=== PATIENT | female | born 1970 | race Caucasian/White ===

== ENCOUNTER 2016-11-17 18:50 | Emergency (ER) | payer OTHER ==
[~2016-11-17] VITALS: Ht 158.8 cm; Wt 54.4 kg
[~2016-11-17 18:50] MED LIST: ACHD5005 PO; ACID1TAB5 PO; AMIT50TA3 PO; AMOX500C2 PO; B12 SHOT; BIRTH CONTROL PILL; BIRTH CONTROL PO; BRINTELLIX; BSP10T PO; CALC-172 PO; CITA10TA70 PO; CITA40TA19 PO; CLON0.123; CLON0.5T3 PO; CLON0.5T60 PO; CLON1TAB2 PO; CRS350T PO; CYCL10TA9 PO; Calcium PO; DIPH25CA79 PO; DULO30CA3 PO; DULO60CA6 PO; DVL500TSR PO; FAMO-119 PO; FAMO20TA5 PO; FLC1T PO; FLUV100T3 PO; FOLI0.4T2 PO; FOLIC; Folic Acid; Folic Acid PO; GABA800T PO; GBPN100C PO; HCT25T PO; HYDR-2890 PO; HYDR-690 PO; HYDR1TAB PO; HYDR1TAB8 OP; HYOS0.1217 PO; IBP600T1 PO; IBP800T PO; LEVO500T69 PO; LISI10TA PO; LISINOPRIL; LORA-794 PO; LORA1TAB PO; METO-333 PO; METO25TA2 PO; MULT1CAP27 PO; NAPR-243 PO; NAPR250T PO; NAPR500T PO; NAPR550T PO; NF-ESOM40C PO; NITR-65 PO; NORG1TAB6 PO; OMEP20CA6 PO; OMEP40CA36 PO; ONDAN4ODT PO; PANT20TA2 PO; PNT40TEC; PNT40TEC PO; POTA99TA7; POTA99TA7 PO; PREN1TAB39 PO; PRM25T PO; Potassium; QTP25T PO; QUET50TA43 PO; RISP4TAB PO; RNT150T PO; RSP2T PO; SERT20OR PO; SERT50TA PO; SUCR1TAB36 PO; TRAM50TA2 PO; TRAZ150T42 PO; VIT B1; VIT B12; VITA150T PO; VITA1TAB16 PO; VITA1TAB74 PO; [UNRECOGNIZED DRUG - OTHER]; [UNRECOGNIZED DRUG - REMARK]; depakote
[2016-11-17 20:24] LABS: BILIRUBIN,URINE NEGATIVE (NEGATIVE); KETONES,URINE 1+ (NEGATIVE); LEUKOCYTE ESTERASE ,URINE NEGATIVE (NEGATIVE); NITRITE,URINE NEGATIVE (NEGATIVE); PH,URINE 5 (5-9); PROTEIN,URINE 2+ (NEGATIVE); UROBILINOGEN,URINE 1 MG/DL (NORMAL)
[2016-11-17] MEDS: NS IV 1000 ML 1,000 ML IV ONE (20:30)
[2016-11-17] MEDS ORDERED: DIAZEPAM INJ 10 MG/2 ML (VALIUM) SYR IV ONE (20:30)
[2016-11-17 20:31] LABS: BASOPHILS % (AUTO) 1 % (0-10); EOSINOPHILS % (AUTO) 0 % (0-10); LYMPHOCYTES # (AUTO) 1.1 X 10^3 (1.0-4.0); LYMPHOCYTES % (AUTO) 18 % (12-44); MEAN CORPUSCULAR HEMOGLOBIN 34 PG (25-34); MEAN CORPUSCULAR HGB CONC 36 G/DL (32-36); MEAN CORPUSCULAR VOLUME 97 FL (80-99); MEAN PLATELET VOLUME 10.1 FL (7.4-10.4); MONOCYTES # (AUTO) 0.6 X 10^3 (0.0-1.0); MONOCYTES % (AUTO) 9 % (0-12); NEUTROPHILS # (AUTO) 4.4 X 10^3 (1.8-7.8); NEUTROPHILS % (AUTO) 72 % (42-75); PLATELET COUNT 195 10^3/uL (130-400); RED BLOOD COUNT 4.23 10^6/uL (4.35-5.85); RED CELL DISTRIBUTION WIDTH 13.5 % (10.0-14.5)
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
[2016-11-17 20:53] LABS: ALANINE AMINOTRANSFERASE 18 U/L (0-55); ALBUMIN 4.1 G/DL (3.2-4.5); ANION GAP 20 MMOL/L (5-14); ASPARTATE AMINO TRANSFERASE 41 U/L (5-34); BILIRUBIN,TOTAL 0.6 MG/DL (0.1-1.0); BLOOD UREA NITROGEN 10 MG/DL (7-18); BUN/CREATININE RATIO 14; CALCIUM 8.9 MG/DL (8.5-10.1); CARBON DIOXIDE 15 MMOL/L (21-32); CHLORIDE 105 MMOL/L (98-107); CREATININE SERUM 0.71 MG/DL (0.60-1.30); GFR ESTIMATED > 60; GLUCOSE 91 MG/DL (70-105); POTASSIUM 3.9 MMOL/L (3.6-5.0); SODIUM 140 MMOL/L (135-145)
[2016-11-17] MEDS ORDERED: NS IV 1000 ML 1,000 ML IV ONE (21:34)
[2016-11-17] MEDS ORDERED: LORA-407 PO (21:59)
[2016-11-17] MEDS ORDERED: LORazepam INJ 2 MG/ML (ATIVAN) VIAL IVP ONE (22:00)
[2016-11-17 22:45] VITALS: BP 160/98
== END 2016-11-17 22:45 | disposition home or self-care (01) ==
LOC: EDUNIT# 18:50 → ER 18:52
DX: F10.239 Alcohol dependence with withdrawal, unspecified (principal); F12.90 Cannabis use, unspecified, uncomplicated; F41.9 Anxiety disorder, unspecified
CPT/HCPCS: 36415; 80053; 80306; 80320; 81000; 85025; 93005; 96361; 96374; 96375

== ENCOUNTER → 2017-01-20 | Outpatient (CLI) | payer OTHER ==
[~2017-01-20] MED LIST changes: +LORA-407 PO
--- NOTE | 2017-01-21 20:02 | Diagnostic Imaging Report ---
Digital mammogram bilateral screening. This is the patient's baseline study. At this time, there are no current complaints. The current study was also evaluated with a Computer Aided Detection (CAD) system. FINDINGS: The fibroglandular tissue in both breasts is dense. This does limit the sensitivity of this exam. There is no primary or secondary sign of malignancy noted. IMPRESSION: 1. There is no evidence for malignancy. 2. The patient should have her annual bilateral screening mammogram on schedule in January of 2018. ACR BI-RADS Category 1: Negative. Result letter will be mailed to the patient. Note: At least 10% of breast cancer is not imaged by mammography. Dictated by: Dictated on workstation # [id number]
== END ==
LOC: RAD 09:59
PROVIDERS: ATTEND Nurse Practitioner Adult Health
DX: Z12.31 Encounter for screening mammogram for malignant neoplasm of breast (principal)
CPT/HCPCS: 77067

== ENCOUNTER 2017-04-23 23:25 | Inpatient (IN) | payer OTHER ==
[~2017-04-23] VITALS: Ht 157.5 cm; Wt 72.6 kg
[2017-04-23] MEDS ORDERED: NS IV 1000 ML 1,000 ML IV ONE (23:44)
[2017-04-24 00:16] LABS: BASOPHILS % (AUTO) 0 % (0-10); EOSINOPHILS # (AUTO) 1.1 10^3/uL (0.0-0.3); EOSINOPHILS % (AUTO) 9 % (0-10); LYMPHOCYTES # (AUTO) 1.8 X 10^3 (1.0-4.0); LYMPHOCYTES % (AUTO) 15 % (12-44); MEAN CORPUSCULAR HEMOGLOBIN 34 PG (25-34); MEAN CORPUSCULAR HGB CONC 34 G/DL (32-36); MEAN CORPUSCULAR VOLUME 102 FL (80-99); MEAN PLATELET VOLUME 10.2 FL (7.4-10.4); MONOCYTES # (AUTO) 0.9 X 10^3 (0.0-1.0); MONOCYTES % (AUTO) 7 % (0-12); NEUTROPHILS # (AUTO) 8.2 X 10^3 (1.8-7.8); NEUTROPHILS % (AUTO) 68 % (42-75); PLATELET COUNT 362 10^3/uL (130-400); RED BLOOD COUNT 4.01 10^6/uL (4.35-5.85); RED CELL DISTRIBUTION WIDTH 12.3 % (10.0-14.5)
[2017-04-24 00:20] LABS: KETONES,URINE 1+ (NEGATIVE); LEUKOCYTE ESTERASE ,URINE 1+ (NEGATIVE); NITRITE,URINE NEGATIVE (NEGATIVE); PH,URINE 5 (5-9); PROTEIN,URINE 1+ (NEGATIVE); UROBILINOGEN,URINE 1 MG/DL (NORMAL)
[2017-04-24 00:31] LABS: ALANINE AMINOTRANSFERASE 8 U/L (0-55); ALBUMIN 3.9 G/DL (3.2-4.5); AMYLASE 136 U/L (25-125); ANION GAP 14 MMOL/L (5-14); ASPARTATE AMINO TRANSFERASE 14 U/L (5-34); BILIRUBIN,TOTAL 0.7 MG/DL (0.1-1.0); BLOOD UREA NITROGEN 8 MG/DL (7-18); BUN/CREATININE RATIO 11; CALCIUM 10.1 MG/DL (8.5-10.1); CARBON DIOXIDE 21 MMOL/L (21-32); CHLORIDE 104 MMOL/L (98-107); CREATININE SERUM 0.74 MG/DL (0.60-1.30); GFR ESTIMATED > 60; GLUCOSE 118 MG/DL (70-105); LIPASE 112 U/L (8-78); POTASSIUM 3.6 MMOL/L (3.6-5.0); SODIUM 139 MMOL/L (135-145); TOTAL PROTEIN 7.5 G/DL (6.4-8.2)
[2017-04-24 00:32] LABS: BILIRUBIN,URINE NEGATIVE (NEGATIVE); SQUAMOUS EPITHELIAL CELL,UR 25-50 /HPF; WBC,URINE 0-2 /HPF
[2017-04-24 00:33] LABS: ALCOHOL < 10 MG/DL (<10)
[2017-04-24] MEDS ORDERED: fentaNYL INJECTION 100 MCG/2 ML AMP IVP STA ×2 (00:51→02:36)
[2017-04-24] MEDS ORDERED: KETOROLAC 30 MG/ML VIAL IVP STA (00:51)
--- NOTE | 2017-04-24 00:53 | ED Abdominal Pain ---
General Stated Complaint: PANCREATIC PAIN Source of Information: Patient Exam Limitations: No Limitations History of Present Illness Time Seen By Provider: 00:30 Initial Comments Here with report of epigastric pain that has worsened over the last 2 days. Admits to drinking 8 beers on Friday (3 days ago). Has history of pancreatitis. States that every time she eats or drinks she gets nauseated and/ or severe pain. This is occurring even with water. Denies diarrhea. Denies fever or chills. Timing/Duration: 2-3 Days Severity/Quality: Moderate, Aching Location: Epigastric Radiation: RUQ, LUQ Activities at Onset: None Modifying Factors: Worsens With Eating, Improves With Resting Associated Symptoms: No Back Pain, No Chest Pain, No Fever/Chills, Nausea/ Vomiting, No Shortness of Air, No Swelling/Mass in Abdomen, No Weakness Allergies and Home Medications Allergies Coded Allergies: No Known Drug Allergies (Verified , 02/14/09) Home Medications Lorazepam 2 Mg Tablet, 2 MG PO Q6H, #12 Ref 0 Prescribed by: BRIANNA BERMEO on 11/17/16 2159 Review of Systems Constitutional: see HPI, No chills, No fever EENTM: No Symptoms Reported Respiratory: No Symptoms Reported Cardiovascular: No Symptoms Reported Gastrointestinal: See HPI, Abdominal Pain, Denies Diarrhea, Nausea, Denies Vomiting Genitourinary: No Symptoms Reported Musculoskeletal: no symptoms reported Skin: no symptoms reported All Other Systems Reviewed Negative Unless Noted: Yes Past Uenaywf-Uabbzr-Hppzom Hx Patient Social History Alcohol Use: Occasionally Uses Recreational Drug Use: Yes Drug of Choice: marjuana Smoking Status: Current Everyday Smoker Type Used: Cigarettes Recent Foreign Travel: No Contact w/Someone Who Travel: No Recent Hopitalizations: No Immunizations Up To Date Tetanus Booster (TDap): Unknown PED Vaccines UTD: No Date of Pneumonia Vaccine: Aug 17, 2011 Date of Influenza Vaccine: Aug 15, 2016 Seasonal Allergies Seasonal Allergies: No Surgeries HX Surgeries: Yes ( X 1) Surgeries: Section Respiratory Hx Respiratory Disorders: No Cardiovascular Hx Cardiac Disorders: Yes ("USED TO HAVE HTN") Neurological Hx Neurological Disorders: Yes (WITHDRAWAL SEIZURES IN PAST) Reproductive System Hx Reproductive Disorders: No Female Reproductive Disorders: Denies Genitourinary Hx Genitourinary Disorders: No Gastrointestinal Hx Gastrointestinal Disorders: Yes Gastrointestinal Disorders: Gastroesophageal Reflux, Pancreatitis Musculoskeletal Hx Musculoskeletal Disorders: No Endocrine Hx Endocrine Disorders: No HEENT HX ENT Disorders: No Cancer Hx Cancer: No Psychosocial Hx Psychiatric Problems: Yes (EXTENSIVE, MULTIPLE PSYCH ADMITS. ) Behavioral Health Disorders: Anxiety, Suicide Attempts, Bipolar, Depression Integumentary HX Skin/Integumentary Disorder: No Blood Transfusions Hx Blood Disorders: No Reviewed Nursing Assessment Reviewed/Agree w Nursing PMH: Yes Family Medical History Significant Family History: No Pertinent Family Hx Family Medial History: Patient reports no known family medical history. Physical Exam Vital Signs VS - Last 72 Hours, by Label 04/23/17 04/24/17 04/24/17 23:43 01:18 01:18 Temp 98.6 98.6 98.6 Pulse 91 Resp 20 B/P (MAP) 173/101 Pulse Ox 98 O2 Delivery Room Air Capillary Refill : General Appearance: WD/WN, mild distress HEENT: PERRL/EOMI, pharynx normal Neck: full range of motion, supple Respiratory: lungs clear, normal breath sounds Cardiovascular: regular rate, rhythm, no murmur Gastrointestinal: non tender, soft Extremities: non-tender, normal inspection Back: normal inspection, no CVA tenderness, no vertebral tenderness Neurologic/Psychiatric: alert, oriented x 3 Skin: normal color, warm/dry Progress/Results/Core Measures Results/Orders Lab Results Laboratory Tests Test 04/23/17 00:11 04/24/17 00:00 Range/Units Urine Color ERLINDA H Urine Clarity CLEAR Urine pH 5 5-9 Urine Specific Cornish 1.025 H 1.016-1.022 Urine Protein 1+ H NEGATIVE Urine Glucose (UA) NEGATIVE NEGATIVE Urine Ketones 1+ H NEGATIVE Urine Nitrite NEGATIVE NEGATIVE Urine Bilirubin NEGATIVE NEGATIVE Urine Urobilinogen 1 NORMAL MG/DL Urine Leukocyte Esterase 1+ H NEGATIVE Urine RBC (Auto) 2+ H NEGATIVE Urine RBC 2-5 H /HPF Urine WBC 0-2 /HPF Urine Squamous Epithelial Cells 25-50 H /HPF Urine Crystals NONE /LPF Urine Bacteria FEW H /HPF Urine Casts NONE /LPF Urine Mucus MODERATE H /LPF Urine Culture Indicated NO Urine Opiates Screen NEGATIVE NEGATIVE Urine Oxycodone Screen NEGATIVE NEGATIVE Urine Methadone Screen NEGATIVE NEGATIVE Urine Propoxyphene Screen NEGATIVE NEGATIVE Urine Barbiturates Screen NEGATIVE NEGATIVE Ur Tricyclic Antidepressants Screen NEGATIVE NEGATIVE Urine Phencyclidine Screen NEGATIVE NEGATIVE Urine Amphetamines Screen NEGATIVE NEGATIVE Urine Methamphetamines Screen NEGATIVE NEGATIVE Urine Benzodiazepines Screen NEGATIVE NEGATIVE Urine Cocaine Screen NEGATIVE NEGATIVE Urine Cannabinoids Screen POSITIVE H NEGATIVE White Blood Count 12.0 H 4.3-11.0 10^3/uL Red Blood Count 4.01 L 4.35-5.85 10^6/uL Hemoglobin 13.8 11.5-16.0 G/DL Hematocrit 41 35-52 % Mean Corpuscular Volume 102 H 80-99 FL Mean Corpuscular Hemoglobin 34 25-34 PG Mean Corpuscular Hemoglobin Concent 34 32-36 G/DL Red Cell Distribution Width 12.3 10.0-14.5 % Platelet Count 362 130-400 10^3/uL Mean Platelet Volume 10.2 7.4-10.4 FL Neutrophils (%) (Auto) 68 42-75 % Lymphocytes (%) (Auto) 15 12-44 % Monocytes (%) (Auto) 7 0-12 % Eosinophils (%) (Auto) 9 0-10 % Basophils (%) (Auto) 0 0-10 % Neutrophils # (Auto) 8.2 H 1.8-7.8 X 10^3 Lymphocytes # (Auto) 1.8 1.0-4.0 X 10^3 Monocytes # (Auto) 0.9 0.0-1.0 X 10^3 Eosinophils # (Auto) 1.1 H 0.0-0.3 10^3/uL Basophils # (Auto) 0.0 0.0-0.1 10^3/uL Sodium Level 139 135-145 MMOL/L Potassium Level 3.6 3.6-5.0 MMOL/L Chloride Level 104 98-107 MMOL/L Carbon Dioxide Level 21 21-32 MMOL/L Anion Gap 14 5-14 MMOL/L Blood Urea Nitrogen 8 7-18 MG/DL Creatinine 0.74 0.60-1.30 MG/DL Estimat Glomerular Filtration Rate > 60 BUN/Creatinine Ratio 11 Glucose Level 118 H 70-105 MG/DL Calcium Level 10.1 8.5-10.1 MG/DL Total Bilirubin 0.7 0.1-1.0 MG/DL Aspartate Amino Transf (AST/SGOT) 14 5-34 U/L Alanine Aminotransferase (ALT/SGPT) 8 0-55 U/L Alkaline Phosphatase 60 40-136 U/L Total Protein 7.5 6.4-8.2 G/DL Albumin 3.9 3.2-4.5 G/DL Amylase Level 136 H 25-125 U/L Lipase 112 H 8-78 U/L Serum Alcohol < 10 <10 MG/DL My Orders Orders - MARICHUY BRYANT MD Alcohol (04/23/17 23:44) Amylase (04/23/17 23:44) Cbc With Automated Diff (04/23/17 23:44) Comprehensive Metabolic Panel (04/23/17 23:44) Drug Screen Stat (Urine) (04/23/17 23:44) Lipase (04/23/17 23:44) Ua Culture If Indicated (04/23/17 23:44) Saline Lock/Iv-Start (04/23/17 23:44) Ns Iv 1000 Ml (Sodium Chloride 0.9%) (04/23/17 23:44) Ondansetron Injection (Zofran Injectio (04/24/17 01:00) Fentanyl Injection (Sublimaze Injection (04/24/17 00:51) Ketorolac Injection (Toradol Injection) (04/24/17 00:51) Ct Abdomen/Pelvis W (04/24/17 00:53) Iohexol Injection (Omnipaque 350 Mg/Ml 1 (04/24/17 01:45) Ns (Ivpb) (Sodium Chloride 0.9% Ivpb Bag (04/24/17 01:45) Medications Given in ED Current Medications Medications Dose Ordered Sig/Imelda Route Start Time Stop Time Status Last Admin Dose Admin Iohexol 100 ml ONCE ONCE IV 04/24/17 01:45 04/24/17 01:53 DC 04/24/17 01:46 100 ML Ondansetron HCl 4 mg ONCE ONCE IVP 04/24/17 01:00 04/24/17 01:01 DC 04/24/17 01:18 4 MG Sodium Chloride 80 ml ONCE ONCE IV 04/24/17 01:45 04/24/17 01:53 DC 04/24/17 01:46 80 ML Sodium Chloride 1,000 ml @ 0 mls/hr Q0M ONCE IV 04/23/17 23:44 04/23/17 23:46 DC 04/24/17 00:08 999 MLS/HR Vital Signs/I&O Vital Sign - Last 12Hours 04/23/17 04/24/17 04/24/17 23:43 01:18 01:18 Temp 98.6 98.6 98.6 Pulse 91 Resp 20 B/P (MAP) 173/101 Pulse Ox 98 O2 Delivery Room Air Progress Note : Progress Note Seen and evaluated. IV, labs, UA, normal saline 1 L bolus. Monitor patient. Fentanyl 50 g IV, Zofran 4 mg IV and Toradol 30 mg IV given for pain. CT abdomen and pelvis ordered. Monitor patient. 0220: I discussed the case with Dr. Chapin. Patient has fairly significant pancreatitis noted on CT scan. Admit , inpatient status. Patient has return of pain currently. Fentanyl 75 g IV ordered. Patient agrees to admission. Diagnostic Imaging Diagonstic Imaging: CT Plain Films/CT/US/NM/MRI: abdomen, pelvis Comments Findings consistent with acute pancreatitis centered within the head and uncinate process where there is around 11-12 mm low density focus that may be a small pseudocyst. There is diffuse. Pain creatinine stranding, edema and small amounts of fluid including within the lesser sac where there is some localized mass effect upon the distal stomach and duodenal C-loop. There may be also slight narrowing of the SMV just below the portal splenic confluence without evidence of occlusion. Small volume of free fluid dependently in the pelvis. Incidental findings of small amount of fluid seen along with fat in the midline ventral wall hernia midway between the xiphoid and umbilicus. 2.4 cm lesion in the posterior segment right hepatic lobe most likely a hemangioma. No evidence of intestinal obstruction, appendicitis or free air. Per statrad read. Reviewed: Reviewed [place] Hawk Study, Reviewed by Me Departure Communication Time/Spoke to Admitting Phy: 02:18 Impression Impression: Primary Impression: Pancreatitis Qualified Codes: K85.20 - Alcohol induced acute pancreatitis without necrosis or infection Disposition: ADMITTED INPATIENT Condition: Stable Decision to Admit Reason: Admit from ER (General) Decision to Admit/Date: Apr 24, 2017 Time/Decision to Admit Time: 02:18 Departure-Patient Inst. Referrals: BAROTLO ZIMMERMAN MD (PCP) Primary Care Physician [facility] (Family) Primary Care Physician MARICHUY BRYANT MD Apr 24, 2017 00:53
[2017-04-24] MEDS ORDERED: ONDANSETRON 4 MG/2 ML (SDV) Z0FRAN IVP ONE (01:00)
[2017-04-24] MEDS ORDERED: NS 100 ML (IVPB) BAG IV ONE (01:45)
[2017-04-24] MEDS ORDERED: IOHEXOL 350 MG/ML 100 ML (OMNIPAQUE 350) VIAL IV ONE (01:45)
[2017-04-24 03:27] VITALS: BP 143/82
[2017-04-24] MEDS ORDERED: ONDANSETRON 4 MG/2 ML (SDV) Z0FRAN IVP PRN (04:30)
[2017-04-24] MEDS: fentaNYL INJECTION 100 MCG/2 ML AMP IVP PRN ×6 (04:34→21:43)
--- NOTE | 2017-04-24 07:35 | Diagnostic Imaging Report ---
PROCEDURE: CT abdomen and pelvis with contrast. TECHNIQUE: Multiple contiguous axial images were obtained through the abdomen and pelvis after administration of intravenous contrast. INDICATION: Upper abdominal pain. FINDINGS: Lung bases are clear. Liver appears normal. Gallbladder is present. Spleen is not enlarged. There is food residue in stomach. Kidneys and adrenals appear normal. The pancreas is edematous with surrounding induration consistent acute pancreatitis. There is a small supraumbilical ventral hernia. There is a small amount of fluid in the cul-de-sac. Uterus is present. Urinary bladder is unremarkable. IMPRESSION: Acute pancreatitis. Small amount of ascites. Agree with preliminary interpretation. Dictated by: Dictated on workstation # [id number]
[2017-04-24] MEDS ORDERED: CATHETER FLUSH 10 ML SYR IV PRN (07:45)
[2017-04-24 08:19] VITALS: BP 144/91
[2017-04-24] MEDS ORDERED: NORG1TAB6 PO (09:09)
[2017-04-24] MEDS ORDERED: MIRT30TA6 PO (09:09)
[2017-04-24] MEDS ORDERED: OMEP40CA36 PO (09:09)
[2017-04-24] MEDS ORDERED: MULT-35 PO (09:11)
[2017-04-24] MEDS ORDERED: CALC-654 PO (09:11)
[2017-04-24] MEDS ORDERED: CYAN10006 PO (09:11)
[2017-04-24] MEDS ORDERED: MAGN400C PO (09:11)
[2017-04-24] MEDS ORDERED: ASPI-992 PO (09:11)
[2017-04-24] MEDS: NS IV 1000 ML 1,000 ML IV SCH ×3 (09:26→18:45)
--- NOTE | 2017-04-24 11:43 | History & Physicial (CHS) ---
HPI History of Present Illness: 46 yo F with h/o acute pancreatitis multiple times that presents with pain and symptoms consistent with pancreatitis overnight. States that she has been a heavy drinker in the past with vodka and has had multiple hospitalizations for pancreatitis. She has not been hospitalized since 2011. She started having abdominal pain after drinking 12 beers on Friday. States that she was having a lot of nausea. Unable to tolerate PO. Denies any diarrhea or blood in stool Source: patient, RN/MD Exam Limitations: no limitations Date seen by provider: Apr 24, 2017 Time Seen by Provider: 10:00 Attending Physician Joan Chapin MD PCP Renzo Zimmerman MD Consult Date of Admission Apr 24, 2017 at 02:25 Home Medications Home Medications Reviewed patient Home Medication Reconciliation Form Allergies Coded Allergies: No Known Drug Allergies (Verified , 02/14/09) IEJ-[id number]-Adihvd Hx Patient Social History Alcohol Use: Occasionally Uses Recreational Drug Use: Yes Drug of Choice: marjuana Smoking Status: Current Everyday Smoker Type Used: Cigarettes 2nd Hand Smoke Exposure: Yes Recent Foreign Travel: No Contact w/other who traveled: No Recent Hopitalizations: No Recent Infectious Disease Expo: No Physical Abuse Screen: No Sexual Abuse: No Immunizations Up To Date Tetanus Booster (TDap): Unknown Date of Pneumonia Vaccine: Aug 17, 2011 Date of Influenza Vaccine: Aug 15, 2016 Past Medical History PMHx: Alcoholism h/o Pancreatitis that required Hospitalization Family Medical History Significant Family History: No Pertinent Family Hx Family History: Patient reports no known family medical history. Review of Systems ([facility]C) Date Seen by Provider: Apr 24, 2017 Time Seen by Provider: 10:00 Constitutional: No fever, malaise, weakness EENTM: no symptoms reported Respiratory: no symptoms reported, No cough, No dyspnea on exertion, No short of breath Cardiovascular: no symptoms reported, No chest pain, No edema, No palpitations Gastrointestinal: abdominal pain (epigastric), No constipation, No diarrhea, heartburn, loss of appetite, nausea Genitourinary: no symptoms reported, No dysuria, No frequency, No hematuria : No Musculoskeletal: no symptoms reported Skin: no symptoms reported Psychiatric/Neurological: Anxiety Reviewed Test Results Reviewed Test Results Lab Laboratory Tests Test 04/24/17 00:00 Range/Units White Blood Count 12.0 H 4.3-11.0 10^3/uL Red Blood Count 4.01 L 4.35-5.85 10^6/uL Hemoglobin 13.8 11.5-16.0 G/DL Hematocrit 41 35-52 % Mean Corpuscular Volume 102 H 80-99 FL Mean Corpuscular Hemoglobin 34 25-34 PG Mean Corpuscular Hemoglobin Concent 34 32-36 G/DL Red Cell Distribution Width 12.3 10.0-14.5 % Platelet Count 362 130-400 10^3/uL Mean Platelet Volume 10.2 7.4-10.4 FL Neutrophils (%) (Auto) 68 42-75 % Lymphocytes (%) (Auto) 15 12-44 % Monocytes (%) (Auto) 7 0-12 % Eosinophils (%) (Auto) 9 0-10 % Basophils (%) (Auto) 0 0-10 % Neutrophils # (Auto) 8.2 H 1.8-7.8 X 10^3 Lymphocytes # (Auto) 1.8 1.0-4.0 X 10^3 Monocytes # (Auto) 0.9 0.0-1.0 X 10^3 Eosinophils # (Auto) 1.1 H 0.0-0.3 10^3/uL Basophils # (Auto) 0.0 0.0-0.1 10^3/uL Sodium Level 139 135-145 MMOL/L Potassium Level 3.6 3.6-5.0 MMOL/L Chloride Level 104 98-107 MMOL/L Carbon Dioxide Level 21 21-32 MMOL/L Anion Gap 14 5-14 MMOL/L Blood Urea Nitrogen 8 7-18 MG/DL Creatinine 0.74 0.60-1.30 MG/DL Estimat Glomerular Filtration Rate > 60 BUN/Creatinine Ratio 11 Glucose Level 118 H 70-105 MG/DL Calcium Level 10.1 8.5-10.1 MG/DL Total Bilirubin 0.7 0.1-1.0 MG/DL Aspartate Amino Transf (AST/SGOT) 14 5-34 U/L Alanine Aminotransferase (ALT/SGPT) 8 0-55 U/L Alkaline Phosphatase 60 40-136 U/L Total Protein 7.5 6.4-8.2 G/DL Albumin 3.9 3.2-4.5 G/DL Amylase Level 136 H 25-125 U/L Lipase 112 H 8-78 U/L Serum Alcohol < 10 <10 MG/DL Radiology of Exam: 06/08/17 CT ABDOMEN/PELVIS W PROCEDURE: CT abdomen and pelvis with contrast. TECHNIQUE: Multiple contiguous axial images were obtained through the abdomen and pelvis after administration of intravenous contrast. INDICATION: Upper abdominal pain. FINDINGS: Lung bases are clear. Liver appears normal. Gallbladder is present. Spleen is not enlarged. There is food residue in stomach. Kidneys and adrenals appear normal. The pancreas is edematous with surrounding induration consistent acute pancreatitis. There is a small supraumbilical ventral hernia. There is a small amount of fluid in the cul-de-sac. Uterus is present. Urinary bladder is unremarkable. IMPRESSION: Acute pancreatitis. Small amount of ascites. Agree with preliminary interpretation. Physical Exam-([facility]C) Physical Exam Vital Signs VS - Last 72 Hours, by Label 04/23/17 04/24/17 04/24/17 04/24/17 23:43 01:18 01:18 02:42 Temp 98.6 98.6 98.6 98.6 Pulse 91 Resp 20 B/P (MAP) 173/101 Pulse Ox 98 O2 Delivery Room Air 04/24/17 04/24/17 04/24/17 04/24/17 03:00 03:27 08:19 12:27 Temp 98.6 97.8 98.0 98.4 Pulse 87 82 76 70 Resp 20 18 16 14 B/P (MAP) 143/82 144/91 170/93 Pulse Ox 98 98 96 98 Capillary Refill : Less Than 3 Seconds General Appearance: WD/WN, no apparent distress HEENT: PERRL/EOMI Neck: non-tender, full range of motion, supple, normal inspection Respiratory: chest non-tender, lungs clear, normal breath sounds, no respiratory distress, no accessory muscle use Cardiovascular: normal peripheral pulses, regular rate, rhythm, no edema, no gallop, no JVD, no murmur Gastrointestinal: normal bowel sounds, soft, distended (mild), tenderness ( epigastric), No hepatomegaly, No spleenomegaly Back: normal inspection, no CVA tenderness Extremities: normal range of motion, non-tender, no pedal edema, no calf tenderness, normal capillary refill Neurologic/Psychiatric: taxicab dispatcher II-XII nml as tested, no motor/sensory deficits, alert, normal mood/affect, oriented x 3 Skin: normal color, warm/dry Lymphatic: no adenopathy Assessment/Plan Assessment/Plan Plan 46 yo F admitted for acute pancreatitis Plan Acute Pancreatitis due to alcohol use - CLD, aggressive fluid hydration - Start PO pain medication for better pain control - Discussed importance of alcohol cessation HTN - Likely 2/2 to coming off alcohol, will continue to monitor - If remains elevated tomorrow will start treatment Alcohol Abuse - Discussed need for cessation - Offered outpatient treatment at [facility] DVT PPX: Lovenox FEN: CLD Dispo: Continue admit as patient is not tolerating PO diet and is still having pain, Will likely d/c home tomorrow if improving Diagnosis/Problems: Clinical Quality Measures DVT/VTE Risk/Contraindication: Risk Factor Score Per Nursin RFS Level Per Nursing on Admit: 2=Moderate Copy Copies To 1: RENZO ZIMMERMAN MD, HOLLY R MD Apr 24, 2017 11:43
[2017-04-24] MEDS: HYDROcodone/APAP 5 MG/325 MG (LORTAB) TAB PO PRN ×2 (11:49→16:18)
[2017-04-24 12:27] VITALS: BP 170/93
[2017-04-24] MEDS ORDERED: ENOXAPARIN 40 MG/0.4 ML (LOVENOX) SYR SC SCH (15:15)
[2017-04-24 16:00] VITALS: BP 138/85
[2017-04-24 19:35] VITALS: BP 141/80
[2017-04-24] MEDS ORDERED: MIRTAZAPINE 15 MG (REMERON) TAB PO PRN (21:00)
[2017-04-25] VITALS: BP 137/70
[2017-04-25] MEDS: fentaNYL INJECTION 100 MCG/2 ML AMP IVP PRN ×4 (00:05→07:50)
[2017-04-25 05:00] VITALS: BP 142/91
[2017-04-25 05:09] LABS: BASOPHILS % (AUTO) 0 % (0-10); EOSINOPHILS # (AUTO) 0.7 10^3/uL (0.0-0.3); EOSINOPHILS % (AUTO) 8 % (0-10); LYMPHOCYTES # (AUTO) 1.5 X 10^3 (1.0-4.0); LYMPHOCYTES % (AUTO) 17 % (12-44); MEAN CORPUSCULAR HEMOGLOBIN 35 PG (25-34); MEAN CORPUSCULAR HGB CONC 33 G/DL (32-36); MEAN CORPUSCULAR VOLUME 104 FL (80-99); MEAN PLATELET VOLUME 10.1 FL (7.4-10.4); MONOCYTES # (AUTO) 0.7 X 10^3 (0.0-1.0); MONOCYTES % (AUTO) 8 % (0-12); NEUTROPHILS # (AUTO) 5.8 X 10^3 (1.8-7.8); NEUTROPHILS % (AUTO) 66 % (42-75); PLATELET COUNT 259 10^3/uL (130-400); RED BLOOD COUNT 3.28 10^6/uL (4.35-5.85); RED CELL DISTRIBUTION WIDTH 12.1 % (10.0-14.5); WHITE BLOOD COUNT 8.8 10^3/uL (4.3-11.0)
[2017-04-25] MEDS: NS IV 1000 ML 1,000 ML IV SCH (05:27)
[2017-04-25 05:39] LABS: ALANINE AMINOTRANSFERASE 6 U/L (0-55); ALBUMIN 3.1 G/DL (3.2-4.5); ANION GAP 12 MMOL/L (5-14); ASPARTATE AMINO TRANSFERASE 12 U/L (5-34); BILIRUBIN,TOTAL 0.5 MG/DL (0.1-1.0); BLOOD UREA NITROGEN 5 MG/DL (7-18); BUN/CREATININE RATIO 8; CALCIUM 8.1 MG/DL (8.5-10.1); CARBON DIOXIDE 19 MMOL/L (21-32); CHLORIDE 107 MMOL/L (98-107); GFR ESTIMATED > 60; GLUCOSE 73 MG/DL (70-105); POTASSIUM 3.4 MMOL/L (3.6-5.0); SODIUM 138 MMOL/L (135-145); TOTAL PROTEIN 5.9 G/DL (6.4-8.2)
[2017-04-25] MEDS ORDERED: PANTOPRAZOLE 40 MG (PROTONIX) TAB PO SCH (07:00)
[2017-04-25] MEDS ORDERED: CYANOCOBALAMIN 500 MCG TAB (VITAMIN B-12) PO SCH (07:00)
[2017-04-25] MEDS ORDERED: MULTIVIT W/MINERALS TAB (THERAGRAN M) PO SCH (07:00)
[2017-04-25 08:53] VITALS: BP 167/89
[2017-04-25] MEDS ORDERED: KCL 20 MEQ TAB (K-DUR) PO NR (09:44)
[2017-04-25] MEDS: HYDROcodone/APAP 5 MG/325 MG (LORTAB) TAB PO PRN (10:16)
[2017-04-25] MEDS ORDERED: OXYC-197 PO (11:35)
--- NOTE | 2017-04-25 11:38 | Discharge Instructions ---
Discharge [facility] Discharge Medications New, Converted or Re-Newed RX: RX on Chart New Medications: Oxycodone HCl/Acetaminophen (Percocet 5-325 mg Tablet) 1 Each Tablet 1 EACH PO Q6H, #20 TAB Continued Medications: Aspirin/Acetaminophen/Caffeine (Excedrin Extra Strength Caplet) 1 Each Tablet 1 TAB PO BID PRN for HEADACHE, TAB Calcium Carbonate/Vitamin D3 (Calcium 500 + D Tablet) 1 Each Tablet 1 TAB PO DAILY, TAB Cyanocobalamin (Vitamin B-12) (Vitamin B-12) 1,000 Mcg Tablet 1000 MCG PO DAILY, TAB Magnesium Oxide (Magnesium) 400 Mg Capsule 400 MG PO DAILY, CAP Mirtazapine (Mirtazapine) 30 Mg Tablet 30 MG PO HS PRN for SLEEP, TAB Multivitamin (Daily Multiple Vitamin) 1 Each Tablet 1 TAB PO DAILY, TAB Norgestimate-Ethinyl Estradiol (Ortho-Cyclen 28 Tablet) 1 Each Tablet 1 TAB PO DAILY, TAB Omeprazole (Omeprazole) 40 Mg Capsule.dr 40 MG PO DAILY, CAP Patient Instructions Goal/Follow Up Appt: You have a follow up appt with Sukumar on April 30 0840 am Patient Instructions: Make sure to stick with clear liquid diet and advance diet slowly Discussed importance of alcohol cessation Return to The Hospital For: Unable to tolerate liquids Activity & Diet Discharge Diet: Liquid Diet (clear ) Activity as Tolerated: Yes Orders-Post D/C & Referrals Pneu Vac Indicated: Yes Copy Copies To 1: Sukumar FELDMAN HOLLY R MD Apr 25, 2017 11:38
--- NOTE | 2017-04-25 11:38 | Discharge Summary ---
Diagnosis/Chief Complaint Date of Admission Apr 24, 2017 at 02:25 Date of Discharge 04/25/2017 Admission Diagnosis Admission Diagnosis Acute Pancreatitis Alcohol Abuse HTN Hypokalemia Discharge Diagnosis See Above Chief Complaint/HPI Chief Complaint/HPI 46 yo F with h/o acute pancreatitis multiple times that presents with pain and symptoms consistent with pancreatitis overnight. States that she has been a heavy drinker in the past with vodka and has had multiple hospitalizations for pancreatitis. She has not been hospitalized since 2011. She started having abdominal pain after drinking 12 beers on Friday. States that she was having a lot of nausea. Unable to tolerate PO. Denies any diarrhea or blood in stool Discharge Summary-Simple/Stand Consultations Discharge Physical Examination Allergies: Coded Allergies: No Known Drug Allergies (Verified , 02/14/09) Vitals & I&Os Vital Sign - Last 12Hours Date Time Temp Pulse Resp B/P (MAP) Pulse Ox O2 Delivery O2 Flow Rate FiO2 04/25/17 10:16 97.7 04/25/17 08:53 86 20 167/89 98 04/23/17 23:43 Room Air Intake and Output 04/25/17 00:00 Intake Total 2140 ml Output Total 250 ml Balance 1890 ml General Appearance: Alert, Oriented X3, Cooperative, No Acute Distress HEENT: EOMI, Mucous Memb Moist/[place] Respiratory: Clear to Auscultation, Normal Air Movement Cardiovascular: Regular Rate, No Murmurs Abdominal: Normal Bowel Sounds, Soft, No Hepatosplenomegaly, Other (mild epigastric tenderness) Extremities: No Edema Skin: No Rashes, No Breakdown Neuro: Normal Gait, Normal Speech, Strength at 5/5 X4 Ext, Sensation Intact, Cranial Nerves 3-12 NL Psych/Mental Status: Mental Status NL, Mood NL Hospital Course See final discharge diagnosis. Pending Labs None Radiology Reviewed of Exam: 04/24/17 CT ABDOMEN/PELVIS W PROCEDURE: CT abdomen and pelvis with contrast. TECHNIQUE: Multiple contiguous axial images were obtained through the abdomen and pelvis after administration of intravenous contrast. INDICATION: Upper abdominal pain. FINDINGS: Lung bases are clear. Liver appears normal. Gallbladder is present. Spleen is not enlarged. There is food residue in stomach. Kidneys and adrenals appear normal. The pancreas is edematous with surrounding induration consistent acute pancreatitis. There is a small supraumbilical ventral hernia. There is a small amount of fluid in the cul-de-sac. Uterus is present. Urinary bladder is unremarkable. IMPRESSION: Acute pancreatitis. Small amount of ascites. Agree with preliminary interpretation. Discussion & Recommendations 46 yo F that presented to ER with severe epigastric pain found to have MRI findings of acute pancreatitis Acute Pancreatitis secondary to alcohol use: Patient was placed on aggressive fluid hydration with IV pain control. She was then advanced to CLD and switched to oral pain medication. Pain improving at time of discharge. She was given script for percocet for 14 days. Continue CLD until pain improving then advance as tolerated. Discussed the role of her alcohol use and her pancreatitis which she is aware as she has had multiple stays in the past for acute pancreatitis. HTN: She was continued on her home BP medications Hypokalemia: Replaced and resolved at time of discharge Alcohol Abuse: Offered outpatient treatment program at [facility]. She states that she will think about it. She has quit alcohol in the past. Discussed the importance of cessation. Home today with close follow up with PCP Sukumar. Discharge Condition at discharge stable Instructions to patient/family Please see electonic discharge instructions given to patient. Discharge Medications Reviewed and agree with Discharge Medication list on patient's Discharge Instruction sheet Clinical Quality Measures DVT/VTE Risk/Contraindication: Risk Factor Score Per Nursin RFS Level Per Nursing on Admit: 2=Moderate Copy Copies To 1: [facility], [place] Arevalo MD Apr 25, 2017 11:38
[2017-04-25] MEDS ORDERED: oxyCODONE/APAP 5/325MG (PERCOCET 5) TABLET PO PRN (11:45)
[2017-04-25 12:00] VITALS: BP 128/65
[2017-04-25] MEDS ORDERED: POLY17PO6 PO (13:11)
[2017-04-25] MEDS ORDERED: POLYETHYLENE GLYCOL 17 GM (MIRALAX) PACK PO NR (13:21)
[2017-04-25 14:03] VITALS: BP 128/65
== END 2017-04-25 14:05 | disposition home or self-care (01) | DRG 440 ==
LOC: EDUNIT# 23:25 → ER 23:29 → ICU 04-24 02:25 → 4TH 04-24 16:39
PROVIDERS: ADMIT Family Medicine; ATTEND Family Medicine
DX: K85.20 Alcohol induced acute pancreatitis without necrosis or infection (principal); F10.20 Alcohol dependence, uncomplicated; I10 Essential (primary) hypertension; F17.210 Nicotine dependence, cigarettes, uncomplicated; F12.90 Cannabis use, unspecified, uncomplicated; K21.9 Gastro-esophageal reflux disease without esophagitis; F31.9 Bipolar disorder, unspecified; F41.9 Anxiety disorder, unspecified; E87.6 Hypokalemia
CPT/HCPCS: 36415; 74177; 80053; 80306; 80320; 81000; 82150; 83690; 85025; 96361; 96374; 96375; 96376

== ENCOUNTER 2017-11-18 19:25 | Emergency (ER) | payer SELFPAY ==
[~2017-11-18] VITALS: Ht 157.5 cm; Wt 59.0 kg
[~2017-11-18 19:25] MED LIST changes: +ASPI-992 PO; +CALC-654 PO; +CYAN10006 PO; +MAGN400C PO; +MIRT30TA6 PO; +MULT-35 PO; +NAPR-1071 PO; -NAPR500T PO; +OXYC-197 PO; +POLY17PO6 PO
--- OUTSIDE RECORDS SUMMARY | 2017-11-18 19:31 | XMS REPORT ---
Author Author JOSE ROBERTO MCCABE Organization [facility] Address [address] [place] [address] Care Team Providers Care Science Professor Name Role Phone JOSE ROBERTO MCCABE Unavailable PROBLEMS Type Condition ICD9-CM Code [id number] Code Onset Dates Condition Status SNOMED Code Problem Wheezing R06.2 Active 91124175 Problem Vitamin D deficiency E55.9 Active 42450290 Problem Smoking addiction F17.200 Active 264290850 Problem Generalized anxiety disorder F41.1 Active 49796501 Problem Dysthymic disorder F34.1 Active 26955218 Problem Alcohol abuse F10.10 Active 81585100 Problem control counseling Z30.9 Active 43617877 Problem Primary insomnia F51.01 Active 8887399 Problem Gastroesophageal reflux disease with esophagitis K21.0 Active 615042387 Problem Irregular periods N92.6 Active 78663811 Problem Gastroesophageal reflux disease without esophagitis K21.9 Active 871832179 Problem Cervical paraspinal muscle spasm M62.838 Active 652394405 Problem Major depressive disorder with single episode, remission status unspecified F32.9 Active 28132981 ALLERGIES No Information SOCIAL HISTORY Never Assessed PLAN OF CARE VITAL SIGNS MEDICATIONS Unknown Medications RESULTS No Results PROCEDURES No Known procedures IMMUNIZATIONS No Known Immunizations MEDICAL (GENERAL) HISTORY Type Description Date Medical History alcohol abuse w/ DTs Medical History hypertension Medical History chronic pancreatitis Medical History bulemia nervosa Medical History seizures Surgical History section Hospitalization History Multiple admissions for ETOH intoxication or withdrawl Hospitalization History Alcohol Abuse-[facility] 11/04/16 Hospitalization History Acute Pancreatitis due to alcohol use-[facility] 04/24/17 Hospitalization History hernia surgery 05/2017
--- OUTSIDE RECORDS SUMMARY | 2017-11-18 19:32 | XMS REPORT ---
Author Author BARTOLO ZIMMERMAN [facility] Address [address] [place] [address] Care Team Providers Care Timber Poisoner Name Role Phone BARTOLO ZIMMERMAN Unavailable PROBLEMS Type Condition ICD9-CM Code OGL48-NC Code Onset Dates Condition Status SNOMED Code Problem Wheezing R06.2 Active 75811450 Problem Vitamin D deficiency E55.9 Active 42874447 Problem control counseling Z30.9 Active 85029717 Problem Generalized anxiety disorder F41.1 Active 12410525 Problem Alcohol abuse F10.10 Active 87788696 Problem Dysthymic disorder F34.1 Active 01587004 Problem Smoking addiction F17.200 Active 540394396 Problem Primary insomnia F51.01 Active 6870175 Problem Gastroesophageal reflux disease with esophagitis K21.0 Active 123805007 Problem Major depressive disorder with single episode, remission status unspecified F32.9 Active 64354138 Problem Gastroesophageal reflux disease without esophagitis K21.9 Active 005574070 Problem Cervical paraspinal muscle spasm M62.838 Active 142824891 Problem Irregular periods N92.6 Active 51977889 ALLERGIES Unknown Allergies SOCIAL HISTORY No smoking Hx information available PLAN OF CARE VITAL SIGNS MEDICATIONS Medication Instructions Dosage Frequency Start Date End Date Duration Status Omeprazole 40 mg Orally Once a day,ac 1 capsule Jul, Active RESULTS No Results PROCEDURES No Known procedures IMMUNIZATIONS No Known Immunizations
--- OUTSIDE RECORDS SUMMARY | 2017-11-18 19:33 | XMS REPORT ---
Author Author JOSE ROBERTO MCCABE [facility] Address [address] [place] [address] Care Team Providers Care Distribution Lineman Name Role Phone JOSE ROBERTO MCCABE Unavailable PROBLEMS Type Condition ICD9-CM Code [id number] Code Onset Dates Condition Status SNOMED Code Problem Wheezing R06.2 Active 59194839 Problem Vitamin D deficiency E55.9 Active 25302205 Problem Smoking addiction F17.200 Active 058729643 Problem Generalized anxiety disorder F41.1 Active 79027077 Problem Dysthymic disorder F34.1 Active 69671568 Problem Alcohol abuse F10.10 Active 68943739 Problem control counseling Z30.9 Active 02135773 Problem Primary insomnia F51.01 Active 0727616 Problem Gastroesophageal reflux disease with esophagitis K21.0 Active 434574652 Problem Irregular periods N92.6 Active 42431088 Problem Gastroesophageal reflux disease without esophagitis K21.9 Active 309522071 Problem Cervical paraspinal muscle spasm M62.838 Active 692365461 Problem Major depressive disorder with single episode, remission status unspecified F32.9 Active 17179640 ALLERGIES No Known Allergies SOCIAL HISTORY Never Assessed PLAN OF CARE Activity Details Follow Up 3 Months Reason:[facility] VITAL SIGNS Height 63 in 2016-12-30 Weight 143.5 lbs 2016-12-30 Temperature 98.1 degrees Fahrenheit 2016-12-30 Heart Rate 98 bpm 2016-12-30 Respiratory Rate 18 2016-12-30 BMI 25.42 kg/m2 2016-12-30 Blood pressure systolic 118 mmHg 2016-12-30 Blood pressure diastolic 80 mmHg 2016-12-30 MEDICATIONS Medication Instructions Dosage Frequency Start Date End Date Duration Status Vitamin B12 100 MCG Orally Once a day 1 tablet 24h Active Remeron 30 MG Orally Once a day 1 tablet at bedtime 24h Sep, 30 day(s) Active Ortho-Cyclen (28) 0.25-35 MG-MCG Orally Once a day 1 tablet 24h Sep, 28 day(s) Active Calcium + D 315-200 MG-UNIT Orally Twice a day 1 tablet with meals 12h Active Celexa 40 mg Orally Once a day 0.5 tablet 24h 11 Sep, 2016 Active Multivitamin Adult - Active Omeprazole 40 mg Orally Once a day,ac 1 capsule 20 Jul, 2016 Active Naproxen Sodium 550 MG Orally Twice a day 1 tablet 12h 11 Sep, 2016 Active Cyclobenzaprine HCl 10 mg Orally hs 1 tablet 15 Active RESULTS Name Result Date Reference Range TEST, URINE (IN HOUSE) 2016-12-30 RESULTS Negative Lot # [id number] Control + Exp date 02/2018 PAP TEST, HPV IF ASCUS 2016-12-30 DIAGNOSIS: Specimen adequacy: Clinician provided ICD10: Performed by: . . Note: . CULTURE, GENITAL 2016-12-30 Genital Culture, Routine Preliminary report Result 1 PDF Report 2016-12-30 PDF Report1 LCLS CULTURE, GENITAL 2016-12-30 Genital Culture, Routine Final report Result 1 TRICHOMONAS (IN HOUSE) 2016-12-30 TRICHOMONAS negative Control + Lot # [id number] Exp date 02/14/2018 BACTERIAL VAGINOSIS (IN HOUSE) 2016-12-30 RESULTS Negtive Control + Lot # [id number] Exp date 08/2017 Mammogram, Bilateral Screening GC/CHLAM PROBE (STATE) 2016-12-30 CHLAMYDIA GC PROCEDURES Procedure Date Ordered Result Body Site URINE TEST Dec 30, 2016 No Charge Dec 30, 2016 TRICHOMONAS ASSAY W/OPTIC Dec 30, 2016 FRIED VAG, DNA, DIR PROBE Dec 30, 2016 SPECIMEN HANDLING Dec 30, 2016 CULTURE, BACTERIA, OTHER Dec 30, 2016 IMMUNIZATIONS No Known Immunizations MEDICAL (GENERAL) HISTORY Type Description Date Medical History alcohol abuse w/ DTs Medical History hypertension Medical History chronic pancreatitis Medical History bulemia nervosa Surgical History section Hospitalization History Multiple admissions for ETOH intoxication or withdrawl Hospitalization History Alcohol Abuse-[facility] 11/04/16 Hospitalization History Acute Pancreatitis due to alcohol use-[facility] 04/24/17
--- OUTSIDE RECORDS SUMMARY | 2017-11-18 19:35 | XMS REPORT ---
Author Author BARTOLO ZIMMERMAN [facility] Address [address] [place] [address] Care Team Providers Care [facility] Assistant Director Name Role Phone BARTOLO ZIMMERMAN Unavailable PROBLEMS Type Condition ICD9-CM Code XQQ95-AW Code Onset Dates Condition Status SNOMED Code Problem Wheezing R06.2 Active 97392193 Problem Vitamin D deficiency E55.9 Active 75672770 Problem Smoking addiction F17.200 Active 157268049 Problem Generalized anxiety disorder F41.1 Active 15666519 Problem Dysthymic disorder F34.1 Active 48853553 Problem Alcohol abuse F10.10 Active 64913145 Problem control counseling Z30.9 Active 07012190 Problem Primary insomnia F51.01 Active 0702284 Problem Gastroesophageal reflux disease with esophagitis K21.0 Active 044672254 Problem Irregular periods N92.6 Active 27498916 Problem Gastroesophageal reflux disease without esophagitis K21.9 Active 237365802 Problem Cervical paraspinal muscle spasm M62.838 Active 932053182 Problem Major depressive disorder with single episode, remission status unspecified F32.9 Active 12606644 ALLERGIES Unknown Allergies SOCIAL HISTORY No smoking Hx information available PLAN OF CARE VITAL SIGNS MEDICATIONS Unknown Medications RESULTS No Results PROCEDURES No Known procedures IMMUNIZATIONS No Known Immunizations
--- OUTSIDE RECORDS SUMMARY | 2017-11-18 19:38 | XMS REPORT | Continuity of Care Document ---
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 03/08/2014 BARTOLO ZIMMERMAN MD 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 06/01/2014 MASSIMO CACERES APRN Ot 724.2 LUMBAGO 07/26/2014 BARTOLO ZIMMERMAN MD V70.0 ROUTINE GENERAL MEDICAL EXAMINATION AT A HEALTH CARE FACILITY 07/26/2014 BARTOLO ZIMMERMAN MD V74.1 TB SCREENING 07/26/2014 BARTOLO ZIMMERMAN MD V70.0 ROUTINE GENERAL MEDICAL EXAMINATION AT A HEALTH CARE FACILITY 07/26/2014 BARTOLO ZIMMERMAN MD V74.1 TB SCREENING 10/11/2014 BARTOLO ZIMMERMAN MD 780.39 OTHER CONVULSIONS 12/05/2015 Ot 626.0 12/05/2015 AIME REGAN, DEBRA M Ot 214.9 12/05/2015 MASSIMO CACERES BASKET SORTER Ot F10.10 ALCOHOL ABUSE, UNCOMPLICATED 12/05/2015 MASSIMO CACERES BASKET SORTER Ot F17.210 NICOTINE DEPENDENCE, CIGARETTES, UNCOMPL 12/05/2015 MASSIMO CACERES BASKET SORTER Ot F32.9 MAJOR DEPRESSIVE DISORDER, SINGLE EPISOD 12/05/2015 MASSIMO CACERES BASKET SORTER Ot F41.9 ANXIETY DISORDER, UNSPECIFIED 12/28/2015 REUBEN SANTOS Ot K29.70 GASTRITIS, UNSPECIFIED, WITHOUT BLEEDING 12/28/2015 REUBEN SANTOS Ot R10.13 EPIGASTRIC PAIN 05/31/2016 REUBEN SANTOS Ot 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 05/31/2016 REUBEN SANTOS Ot E03.9 HYPOTHYROIDISM, UNSPECIFIED 05/31/2016 REUBEN SANTOS Ot F17.210 NICOTINE DEPENDENCE, CIGARETTES, UNCOMPL 05/31/2016 REUBEN SANTOS Ot K42.9 UMBILICAL HERNIA WITHOUT OBSTRUCTION OR 05/31/2016 REUBEN SANTOS Ot S20.211A CONTUSION OF RIGHT FRONT WALL OF THORAX, 05/31/2016 REUBEN SANTOS Ot S29.9XXA UNSPECIFIED INJURY OF THORAX, INITIAL EN 05/31/2016 REUBEN SANTOS Ot W18.2XXA FALL IN (INTO) SHOWER OR EMPTY BATHTUB, 05/31/2016 REUBEN SANTOS Ot Y92.012 BATHROOM OF SINGLE-FAMILY (PRIVATE) HOUS 05/31/2016 REUBEN SANTOS Ot Y99.8 OTHER EXTERNAL CAUSE STATUS 06/01/2016 REUBEN SANTOS Ot S20.211A CONTUSION OF RIGHT FRONT WALL OF THORAX, 06/01/2016 REUBEN SANTOS Ot S29.9XXA UNSPECIFIED INJURY OF THORAX, INITIAL EN 06/01/2016 REUBEN SANTOS Ot W18.2XXA FALL IN (INTO) SHOWER OR EMPTY BATHTUB, 06/01/2016 REUBEN SANTOS Ot Y92.012 BATHROOM OF SINGLE-FAMILY (PRIVATE) HOUS 06/01/2016 REUBEN SANTOS Ot Y93.E1 ACTIVITY, PERSONAL BATHING AND SHOWERING 06/01/2016 REUBEN SANTOS Ot Y99.8 OTHER EXTERNAL CAUSE STATUS 06/03/2016 REUBEN SANTOS Ot 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 06/03/2016 REUBEN SANTOS Ot E03.9 HYPOTHYROIDISM, UNSPECIFIED 06/03/2016 REUBEN SANTOS Ot F17.210 NICOTINE DEPENDENCE, CIGARETTES, UNCOMPL 06/03/2016 REUBEN SANTOS Ot K42.9 UMBILICAL HERNIA WITHOUT OBSTRUCTION OR 06/03/2016 REUBEN SANTOS Ot S20.211A CONTUSION OF RIGHT FRONT WALL OF THORAX, 06/03/2016 REUBEN SANTOS Ot S29.9XXA UNSPECIFIED INJURY OF THORAX, INITIAL EN 06/03/2016 REUBEN SANTOS Ot W18.2XXA FALL IN (INTO) SHOWER OR EMPTY BATHTUB, 06/03/2016 REUBEN SANTOS Ot Y92.012 BATHROOM OF SINGLE-FAMILY (PRIVATE) HOUS 06/03/2016 REUBEN SANTOS Ot Y99.8 OTHER EXTERNAL CAUSE STATUS 06/03/2016 REUBEN SANTOS Ot S20.211A CONTUSION OF RIGHT FRONT WALL OF THORAX, 06/03/2016 REUBEN SANTOS Ot S29.9XXA UNSPECIFIED INJURY OF THORAX, INITIAL EN 06/03/2016 REUBEN SANTOS Ot W18.2XXA FALL IN (INTO) SHOWER OR EMPTY BATHTUB, 06/03/2016 REUBEN SANTOS Ot Y92.012 BATHROOM OF SINGLE-FAMILY (PRIVATE) HOUS 06/03/2016 REUBEN SANTOS Ot Y93.E1 ACTIVITY, PERSONAL BATHING AND SHOWERING 06/03/2016 REUBEN SANTOS Ot Y99.8 OTHER EXTERNAL CAUSE STATUS 11/05/2016 CHRISTINE RAMSEY MD Ot F10.229 ALCOHOL DEPENDENCE WITH INTOXICATION, UN 11/05/2016 CHRISTINE RAMSEY MD Ot F17.210 NICOTINE DEPENDENCE, CIGARETTES, UNCOMPL 11/05/2016 Ot 626.0 ABSENCE OF MENSTRUATION 11/05/2016 AIME REGAN, DEBRA Bernstein Ot 214.9 LIPOMA NOS 11/05/2016 Ot 626.0 ABSENCE OF MENSTRUATION 11/05/2016 AIME REGAN, DEBRA Bernstein Ot 214.9 LIPOMA NOS 11/05/2016 CHRISTINE RAMSEY MD Ot F10.229 ALCOHOL DEPENDENCE WITH INTOXICATION, UN 11/05/2016 CHRISTINE RAMSEY MD Ot F17.210 NICOTINE DEPENDENCE, CIGARETTES, UNCOMPL 11/06/2016 REUBEN SANTOS Ot K29.70 GASTRITIS, UNSPECIFIED, WITHOUT BLEEDING 11/06/2016 REUBEN SANTOS Ot R10.13 EPIGASTRIC PAIN 11/06/2016 REUBEN SANTOS Ot 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 11/06/2016 REUBEN SANTOS Ot E03.9 HYPOTHYROIDISM, UNSPECIFIED 11/06/2016 REUBEN SANTOS Ot F17.210 NICOTINE DEPENDENCE, CIGARETTES, UNCOMPL 11/06/2016 REUBEN SANTOS Ot K42.9 UMBILICAL HERNIA WITHOUT OBSTRUCTION OR 11/06/2016 REUBEN SANTOS Ot S20.211A CONTUSION OF RIGHT FRONT WALL OF THORAX, 11/06/2016 REUBEN SANTOS Ot S29.9XXA UNSPECIFIED INJURY OF THORAX, INITIAL EN 11/06/2016 REUBEN SANTOS Ot W18.2XXA FALL IN (INTO) SHOWER OR EMPTY BATHTUB, 11/06/2016 REUBEN SANTOS Ot Y92.012 BATHROOM OF SINGLE-FAMILY (PRIVATE) HOUS 11/06/2016 REUBEN SANTOS Ot Y99.8 OTHER EXTERNAL CAUSE STATUS 11/17/2016 BRIANNA BERMEO Ot F10.239 ALCOHOL DEPENDENCE WITH WITHDRAWAL, UNSP 11/17/2016 BRIANNA BERMEOP Ot F12.90 CANNABIS USE, UNSPECIFIED, UNCOMPLICATED 11/17/2016 BRIANNA BERMEOP Ot F41.9 ANXIETY DISORDER, UNSPECIFIED 11/19/2016 JEAN-CLAUDE, BRIANNA PUBLIC AREA ATTENDANT Ot F10.239 ALCOHOL DEPENDENCE WITH WITHDRAWAL, UNSP 11/19/2016 JEAN-CLAUDE, BRIANNA PUBLIC AREA ATTENDANT Ot F12.90 CANNABIS USE, UNSPECIFIED, UNCOMPLICATED 11/19/2016 JEAN-CLAUDE, BRIANNA PUBLIC AREA ATTENDANT Ot F41.9 ANXIETY DISORDER, UNSPECIFIED 11/19/2016 JEAN-CLAUDE, BRIANNA PUBLIC AREA ATTENDANT Ot F10.239 ALCOHOL DEPENDENCE WITH WITHDRAWAL, UNSP 11/19/2016 JEAN-CLAUDE, BRIANNA PUBLIC AREA ATTENDANT Ot F12.90 CANNABIS USE, UNSPECIFIED, UNCOMPLICATED 11/19/2016 JEAN-CLAUDE, BRIANNA PUBLIC AREA ATTENDANT Ot F41.9 ANXIETY DISORDER, UNSPECIFIED 11/20/2016 JEAN-CLAUDE, BRIANNA PUBLIC AREA ATTENDANT Ot F10.239 ALCOHOL DEPENDENCE WITH WITHDRAWAL, UNSP 11/20/2016 JEAN-CLAUDE, BRIANNA PUBLIC AREA ATTENDANT Ot F12.90 CANNABIS USE, UNSPECIFIED, UNCOMPLICATED 11/20/2016 JEAN-CLAUDE, BRIANNA PUBLIC AREA ATTENDANT Ot F41.9 ANXIETY DISORDER, UNSPECIFIED 12/03/2016 Ot 626.0 ABSENCE OF MENSTRUATION 12/03/2016 AIME REGAN, DEBRA Bernstein Ot 214.9 LIPOMA NOS 12/04/2016 MASSIMO CACERES APRN Ot 781.0 ABN INVOLUN MOVEMENT NEC 12/06/2016 JEAN-CLAUDE, BRIANNA PUBLIC AREA ATTENDANT Ot F10.239 ALCOHOL DEPENDENCE WITH WITHDRAWAL, UNSP 12/06/2016 JEAN-CLAUDE, BRIANNA PUBLIC AREA ATTENDANT Ot F12.90 CANNABIS USE, UNSPECIFIED, UNCOMPLICATED 12/06/2016 JEAN-CLAUDE, BRIANNA PUBLIC AREA ATTENDANT Ot F41.9 ANXIETY DISORDER, UNSPECIFIED 12/07/2016 JEAN-CLAUDE, BRIANNA PUBLIC AREA ATTENDANT Ot F10.239 ALCOHOL DEPENDENCE WITH WITHDRAWAL, UNSP 12/07/2016 JEAN-CLAUDE, BRIANNA PUBLIC AREA ATTENDANT Ot F12.90 CANNABIS USE, UNSPECIFIED, UNCOMPLICATED 12/07/2016 JEAN-CLAUDE, BRIANNA PUBLIC AREA ATTENDANT Ot F41.9 ANXIETY DISORDER, UNSPECIFIED 01/20/2017 Ot 626.0 ABSENCE OF MENSTRUATION 01/20/2017 DEBRA SALOMON MD Ot 214.9 LIPOMA NOS 01/20/2017 Ot 626.0 ABSENCE OF MENSTRUATION 01/20/2017 AIME REGAN, DEBRA Bernstein Ot 214.9 LIPOMA NOS 01/21/2017 JOSE ROBERTO MCCABE PUBLIC AREA ATTENDANT Ot Z12.31 ENCNTR SCREEN MAMMOGRAM FOR MALIGNANT NE 02/11/2017 JOSE ROBERTO MCCABE PUBLIC AREA ATTENDANT Ot Z12.31 ENCNTR SCREEN MAMMOGRAM FOR MALIGNANT NE 04/24/2017 MCCABE, JOSE ROBERTO Collins PUBLIC AREA ATTENDANT Ot Z12.31 ENCNTR SCREEN MAMMOGRAM FOR MALIGNANT NE 04/24/2017 Ot 626.0 ABSENCE OF MENSTRUATION 04/24/2017 AIME REGAN, DEBRA Bernstein Ot 214.9 LIPOMA NOS 04/24/2017 ELIOT JOSE ROBERTO Collins PUBLIC AREA ATTENDANT Ot Z12.31 ENCNTR SCREEN MAMMOGRAM FOR MALIGNANT NE 04/25/2017 LIBERTAD LATIF MD Ot F10.20 ALCOHOL DEPENDENCE, UNCOMPLICATED 04/25/2017 SALOMON REGAN, LIBERTAD N Ot F12.90 CANNABIS USE, UNSPECIFIED, UNCOMPLICATED 04/25/2017 LIBERTAD LATIF MD N Ot F17.210 NICOTINE DEPENDENCE, CIGARETTES, UNCOMPL 04/25/2017 LIBERTAD LATIF MD N Ot F31.9 BIPOLAR DISORDER, UNSPECIFIED 04/25/2017 LIBERTAD LATIF MD Ot F41.9 ANXIETY DISORDER, UNSPECIFIED 04/25/2017 LIBERTAD LATIF MD N Ot I10 ESSENTIAL (PRIMARY) HYPERTENSION 04/25/2017 LIBERTAD LATIF MD N Ot K21.9 GASTRO-ESOPHAGEAL REFLUX DISEASE WITHOUT 04/25/2017 LIBERTAD LATIF MD N Ot K85.20 ALCOHOL INDUCED ACUTE PANCREATITIS WITHO 04/25/2017 LIBERTAD LATIF MD N Ot E87.6 HYPOKALEMIA 04/25/2017 LIBERTAD LATIF MD N Ot F10.20 ALCOHOL DEPENDENCE, UNCOMPLICATED 04/25/2017 LIBERTAD LATIF MD N Ot F12.90 CANNABIS USE, UNSPECIFIED, UNCOMPLICATED 04/25/2017 LIBERTAD LATIF MD N Ot F17.210 NICOTINE DEPENDENCE, CIGARETTES, UNCOMPL 04/25/2017 LIBERTAD LATIF MD N Ot F31.9 BIPOLAR DISORDER, UNSPECIFIED 04/25/2017 LIBERTAD LATIF MD Ot F41.9 ANXIETY DISORDER, UNSPECIFIED 04/25/2017 LIBERTAD LATIF MD N Ot I10 ESSENTIAL (PRIMARY) HYPERTENSION 04/25/2017 LIBERTAD LATIF MD N Ot K21.9 GASTRO-ESOPHAGEAL REFLUX DISEASE WITHOUT 04/25/2017 LIBERTAD LATIF MD N Ot K85.20 ALCOHOL INDUCED ACUTE PANCREATITIS WITHO 06/19/2017 Ot 626.0 ABSENCE OF MENSTRUATION 06/19/2017 AIME REGAN, DEBRA Bernstein Ot 214.9 LIPOMA NOS 06/19/2017 JOSE ROBERTO MCCABE PUBLIC AREA ATTENDANT Ot Z12.31 ENCNTR SCREEN MAMMOGRAM FOR MALIGNANT NE 06/20/2017 AIME REGAN, DEBRA Bernstein Ot E83.42 HYPOMAGNESEMIA 06/20/2017 AIME REGAN, DEBRA Bernstein Ot E87.6 HYPOKALEMIA 06/20/2017 AIME REGAN, DEBRA Bernstein Ot F10.20 ALCOHOL DEPENDENCE, UNCOMPLICATED 06/20/2017 AIME REGAN, DEBRA Bernstein Ot F17.210 NICOTINE DEPENDENCE, CIGARETTES, UNCOMPL 06/20/2017 AIME REGAN, DEBRA Bernstein Ot F31.9 BIPOLAR DISORDER, UNSPECIFIED 06/20/2017 DEBRA SALOMON MD Ot F41.9 ANXIETY DISORDER, UNSPECIFIED 06/20/2017 AIME REGAN, DEBRA Bernstein Ot K21.9 GASTRO-ESOPHAGEAL REFLUX DISEASE WITHOUT 06/20/2017 AIME REGAN, DEBRA Bernstein Ot K43.6 OTHER AND UNSP VENTRAL HERNIA WITH OBSTR 06/20/2017 AIME REGAN, DEBRA Bernstein Ot E83.42 HYPOMAGNESEMIA 06/20/2017 DEBRA SALOMON MD Ot E87.6 HYPOKALEMIA 06/20/2017 AIME REGAN, DEBRA Bernstein Ot F10.20 ALCOHOL DEPENDENCE, UNCOMPLICATED 06/20/2017 AIME REGAN, DEBRA Bernstein Ot F17.210 NICOTINE DEPENDENCE, CIGARETTES, UNCOMPL 06/20/2017 AIME REGAN, DEBRA Bernstein Ot F31.9 BIPOLAR DISORDER, UNSPECIFIED 06/20/2017 AIME REGAN, DEBRA Bernstein Ot F41.9 ANXIETY DISORDER, UNSPECIFIED 06/20/2017 AIME REGAN, DEBRA Bernstein Ot K21.9 GASTRO-ESOPHAGEAL REFLUX DISEASE WITHOUT 06/20/2017 AIME REGAN, DEBRA Bernstein Ot K43.6 OTHER AND UNSP VENTRAL HERNIA WITH OBSTR Procedures Code Description Performed By Performed On 94.62 ALCOHOL DETOXIFICATION 10/14/2011 94.62 ALCOHOL DETOXIFICATION 12/18/2011 94.62 ALCOHOL DETOXIFICATION 03/08/2012 06587 ROUTINE VENIPUNCTURE 02/05/2013 94295 CMP 02/05/2013 [id number] GFR CALC (RESULT ONLY) 02/05/2013 98065 BARIUM SWALLOW XRAY 02/09/2013 S DEBRA SALOMON 07/08/2013 GENERAL DEBRA RUIZ 07/15/2013 62668 UA W/ CULTURE IF INDICATED 02/11/2014 34239 TEST, URINE (IN- HOUSE) 02/11/2014 68133 CULTURE URINE 02/11/2014 72831 MAMMOGRAM, SCREENING 02/16/2014 Q0091 PAP SMEAR OBTAIN SMEAR 02/16/2014 89649 PAP SMEAR 02/22/2014 86156 ROUTINE VENIPUNCTURE 03/08/2014 64596 TSH 03/08/2014 55729 TEST, URINE (IN- HOUSE) 07/26/2014 94329 TB TEST INTRADERMAL 07/27/2014 [id number] SUPPLEMENT ABDOMINAL WALL WITH SYNTH SUB 06/19/2017 [id number] ROBOTIC ASSISTED PROCEDURE OF TRUNK, PER 06/19/2017 Results Test Result Range Complete urinalysis with reflex to culture - 11/04/16 04:38 Urine color determination YELLOW NRG Urine clarity determination CLEAR NRG Urine pH measurement by test strip 6 5-9 Specific gravity of urine by test strip 1.015 1.016- 1.022 Urine protein assay by test strip, semi-quantitative 1+ NEGATIVE Urine glucose detection by automated test strip NEGATIVE NEGATIVE Erythrocytes detection in urine sediment by light microscopy 3+ NEGATIVE Urine ketones detection by automated test strip NEGATIVE NEGATIVE Urine nitrite detection by test strip NEGATIVE NEGATIVE Urine total bilirubin detection by test strip NEGATIVE NEGATIVE Urine urobilinogen measurement by automated test strip (mass/volume) 1 mg/dL NORMAL Urine leukocyte esterase detection by dipstick 1+ NEGATIVE Automated urine sediment erythrocyte count by microscopy (number/high power field) [HPF] NRG Automated urine sediment leukocyte count by microscopy (number/high power field ) RARE NRG Bacteria detection in urine sediment by light microscopy TRACE NRG Squamous epithelial cells detection in urine sediment by light microscopy 2-5 NRG Crystals detection in urine sediment by light microscopy NONE NRG Casts detection in urine sediment by light microscopy PRESENT NRG Mucus detection in urine sediment by light microscopy SMALL NRG Complete urinalysis with reflex to culture NO NRG Hyaline casts detection in urine sediment by light microscopy 2-5 NRG Urine drug screening test - 11/04/16 04:38 Urine phencyclidine detection by screening method NEGATIVE NEGATIVE Urine benzodiazepines detection by screening method NEGATIVE NEGATIVE Urine cocaine detection NEGATIVE NEGATIVE Urine amphetamines detection by screening method NEGATIVE NEGATIVE Urine methamphetamine detection by screening method NEGATIVE NEGATIVE Urine cannabinoids detection by screening method POSITIVE NEGATIVE Urine opiates detection by screening method NEGATIVE NEGATIVE Urine barbiturates detection NEGATIVE NEGATIVE Screening urine tricyclic antidepressants detection NEGATIVE NEGATIVE Urine methadone detection by screening method NEGATIVE NEGATIVE Urine oxycodone detection NEGATIVE NEGATIVE Urine propoxyphene detection NEGATIVE NEGATIVE Complete blood count (CBC) with automated white blood cell (WBC) differential - 11/04/16 04:43 Blood leukocytes automated count (number/volume) 7.4 10*3/uL 4.3-11.0 Blood erythrocytes automated count (number/volume) 4.32 10*6/uL 4.35-5.85 Venous blood hemoglobin measurement (mass/volume) 14.4 g/dL 11.5-16.0 Blood hematocrit (volume fraction) 41 % 35-52 Automated erythrocyte mean corpuscular volume 95 [foz_us] 80-99 Automated erythrocyte mean corpuscular hemoglobin (mass per erythrocyte) 33 pg 25-34 Automated erythrocyte mean corpuscular hemoglobin concentration measurement ( mass/volume) 35 g/dL 32-36 Automated erythrocyte distribution width ratio 13.1 % 10.0-14.5 Automated blood platelet count (count/volume) 284 10*3/uL 130-400 Automated blood platelet mean volume measurement 9.7 [foz_us] 7.4-10.4 Automated blood neutrophils/100 leukocytes 49 % 42-75 Automated blood lymphocytes/100 leukocytes 41 % 12-44 Blood monocytes/100 leukocytes 7 % 0-12 Automated blood eosinophils/100 leukocytes 3 % 0-10 Automated blood basophils/100 leukocytes 1 % 0-10 Blood neutrophils automated count (number/volume) 3.6 10*3 1.8-7.8 Blood lymphocytes automated count (number/volume) 3.0 10*3 1.0-4.0 Blood monocytes automated count (number/volume) 0.5 10*3 0.0-1.0 Automated eosinophil count 0.2 10*3/uL 0.0-0.3 Automated blood basophil count (count/volume) 0.1 10*3/uL 0.0-0.1 Serum or plasma choriogonadotropin ( test) detection - 11/04/16 04:43 Serum or plasma choriogonadotropin ( test) detection NEGATIVE NEGATIVE Comprehensive metabolic panel - 11/04/16 04:43 Serum or plasma sodium measurement (moles/volume) 143 mmol/L 135-145 Serum or plasma potassium measurement (moles/volume) 4.1 mmol/L 3.6-5.0 Serum or plasma chloride measurement (moles/volume) 108 mmol/L 98-107 Carbon dioxide 21 mmol/L 21-32 Serum or plasma anion gap determination (moles/volume) 14 mmol/L 5-14 Serum or plasma urea nitrogen measurement (mass/volume) 5 mg/dL 7-18 Serum or plasma creatinine measurement (mass/volume) 0.68 mg/dL 0.60-1.30 Serum or plasma urea nitrogen/creatinine mass ratio 7 NRG Serum or plasma creatinine measurement with calculation of estimated glomerular filtration rate > NRG Serum or plasma glucose measurement (mass/volume) 80 mg/dL 70-105 Serum or plasma calcium measurement (mass/volume) 8.9 mg/dL 8.5-10.1 Serum or plasma total bilirubin measurement (mass/volume) 0.5 mg/dL 0.1-1.0 Serum or plasma alkaline phosphatase measurement (enzymatic activity/volume) 56 U/L 40-136 Serum or plasma aspartate aminotransferase measurement (enzymatic activity/ volume) 33 U/L 5-34 Serum or plasma alanine aminotransferase measurement (enzymatic activity/volume ) 18 U/L 0-55 Serum or plasma protein measurement (mass/volume) 6.6 g/dL 6.4-8.2 Serum or plasma albumin measurement (mass/volume) 4.1 g/dL 3.2-4.5 Serum or plasma amylase measurement (enzymatic activity/volume) - 11/04/16 04: 43 Serum or plasma amylase measurement (enzymatic activity/volume) 34 U /L 25-125 Lipase - 11/04/16 04:43 Lipase 19 U/L 8-78 Serum or plasma ethanol measurement (mass/volume) - 11/04/16 04:43 Serum or plasma ethanol measurement (mass/volume) 221 mg/dL <10 PT panel in platelet poor plasma by coagulation assay - 11/04/16 04:43 Prothrombin time (PT) in platelet poor plasma by coagulation assay 12.1 s 12.2-14.7 INR in platelet poor plasma or blood by coagulation assay 0.9 0.8-1.4 Activated partial thromboplastin time (aPTT) in platelet poor plasma bycoagulation assay - 11/04/16 04:43 Activated partial thromboplastin time (aPTT) in platelet poor plasma bycoagulation assay 28 s 24-35 Methicillin resistant Staphylococcus aureus (MRSA) screening culture - 06:35 Methicillin resistant Staphylococcus aureus (MRSA) screening culture NEG NRG Automated blood complete blood count (hemogram) panel - 11/05/16 05:40 Blood leukocytes automated count (number/volume) 4.7 10*3/uL 4.3-11.0 Blood erythrocytes automated count (number/volume) 3.81 10*6/uL 4.35-5.85 Venous blood hemoglobin measurement (mass/volume) 12.8 g/dL 11.5-16.0 Blood hematocrit (volume fraction) 37 % 35-52 Automated erythrocyte mean corpuscular volume 97 [foz_us] 80-99 Automated erythrocyte mean corpuscular hemoglobin (mass per erythrocyte) 34 pg 25-34 Automated erythrocyte mean corpuscular hemoglobin concentration measurement ( mass/volume) 35 g/dL 32-36 Automated erythrocyte distribution width ratio 12.9 % 10.0-14.5 Automated blood platelet count (count/volume) 200 10*3/uL 130-400 Automated blood platelet mean volume measurement 10.3 [foz_us] 7.4-10.4 Comprehensive metabolic panel - 11/05/16 05:40 Serum or plasma sodium measurement (moles/volume) 134 mmol/L 135-145 Serum or plasma potassium measurement (moles/volume) 4.2 mmol/L 3.6-5.0 Serum or plasma chloride measurement (moles/volume) 107 mmol/L 98-107 Carbon dioxide 22 mmol/L 21-32 Serum or plasma anion gap determination (moles/volume) 5 mmol/L 5-14 Serum or plasma urea nitrogen measurement (mass/volume) 9 mg/dL 7-18 Serum or plasma creatinine measurement (mass/volume) 0.58 mg/dL 0.60-1.30 Serum or plasma urea nitrogen/creatinine mass ratio 16 NRG Serum or plasma creatinine measurement with calculation of estimated glomerular filtration rate > NRG Serum or plasma glucose measurement (mass/volume) 124 mg/dL 70-105 Serum or plasma calcium measurement (mass/volume) 8.1 mg/dL 8.5-10.1 Serum or plasma total bilirubin measurement (mass/volume) 0.9 mg/dL 0.1-1.0 Serum or plasma alkaline phosphatase measurement (enzymatic activity/volume) 44 U/L 40-136 Serum or plasma aspartate aminotransferase measurement (enzymatic activity/ volume) 22 U/L 5-34 Serum or plasma alanine aminotransferase measurement (enzymatic activity/volume ) 16 U/L 0-55 Serum or plasma protein measurement (mass/volume) 4.9 g/dL 6.4-8.2 Serum or plasma albumin measurement (mass/volume) 3.1 g/dL 3.2-4.5 Complete urinalysis with reflex to culture - 11/17/16 20:14 Urine color determination YELLOW NRG Urine clarity determination CLEAR NRG Urine pH measurement by test strip 5 5-9 Specific gravity of urine by test strip 1.025 1.016- 1.022 Urine protein assay by test strip, semi-quantitative 2+ NEGATIVE Urine glucose detection by automated test strip NEGATIVE NEGATIVE Erythrocytes detection in urine sediment by light microscopy 3+ NEGATIVE Urine ketones detection by automated test strip 1+ NEGATIVE Urine nitrite detection by test strip NEGATIVE NEGATIVE Urine total bilirubin detection by test strip NEGATIVE NEGATIVE Urine urobilinogen measurement by automated test strip (mass/volume) 1 mg/dL NORMAL Urine leukocyte esterase detection by dipstick NEGATIVE NEGATIVE Automated urine sediment erythrocyte count by microscopy (number/high power field) [HPF] NRG Automated urine sediment leukocyte count by microscopy (number/high power field ) NONE NRG Bacteria detection in urine sediment by light microscopy TRACE NRG Squamous epithelial cells detection in urine sediment by light microscopy 5-10 NRG Crystals detection in urine sediment by light microscopy NONE NRG Casts detection in urine sediment by light microscopy NONE NRG Mucus detection in urine sediment by light microscopy MODERATE NRG Complete urinalysis with reflex to culture NO NRG Urine drug screening test - 11/17/16 20:14 Urine phencyclidine detection by screening method NEGATIVE NEGATIVE Urine benzodiazepines detection by screening method NEGATIVE NEGATIVE Urine cocaine detection NEGATIVE NEGATIVE Urine amphetamines detection by screening method NEGATIVE NEGATIVE Urine methamphetamine detection by screening method NEGATIVE NEGATIVE Urine cannabinoids detection by screening method POSITIVE NEGATIVE Urine opiates detection by screening method NEGATIVE NEGATIVE Urine barbiturates detection NEGATIVE NEGATIVE Screening urine tricyclic antidepressants detection NEGATIVE NEGATIVE Urine methadone detection by screening method NEGATIVE NEGATIVE Urine oxycodone detection NEGATIVE NEGATIVE Urine propoxyphene detection NEGATIVE NEGATIVE Complete blood count (CBC) with automated white blood cell (WBC) differential - 11/17/16 20:25 Blood leukocytes automated count (number/volume) 6.0 10*3/uL 4.3-11.0 Blood erythrocytes automated count (number/volume) 4.23 10*6/uL 4.35-5.85 Venous blood hemoglobin measurement (mass/volume) 14.5 g/dL 11.5-16.0 Blood hematocrit (volume fraction) 41 % 35-52 Automated erythrocyte mean corpuscular volume 97 [foz_us] 80-99 Automated erythrocyte mean corpuscular hemoglobin (mass per erythrocyte) 34 pg 25-34 Automated erythrocyte mean corpuscular hemoglobin concentration measurement ( mass/volume) 36 g/dL 32-36 Automated erythrocyte distribution width ratio 13.5 % 10.0-14.5 Automated blood platelet count (count/volume) 195 10*3/uL 130-400 Automated blood platelet mean volume measurement 10.1 [foz_us] 7.4-10.4 Automated blood neutrophils/100 leukocytes 72 % 42-75 Automated blood lymphocytes/100 leukocytes 18 % 12-44 Blood monocytes/100 leukocytes 9 % 0-12 Automated blood eosinophils/100 leukocytes 0 % 0-10 Automated blood basophils/100 leukocytes 1 % 0-10 Blood neutrophils automated count (number/volume) 4.4 10*3 1.8-7.8 Blood lymphocytes automated count (number/volume) 1.1 10*3 1.0-4.0 Blood monocytes automated count (number/volume) 0.6 10*3 0.0-1.0 Automated eosinophil count 0.0 10*3/uL 0.0-0.3 Automated blood basophil count (count/volume) 0.0 10*3/uL 0.0-0.1 Serum or plasma ethanol measurement (mass/volume) - 11/17/16 20:25 Serum or plasma ethanol measurement (mass/volume) 72 mg/dL <10 Comprehensive metabolic panel - 11/17/16 20:25 Serum or plasma sodium measurement (moles/volume) 140 mmol/L 135-145 Serum or plasma potassium measurement (moles/volume) 3.9 mmol/L 3.6-5.0 Serum or plasma chloride measurement (moles/volume) 105 mmol/L 98-107 Carbon dioxide 15 mmol/L 21-32 Serum or plasma anion gap determination (moles/volume) 20 mmol/L 5-14 Serum or plasma urea nitrogen measurement (mass/volume) 10 mg/dL 7-18 Serum or plasma creatinine measurement (mass/volume) 0.71 mg/dL 0.60-1.30 Serum or plasma urea nitrogen/creatinine mass ratio 14 NRG Serum or plasma creatinine measurement with calculation of estimated glomerular filtration rate > NRG Serum or plasma glucose measurement (mass/volume) 91 mg/dL 70-105 Serum or plasma calcium measurement (mass/volume) 8.9 mg/dL 8.5-10.1 Serum or plasma total bilirubin measurement (mass/volume) 0.6 mg/dL 0.1-1.0 Serum or plasma alkaline phosphatase measurement (enzymatic activity/volume) 59 U/L 40-136 Serum or plasma aspartate aminotransferase measurement (enzymatic activity/ volume) 41 U/L 5-34 Serum or plasma alanine aminotransferase measurement (enzymatic activity/volume ) 18 U/L 0-55 Serum or plasma protein measurement (mass/volume) 7.0 g/dL 6.4-8.2 Serum or plasma albumin measurement (mass/volume) 4.1 g/dL 3.2-4.5 Urine drug screening test - 04/23/17 00:11 Urine phencyclidine detection by screening method NEGATIVE NEGATIVE Urine benzodiazepines detection by screening method NEGATIVE NEGATIVE Urine cocaine detection NEGATIVE NEGATIVE Urine amphetamines detection by screening method NEGATIVE NEGATIVE Urine methamphetamine detection by screening method NEGATIVE NEGATIVE Urine cannabinoids detection by screening method POSITIVE NEGATIVE Urine opiates detection by screening method NEGATIVE NEGATIVE Urine barbiturates detection NEGATIVE NEGATIVE Screening urine tricyclic antidepressants detection NEGATIVE NEGATIVE Urine methadone detection by screening method NEGATIVE NEGATIVE Urine oxycodone detection NEGATIVE NEGATIVE Urine propoxyphene detection NEGATIVE NEGATIVE Complete urinalysis with reflex to culture - 04/23/17 00:11 Urine color determination ERLINDA NRG Urine clarity determination CLEAR NRG Urine pH measurement by test strip 5 5-9 Specific gravity of urine by test strip 1.025 1.016- 1.022 Urine protein assay by test strip, semi-quantitative 1+ NEGATIVE Urine glucose detection by automated test strip NEGATIVE NEGATIVE Erythrocytes detection in urine sediment by light microscopy 2+ NEGATIVE Urine ketones detection by automated test strip 1+ NEGATIVE Urine nitrite detection by test strip NEGATIVE NEGATIVE Urine total bilirubin detection by test strip NEGATIVE NEGATIVE Urine urobilinogen measurement by automated test strip (mass/volume) 1 mg/dL NORMAL Urine leukocyte esterase detection by dipstick 1+ NEGATIVE Automated urine sediment erythrocyte count by microscopy (number/high power field) [HPF] NRG Automated urine sediment leukocyte count by microscopy (number/high power field ) [HPF] NRG Bacteria detection in urine sediment by light microscopy FEW NRG Squamous epithelial cells detection in urine sediment by light microscopy 25-50 NRG Crystals detection in urine sediment by light microscopy NONE NRG Casts detection in urine sediment by light microscopy NONE NRG Mucus detection in urine sediment by light microscopy MODERATE NRG Complete urinalysis with reflex to culture NO NRG Complete blood count (CBC) with automated white blood cell (WBC) differential - 04/24/17 00:00 Blood leukocytes automated count (number/volume) 12.0 10*3/uL 4.3-11.0 Blood erythrocytes automated count (number/volume) 4.01 10*6/uL 4.35-5.85 Venous blood hemoglobin measurement (mass/volume) 13.8 g/dL 11.5-16.0 Blood hematocrit (volume fraction) 41 % 35-52 Automated erythrocyte mean corpuscular volume 102 [foz_us] 80-99 Automated erythrocyte mean corpuscular hemoglobin (mass per erythrocyte) 34 pg 25-34 Automated erythrocyte mean corpuscular hemoglobin concentration measurement ( mass/volume) 34 g/dL 32-36 Automated erythrocyte distribution width ratio 12.3 % 10.0-14.5 Automated blood platelet count (count/volume) 362 10*3/uL 130-400 Automated blood platelet mean volume measurement 10.2 [foz_us] 7.4-10.4 Automated blood neutrophils/100 leukocytes 68 % 42-75 Automated blood lymphocytes/100 leukocytes 15 % 12-44 Blood monocytes/100 leukocytes 7 % 0-12 Automated blood eosinophils/100 leukocytes 9 % 0-10 Automated blood basophils/100 leukocytes 0 % 0-10 Blood neutrophils automated count (number/volume) 8.2 10*3 1.8-7.8 Blood lymphocytes automated count (number/volume) 1.8 10*3 1.0-4.0 Blood monocytes automated count (number/volume) 0.9 10*3 0.0-1.0 Automated eosinophil count 1.1 10*3/uL 0.0-0.3 Automated blood basophil count (count/volume) 0.0 10*3/uL 0.0-0.1 Comprehensive metabolic panel - 04/24/17 00:00 Serum or plasma sodium measurement (moles/volume) 139 mmol/L 135-145 Serum or plasma potassium measurement (moles/volume) 3.6 mmol/L 3.6-5.0 Serum or plasma chloride measurement (moles/volume) 104 mmol/L 98-107 Carbon dioxide 21 mmol/L 21-32 Serum or plasma anion gap determination (moles/volume) 14 mmol/L 5-14 Serum or plasma urea nitrogen measurement (mass/volume) 8 mg/dL 7-18 Serum or plasma creatinine measurement (mass/volume) 0.74 mg/dL 0.60-1.30 Serum or plasma urea nitrogen/creatinine mass ratio 11 NRG Serum or plasma creatinine measurement with calculation of estimated glomerular filtration rate > NRG Serum or plasma glucose measurement (mass/volume) 118 mg/dL 70-105 Serum or plasma calcium measurement (mass/volume) 10.1 mg/dL 8.5-10.1 Serum or plasma total bilirubin measurement (mass/volume) 0.7 mg/dL 0.1-1.0 Serum or plasma alkaline phosphatase measurement (enzymatic activity/volume) 60 U/L 40-136 Serum or plasma aspartate aminotransferase measurement (enzymatic activity/ volume) 14 U/L 5-34 Serum or plasma alanine aminotransferase measurement (enzymatic activity/volume ) 8 U/L 0-55 Serum or plasma protein measurement (mass/volume) 7.5 g/dL 6.4-8.2 Serum or plasma albumin measurement (mass/volume) 3.9 g/dL 3.2-4.5 Serum or plasma amylase measurement (enzymatic activity/volume) - 04/24/17 00: 00 Serum or plasma amylase measurement (enzymatic activity/volume) 136 U/L 25-125 Lipase - 04/24/17 00:00 Lipase 112 U/L 8-78 Serum or plasma ethanol measurement (mass/volume) - 04/24/17 00:00 Serum or plasma ethanol measurement (mass/volume) < mg/dL <10 Complete blood count (CBC) with automated white blood cell (WBC) differential - 04/25/17 04:57 Blood leukocytes automated count (number/volume) 8.8 10*3/uL 4.3-11.0 Blood erythrocytes automated count (number/volume) 3.28 10*6/uL 4.35-5.85 Venous blood hemoglobin measurement (mass/volume) 11.3 g/dL 11.5-16.0 Blood hematocrit (volume fraction) 34 % 35-52 Automated erythrocyte mean corpuscular volume 104 [foz_us] 80-99 Automated erythrocyte mean corpuscular hemoglobin (mass per erythrocyte) 35 pg 25-34 Automated erythrocyte mean corpuscular hemoglobin concentration measurement ( mass/volume) 33 g/dL 32-36 Automated erythrocyte distribution width ratio 12.1 % 10.0-14.5 Automated blood platelet count (count/volume) 259 10*3/uL 130-400 Automated blood platelet mean volume measurement 10.1 [foz_us] 7.4-10.4 Automated blood neutrophils/100 leukocytes 66 % 42-75 Automated blood lymphocytes/100 leukocytes 17 % 12-44 Blood monocytes/100 leukocytes 8 % 0-12 Automated blood eosinophils/100 leukocytes 8 % 0-10 Automated blood basophils/100 leukocytes 0 % 0-10 Blood neutrophils automated count (number/volume) 5.8 10*3 1.8-7.8 Blood lymphocytes automated count (number/volume) 1.5 10*3 1.0-4.0 Blood monocytes automated count (number/volume) 0.7 10*3 0.0-1.0 Automated eosinophil count 0.7 10*3/uL 0.0-0.3 Automated blood basophil count (count/volume) 0.0 10*3/uL 0.0-0.1 Comprehensive metabolic panel - 04/25/17 04:57 Serum or plasma sodium measurement (moles/volume) 138 mmol/L 135-145 Serum or plasma potassium measurement (moles/volume) 3.4 mmol/L 3.6-5.0 Serum or plasma chloride measurement (moles/volume) 107 mmol/L 98-107 Carbon dioxide 19 mmol/L 21-32 Serum or plasma anion gap determination (moles/volume) 12 mmol/L 5-14 Serum or plasma urea nitrogen measurement (mass/volume) 5 mg/dL 7-18 Serum or plasma creatinine measurement (mass/volume) 0.60 mg/dL 0.60-1.30 Serum or plasma urea nitrogen/creatinine mass ratio 8 NRG Serum or plasma creatinine measurement with calculation of estimated glomerular filtration rate > NRG Serum or plasma glucose measurement (mass/volume) 73 mg/dL 70-105 Serum or plasma calcium measurement (mass/volume) 8.1 mg/dL 8.5-10.1 Serum or plasma total bilirubin measurement (mass/volume) 0.5 mg/dL 0.1-1.0 Serum or plasma alkaline phosphatase measurement (enzymatic activity/volume) 49 U/L 40-136 Serum or plasma aspartate aminotransferase measurement (enzymatic activity/ volume) 12 U/L 5-34 Serum or plasma alanine aminotransferase measurement (enzymatic activity/volume ) 6 U/L 0-55 Serum or plasma protein measurement (mass/volume) 5.9 g/dL 6.4-8.2 Serum or plasma albumin measurement (mass/volume) 3.1 g/dL 3.2-4.5 Complete blood count (CBC) with automated white blood cell (WBC) differential - 06/19/17 00:24 Blood leukocytes automated count (number/volume) 7.2 10*3/uL 4.3-11.0 Blood erythrocytes automated count (number/volume) 4.09 10*6/uL 4.35-5.85 Venous blood hemoglobin measurement (mass/volume) 13.6 g/dL 11.5-16.0 Blood hematocrit (volume fraction) 39 % 35-52 Automated erythrocyte mean corpuscular volume 95 [foz_us] 80-99 Automated erythrocyte mean corpuscular hemoglobin (mass per erythrocyte) 33 pg 25-34 Automated erythrocyte mean corpuscular hemoglobin concentration measurement ( mass/volume) 35 g/dL 32-36 Automated erythrocyte distribution width ratio 11.9 % 10.0-14.5 Automated blood platelet count (count/volume) 192 10*3/uL 130-400 Automated blood platelet mean volume measurement 10.7 [foz_us] 7.4-10.4 Automated blood neutrophils/100 leukocytes 53 % 42-75 Automated blood lymphocytes/100 leukocytes 31 % 12-44 Blood monocytes/100 leukocytes 11 % 0-12 Automated blood eosinophils/100 leukocytes 4 % 0-10 Automated blood basophils/100 leukocytes 0 % 0-10 Blood neutrophils automated count (number/volume) 3.9 10*3 1.8-7.8 Blood lymphocytes automated count (number/volume) 2.2 10*3 1.0-4.0 Blood monocytes automated count (number/volume) 0.8 10*3 0.0-1.0 Automated eosinophil count 0.3 10*3/uL 0.0-0.3 Automated blood basophil count (count/volume) 0.0 10*3/uL 0.0-0.1 Comprehensive metabolic panel - 06/19/17 00:24 Serum or plasma sodium measurement (moles/volume) 130 mmol/L 135-145 Serum or plasma potassium measurement (moles/volume) 3.1 mmol/L 3.6-5.0 Serum or plasma chloride measurement (moles/volume) 98 mmol/L 98-107 Carbon dioxide 17 mmol/L 21-32 Serum or plasma anion gap determination (moles/volume) 15 mmol/L 5-14 Serum or plasma urea nitrogen measurement (mass/volume) 4 mg/dL 7-18 Serum or plasma creatinine measurement (mass/volume) 0.69 mg/dL 0.60-1.30 Serum or plasma urea nitrogen/creatinine mass ratio 6 NRG Serum or plasma creatinine measurement with calculation of estimated glomerular filtration rate > NRG Serum or plasma glucose measurement (mass/volume) 99 mg/dL 70-105 Serum or plasma calcium measurement (mass/volume) 8.5 mg/dL 8.5-10.1 Serum or plasma total bilirubin measurement (mass/volume) 0.5 mg/dL 0.1-1.0 Serum or plasma alkaline phosphatase measurement (enzymatic activity/volume) 64 U/L 40-136 Serum or plasma aspartate aminotransferase measurement (enzymatic activity/ volume) 79 U/L 5-34 Serum or plasma alanine aminotransferase measurement (enzymatic activity/volume ) 72 U/L 0-55 Serum or plasma protein measurement (mass/volume) 6.1 g/dL 6.4-8.2 Serum or plasma albumin measurement (mass/volume) 3.4 g/dL 3.2-4.5 Magnesium - 06/19/17 00:24 Magnesium 1.4 mg/dL 1.8-2.4 Serum or plasma troponin i.cardiac measurement (mass/volume) - 06/19/17 00:24 Serum or plasma troponin i.cardiac measurement (mass/volume) < ng/ mL <0.30 Lipase - 06/19/17 00:24 Lipase 23 U/L 8-78 Serum or plasma ethanol measurement (mass/volume) - 06/19/17 00:24 Serum or plasma ethanol measurement (mass/volume) 138 mg/dL <10 Complete urinalysis with reflex to culture - 06/19/17 03:38 Urine color determination ERLINDA NRG Urine clarity determination CLOUDY NRG Urine pH measurement by test strip 7 5-9 Specific gravity of urine by test strip 1.010 1.016- 1.022 Urine protein assay by test strip, semi-quantitative 2+ NEGATIVE Urine glucose detection by automated test strip 2+ NEGATIVE Erythrocytes detection in urine sediment by light microscopy 5+ NEGATIVE Urine ketones detection by automated test strip 1+ NEGATIVE Urine nitrite detection by test strip NEGATIVE NEGATIVE Urine total bilirubin detection by test strip NEGATIVE NEGATIVE Urine urobilinogen measurement by automated test strip (mass/volume) NORMAL NORMAL Urine leukocyte esterase detection by dipstick 2+ NEGATIVE Automated urine sediment erythrocyte count by microscopy (number/high power field) TNTC NRG Automated urine sediment leukocyte count by microscopy (number/high power field ) [HPF] NRG Bacteria detection in urine sediment by light microscopy TRACE NRG Squamous epithelial cells detection in urine sediment by light microscopy 0-2 NRG Crystals detection in urine sediment by light microscopy NONE NRG Casts detection in urine sediment by light microscopy NONE NRG Mucus detection in urine sediment by light microscopy NEGATIVE NRG Complete urinalysis with reflex to culture NO NRG Urine beta human chorionic gonadotropin (hCG) measurement - 06/19/17 03:38 Urine beta human chorionic gonadotropin (hCG) measurement NEGATIVE NEGATIVE Urine drug screening test - 06/19/17 03:38 Urine phencyclidine detection by screening method NEGATIVE NEGATIVE Urine benzodiazepines detection by screening method NEGATIVE NEGATIVE Urine cocaine detection NEGATIVE NEGATIVE Urine amphetamines detection by screening method NEGATIVE NEGATIVE Urine methamphetamine detection by screening method NEGATIVE NEGATIVE Urine cannabinoids detection by screening method NEGATIVE NEGATIVE Urine opiates detection by screening method NEGATIVE NEGATIVE Urine barbiturates detection NEGATIVE NEGATIVE Screening urine tricyclic antidepressants detection NEGATIVE NEGATIVE Urine methadone detection by screening method NEGATIVE NEGATIVE Urine oxycodone detection NEGATIVE NEGATIVE Urine propoxyphene detection NEGATIVE NEGATIVE Blood lactic acid measurement (moles/volume) - 06/19/17 03:55 Blood lactic acid measurement (moles/volume) 4.10 mmol/L 0.50-2.00 Complete blood count (CBC) with automated white blood cell (WBC) differential - 06/19/17 06:15 Blood leukocytes automated count (number/volume) 8.8 10*3/uL 4.3-11.0 Blood erythrocytes automated count (number/volume) 4.14 10*6/uL 4.35-5.85 Venous blood hemoglobin measurement (mass/volume) 13.9 g/dL 11.5-16.0 Blood hematocrit (volume fraction) 39 % 35-52 Automated erythrocyte mean corpuscular volume 94 [foz_us] 80-99 Automated erythrocyte mean corpuscular hemoglobin (mass per erythrocyte) 34 pg 25-34 Automated erythrocyte mean corpuscular hemoglobin concentration measurement ( mass/volume) 36 g/dL 32-36 Automated erythrocyte distribution width ratio 11.9 % 10.0-14.5 Automated blood platelet count (count/volume) 166 10*3/uL 130-400 Automated blood platelet mean volume measurement 11.2 [foz_us] 7.4-10.4 Automated blood neutrophils/100 leukocytes 73 % 42-75 Automated blood lymphocytes/100 leukocytes 20 % 12-44 Blood monocytes/100 leukocytes 6 % 0-12 Automated blood eosinophils/100 leukocytes 1 % 0-10 Automated blood basophils/100 leukocytes 0 % 0-10 Blood neutrophils automated count (number/volume) 6.4 10*3 1.8-7.8 Blood lymphocytes automated count (number/volume) 1.7 10*3 1.0-4.0 Blood monocytes automated count (number/volume) 0.5 10*3 0.0-1.0 Automated eosinophil count 0.1 10*3/uL 0.0-0.3 Automated blood basophil count (count/volume) 0.0 10*3/uL 0.0-0.1 PT panel in platelet poor plasma by coagulation assay - 06/19/17 06:15 Prothrombin time (PT) in platelet poor plasma by coagulation assay 12.7 s 12.2-14.7 INR in platelet poor plasma or blood by coagulation assay 1.0 0.8-1.4 Activated partial thromboplastin time (aPTT) in platelet poor plasma bycoagulation assay - 06/19/17 06:15 Activated partial thromboplastin time (aPTT) in platelet poor plasma bycoagulation assay 28 s 24-35 Serum or plasma lactate measurement (moles/volume) - 06/19/17 06:15 Serum or plasma lactate measurement (moles/volume) 1.49 mmol/L 0.50-2.00 Comprehensive metabolic panel - 06/19/17 06:15 Serum or plasma sodium measurement (moles/volume) 135 mmol/L 135-145 Serum or plasma potassium measurement (moles/volume) 3.9 mmol/L 3.6-5.0 Serum or plasma chloride measurement (moles/volume) 105 mmol/L 98-107 Carbon dioxide 18 mmol/L 21-32 Serum or plasma anion gap determination (moles/volume) 12 mmol/L 5-14 Serum or plasma urea nitrogen measurement (mass/volume) 3 mg/dL 7-18 Serum or plasma creatinine measurement (mass/volume) 0.69 mg/dL 0.60-1.30 Serum or plasma urea nitrogen/creatinine mass ratio 4 NRG Serum or plasma creatinine measurement with calculation of estimated glomerular filtration rate > NRG Serum or plasma glucose measurement (mass/volume) 142 mg/dL 70-105 Serum or plasma calcium measurement (mass/volume) 8.4 mg/dL 8.5-10.1 Serum or plasma total bilirubin measurement (mass/volume) 0.5 mg/dL 0.1-1.0 Serum or plasma alkaline phosphatase measurement (enzymatic activity/volume) 64 U/L 40-136 Serum or plasma aspartate aminotransferase measurement (enzymatic activity/ volume) 75 U/L 5-34 Serum or plasma alanine aminotransferase measurement (enzymatic activity/volume ) 71 U/L 0-55 Serum or plasma protein measurement (mass/volume) 6.2 g/dL 6.4-8.2 Serum or plasma albumin measurement (mass/volume) 3.6 g/dL 3.2-4.5 Human immunodeficiency virus (HIV) type 1 and 2 antibody detection - 06/19/17 06:15 Serum HIV 1+2 antibody detection by immunoblot Non-Reactive Non-Reactive Complete urinalysis with reflex to culture - 06/19/17 17:36 Urine color determination RED NRG Urine clarity determination VERY CLOUDY NRG Urine pH measurement by test strip 6 5-9 Specific gravity of urine by test strip 1.010 1.016- 1.022 Urine protein assay by test strip, semi-quantitative 2+ NEGATIVE Urine glucose detection by automated test strip NEGATIVE NEGATIVE Erythrocytes detection in urine sediment by light microscopy 5+ NEGATIVE Urine ketones detection by automated test strip 1+ NEGATIVE Urine nitrite detection by test strip NEGATIVE NEGATIVE Urine total bilirubin detection by test strip NEGATIVE NEGATIVE Urine urobilinogen measurement by automated test strip (mass/volume) NORMAL NORMAL Urine leukocyte esterase detection by dipstick 2+ NEGATIVE Automated urine sediment erythrocyte count by microscopy (number/high power field) TNTC NRG Automated urine sediment leukocyte count by microscopy (number/high power field ) [HPF] NRG Bacteria detection in urine sediment by light microscopy TRACE NRG Crystals detection in urine sediment by light microscopy NONE NRG Casts detection in urine sediment by light microscopy NONE NRG Mucus detection in urine sediment by light microscopy NEGATIVE NRG Complete urinalysis with reflex to culture NO NRG Encounters ACCT No. Visit Date/Time Discharge Status Pt. Type Provider Facility Loc./Unit Complaint [id number] 10/11/2014 11:18:00 10/11/2014 23:59:59 CLS Outpatient BARTOLO ZIMMERMAN MD [id number] 07/26/2014 16:03:00 07/26/2014 23:59:59 CLS Outpatient BARTOLO ZIMMERMAN MD [id number] 03/08/2014 14:57:00 03/08/2014 23:59:59 CLS Outpatient BARTOLO ZIMMERMAN MD [id number] 02/16/2014 16:12:00 02/16/2014 23:59:59 CLS Outpatient VIKAS WORTHY APRN [id number] 02/11/2014 14:05:00 02/11/2014 23:59:59 CLS Outpatient CAR WADDELL APRN [id number] 09/30/2013 09:01:00 09/30/2013 23:59:59 CLS Outpatient TEJ DE MD [id number] 02/05/2013 13:59:00 02/05/2013 23:59:59 CLS Outpatient [id number] 12/24/2012 14:11:00 12/24/2012 23:59:59 CLS Outpatient BARTOLO ZIMMERMAN MD [id number] 11/04/2012 17:02:00 11/04/2012 23:59:59 CLS Outpatient [id number] 06/04/2012 10:55:00 06/04/2012 23:59:59 CLS Outpatient LEO GARCIA DDS [id number] 07/12/2013 16:20:00 Document Registration [id number] 07/08/2013 09:31:00 Document Registration [id number] 06/18/2013 00:00:00 Document Registration [id number] 02/23/2013 16:36:00 Document Registration [id number] 06/19/2017 03:40:00 06/20/2017 16:50:00 DIS Inpatient DEBRA SALOMON MD [facility] 4TH PANCREATITIS [id number] 04/24/2017 02:25:00 04/25/2017 14:05:00 DIS Inpatient LIBERTAD LATIF MD [facility] 4TH ACUTE PANCREATITIS [id number] 01/20/2017 09:59:00 01/20/2017 23:59:59 CLS Outpatient JOSE ROBERTO MCCABE [facility] RAD SCREENING [id number] 11/17/2016 18:52:00 11/17/2016 22:45:00 DIS Emergency BRIANNA BERMEO [facility] ER WITHDRAWL [id number] 11/04/2016 05:58:00 11/05/2016 10:40:00 DIS Inpatient CHRISTINE RAMSEY MD [facility] 4TH ALCOHOL INTOXICATION [id number] 10/23/2016 09:36:00 10/23/2016 23:59:59 CLS Preadmit ELSIE REGAN, BARTOLO Licona [facility] REHAB CERVICAL PARASPINAL MUSCLE SPASMS [id number] 06/01/2016 12:24:00 06/01/2016 14:40:00 DIS Emergency REUBEN SANTOS [facility] ER FALL/BACK PAIN [id number] 05/31/2016 14:26:00 05/31/2016 16:51:00 DIS Emergency REUBEN SANTOS [facility] ER FALL RIB PAIN/ VOMITING BLOOD [id number] 12/28/2015 11:32:00 12/28/2015 16:09:00 DIS Emergency REUBEN SANTOS [facility] ER UPPER ABD/BACK PAIN [id number] 12/05/2015 14:13:00 12/05/2015 15:49:00 DIS Emergency MASSIMO CACERES APRN [facility] ER ANXIETY [id number] 06/01/2014 13:04:00 06/01/2014 13:46:00 DIS Emergency MASSIMO CACERES BASKET SORTER [facility] ER BACK PAIN [id number] 03/06/2014 14:41:00 03/06/2014 15:41:00 DIS Emergency MASSIMO CACERES BASKET SORTER [facility] ER TREMORS [id number] 07/20/2013 21:37:00 07/21/2013 16:15:00 DIS Inpatient TEJ DE MD [facility] ICU SUICIDAL IDEATION, INTOXICATION,ALCOHOL ABUSE [id number] 07/20/2013 08:34:00 07/20/2013 23:59:59 CLS Outpatient AIME REGAN, DEBRA Bernstein [facility] RAD LIPOMA [id number] 07/14/2013 10:27:00 07/14/2013 12:29:00 DIS Emergency PIERO SMALL DO [facility] ER CHEST PAIN [id number] 06/27/2013 15:22:00 06/27/2013 17:10:00 DIS Emergency ROMMEL SHARON MORIN [facility] ER HERNIA [id number] 06/19/2013 00:48:00 06/19/2013 01:05:00 DIS Emergency DINO CHATMAN MD [facility] ER ABD PAIN [id number] 06/05/2013 20:11:00 06/05/2013 23:45:00 DIS Emergency DINO CHATMAN MD [facility] ER MENTAL EVALUATION [id number] 12/05/2015 14:14:00 Document Registration [id number] 08/29/2012 07:56:00 Document Registration [id number] 08/11/2012 11:02:00 Document Registration [id number] 05/26/2012 19:04:00 Document Registration [id number] 05/23/2012 18:47:00 Document Registration [id number] 05/11/2012 11:30:00 Document Registration [id number] 03/13/2012 00:03:00 Document Registration [id number] 03/11/2012 02:58:00 Document Registration [id number] 03/08/2012 22:35:00 Document Registration [id number] 02/06/2012 12:07:00 Document Registration [id number] 12/18/2011 07:45:00 Document Registration [id number] 10/18/2011 15:51:00 Document Registration [id number] 10/17/2011 14:28:00 Document Registration [id number] 10/14/2011 18:32:00 Document Registration [id number] 09/22/2011 00:59:00 Document Registration [id number] 09/16/2011 19:06:00 Document Registration [id number] 08/20/2011 10:30:00 Document Registration [id number] 07/16/2011 05:54:00 Document Registration [id number] 07/15/2011 15:46:00 Document Registration [id number] 07/12/2011 22:16:00 Document Registration [id number] 05/16/2011 03:12:00 Document Registration [id number] 04/13/2011 22:30:00 Document Registration [id number] 02/07/2011 17:26:00 Document Registration [id number] 02/07/2011 10:05:00 Document Registration [id number] 01/04/2011 09:45:00 Document Registration [id number] 12/28/2010 22:40:00 Document Registration [id number] 11/10/2010 03:47:00 Document Registration [id number] 08/02/2010 11:06:00 Document Registration
[2017-11-18] MEDS ORDERED: MIRT30TA6 (19:44)
[2017-11-18] MEDS ORDERED: Proventil (19:44)
[2017-11-18] MEDS ORDERED: OMEP40CA36 (19:44)
[2017-11-18] MEDS ORDERED: LEVE10006 (19:44)
[2017-11-18] MEDS ORDERED: NS IV 1000 ML 1,000 ML IV ONE (20:04)
[2017-11-18] MEDS ORDERED: PROMETHAZINE INJ 25 MG/ML (PHENERGAN) AMP IVP ONE (20:15)
--- NOTE | 2017-11-18 20:17 | ED Abdominal Pain ---
General Chief Complaint: Abdominal/GI Problems Stated Complaint: ABD PAIN Nursing Triage Note: upper abdominal pain radiating to back x1 hr. Sepsis Screen: No Definite Risk History of Present Illness Time Seen By Provider: 20:05 Initial Comments 47-year-old female presents for epigastric pain that began approximately one hour ago. She has long-standing history of pancreatitis with last hospitalization April 2017 and also had a ventral hernia repair Jun [address] Salomon, she never attended a follow-up appointment. She reports chronic alcohol abuse, she had approximately 8 beers between 11 AM and 1800 today. She reports the pain is similar to what she experienced with the ventral hernia and not when she has pancreatitis. She has been cautioned on multiple occasions to limit or stop drinking alcohol. Timing/Duration: 1 Hour Allergies and Home Medications Allergies Coded Allergies: No Known Drug Allergies (Verified , 02/14/09) Home Medications Hydrocodone Bit/Acetaminophen 1 Each Tablet, 2 EACH PO Q6H PRN for PAIN, #30 Prescribed by: DEBRA SALOMON on 06/20/17 1449 Levetiracetam 1,000 Mg Tablet, (Reported) Mirtazapine 30 Mg Tablet, (Reported) Omeprazole 40 Mg Capsule., (Reported) [Proventil] , (Reported) Review of Systems Constitutional: no symptoms reported, see HPI Gastrointestinal: See HPI, Abdominal Pain, Nausea, Vomiting All Other Systems Reviewed Negative Unless Noted: Yes Past Tywilmr-Jcvqmq-Kezeye Hx Patient Social History Alcohol Use: Regular Use Number of Drinks Today: FF Alcohol Beverage of Choice: Beer, Vodka Recreational Drug Use: Yes Drug of Choice: marjuana Smoking Status: Current Everyday Smoker Type Used: Cigarettes 2nd Hand Smoke Exposure: Yes Recent Foreign Travel: No Contact w/Someone Who Travel: No Recent Infectious Disease Expo: No Recent Hopitalizations: No Immunizations Up To Date Tetanus Booster (TDap): Unknown PED Vaccines UTD: No Date of Pneumonia Vaccine: Aug 17, 2011 Date of Influenza Vaccine: Aug 15, 2016 Seasonal Allergies Seasonal Allergies: No Surgeries History of Surgeries: Yes ( X 1, hernia) Surgeries: Section Respiratory History of Respiratory Disorde: No Cardiovascular History of Cardiac Disorders: Yes Cardiac Disorders: Hypertension Neurological History of Neurological Disord: Yes Reproductive System : No Hx Reproductive Disorders: No Female Reproductive Disorders: Denies Genitourinary History of Genitourinary Disor: No Gastrointestinal History of Gastrointestinal Di: Yes Gastrointestinal Disorders: Gastroesophageal Reflux, Pancreatitis Musculoskeletal History of Musculoskeletal Dis: No Endocrine History of Endocrine Disorders: No HEENT History of HEENT Disorders: No Cancer History of Cancer: No Psychosocial History of Psychiatric Problem: Yes (EXTENSIVE, MULTIPLE PSYCH ADMITS. ) Behavioral Health Disorders: Anxiety, Suicide Attempts, Bipolar, Depression Integumentary History of Skin or Integumenta: No Blood Transfusions History of Blood Disorders: No Reviewed Nursing Assessment Reviewed/Agree w Nursing PMH: Yes Family Medical History Significant Family History: No Pertinent Family Hx Family Medial History: Patient reports no known family medical history. Physical Exam Vital Signs VS - Last 72 Hours, by Label 11/18/17 11/18/17 11/18/17 19:35 21:58 22:01 Temp 98.7 98.7 98.5 Pulse 110 85 Resp 18 18 B/P (MAP) 151/102 (118) Pulse Ox 98 99 O2 Delivery Room Air Room Air Capillary Refill : Less Than 3 Seconds General Appearance: WD/WN, no apparent distress HEENT: PERRL/EOMI, normal ENT inspection, TMs normal, pharynx normal Neck: non-tender, full range of motion, supple, normal inspection Respiratory: chest non-tender, lungs clear, normal breath sounds Cardiovascular: normal peripheral pulses, regular rate, rhythm, no edema, no murmur Gastrointestinal: normal bowel sounds, soft, tenderness (epigastric region, no ventral hernia was palpated, however at the site of her previous surgery is slightly tender, with palpable scar tissue or adhesions present.) Extremities: normal range of motion, non-tender, normal inspection, no pedal edema, no calf tenderness, normal capillary refill, other (skin turgor less than 3 seconds) Neurologic/Psychiatric: no motor/sensory deficits, alert, normal mood/affect, oriented x 3 Skin: normal color, warm/dry, No jaundice Focused Exam Evaluation Lactate Level Laboratory Tests 11/18/17 20:21: Lactic Acid Level 3.09*H Lactic Acid Level Laboratory Tests Test 11/18/17 20:21 Lactic Acid Level 3.09 MMOL/L (0.50-2.00) *H Progress/Results/Core Measures Results/Orders Lab Results Laboratory Tests Test 11/18/17 20:15 11/18/17 20:21 Range/Units Magnesium Level 1.8 1.8-2.4 MG/DL Lipase 25 8-78 U/L White Blood Count 6.2 4.3-11.0 10^3/uL Red Blood Count 4.37 4.35-5.85 10^6/uL Hemoglobin 16.0 11.5-16.0 G/DL Hematocrit 45 35-52 % Mean Corpuscular Volume 102 H 80-99 FL Mean Corpuscular Hemoglobin 37 H 25-34 PG Mean Corpuscular Hemoglobin Concent 36 32-36 G/DL Red Cell Distribution Width 12.0 10.0-14.5 % Platelet Count 128 L 130-400 10^3/uL Mean Platelet Volume 11.0 H 7.4-10.4 FL Neutrophils (%) (Auto) 61 42-75 % Lymphocytes (%) (Auto) 28 12-44 % Monocytes (%) (Auto) 9 0-12 % Eosinophils (%) (Auto) 2 0-10 % Basophils (%) (Auto) 1 0-10 % Neutrophils # (Auto) 3.8 1.8-7.8 X 10^3 Lymphocytes # (Auto) 1.8 1.0-4.0 X 10^3 Monocytes # (Auto) 0.6 0.0-1.0 X 10^3 Eosinophils # (Auto) 0.1 0.0-0.3 10^3/uL Basophils # (Auto) 0.0 0.0-0.1 10^3/uL Urine Color YELLOW Urine Clarity CLEAR Urine pH 6 5-9 Urine Specific [place] 1.010 L 1.016-1.022 Urine Protein NEGATIVE NEGATIVE Urine Glucose (UA) NEGATIVE NEGATIVE Urine Ketones NEGATIVE NEGATIVE Urine Nitrite NEGATIVE NEGATIVE Urine Bilirubin NEGATIVE NEGATIVE Urine Urobilinogen NORMAL NORMAL MG/DL Urine Leukocyte Esterase 1+ H NEGATIVE Urine RBC (Auto) NEGATIVE NEGATIVE Urine RBC NONE /HPF Urine WBC 5-10 H /HPF Urine Squamous Epithelial Cells 2-5 /HPF Urine Crystals NONE /LPF Urine Bacteria TRACE /HPF Urine Casts NONE /LPF Urine Mucus NEGATIVE /LPF Urine Culture Indicated YES Sodium Level 143 135-145 MMOL/L Potassium Level 3.8 3.6-5.0 MMOL/L Chloride Level 103 98-107 MMOL/L Carbon Dioxide Level 20 L 21-32 MMOL/L Anion Gap 20 H 5-14 MMOL/L Blood Urea Nitrogen 4 L 7-18 MG/DL Creatinine 0.65 0.60-1.30 MG/DL Estimat Glomerular Filtration Rate > 60 BUN/Creatinine Ratio 6 Glucose Level 97 70-105 MG/DL Lactic Acid Level 3.09 *H 0.50-2.00 MMOL/L Calcium Level 9.8 8.5-10.1 MG/DL Total Bilirubin 0.8 0.1-1.0 MG/DL Aspartate Amino Transf (AST/SGOT) 133 H 5-34 U/L Alanine Aminotransferase (ALT/SGPT) 97 H 0-55 U/L Alkaline Phosphatase 131 40-136 U/L C-Reactive Protein High Sensitivity 0.12 0.00-0.50 MG/DL Total Protein 7.7 6.4-8.2 GM/DL Albumin 4.3 3.2-4.5 GM/DL Amylase Level 106 25-125 U/L Urine Opiates Screen NEGATIVE NEGATIVE Urine Oxycodone Screen NEGATIVE NEGATIVE Urine Methadone Screen NEGATIVE NEGATIVE Urine Propoxyphene Screen NEGATIVE NEGATIVE Urine Barbiturates Screen NEGATIVE NEGATIVE Ur Tricyclic Antidepressants Screen NEGATIVE NEGATIVE Urine Phencyclidine Screen NEGATIVE NEGATIVE Urine Amphetamines Screen NEGATIVE NEGATIVE Urine Methamphetamines Screen NEGATIVE NEGATIVE Urine Benzodiazepines Screen POSITIVE H NEGATIVE Urine Cocaine Screen NEGATIVE NEGATIVE Urine Cannabinoids Screen POSITIVE H NEGATIVE Serum Alcohol 220 H <10 MG/DL My Orders Orders - BRIANNA BERMEO Saline Lock/Iv-Start (11/18/17 20:04) Ns Iv 1000 Ml (Sodium Chloride 0.9%) (11/18/17 20:04) Alcohol (11/18/17 20:04) Amylase (11/18/17 20:04) Cbc With Automated Diff (11/18/17 20:04) Comprehensive Metabolic Panel (11/18/17 20:04) Hs C Reactive Protein (11/18/17 20:04) Drug Screen Stat (Urine) (11/18/17 20:04) Lactic Acid Analyzer (11/18/17 20:04) Ua Culture If Indicated (11/18/17 20:04) Promethazine Injection (Phenergan Injec (11/18/17 20:15) Urine Culture (11/18/17 20:21) Lipase (11/18/17 21:07) Magnesium (11/18/17 21:08) Famotidine Tablet (Pepcid Tablet) (11/18/17 21:48) Tramadol Tablet (Ultram Tablet) (11/18/17 21:48) Rx-Ondansetron Po (Rx-Zofran Po) (11/18/17 21:48) Medications Given in ED Current Medications Medications Dose Ordered Sig/Imelda Route Start Time Stop Time Status Last Admin Dose Admin Promethazine HCl 25 mg ONCE ONCE IVP 11/18/17 20:15 11/18/17 20:16 DC 11/18/17 20:14 25 MG Sodium Chloride 1,000 ml @ 0 mls/hr Q0M ONCE IV 11/18/17 20:04 11/18/17 20:08 DC 11/18/17 20:14 0 MLS/HR Vital Signs/I&O Vital Sign - Last 12Hours 11/18/17 11/18/17 11/18/17 19:35 21:58 22:01 Temp 98.7 98.7 98.5 Pulse 110 85 Resp 18 18 B/P (MAP) 151/102 (118) Pulse Ox 98 99 O2 Delivery Room Air Room Air Blood Pressure Mean: 118 Progress Note : Time: 20:05 Progress Note Reviewed medical records from admissions in 2016. Initial evaluation completed, recommended labs, IV normal saline 1 L, Phenergan 25 mg IV for nausea. Consulted with Dr. Smallwood, agreed with assessment and treatment thus far. 2044 patient reports no further nausea and pain is improving since giving the Phenergan. IV is infusing with out difficulty. WBC 6.2. UA within normal limits , urine drug screen positive for benzodiazepines and cannabinoids. Awaiting other lab results. 2049 discussed patient and available labs at this time with Dr. Lowe by phone , no additional recommendations received. 2114 amylase 106, lipase 25, lactic acid 3.09 and CRP 0.12. Elevated lactic acid compatible with her history of alcohol abuse and dehydration from nausea and vomiting today. Discussed these results with Dr. Smallwood, no additional testing recommended. 2129 patient reports abdominal is improving but abdominal pain continues, will use tramadol 50 mg by mouth and Pepcid 20 mg by mouth. 2144 discharge planning discussed with the patient, at this time she is not desiring treatment for her alcohol and drug. Options were discussed with her at length. Return precautions were reviewed with her. All questions answered. Departure Impression Impression: Primary Impression: Nausea and vomiting Qualified Codes: G43.A1 - Cyclical vomiting, intractable Additional Impressions: Pain in the abdomen Qualified Codes: R10.13 - Epigastric pain Alcohol abuse Disposition: 01 HOME, SELF-CARE Condition: Improved Departure-Patient Inst. Decision time for Depature: 21:45 Referrals: BARTOLO ZIMMERMAN MD (PCP) Primary Care Physician JOSE ROBERTO MCCABE (Family) Primary Care Physician Patient Instructions: Acute Abdomen (Belly Pain), Adult (DC), Alcohol Abuse and Alcoholism (DC) Add. Discharge Instructions: Call for follow-up with Dr. Salomon tomorrow, [phone] Clear liquid diet for the next 6 hours then advance to bland diet as tolerated. Use Zofran or Phenergan for nausea and vomiting. May use Tylenol 650 mg every 6 hours for pain. Return to emergency department for vomiting not relieved with Zofran or Phenergan, new problems or concerns. Consider treatment for alcohol abuse. All discharge instructions reviewed with patient and/or family. Voiced understanding. Copy Copies To 1: BARTOLO ZIMMERMAN MD Copies To 2: DEBRA SALOMON MD, AMY ARNP Nov 18, 2017 20:17
[2017-11-18 20:27] LABS: BILIRUBIN,URINE NEGATIVE (NEGATIVE); CLARITY,URINE CLEAR; COLOR,URINE YELLOW; GLUCOSE, URINE (UA) NEGATIVE (NEGATIVE); KETONES,URINE NEGATIVE (NEGATIVE); LEUKOCYTE ESTERASE ,URINE 1+ (NEGATIVE); NITRITE,URINE NEGATIVE (NEGATIVE); PH,URINE 6 (5-9); PROTEIN,URINE NEGATIVE (NEGATIVE); UROBILINOGEN,URINE NORMAL (NORMAL)
[2017-11-18 20:29] LABS: BASOPHILS % (AUTO) 1 % (0-10); EOSINOPHILS # (AUTO) 0.1 10^3/uL (0.0-0.3); EOSINOPHILS % (AUTO) 2 % (0-10); HEMATOCRIT 45 % (35-52); LYMPHOCYTES # (AUTO) 1.8 X 10^3 (1.0-4.0); LYMPHOCYTES % (AUTO) 28 % (12-44); MEAN CORPUSCULAR HEMOGLOBIN 37 PG (25-34); MEAN CORPUSCULAR HGB CONC 36 G/DL (32-36); MEAN CORPUSCULAR VOLUME 102 FL (80-99); MONOCYTES # (AUTO) 0.6 X 10^3 (0.0-1.0); MONOCYTES % (AUTO) 9 % (0-12); NEUTROPHILS # (AUTO) 3.8 X 10^3 (1.8-7.8); NEUTROPHILS % (AUTO) 61 % (42-75); PLATELET COUNT 128 10^3/uL (130-400); RED BLOOD COUNT 4.37 10^6/uL (4.35-5.85); WHITE BLOOD COUNT 6.2 10^3/uL (4.3-11.0)
[2017-11-18 20:34] LABS: BACTERIA,URINE TRACE /HPF
[2017-11-18 20:44] LABS: AMPHETAMINE SCREEN, URINE NEGATIVE (NEGATIVE); BARBITURATE SCREEN URINE NEGATIVE (NEGATIVE); BENZODIAZEPINES SCREEN URINE POSITIVE (NEGATIVE); CANNABINOID SCREEN, URINE POSITIVE (NEGATIVE); COCAINE SCREEN URINE NEGATIVE (NEGATIVE); METHADONE STAT NEGATIVE (NEGATIVE); METHAMPHETAMINE SCREEN URINE S NEGATIVE (NEGATIVE); OPIATE SCREEN URINE NEGATIVE (NEGATIVE); OXYCODONE STAT NEGATIVE (NEGATIVE); PROPOXYPHENE STAT NEGATIVE (NEGATIVE); TRICYCLIC ANTIDEPRESSANTS SCRE NEGATIVE (NEGATIVE)
[2017-11-18 20:50] LABS: ALANINE AMINOTRANSFERASE 97 U/L (0-55); ALBUMIN 4.3 GM/DL (3.2-4.5); ALKALINE PHOSPHATASE 131 U/L (40-136); AMYLASE 106 U/L (25-125); BILIRUBIN,TOTAL 0.8 MG/DL (0.1-1.0); BUN/CREATININE RATIO 6; CALCIUM 9.8 MG/DL (8.5-10.1); CARBON DIOXIDE 20 MMOL/L (21-32); CHLORIDE 103 MMOL/L (98-107); CREATININE SERUM 0.65 MG/DL (0.60-1.30); GFR ESTIMATED > 60; GLUCOSE 97 MG/DL (70-105); POTASSIUM 3.8 MMOL/L (3.6-5.0); SODIUM 143 MMOL/L (135-145); TOTAL PROTEIN 7.7 GM/DL (6.4-8.2)
[2017-11-18 21:25] LABS: MAGNESIUM 1.8 MG/DL (1.8-2.4)
[2017-11-18] MEDS ORDERED: RX-ONDANSETRON 4 MG ODT (ZOFRAN) PPK #4 PO STA (21:48)
[2017-11-18] MEDS ORDERED: FAMOTIDINE 20 MG (PEPCID) TABLET PO STA (21:48)
[2017-11-18 22:01] VITALS: BP 147/91
== END 2017-11-18 22:00 | disposition home or self-care (01) ==
LOC: EDUNIT# 19:25 → ER 19:27
DX: R11.2 Nausea with vomiting, unspecified (principal); R10.13 Epigastric pain; F10.10 Alcohol abuse, uncomplicated; F41.9 Anxiety disorder, unspecified; F31.9 Bipolar disorder, unspecified; K21.9 Gastro-esophageal reflux disease without esophagitis; F17.210 Nicotine dependence, cigarettes, uncomplicated; Z98.890 Other specified postprocedural states; Z87.59 Personal history of other complications of pregnancy, childbirth and the puerperium; Z91.5 Personal history of self-harm
CPT/HCPCS: 36415; 80053; 80306; 80320; 81000; 82150; 83605; 83690; 83735; 85025; 86141; 87077; 87088; 87186

== ENCOUNTER 2018-06-25 20:51 | Emergency (ER) | payer SELFPAY ==
[~2018-06-25] VITALS: Ht 157.5 cm; Wt 52.2 kg
[~2018-06-25 20:51] MED LIST changes: +LEVE10006; +MIRT30TA6; +OMEP40CA36; +Proventil
[2018-06-25 21:38] LABS: BASOPHILS # (AUTO) 0.1 10^3/uL (0.0-0.1); BASOPHILS % (AUTO) 1 % (0-10); EOSINOPHILS % (AUTO) 1 % (0-10); HEMATOCRIT 39 % (35-52); HEMOGLOBIN 14.7 G/DL (11.5-16.0); LYMPHOCYTES # (AUTO) 0.9 X 10^3 (1.0-4.0); LYMPHOCYTES % (AUTO) 18 % (12-44); MEAN CORPUSCULAR HEMOGLOBIN 41 PG (25-34); MEAN CORPUSCULAR HGB CONC 38 G/DL (32-36); MEAN CORPUSCULAR VOLUME 108 FL (80-99); MEAN PLATELET VOLUME 9.5 FL (7.4-10.4); MONOCYTES # (AUTO) 0.4 X 10^3 (0.0-1.0); MONOCYTES % (AUTO) 9 % (0-12); NEUTROPHILS # (AUTO) 3.7 X 10^3 (1.8-7.8); NEUTROPHILS % (AUTO) 72 % (42-75); PLATELET COUNT 151 10^3/uL (130-400); RED BLOOD COUNT 3.62 10^6/uL (4.35-5.85); RED CELL DISTRIBUTION WIDTH 13.6 % (10.0-14.5); WHITE BLOOD COUNT 5.2 10^3/uL (4.3-11.0)
[2018-06-25] MEDS ORDERED: raNItidine 50 MG/2 ML INJ (ZANTAC) IV ONE (21:45)
--- NOTE | 2018-06-25 21:48 | ED Abdominal Pain ---
General Chief Complaint: Abdominal/GI Problems Stated Complaint: ABD PAIN/BACK PAIN Nursing Triage Note: upper abdominal pain, diarrhea x3 days, pancreatitis Sepsis Screen: No Definite Risk Source of Information: Patient Exam Limitations: No Limitations (DEYSI FELIZ MEDICAL STUDENT) History of Present Illness Date Seen by Provider: Jun 25, 2018 Time Seen by Provider: 21:35 Initial Comments Pt is a 47 yo F presenting with epigastric abd pain which radiates to her back that started 3 days ago and has been present all day. She describes the pain as a cramping sensation that makes her afraid to eat. Closely resembles the pain which she experienced during her prior ED visit in November. She has tried NSAIDs and pepto with no improvement. Some vomiting and diarrhea. Not currently nauseated. Hx of alcoholism and pancreatitis. Currently consuming 12 beers qday. She has a history of ventral hernia repair. Was recommended to follow up with Dr. Moore in November, however she has not done so. Timing/Duration: 2-3 Days Severity/Quality: Severe, Cramping Location: RUQ, Epigastric Radiation: Back Activities at Onset: None Modifying Factors: Improves With Analgesics (NSAIDs & ant-acids), Improves With Movement Associated Symptoms: Back Pain; No Chest Pain (currently - though had episode earlier today), No Diaphoresis (currently); Nausea/Vomiting; No Shortness of Air (DEYSI FELIZ MEDICAL STUDENT) Allergies and Home Medications Allergies Coded Allergies: No Known Drug Allergies (Verified , 02/14/09) Home Medications Cephalexin 500 Mg Capsule, 500 MG PO TID Prescribed by: MICHELLE RODRIGUEZ on 06/26/189 Famotidine 20 Mg Tablet, 20 MG PO BID Prescribed by: MICHELLE RODRIGUEZ on 06/26/189 Ondansetron 4 Mg Tab.rapdis, 4 MG SL Q4H PRN for NAUSEA/VOMITING-1ST LINE Prescribed by: MICHELLE RODRIGUEZ on 06/26/189 Sucralfate 1 Gm/10 Ml Oral.susp, 1 GM PO QID Take 30 min before eating or drinkng at mealtime and before bed. Prescribed by: MICHELLE RODRIGUEZ on 06/26/1812 Patient Home Medication List Home Medication List Reviewed: Yes (MICHELLE FELICIANO MD) Review of Systems Constitutional: No fever Respiratory: Denies Cough, Denies Shortness of Air Cardiovascular: Denies Chest Pain Gastrointestinal: Abdominal Pain, Diarrhea; Denies Nausea; Poor Appetite, Vomiting Musculoskeletal: back pain Skin: No rash Endocrine: Denies Intolerance to Cold, Denies Intolerance to Heat (DEYSI FELIZ MEDICAL STUDENT) Constitutional: no symptoms reported EENTM: No Symptoms Reported Respiratory: No Symptoms Reported Cardiovascular: No Symptoms Reported Gastrointestinal: See HPI Genitourinary: No Symptoms Reported Musculoskeletal: see HPI Psychiatric/Neurological: See HPI (MICHELLE FELICIANO MD) Past Bmscroc-Wvcnvx-Ogupeg Hx Patient Social History Alcohol Use: Regular Use (12 beers daily states no liqour ) Number of Drinks Today: FF Alcohol Beverage of Choice: Beer, Vodka Recreational Drug Use: Yes Drug of Choice: cannibus Smoking Status: Current Everyday Smoker (1 PPD) Type Used: Cigarettes 2nd Hand Smoke Exposure: Yes Recent Foreign Travel: No Contact w/Someone Who Travel: No Recent Infectious Disease Expo: No Recent Hopitalizations: No (DEYSI FELIZ MEDICAL STUDENT) Immunizations Up To Date Tetanus Booster (TDap): Unknown PED Vaccines UTD: No Date of Pneumonia Vaccine: Aug 17, 2011 Date of Influenza Vaccine: Aug 15, 2016 (DEYSI FELIZ MEDICAL STUDENT) Seasonal Allergies Seasonal Allergies: No (DEYSI FELIZ MEDICAL STUDENT) Past Medical History Surgeries: Yes ( X 1, hernia) Abdominal (Ventral hernia repair by Dr. Moore), Section Respiratory: No Cardiac: Yes Hypertension Neurological: No : No Reproductive Disorders: No Female Reproductive Disorders: Denies Genitourinary: No Gastrointestinal: Yes Gastroesophageal Reflux, Pancreatitis Musculoskeletal: No Endocrine: No HEENT: No Cancer: No Psychosocial: Yes (MULTIPLE PSYCH ADMITS. ) Anxiety, Suicide Attempts, Bipolar, Depression Integumentary: No Blood Disorders: No (DEYSI FELIZ MEDICAL STUDENT) Family Medical History Patient reports no known family medical history. No Pertinent Family Hx (DEYSI FELIZ MEDICAL STUDENT) Physical Exam Vital Signs Vital Signs - First Documented 06/25/18 20:55 Temp 98.1 Pulse 104 Resp 18 B/P (MAP) 147/94 (111) Pulse Ox 97 O2 Delivery Room Air (MICHELLE FELICIANO MD) Vital Signs Capillary Refill : Less Than 3 Seconds (DEYSI FELIZ MEDICAL STUDENT) Height/Weight/BMI Height: 5'2.00" Weight: 115lbs. 0oz. 52.457294bs; 27.6 BMI Method:Stated General Appearance: WD/WN, no apparent distress Neck: normal inspection Respiratory: chest non-tender, lungs clear, normal breath sounds, no respiratory distress, no accessory muscle use Cardiovascular: regular rate, rhythm, no edema, no gallop, no JVD, no murmur Gastrointestinal: no pulsatile mass; No distended; guarding, tenderness ( epigastic) Neurologic/Psychiatric: alert, oriented x 3 Skin: normal color, warm/dry; No diaphoresis, No damp, No jaundice, No rash ( DEYSI FELIZ MEDICAL STUDENT) Progress/Results/Core Measures Results/Orders Lab Results Laboratory Tests Test 06/25/18 21:30 Range/Units White Blood Count 5.2 4.3-11.0 10^3/uL Red Blood Count 3.62 L 4.35-5.85 10^6/uL Hemoglobin 14.7 11.5-16.0 G/DL Hematocrit 39 35-52 % Mean Corpuscular Volume 108 H 80-99 FL Mean Corpuscular Hemoglobin 41 H 25-34 PG Mean Corpuscular Hemoglobin Concent 38 H 32-36 G/DL Red Cell Distribution Width 13.6 10.0-14.5 % Platelet Count 151 130-400 10^3/uL Mean Platelet Volume 9.5 7.4-10.4 FL Neutrophils (%) (Auto) 72 42-75 % Lymphocytes (%) (Auto) 18 12-44 % Monocytes (%) (Auto) 9 0-12 % Eosinophils (%) (Auto) 1 0-10 % Basophils (%) (Auto) 1 0-10 % Neutrophils # (Auto) 3.7 1.8-7.8 X 10^3 Lymphocytes # (Auto) 0.9 L 1.0-4.0 X 10^3 Monocytes # (Auto) 0.4 0.0-1.0 X 10^3 Eosinophils # (Auto) 0.0 0.0-0.3 10^3/uL Basophils # (Auto) 0.1 0.0-0.1 10^3/uL Urine Color YELLOW Urine Clarity CLEAR Urine pH 6 5-9 Urine Specific [place] 1.015 L 1.016-1.022 Urine Protein NEGATIVE NEGATIVE Urine Glucose (UA) NEGATIVE NEGATIVE Urine Ketones 2+ H NEGATIVE Urine Nitrite NEGATIVE NEGATIVE Urine Bilirubin NEGATIVE NEGATIVE Urine Urobilinogen NORMAL NORMAL MG/DL Urine Leukocyte Esterase 1+ H NEGATIVE Urine RBC (Auto) NEGATIVE NEGATIVE Urine RBC NONE /HPF Urine WBC 5-10 H /HPF Urine Squamous Epithelial Cells 5-10 /HPF Urine Crystals NONE /LPF Urine Bacteria TRACE /HPF Urine Casts NONE /LPF Urine Mucus NEGATIVE /LPF Urine Culture Indicated YES Sodium Level 138 135-145 MMOL/L Potassium Level 4.1 3.6-5.0 MMOL/L Chloride Level 102 98-107 MMOL/L Carbon Dioxide Level 20 L 21-32 MMOL/L Anion Gap 16 H 5-14 MMOL/L Blood Urea Nitrogen 3 L 7-18 MG/DL Creatinine 0.71 0.60-1.30 MG/DL Estimat Glomerular Filtration Rate > 60 BUN/Creatinine Ratio 4 Glucose Level 103 70-105 MG/DL Calcium Level 9.3 8.5-10.1 MG/DL Corrected Calcium 9.2 8.5-10.1 MG/DL Total Bilirubin 1.0 0.1-1.0 MG/DL Aspartate Amino Transf (AST/SGOT) 85 H 5-34 U/L Alanine Aminotransferase (ALT/SGPT) 45 0-55 U/L Alkaline Phosphatase 135 40-136 U/L Total Protein 7.5 6.4-8.2 GM/DL Albumin 4.1 3.2-4.5 GM/DL Lipase 115 H 8-78 U/L Serum Alcohol < 10 <10 MG/DL (MICHELLE FELICIANO MD) My Orders Orders - MICHELLE FELICIANO MD Alcohol (06/25/18 21:22) Cbc With Automated Diff (06/25/18 21:22) Comprehensive Metabolic Panel (06/25/18 21:22) Lipase (06/25/18 21:22) Saline Lock/Iv-Start (06/25/18 21:22) Ua Culture If Indicated (06/25/18 21:22) Us Abdomen Limited [id number] (06/25/18 21:41) Us Gallbladder 11208 (06/25/18 21:41) Ranitidine Injection (Zantac Injection) (06/25/18 21:45) Ranitidine Injection (Zantac Injection) (06/25/18 22:00) Urine Culture (06/25/18 21:30) Saline Lock/Iv-Start (06/25/18 23:02) Ns Iv 1000 Ml (Sodium Chloride 0.9%) (06/25/18 23:02) Ondansetron Injection (Zofran Injectio (06/25/18 23:15) Lidocaine 2% Viscous 15 Ml (Xylocaine Vi (06/25/18 23:15) Antacid Suspension (Mylanta Suspension (06/25/18 23:15) Ceftriaxone Injection (Rocephin Injectio (06/25/18 23:15) Fentanyl Injection (Sublimaze Injection (06/26/18 00:15) Rx-Ondansetron Po (Rx-Zofran Po) (06/26/18 00:04) (MICHELLE FELICIANO MD) Medications Given in ED Current Medications Medications Dose Ordered Sig/Imelda Route Start Time Stop Time Status Last Admin Dose Admin Al Hydrox/Mg Hydrox/Simethicone 30 ml ONCE ONCE PO 06/25/18 23:15 06/25/18 23:16 DC 06/25/18 23:17 30 ML Ceftriaxone Sodium 1000 mg/ Sodium Chloride 50 ml @ 100 mls/hr ONCE ONCE IV 06/25/18 23:15 06/25/18 23:44 DC 06/25/18 23:17 100 MLS/HR Fentanyl Citrate 50 mcg ONCE ONCE IVP 06/26/18 00:15 06/26/18 00:16 DC 06/26/18 00:14 50 MCG Lidocaine HCl 15 ml ONCE ONCE PO 06/25/18 23:15 06/25/18 23:16 DC 06/25/18 23:17 15 ML Ondansetron HCl 4 mg ONCE ONCE IVP 06/25/18 23:15 06/25/18 23:16 DC 06/25/18 23:17 4 MG Ranitidine HCl 50 mg/Sodium Chloride 52 ml @ 156 mls/hr ONCE ONCE IV 06/25/18 22:00 06/25/18 22:19 DC 06/25/18 22:07 156 MLS/HR Sodium Chloride 1,000 ml @ 0 mls/hr Q0M ONCE IV 06/25/18 23:02 06/25/18 23:04 DC 06/25/18 23:17 0 MLS/HR (MICHELLE FELICIANO MD) Vital Signs/I&O 06/25/18 06/26/18 20:55 00:19 Temp 98.1 97.6 Pulse 104 80 Resp 18 16 B/P (MAP) 147/94 (111) 159/86 (111) Pulse Ox 97 97 O2 Delivery Room Air Room Air 06/26/18 00:00 Intake Total 52 ml Balance 52 ml (MICHELLE FELICIANO MD) Blood Pressure Mean: 111 Progress Progress Note #1: Time: 22:47 Progress Note This patient was interviewed, seen, and examined by me personally along with Deysi Feliz, MS3. I agree with his history, exam, documentation, assessment, and plan with the following additions. Patient complains of 3 days of epigastric pain that is waxing and waning in nature. She has had some diarrhea and some associated vomiting. She does not feel nauseous at this time. She does admit to drinking alcohol most days. She has a history of pancreatitis in the past. She denies any fever. Exam as below Gen.: Alert, oriented, no acute distress HEENT: normocephalic and atraumatic, mucous membranes moist Chest: Clear to auscultation bilaterally with normal effort Abdomen: soft, tender in the epigastrium, normal bowel sounds, no palpable hernia or distention Extremities: Normal to inspection Neuro/psych: Alert, oriented, no focal deficits, mood and affect appropriate Skin: Warm and dry without rash Progress Note #2: Time: 23:20 Progress Note Ultrasound discussed with the biomass technician. Gallbladder ultrasound was unremarkable. Hernia was not visualized on the abdominal wall ultrasound. Patient is being treated with Zofran and GI cocktail. Rocephin is being given for UTI. She is receiving a liter of IV hydration. If she does well with these interventions, we may be dismissed home on a clear liquid diet. Lipase was minimally elevated suggesting early mild pancreatitis. Progress Note #3: Time: 00:20 Progress Note GI cocktail did briefly improved her pain but pain rebounded. Patient was still nauseated as well. She was given fentanyl for further pain control. Patient would like to try to manage her mild pancreatitis at home. She was instructed to observe a clear liquid diet. Further antacid therapy was suggested that with Pepcid and Carafate. A take-home packet of Zofran was dispensed. (MICHELLE FELICIANO MD) Departure Impression Primary Impression: Pancreatitis Qualified Codes: K86.0 - Alcohol-induced chronic pancreatitis Additional Impressions: Epigastric abdominal pain Nausea vomiting and diarrhea Urinary tract infection Qualified Codes: N39.0 - Urinary tract infection, site not specified Disposition: 01 HOME, SELF-CARE Condition: Improved Departure-Patient Inst. Referrals: BARTOLO ZIMMERMAN MD (PCP) Primary Care Physician JOSE ROBERTO MCCABE (Family) Primary Care Physician Patient Instructions: Acute Abdomen (Belly Pain), Adult (DC), Pancreatitis (DC) , Urinary Tract Infection, Adult (DC) Add. Discharge Instructions: Observe strictly a clear liquid diet for the next 24 hours. If your symptoms improve, gradually advance your diet with small quantities of bland food as tolerated after 24 hours. Return to the emergency room if symptoms worsen. Dissolve Zofran (ondansetron) under the tongue every 4 hours as needed for nausea and vomiting. I would like you to take dual antacid therapy. Continue taking omeprazole 40 mg daily. Add Famotidine (Pepcid) 20 mg twice daily. Additionally you can take Carafate (sucralfate) as prescribed to coat your stomach and protect it from acid. Follow-up with your primary care provider as soon as possible and seek referral to a surgeon or civil engineering design draftsperson for upper endoscopy. Avoid the following: Eating large meals, eating close to bedtime, alcohol, tobacco, citrus fruits and juices, tomato products, chocolate, carbonation, caffeine, mints, fatty or greasy foods, spicy foods, NSAID medications such as ibuprofen or naproxen, or anything else you know irritates your stomach. Drink plenty of clear liquids and complete your antibiotics as prescribed. Follow-up with your primary care provider on Friday to review urine culture results. This will help ensure you are on an appropriate antibiotic for the type of bladder infection you have. All discharge instructions reviewed with patient and/or family. Voiced understanding. Scripts Sucralfate (Carafate) 1 Gm/10 Ml Oral.susp 1 GM PO QID, #1200 ML Take 30 min before eating or drinkng at mealtime and before bed. Prov: MICHELLE FELICIANO MD 06/26/18 Famotidine (Pepcid) 20 Mg Tablet 20 MG PO BID, #60 TAB Prov: MICHELLE FELICIANO MD 06/26/18 Ondansetron (Zofran Odt) 4 Mg Tab.rapdis 4 MG SL Q4H PRN for NAUSEA/VOMITING-1ST LINE, #10 TAB Prov: MICHELLE FELICIANO MD 06/26/18 Cephalexin (Keflex) 500 Mg Capsule 500 MG PO TID, #20 CAP Prov: MICHELLE FELICIANO MD 06/26/18 Copy Copies To 1: BARTOLO ZIMMERMAN MD,DEYSI MEDICAL STUDENT Jun 25, 2018 21:48 MICHELLE FELICIANO MD Jun 25, 2018 22:54
[2018-06-25] MEDS ORDERED: raNItidine INJECTION 50 MG in NS (IVPB) 50 ML IV ONE (22:00)
[2018-06-25 22:04] LABS: ALANINE AMINOTRANSFERASE 45 U/L (0-55); ALBUMIN 4.1 GM/DL (3.2-4.5); ALKALINE PHOSPHATASE 135 U/L (40-136); BUN/CREATININE RATIO 4; CALCIUM 9.3 MG/DL (8.5-10.1); CARBON DIOXIDE 20 MMOL/L (21-32); CHLORIDE 102 MMOL/L (98-107); CREATININE SERUM 0.71 MG/DL (0.60-1.30); GFR ESTIMATED > 60; GLUCOSE 103 MG/DL (70-105); LIPASE 115 U/L (8-78); POTASSIUM 4.1 MMOL/L (3.6-5.0); SODIUM 138 MMOL/L (135-145); TOTAL PROTEIN 7.5 GM/DL (6.4-8.2)
[2018-06-25 22:13] LABS: BILIRUBIN,URINE NEGATIVE (NEGATIVE); CLARITY,URINE CLEAR; COLOR,URINE YELLOW; GLUCOSE, URINE (UA) NEGATIVE (NEGATIVE); KETONES,URINE 2+ (NEGATIVE); LEUKOCYTE ESTERASE ,URINE 1+ (NEGATIVE); NITRITE,URINE NEGATIVE (NEGATIVE); PH,URINE 6 (5-9); PROTEIN,URINE NEGATIVE (NEGATIVE); UROBILINOGEN,URINE NORMAL (NORMAL)
[2018-06-25 22:25] LABS: BACTERIA,URINE TRACE /HPF
[2018-06-25] MEDS ORDERED: NS IV 1000 ML 1,000 ML IV ONE (23:02)
[2018-06-25] MEDS ORDERED: ANTACID SUSP 30 ML UDC (MYLANTA) PO ONE (23:15)
[2018-06-25] MEDS ORDERED: ONDANSETRON 4 MG/2 ML (SDV) Z0FRAN IVP ONE (23:15)
[2018-06-25] MEDS ORDERED: LIDOCAINE 2% VISCOUS 15 ML UDC PO ONE (23:15)
[2018-06-25] MEDS ORDERED: cefTRIAXone INJECTION 1,000 MG in NS (IVPB) 50 ML IV ONE (23:15)
[2018-06-26] MEDS ORDERED: RX-ONDANSETRON 4 MG ODT (ZOFRAN) PPK #4 SL STA (00:04)
[2018-06-26] MEDS ORDERED: ONDA4TAB8 SL (00:10)
[2018-06-26] MEDS ORDERED: FAMO-119 PO (00:10)
[2018-06-26] MEDS ORDERED: CEPH-507 PO (00:10)
[2018-06-26] MEDS ORDERED: SUCR1ORA5 PO (00:13)
[2018-06-26] MEDS ORDERED: fentaNYL INJECTION 100 MCG/2 ML AMP IVP ONE (00:15)
[2018-06-26 00:19] VITALS: BP 159/86
--- NOTE | 2018-06-26 07:19 | Diagnostic Imaging Report ---
INDICATION: Abdominal pain. History of ventral hernia. TECHNIQUE: Multiple real time pendleton scale sonographic images were obtained of the abdominal wall. CORRELATION STUDY: None FINDINGS: Limited ultrasound imaging of the abdominal wall demonstrates no definitive evidence for a hernia defect. IMPRESSION: 1.The previously identified hernia on recent CT imaging cannot be appreciated on this ultrasound study. Stat rads Dictated by: Dictated on workstation # [id number]
--- NOTE | 2018-06-26 07:20 | Diagnostic Imaging Report ---
INDICATION: Abdominal pain TECHNIQUE: Multiple grayscale sonographic images were obtained of the right upper quadrant of the abdomen. CORRELATION STUDY: None FINDINGS: LIVER: There is increased echotexture within the visualized portions of the liver. Liver size 17 cm. GALLBLADDER: The gallbladder demonstrates no definitive shadowing gallstones. No abnormal gallbladder wall thickening or pericholecystic fluid. COMMON BILE DUCT: Not visualized. PANCREAS: Obscured by bowel gas. RIGHT KIDNEY: Measures 12.3 cm. No hydronephrosis. AORTA/IVC: Not well visualized. OTHER: None. IMPRESSION: 1. Likely changes of hepatic steatosis. No definitive shadowing gallstones. Remainder of the examination is limited with obscuration overlying bowel gas. Dictated by: Dictated on workstation # [id number]
== END 2018-06-26 00:16 | disposition home or self-care (01) ==
LOC: EDUNIT# 20:51 → ER 20:52
DX: K85.90 Acute pancreatitis without necrosis or infection, unspecified (principal); N39.0 Urinary tract infection, site not specified; F10.20 Alcohol dependence, uncomplicated; I10 Essential (primary) hypertension; F41.9 Anxiety disorder, unspecified; F31.9 Bipolar disorder, unspecified; K21.9 Gastro-esophageal reflux disease without esophagitis; F12.10 Cannabis abuse, uncomplicated; F17.210 Nicotine dependence, cigarettes, uncomplicated; Z87.19 Personal history of other diseases of the digestive system; Z91.5 Personal history of self-harm; Z87.59 Personal history of other complications of pregnancy, childbirth and the puerperium; Z98.890 Other specified postprocedural states
CPT/HCPCS: 36415; 76705; 80053; 80320; 81000; 83690; 85025; 87088; 96361; 96365; 96367; 96375

== ENCOUNTER 2018-07-29 15:11 | Observation (INO) | payer SELFPAY ==
[~2018-07-29] VITALS: Ht 157.5 cm; Wt 52.8 kg
[~2018-07-29 15:11] MED LIST changes: +CEPH-507 PO; -LEVE10006; +LEVE10006 PO; -MIRT30TA6; -OMEP40CA36; +ONDA4TAB8 SL; -OXYC-197 PO; +OXYC1TAB87 PO; +SUCR1ORA5 PO
[2018-07-29] MEDS ORDERED: NS IV 1000 ML 1,000 ML IV SCH (15:49)
[2018-07-29] MEDS ORDERED: raNItidine INJECTION 50 MG in NS (IVPB) 50 ML IV ONE (16:00)
[2018-07-29] MEDS ORDERED: ANTACID SUSP 30 ML UDC (MYLANTA) PO ONE (16:00)
[2018-07-29] MEDS ORDERED: KETOROLAC 30 MG/ML VIAL IVP ONE (16:00)
[2018-07-29] MEDS ORDERED: LIDOCAINE 2% VISCOUS 15 ML UDC PO ONE (16:00)
[2018-07-29] MEDS ORDERED: ONDANSETRON 4 MG/2 ML (SDV) Z0FRAN IVP ONE (16:00)
--- NOTE | 2018-07-29 16:02 | ED Abdominal Pain ---
General Chief Complaint: Abdominal/GI Problems Stated Complaint: ABD PAIN Nursing Triage Note: Patient ambulatory to ER with complaint of bilateral upper quadrant abdominal pain that radiates into the lower quadrants. pain began 1 week ago and patient has not had a BM for 1 week. She is complaining of nausea and intermittent vomiting. She was seen in this ER 3 weeks ago for similar symptoms and was given a prescription which she states she did not get filled due to the cost. Sepsis Screen: No Definite Risk Source of Information: Patient Exam Limitations: No Limitations History of Present Illness Date Seen by Provider: Jul 29, 2018 Time Seen by Provider: 15:45 Initial Comments Patient presents to the ER by private conveyance with a chief complaint she's having some epigastric abdominal pain that radiates down across her abdomen. She 's having some painful urination a couple days ago but not today. She said that her symptoms of been going on for the past 10 days. Today however they started getting worse and she couldn't wait to get into her doctor's appointment next week. She does not have a history of IBS Crohn's or ulcerative colitis. She has not had a endoscopy for formal workup. She's having some nausea with poor appetite but no vomiting. She's had a stool today that was soft and same yesterday. She says she treats that not eating much. She says even water her medicines make her sick to her stomach. She says she was here about 3 weeks ago for the same thing and they gave her a GI cocktail and Toradol and that didn't work but phenelzine only thing that works for her abdominal pain. She says they scanned her belly and did not find anything wrong. Patient states she does not regularly use opiates. Allergies and Home Medications Allergies Coded Allergies: No Known Drug Allergies (Verified , 02/14/09) Home Medications Cephalexin 500 Mg Capsule, 500 MG PO TID Prescribed by: MICHELLE RODRIGUEZ on 06/26/189 Famotidine 20 Mg Tablet, 20 MG PO BID Prescribed by: MICHELLE RODRIGUEZ on 06/26/189 Ondansetron 4 Mg Tab.rapdis, 4 MG SL Q4H PRN for NAUSEA/VOMITING-1ST LINE Prescribed by: MICHELLE RODRIGUEZ on 06/26/189 Sucralfate 1 Gm/10 Ml Oral.susp, 1 GM PO QID Take 30 min before eating or drinkng at mealtime and before bed. Prescribed by: MICHELLE RODRIGUEZ on 06/26/18 0013 Patient Home Medication List Home Medication List Reviewed: Yes Review of Systems Review of Systems Constitutional: No chills, No diaphoresis EENTM: No Blurred Vision, No Double Vision Respiratory: Denies Cough, Denies Shortness of Air Cardiovascular: Denies Chest Pain, Denies Lightheadedness Gastrointestinal: Denies Abdomen Distended; Abdominal Pain; Denies Constipated , Denies Diarrhea; Nausea, Poor Appetite, Poor Fluid Intake Genitourinary: Denies Burning Musculoskeletal: No back pain, No joint pain Skin: No pruritus, No rash Past Qlhdmky-Racyyw-Qhnmry Hx Patient Social History Alcohol Use: Regular Use Number of Drinks Today: FF Alcohol Beverage of Choice: Beer, Whiskey, Vodka Recreational Drug Use: No (DENIES, BUT PER OLD RECORDS, HISTORY OF NARCOTIC USE /ABUSE) Drug of Choice: cannibus Smoking Status: Current Everyday Smoker Type Used: Cigarettes 2nd Hand Smoke Exposure: Yes Recent Foreign Travel: No Contact w/Someone Who Travel: No Recent Infectious Disease Expo: No Recent Hopitalizations: No Physical Abuse: No Sexual Abuse: No Mistreated: No Fear: No Immunizations Up To Date Tetanus Booster (TDap): Unknown PED Vaccines UTD: No Date of Pneumonia Vaccine: Aug 17, 2011 Date of Influenza Vaccine: Aug 15, 2016 Seasonal Allergies Seasonal Allergies: No Past Medical History Surgeries: Yes ( X 1, hernia) Abdominal, Section Respiratory: No Cardiac: Yes Hypertension Neurological: Yes Seizure Disorder Reproductive Disorders: No Female Reproductive Disorders: Denies Genitourinary: No Gastrointestinal: Yes Gastroesophageal Reflux, Pancreatitis Musculoskeletal: No Endocrine: No HEENT: No Cancer: No Psychosocial: Yes (MULTIPLE PSYCH ADMITS. ) Anxiety, Suicide Attempts, Bipolar, Depression Integumentary: No Blood Disorders: No Family Medical History Patient reports no known family medical history. No Pertinent Family Hx Physical Exam Vital Signs Vital Signs - First Documented 07/29/18 15:28 Temp 97.8 Pulse 90 Resp 16 B/P (MAP) 147/104 (118) O2 Delivery Room Air Capillary Refill : Less Than 3 Seconds Height/Weight/BMI Height: 5'2.00" Weight: 110lbs. 0oz. 49.000363ub; 27.6 BMI Method:Stated General Appearance: WD/WN, no apparent distress HEENT: PERRL/EOMI, pharynx normal Neck: non-tender, normal inspection Respiratory: chest non-tender, lungs clear, normal breath sounds, no respiratory distress, no accessory muscle use Cardiovascular: normal peripheral pulses, regular rate, rhythm, no edema Peripheral Pulses: 2+ Radial Pulses (R), 2+ Radial Pulses (L) Gastrointestinal: normal bowel sounds, soft, guarding (voluntary epigastric), rebound (right lower quadrant), tenderness (all over but especially in the midepigastric and right lower quadrant over McBurney's point.), other (negative for any mesenteric signs, psoas signs or Rovsing's.) Extremities: no pedal edema, normal capillary refill Neurologic/Psychiatric: alert, oriented x 3 Skin: normal color, warm/dry Progress/Results/Core Measures Results/Orders Lab Results Laboratory Tests Test 07/29/18 15:53 Range/Units White Blood Count 6.1 4.3-11.0 10^3/uL Red Blood Count 4.06 L 4.35-5.85 10^6/uL Hemoglobin 16.1 H 11.5-16.0 G/DL Hematocrit 43 35-52 % Mean Corpuscular Volume 105 H 80-99 FL Mean Corpuscular Hemoglobin 40 H 25-34 PG Mean Corpuscular Hemoglobin Concent 38 H 32-36 G/DL Red Cell Distribution Width 12.1 10.0-14.5 % Platelet Count 246 130-400 10^3/uL Mean Platelet Volume 10.6 H 7.4-10.4 FL Neutrophils (%) (Auto) 70 42-75 % Lymphocytes (%) (Auto) 17 12-44 % Monocytes (%) (Auto) 10 0-12 % Eosinophils (%) (Auto) 3 0-10 % Basophils (%) (Auto) 1 0-10 % Neutrophils # (Auto) 4.3 1.8-7.8 X 10^3 Lymphocytes # (Auto) 1.0 1.0-4.0 X 10^3 Monocytes # (Auto) 0.6 0.0-1.0 X 10^3 Eosinophils # (Auto) 0.2 0.0-0.3 10^3/uL Basophils # (Auto) 0.1 0.0-0.1 10^3/uL Urine Color YELLOW Urine Clarity CLEAR Urine pH 7 5-9 Urine Specific Gilbert 1.010 L 1.016-1.022 Urine Protein 1+ H NEGATIVE Urine Glucose (UA) NEGATIVE NEGATIVE Urine Ketones 2+ H NEGATIVE Urine Nitrite NEGATIVE NEGATIVE Urine Bilirubin NEGATIVE NEGATIVE Urine Urobilinogen 8 H NORMAL MG/DL Urine Leukocyte Esterase 1+ H NEGATIVE Urine RBC (Auto) NEGATIVE NEGATIVE Urine RBC NONE /HPF Urine WBC 2-5 /HPF Urine Squamous Epithelial Cells 10-25 H /HPF Urine Crystals NONE /LPF Urine Bacteria FEW H /HPF Urine Casts NONE /LPF Urine Mucus SMALL H /LPF Urine Culture Indicated NO Urine Test NEGATIVE NEGATIVE Sodium Level 134 L 135-145 MMOL/L Potassium Level 3.0 L 3.6-5.0 MMOL/L Chloride Level 97 L 98-107 MMOL/L Carbon Dioxide Level 23 21-32 MMOL/L Anion Gap 14 5-14 MMOL/L Blood Urea Nitrogen 4 L 7-18 MG/DL Creatinine 0.63 0.60-1.30 MG/DL Estimat Glomerular Filtration Rate > 60 BUN/Creatinine Ratio 6 Glucose Level 84 70-105 MG/DL Calcium Level 9.2 8.5-10.1 MG/DL Corrected Calcium 9.3 8.5-10.1 MG/DL Magnesium Level 1.8 1.8-2.4 MG/DL Total Bilirubin 1.3 H 0.1-1.0 MG/DL Aspartate Amino Transf (AST/SGOT) 49 H 5-34 U/L Alanine Aminotransferase (ALT/SGPT) 25 0-55 U/L Alkaline Phosphatase 156 H 40-136 U/L Total Protein 7.6 6.4-8.2 GM/DL Albumin 3.9 3.2-4.5 GM/DL Lipase 46 8-78 U/L Urine Opiates Screen NEGATIVE NEGATIVE Urine Oxycodone Screen NEGATIVE NEGATIVE Urine Methadone Screen NEGATIVE NEGATIVE Urine Propoxyphene Screen NEGATIVE NEGATIVE Urine Barbiturates Screen NEGATIVE NEGATIVE Ur Tricyclic Antidepressants Screen NEGATIVE NEGATIVE Urine Phencyclidine Screen NEGATIVE NEGATIVE Urine Amphetamines Screen NEGATIVE NEGATIVE Urine Methamphetamines Screen NEGATIVE NEGATIVE Urine Benzodiazepines Screen POSITIVE H NEGATIVE Urine Cocaine Screen NEGATIVE NEGATIVE Urine Cannabinoids Screen POSITIVE H NEGATIVE My Orders Orders - EDITA SPRINGER Ua Culture If Indicated (07/29/18 15:14) Hcg,Qualitative Urine (07/29/18 15:14) Drug Screen Stat (Urine) (07/29/18 15:14) Ketorolac Injection (Toradol Injection) (07/29/18 16:00) Ct Abdomen/Pelvis W (07/29/18 15:49) Saline Lock/Iv-Start (07/29/18 15:49) Cbc With Automated Diff (07/29/18 15:49) Comprehensive Metabolic Panel (07/29/18 15:49) Lipase (07/29/18 15:49) Magnesium (07/29/18 15:49) Saline Lock/Iv-Start (07/29/18 15:49) Ns Iv 1000 Ml (Sodium Chloride 0.9%) (07/29/18 15:49) Ranitidine Injection (Zantac Injection) (07/29/18 16:00) Ondansetron Injection (Zofran Injectio (07/29/18 16:00) Lidocaine 2% Viscous 15 Ml (Xylocaine Vi (07/29/18 16:00) Antacid Suspension (Mylanta Suspension (07/29/18 16:00) Iohexol Injection (Omnipaque 350 Mg/Ml 1 (07/29/18 16:45) Ns (Ivpb) (Sodium Chloride 0.9%) (07/29/18 16:45) Potassium Chloride (Tablet) (Klor Con Ta (07/29/18 17:00) Medications Given in ED Current Medications Medications Dose Ordered Sig/Imelda Route Start Time Stop Time Status Last Admin Dose Admin Al Hydrox/Mg Hydrox/Simethicone 30 ml ONCE ONCE PO 07/29/18 16:00 07/29/18 16:01 DC 07/29/18 16:11 30 ML Iohexol 100 ml ONCE ONCE IV 07/29/18 16:45 07/29/18 16:46 DC 07/29/18 17:40 100 ML Ketorolac Tromethamine 30 mg ONCE ONCE IVP 07/29/18 16:00 07/29/18 16:01 DC 07/29/18 16:08 30 MG Lidocaine HCl 15 ml ONCE ONCE PO 07/29/18 16:00 07/29/18 16:01 DC 07/29/18 16:11 15 ML Ondansetron HCl 4 mg ONCE ONCE IVP 07/29/18 16:00 07/29/18 16:01 DC 07/29/18 16:09 4 MG Potassium Chloride 10 meq ONCE ONCE PO 07/29/18 17:00 07/29/18 17:01 DC 07/29/18 17:24 10 MEQ Ranitidine HCl 50 mg/Sodium Chloride 52 ml @ 100 mls/hr ONCE ONCE IV 07/29/18 16:00 07/29/18 16:31 DC 07/29/18 16:11 100 MLS/HR Sodium Chloride 250 ml ONCE ONCE IV 07/29/18 16:45 07/29/18 16:46 DC 07/29/18 17:40 80 ML Vital Signs/I&O 07/29/18 15:28 Temp 97.8 Pulse 90 Resp 16 B/P (MAP) 147/104 (118) O2 Delivery Room Air Blood Pressure Mean: 118 Progress Progress Note #1: Time: 16:01 Progress Note We'll obtain labs and CT of the abdomen pelvis with contrast. Give her a liter of saline and some nausea medicines. We'll start with a GI cocktail to rule out esophageal and gastric source as well as Toradol for her pain. Progress Note #2: Time: 18:55 Progress Note There is acute inflammatory changes and increased size of the cyst of her pancreas but lipase is not necessarily elevated. This is consistent with pancreatitis however that his probably chronic in nature and some excretory function of the pancreas is probably compromised. There is adjacent inflammation in the duodenum probably from the pancreatitis. She's had a large improvement in pain from both a GI cocktail with Pepcid and Toradol. We have already talked to general surgery and they will be willing to consult on the case. Diagnostic Imaging Diagonstic Imaging: CT (with contrast) Plain Films/CT/US/NM/MRI: abdomen, pelvis Comments VIA [facility]. [place], [place] NAME: GIANNI UREÑA [facility] REC#: [id number] PT STATUS: REG ER : 1970 PHYSICIAN: EDITA SPRINGER MD ADMIT DATE: 07/29/18/ER Draft Date of Exam:07/29/18 CT ABDOMEN/PELVIS W PROCEDURE: CT abdomen and pelvis with contrast. TECHNIQUE: Multiple contiguous axial images were obtained through the abdomen and pelvis after administration of intravenous contrast. DATE: July 29, 2018. COMPARISON: CT abdomen and pelvis June 19, 2017. INDICATION: 47-year-old female, bilateral upper quadrant abdominal pain. Weak. Nausea and intermittent vomiting. FINDINGS: The visualized portions of the lung bases are clear. The heart is not enlarged. There is no pericardial effusion. The liver is diffusely low in attenuation compatible with diffuse fatty infiltration of the liver. The outer liver contours are not grossly nodular. The main, right and left portal veins are patent. The gallbladder is unremarkable. There is no intrahepatic bile duct dilation. The common bile duct does not appear diffusely distended and is likely normal in caliber. There is abnormal inflammatory stranding adjacent to the pancreas, most notable in the region of the body and tail of the pancreas. There is a low-attenuation lesion in the body/tail of the pancreas, measuring up to 8 mm in size on axial image 21, which is new since prior CT. There is a low-attenuation mass immediately subjacent or exophytically arising from the level of the pancreatic head, measuring 3.0 x 2.5 cm in size on axial image 26 which is increased in size since comparison exam. There is adjacent abnormal soft tissue stranding. There is also a subjacent cystic appearing lesion, measuring 1.4 x 0.7 cm in size. This is a change since prior CT. The pancreatic parenchyma has some loss of its normal architecture. This is particularly visible at the level of the pancreatic head and distal body and tail of the pancreas. The spleen is normal in size. The adrenal glands are unremarkable. Unremarkable appearance of the renal parenchyma. The urinary collecting systems are not distended. There is no identified renal or ureteral stone. The urinary bladder is unremarkable. There is diverticulosis without evidence of acute diverticulitis. The appendix is best identified on axial image 51 and adjacent sequential images. There is no evidence of acute appendicitis. There is wall thickening and inflammatory stranding at the level of the second portion of duodenum. This may be reactive relating to the adjacent pancreatic process. There is no free intraperitoneal air. There is no drainable fluid collection. There is minimal free pelvic fluid. There is no identified abnormally enlarged lymph node within the abdomen or pelvis which meets CT size criteria for adenopathy. There is a 4 mm sclerotic lesion in the left iliac bone which is unchanged on axial image 54. There is a redemonstrated mildly displaced right posterior 10th rib fracture which is unchanged since prior CT. There is incomplete bridging of the fracture. IMPRESSION: CT abdomen and pelvis: 1. Prominent inflammatory stranding subjacent to the pancreas, most likely reflecting acute pancreatitis. There is no evidence of pancreatic necrosis. 2. Cystic lesions in the region of the pancreatic head and body/tail of the pancreas which are more prominent since prior CT. Pancreatic pseudocyst would be the favored differential diagnostic consideration. In general, differential diagnostic considerations for cystic lesions of the pancreas but includes five branch type IPMN and serous and mucinous pancreatic neoplasms. These would be considered less likely given the findings of pancreatitis. 3. Diffuse fatty infiltration of the liver. Dictated on workstation # [id number] Dict: 07/29/18 1811 Trans: 07/29/18 1836 [facility] [id number] Interpreted by: DEYSI ÁLVAREZ MD Electronically signed by: Reviewed: Reviewed by Me Departure Communication (Admissions) Time/Spoke to Admitting Phy: 18:58 Discussed case lab imaging findings of pancreatitis with Dr. Chapin. Time/Spoke to Consulting Phy: 18:58 Discussed case finding imaging and findings of pancreatitis with Dr. Lowe. Impression Primary Impression: Pancreatitis Qualified Codes: K85.90 - Acute pancreatitis without necrosis or infection, unspecified Disposition: ADMITTED INPATIENT Condition: Stable Admissions Decision to Admit Reason: Admit from ER (General) Decision to Admit/Date: Jul 29, 2018 Time/Decision to Admit Time: 18:56 Departure-Patient Inst. Referrals: BARTOLO ZIMMERMAN MD (PCP) Primary Care Physician [facility] (Family) Primary Care Physician EDITA SPRINGER Jul 29, 2018 16:01
[2018-07-29 16:13] LABS: BILIRUBIN,URINE NEGATIVE (NEGATIVE); CLARITY,URINE CLEAR; COLOR,URINE YELLOW; GLUCOSE, URINE (UA) NEGATIVE (NEGATIVE); KETONES,URINE 2+ (NEGATIVE); LEUKOCYTE ESTERASE ,URINE 1+ (NEGATIVE); NITRITE,URINE NEGATIVE (NEGATIVE); PH,URINE 7 (5-9); PROTEIN,URINE 1+ (NEGATIVE); UROBILINOGEN,URINE 8 MG/DL (NORMAL)
[2018-07-29 16:17] LABS: HCG,QUALITATIVE URINE NEGATIVE (NEGATIVE)
[2018-07-29 16:22] LABS: BACTERIA,URINE FEW /HPF
[2018-07-29 16:24] LABS: AMPHETAMINE SCREEN, URINE NEGATIVE (NEGATIVE); BARBITURATE SCREEN URINE NEGATIVE (NEGATIVE); BENZODIAZEPINES SCREEN URINE POSITIVE (NEGATIVE); CANNABINOID SCREEN, URINE POSITIVE (NEGATIVE); COCAINE SCREEN URINE NEGATIVE (NEGATIVE); METHADONE STAT NEGATIVE (NEGATIVE); METHAMPHETAMINE SCREEN URINE S NEGATIVE (NEGATIVE); OPIATE SCREEN URINE NEGATIVE (NEGATIVE); OXYCODONE STAT NEGATIVE (NEGATIVE); PROPOXYPHENE STAT NEGATIVE (NEGATIVE); TRICYCLIC ANTIDEPRESSANTS SCRE NEGATIVE (NEGATIVE)
[2018-07-29 16:25] LABS: BASOPHILS # (AUTO) 0.1 10^3/uL (0.0-0.1); BASOPHILS % (AUTO) 1 % (0-10); EOSINOPHILS # (AUTO) 0.2 10^3/uL (0.0-0.3); EOSINOPHILS % (AUTO) 3 % (0-10); HEMATOCRIT 43 % (35-52); HEMOGLOBIN 16.1 G/DL (11.5-16.0); LYMPHOCYTES % (AUTO) 17 % (12-44); MEAN CORPUSCULAR HEMOGLOBIN 40 PG (25-34); MEAN CORPUSCULAR HGB CONC 38 G/DL (32-36); MEAN CORPUSCULAR VOLUME 105 FL (80-99); MEAN PLATELET VOLUME 10.6 FL (7.4-10.4); MONOCYTES # (AUTO) 0.6 X 10^3 (0.0-1.0); MONOCYTES % (AUTO) 10 % (0-12); NEUTROPHILS # (AUTO) 4.3 X 10^3 (1.8-7.8); NEUTROPHILS % (AUTO) 70 % (42-75); PLATELET COUNT 246 10^3/uL (130-400); RED BLOOD COUNT 4.06 10^6/uL (4.35-5.85); RED CELL DISTRIBUTION WIDTH 12.1 % (10.0-14.5); WHITE BLOOD COUNT 6.1 10^3/uL (4.3-11.0)
[2018-07-29 16:36] LABS: ALANINE AMINOTRANSFERASE 25 U/L (0-55); ALBUMIN 3.9 GM/DL (3.2-4.5); ALKALINE PHOSPHATASE 156 U/L (40-136); BILIRUBIN,TOTAL 1.3 MG/DL (0.1-1.0); BUN/CREATININE RATIO 6; CALCIUM 9.2 MG/DL (8.5-10.1); CARBON DIOXIDE 23 MMOL/L (21-32); CHLORIDE 97 MMOL/L (98-107); CREATININE SERUM 0.63 MG/DL (0.60-1.30); GFR ESTIMATED > 60; GLUCOSE 84 MG/DL (70-105); LIPASE 46 U/L (8-78); MAGNESIUM 1.8 MG/DL (1.8-2.4); SODIUM 134 MMOL/L (135-145); TOTAL PROTEIN 7.6 GM/DL (6.4-8.2)
[2018-07-29] MEDS ORDERED: IOHEXOL 350 MG/ML 100 ML (OMNIPAQUE 350) VIAL IV ONE (16:45)
[2018-07-29] MEDS ORDERED: NS 250 ML (IVPB) BAG IV ONE (16:45)
[2018-07-29] MEDS ORDERED: KCL 10 MEQ TAB (MICRO K) PO ONE (17:00)
--- NOTE | 2018-07-29 18:37 | Diagnostic Imaging Report ---
PROCEDURE: CT abdomen and pelvis with contrast. TECHNIQUE: Multiple contiguous axial images were obtained through the abdomen and pelvis after administration of intravenous contrast. DATE: July 29, 2018. COMPARISON: CT abdomen and pelvis June 19, 2017. INDICATION: 47-year-old female, bilateral upper quadrant abdominal pain. Weak. Nausea and intermittent vomiting. FINDINGS: The visualized portions of the lung bases are clear. The heart is not enlarged. There is no pericardial effusion. The liver is diffusely low in attenuation compatible with diffuse fatty infiltration of the liver. The outer liver contours are not grossly nodular. The main, right and left portal veins are patent. The gallbladder is unremarkable. There is no intrahepatic bile duct dilation. The common bile duct does not appear diffusely distended and is likely normal in caliber. There is abnormal inflammatory stranding adjacent to the pancreas, most notable in the region of the body and tail of the pancreas. There is a low-attenuation lesion in the body/tail of the pancreas, measuring up to 8 mm in size on axial image 21, which is new since prior CT. There is a low-attenuation mass immediately subjacent or exophytically arising from the level of the pancreatic head, measuring 3.0 x 2.5 cm in size on axial image 26 which is increased in size since comparison exam. There is adjacent abnormal soft tissue stranding. There is also a subjacent cystic appearing lesion, measuring 1.4 x 0.7 cm in size. This is a change since prior CT. The pancreatic parenchyma has some loss of its normal architecture. This is particularly visible at the level of the pancreatic head and distal body and tail of the pancreas. The spleen is normal in size. The adrenal glands are unremarkable. Unremarkable appearance of the renal parenchyma. The urinary collecting systems are not distended. There is no identified renal or ureteral stone. The urinary bladder is unremarkable. There is diverticulosis without evidence of acute diverticulitis. The appendix is best identified on axial image 51 and adjacent sequential images. There is no evidence of acute appendicitis. There is wall thickening and inflammatory stranding at the level of the second portion of duodenum. This may be reactive relating to the adjacent pancreatic process. There is no free intraperitoneal air. There is no drainable fluid collection. There is minimal free pelvic fluid. There is no identified abnormally enlarged lymph node within the abdomen or pelvis which meets CT size criteria for adenopathy. There is a 4 mm sclerotic lesion in the left iliac bone which is unchanged on axial image 54. There is a redemonstrated mildly displaced right posterior 10th rib fracture which is unchanged since prior CT. There is incomplete bridging of the fracture. IMPRESSION: CT abdomen and pelvis: 1. Prominent inflammatory stranding subjacent to the pancreas, most likely reflecting acute pancreatitis. There is no evidence of pancreatic necrosis. 2. Cystic lesions in the region of the pancreatic head and body/tail of the pancreas which are more prominent since prior CT. Pancreatic pseudocyst would be the favored differential diagnostic consideration. In general, differential diagnostic considerations for cystic lesions of the pancreas but includes five branch type IPMN and serous and mucinous pancreatic neoplasms. These would be considered less likely given the findings of pancreatitis. 3. Diffuse fatty infiltration of the liver. Dictated by: Dictated on workstation # [id number]
--- NOTE | 2018-07-29 19:12 | Consultation ---
History of Present Illness History of Present Illness Patient Consulted On(edin/time) 07/29/18 19:07 Time Seen by Provider: 18:54 History of Present Illness Surgery asked to consult regarding Pancreatitis. HPI per ED: Patient presents to the ER by private conveyance with a chief complaint she's having some epigastric abdominal pain that radiates down across her abdomen. She's having some painful urination a couple days ago but not today. She said that her symptoms of been going on for the past 10 days. Today however they started getting worse and she couldn't wait to get into her doctor' s appointment next week. She does not have a history of IBS Crohn's or ulcerative colitis. She has not had a endoscopy for formal workup. She's having some nausea with poor appetite but no vomiting. She's had a stool today that was soft and same yesterday. She says she treats that not eating much. She says even water her medicines make her sick to her stomach. She says she was here about 3 weeks ago for the same thing and they gave her a GI cocktail and Toradol and that didn't work but phenelzine only thing that works for her abdominal pain. She says they scanned her belly and did not find anything wrong. Patient states she does not regularly use opiates. When I spoke to pt she stated the pain was 8 out of 10 and now about a 4-5 after pain meds. She states she has had this problem many times before and "knows the drill". She describes crampy, sharp pain. Allergies and Home Medications Allergies Coded Allergies: No Known Drug Allergies (Verified , 02/14/09) Home Medications Cephalexin 500 Mg Capsule, 500 MG PO TID Prescribed by: MICHELLE RODRIGUEZ on 06/26/189 Famotidine 20 Mg Tablet, 20 MG PO BID Prescribed by: MICHELLE RODRIGUEZ on 06/26/189 Ondansetron 4 Mg Tab.rapdis, 4 MG SL Q4H PRN for NAUSEA/VOMITING-1ST LINE Prescribed by: MICHELLE RODRIGUEZ on 06/26/189 Sucralfate 1 Gm/10 Ml Oral.susp, 1 GM PO QID Take 30 min before eating or drinkng at mealtime and before bed. Prescribed by: MICHELLE RODRIGUEZ on 06/26/18 0013 Patient Home Medication List Home Medication List Reviewed: Yes Past Ojebxzp-Wyonkn-Eegqdm Hx Patient Social History Alcohol Use: Regular Use Number of Drinks Today: FF Recreational Drug Use: No (DENIES, BUT PER OLD RECORDS, HISTORY OF NARCOTIC USE /ABUSE) Drug of Choice: cannibus Smoking Status: Current Everyday Smoker Type Used: Cigarettes 2nd Hand Smoke Exposure: Yes Recent Foreign Travel: No Contact w/Someone Who Travel: No Recent Infectious Disease Expo: No Recent Hopitalizations: No Immunizations Up To Date Tetanus Booster (TDap): Unknown PED Vaccines UTD: No Date of Pneumonia Vaccine: Aug 17, 2011 Date of Influenza Vaccine: Aug 15, 2016 Seasonal Allergies Seasonal Allergies: No Surgeries History of Surgeries: Yes ( X 1, hernia) Surgeries: Abdominal, Section Respiratory History of Respiratory Disorde: No Cardiovascular History of Cardiac Disorders: Yes Cardiac Disorders: Hypertension Neurological History of Neurological Disord: Yes Neurological Disorders: Seizure Disorder Reproductive System Hx Reproductive Disorders: No Female Reproductive Disorders: Denies Genitourinary History of Genitourinary Disor: No Gastrointestinal History of Gastrointestinal Di: Yes Gastrointestinal Disorders: Gastroesophageal Reflux, Pancreatitis Musculoskeletal History of Musculoskeletal Dis: No Endocrine History of Endocrine Disorders: No HEENT History of HEENT Disorders: No Cancer History of Cancer: No Psychosocial History of Psychiatric Problem: Yes (MULTIPLE PSYCH ADMITS. ) Behavioral Health Disorders: Anxiety, Suicide Attempts, Bipolar, Depression Integumentary History of Skin or Integumenta: No Blood Transfusions History of Blood Disorders: No Family Medical History Significant Family History: Hypertension (she thinks in her grandparents), Other Conditions/Hx (pt states she doesn't know anything about parents medical hx) Family Medial History: Patient reports no known family medical history. Review of Systems-General Constitutional: malaise, weakness, weight loss EENTM: No blurred vision, No eye pain, No mouth swelling, No epistaxis, No throat swelling Respiratory: No cough, No dyspnea on exertion, No hemoptysis Cardiovascular: No chest pain, No edema, No palpitations Gastrointestinal: abdominal pain; No jaundice; loss of appetite; No melena; nausea Genitourinary: No dysuria, No frequency, No hematuria Musculoskeletal: No joint swelling, No muscle stiffness Skin: No change in color, No change in hair/nails Psychiatric/Neurological: Denies Seizure, Denies Tremors Other pt denies any abnormal bruising or bleeding Physical Exam-General Problems Physical Exam Vital Signs Vital Signs - First Documented 07/29/18 15:28 Temp 97.8 Pulse 90 Resp 16 B/P (MAP) 147/104 (118) O2 Delivery Room Air Capillary Refill : Less Than 3 Seconds General Appearance: WD/WN, mild distress Eyes: Bilateral Eye PERRL, Bilateral Eye EOMI HEENT: pharynx normal; No scleral icterus (R), No scleral icterus (L) Neck: non-tender, full range of motion, supple, normal inspection Respiratory: chest non-tender, lungs clear, normal breath sounds, no respiratory distress, no accessory muscle use Cardiovascular: regular rate, rhythm, no edema, no murmur Gastrointestinal: normal bowel sounds, soft, no organomegaly, no pulsatile mass ; No distended; tenderness (mid-epigastric) Back: no CVA tenderness, no vertebral tenderness Extremities: normal range of motion, non-tender, normal inspection, no pedal edema, no calf tenderness Neurologic/Psychiatric: computational theory scientist II-XII nml as tested, no motor/sensory deficits, alert, normal mood/affect, oriented x 3 Skin: normal color, warm/dry Lymphatic: no adenopathy (neck, axilla or groin) Data Review Labs Laboratory Tests 07/29/18 15:53: White Blood Count 6.1, Red Blood Count 4.06L, Hemoglobin 16.1H, Hematocrit 43, Mean Corpuscular Volume 105H, Mean Corpuscular Hemoglobin 40H, Mean Corpuscular Hemoglobin Concent 38H, Red Cell Distribution Width 12.1, Platelet Count 246, Mean Platelet Volume 10.6H, Neutrophils (%) (Auto) 70, Lymphocytes (%) (Auto) 17 , Monocytes (%) (Auto) 10, Eosinophils (%) (Auto) 3, Basophils (%) (Auto) 1, Neutrophils # (Auto) 4.3, Lymphocytes # (Auto) 1.0, Monocytes # (Auto) 0.6, Eosinophils # (Auto) 0.2, Basophils # (Auto) 0.1, Urine Color YELLOW, Urine Clarity CLEAR, Urine pH 7, Urine Specific [place] 1.010L, Urine Protein 1+H, Urine Glucose (UA) NEGATIVE, Urine Ketones 2+H, Urine Nitrite NEGATIVE, Urine Bilirubin NEGATIVE, Urine Urobilinogen 8H, Urine Leukocyte Esterase 1+H, Urine RBC (Auto) NEGATIVE, Urine RBC NONE, Urine WBC 2-5, Urine Squamous Epithelial Cells 10-25H, Urine Crystals NONE, Urine Bacteria FEWH, Urine Casts NONE, Urine Mucus SMALLH, Urine Culture Indicated NO, Urine Test NEGATIVE, Sodium Level 134L, Potassium Level 3.0L, Chloride Level 97L, Carbon Dioxide Level 23, Anion Gap 14, Blood Urea Nitrogen 4L, Creatinine 0.63, Estimat Glomerular Filtration Rate > 60, BUN/Creatinine Ratio 6, Glucose Level 84, Calcium Level 9.2, Corrected Calcium 9.3, Magnesium Level 1.8, Total Bilirubin 1.3H, Aspartate Amino Transf (AST/SGOT) 49H, Alanine Aminotransferase (ALT/SGPT) 25, Alkaline Phosphatase 156H, Total Protein 7.6, Albumin 3.9, Lipase 46, Urine Opiates Screen NEGATIVE, Urine Oxycodone Screen NEGATIVE, Urine Methadone Screen NEGATIVE, Urine Propoxyphene Screen NEGATIVE, Urine Barbiturates Screen NEGATIVE, Ur Tricyclic Antidepressants Screen NEGATIVE, Urine Phencyclidine Screen NEGATIVE, Urine Amphetamines Screen NEGATIVE, Urine Methamphetamines Screen NEGATIVE, Urine Benzodiazepines Screen POSITIVEH, Urine Cocaine Screen NEGATIVE, Urine Cannabinoids Screen POSITIVEH Assessment/Plan Assessment/Plan Assessment/Plan Acute on Chronic Pancreatitis Pt will need to be NPO, IV fluids, anti-emetics, pain control. Can start PO intake when pain is gone and pancreatic enzymes are trending down. She had a CT which showed pancreatic inflammation and an increase in her pancreatic pseudocysts (reported to me as 20% larger). I will follow along thank you for this consult. No surgical intervention needed at this time SERVANDO POSADAS DO Jul 29, 2018 19:12
[2018-07-29] MEDS ORDERED: fentaNYL INJECTION 100 MCG/2 ML AMP IVP ONE (19:15)
[2018-07-29 20:15] VITALS: BP 130/92
[2018-07-29] MEDS ORDERED: ONDANSETRON 4 MG/2 ML (SDV) Z0FRAN IV PRN (20:30)
[2018-07-29] MEDS ORDERED: CATHETER FLUSH 10 ML SYR IV PRN (20:30)
[2018-07-29] MEDS: PANTOPRAZOLE 40 MG (PROTONIX) VIAL IV SCH (20:47)
[2018-07-29] MEDS: NS W/KCL 40 MEQ/L 1,000 ML IV SCH (20:47)
[2018-07-29] MEDS: fentaNYL INJECTION 100 MCG/2 ML AMP IV PRN ×2 (21:33→23:31)
[2018-07-29] MEDS: KETOROLAC 15 MG/ML VIAL IV PRN (23:55)
[2018-07-30] VITALS (7 sets, daily range): BP systolic 118–161; BP diastolic 64–93
[2018-07-30] MEDS: fentaNYL INJECTION 100 MCG/2 ML AMP IV PRN ×11 (01:30→22:37)
[2018-07-30] MEDS ORDERED: NICOTINE 21 MG (NICODERM) PATCH ONE (03:19)
[2018-07-30] MEDS: NS W/KCL 40 MEQ/L 1,000 ML IV SCH ×4 (03:28→22:38)
[2018-07-30 06:22] LABS: BASOPHILS % (AUTO) 1 % (0-10); EOSINOPHILS # (AUTO) 0.3 10^3/uL (0.0-0.3); EOSINOPHILS % (AUTO) 5 % (0-10); HEMATOCRIT 38 % (35-52); LYMPHOCYTES # (AUTO) 2.1 X 10^3 (1.0-4.0); LYMPHOCYTES % (AUTO) 31 % (12-44); MEAN CORPUSCULAR HEMOGLOBIN 38 PG (25-34); MEAN CORPUSCULAR HGB CONC 34 G/DL (32-36); MEAN CORPUSCULAR VOLUME 112 FL (80-99); MEAN PLATELET VOLUME 10.2 FL (7.4-10.4); MONOCYTES # (AUTO) 0.6 X 10^3 (0.0-1.0); MONOCYTES % (AUTO) 8 % (0-12); NEUTROPHILS # (AUTO) 3.7 X 10^3 (1.8-7.8); NEUTROPHILS % (AUTO) 56 % (42-75); PLATELET COUNT 179 10^3/uL (130-400); RED BLOOD COUNT 3.39 10^6/uL (4.35-5.85); RED CELL DISTRIBUTION WIDTH 12.1 % (10.0-14.5); WHITE BLOOD COUNT 6.7 10^3/uL (4.3-11.0)
[2018-07-30 07:02] LABS: ALANINE AMINOTRANSFERASE 20 U/L (0-55); ALBUMIN 3.3 GM/DL (3.2-4.5); ALKALINE PHOSPHATASE 127 U/L (40-136); AMYLASE 67 U/L (25-125); BILIRUBIN,TOTAL 0.9 MG/DL (0.1-1.0); BUN/CREATININE RATIO 7; CALCIUM 7.8 MG/DL (8.5-10.1); CARBON DIOXIDE 15 MMOL/L (21-32); CHLORIDE 105 MMOL/L (98-107); CREATININE SERUM 0.57 MG/DL (0.60-1.30); GFR ESTIMATED > 60; LIPASE 50 U/L (8-78); POTASSIUM 3.5 MMOL/L (3.6-5.0); SODIUM 137 MMOL/L (135-145); TOTAL PROTEIN 6.1 GM/DL (6.4-8.2)
[2018-07-30 07:03] LABS: GLUCOSE 51 MG/DL (70-105)
[2018-07-30] MEDS: KETOROLAC 15 MG/ML VIAL IV PRN ×2 (08:10→16:20)
[2018-07-30] MEDS: PANTOPRAZOLE 40 MG (PROTONIX) VIAL IV SCH ×2 (08:11→20:27)
[2018-07-30] MEDS: NICOTINE 21 MG (NICODERM) PATCH TD SCH (08:11)
[2018-07-30] MEDS ORDERED: NORG1TAB6 PO (09:16)
[2018-07-30] MEDS ORDERED: PREN-8 PO (09:20)
[2018-07-30] MEDS ORDERED: RT-ALBUINH IH (09:22)
--- NOTE | 2018-07-30 10:42 | Progress Note ---
Subjective Time Seen by Provider: 10:16 Subjective/Events-last exam Pt seen and examined, she is still having pain but had low glucose this am and was given food. She states it did not increase her pain. Denies N/V. Review of Systems General: No Chills Pulmonary: No Dyspnea, No Cough Cardiovascular: No: Chest Pain, Palpitations Gastrointestinal: Abdominal Pain Objective Exam Vital Signs Date Time Temp Pulse Resp B/P (MAP) Pulse Ox O2 Delivery O2 Flow Rate FiO2 07/30/18 08:53 118/80 (93) 07/30/18 08:00 95.9 63 18 129/88 (102) 100 Room Air 07/30/18 08:00 97 Room Air 07/30/18 04:15 97.5 81 17 129/87 (101) 97 Room Air 07/30/18 00:01 97.9 87 17 135/86 (102) 95 Room Air 07/29/18 20:15 Room Air 07/29/18 20:15 97.8 86 18 130/92 (105) 100 Room Air 07/29/18 19:48 98.5 84 18 140/105 100 Room Air 07/29/18 15:28 97.8 90 16 147/104 (118) Room Air I & O 07/30/18 07:00 Intake Total 2050 ml Output Total 300 ml Balance 1750 ml Capillary Refill : Less Than 3 Seconds General Appearance: No Apparent Distress, WD/WN Respiratory: Chest Non Tender, Lungs Clear, Normal Breath Sounds, No Accessory Muscle Use, No Respiratory Distress Cardiovascular: Regular Rate, Rhythm, No Edema Peripheral Pulses: 2+ Radial Pulses (R), 2+ Radial Pulses (L) Gastrointestinal: normal bowel sounds, soft, no organomegaly, no pulsatile mass ; No distended; tenderness (mid-epigastric) Neurologic/Psychiatric: Alert, Oriented x3, No Motor/Sensory Deficits, Normal Mood/Affect, field reimbursement manager II-XII Norm as Tested Skin: Normal Color, Warm/Dry Results Lab Laboratory Tests 07/29/18 15:53: White Blood Count 6.1, Red Blood Count 4.06L, Hemoglobin 16.1H, Hematocrit 43, Mean Corpuscular Volume 105H, Mean Corpuscular Hemoglobin 40H, Mean Corpuscular Hemoglobin Concent 38H, Red Cell Distribution Width 12.1, Platelet Count 246, Mean Platelet Volume 10.6H, Neutrophils (%) (Auto) 70, Lymphocytes (%) (Auto) 17 , Monocytes (%) (Auto) 10, Eosinophils (%) (Auto) 3, Basophils (%) (Auto) 1, Neutrophils # (Auto) 4.3, Lymphocytes # (Auto) 1.0, Monocytes # (Auto) 0.6, Eosinophils # (Auto) 0.2, Basophils # (Auto) 0.1, Urine Color YELLOW, Urine Clarity CLEAR, Urine pH 7, Urine Specific [place] 1.010L, Urine Protein 1+H, Urine Glucose (UA) NEGATIVE, Urine Ketones 2+H, Urine Nitrite NEGATIVE, Urine Bilirubin NEGATIVE, Urine Urobilinogen 8H, Urine Leukocyte Esterase 1+H, Urine RBC (Auto) NEGATIVE, Urine RBC NONE, Urine WBC 2-5, Urine Squamous Epithelial Cells 10-25H, Urine Crystals NONE, Urine Bacteria FEWH, Urine Casts NONE, Urine Mucus SMALLH, Urine Culture Indicated NO, Urine Test NEGATIVE, Sodium Level 134L, Potassium Level 3.0L, Chloride Level 97L, Carbon Dioxide Level 23, Anion Gap 14, Blood Urea Nitrogen 4L, Creatinine 0.63, Estimat Glomerular Filtration Rate > 60, BUN/Creatinine Ratio 6, Glucose Level 84, Calcium Level 9.2, Corrected Calcium 9.3, Magnesium Level 1.8, Total Bilirubin 1.3H, Aspartate Amino Transf (AST/SGOT) 49H, Alanine Aminotransferase (ALT/SGPT) 25, Alkaline Phosphatase 156H, Total Protein 7.6, Albumin 3.9, Lipase 46, Urine Opiates Screen NEGATIVE, Urine Oxycodone Screen NEGATIVE, Urine Methadone Screen NEGATIVE, Urine Propoxyphene Screen NEGATIVE, Urine Barbiturates Screen NEGATIVE, Ur Tricyclic Antidepressants Screen NEGATIVE, Urine Phencyclidine Screen NEGATIVE, Urine Amphetamines Screen NEGATIVE, Urine Methamphetamines Screen NEGATIVE, Urine Benzodiazepines Screen POSITIVEH, Urine Cocaine Screen NEGATIVE, Urine Cannabinoids Screen POSITIVEH 07/30/18 05:51: White Blood Count 6.7, Red Blood Count 3.39L, Hemoglobin 13.0, Hematocrit 38, Mean Corpuscular Volume 112H, Mean Corpuscular Hemoglobin 38H, Mean Corpuscular Hemoglobin Concent 34, Red Cell Distribution Width 12.1, Platelet Count 179, Mean Platelet Volume 10.2, Neutrophils (%) (Auto) 56, Lymphocytes (%) (Auto) 31 , Monocytes (%) (Auto) 8, Eosinophils (%) (Auto) 5, Basophils (%) (Auto) 1, Neutrophils # (Auto) 3.7, Lymphocytes # (Auto) 2.1, Monocytes # (Auto) 0.6, Eosinophils # (Auto) 0.3, Basophils # (Auto) 0.0, Sodium Level 137, Potassium Level 3.5L, Chloride Level 105, Carbon Dioxide Level 15L, Anion Gap 17H, Blood Urea Nitrogen 4L, Creatinine 0.57L, Estimat Glomerular Filtration Rate > 60, BUN /Creatinine Ratio 7, Glucose Level 51*L, Calcium Level 7.8L, Corrected Calcium 8.4L, Total Bilirubin 0.9, Aspartate Amino Transf (AST/SGOT) 33, Alanine Aminotransferase (ALT/SGPT) 20, Alkaline Phosphatase 127, Total Protein 6.1L, Albumin 3.3, Lipase 50, Amylase Level 67 07/30/18 07:31: Glucometer 71 07/30/18 09:37: Glucometer 186H Assessment/Plan Assessment/Plan Assessment/Plan Acute on Chronic Pancreatitis Pt can start advancing diet slowly, continue IV fluids, anti-emetics, pain control. Pancreatic enzymes are normal. She had a CT which showed pancreatic inflammation and an increase in her pancreatic pseudocysts (reported to me as 20% larger). I will follow along thank you for this consult. No surgical intervention needed at this time Clinical Quality Measures DVT/VTE Risk/Contraindication: Risk Factor Score Per Nursin RFS Level Per Nursing on Admit: 2=Moderate SERVANDO POSADAS DO Jul 30, 2018 10:42
--- NOTE | 2018-07-30 11:30 | History & Physicial ([facility]) ---
HPI History of Present Illness: 47 yo female started having abdominal pain and nausea about 10 days ago. She had worsening to the point of pain with only a few bites of food. She has had pancreatitis in the past. She drinks 2-4 beers most days and she does smoke cigarettes as well. No fever, has had chills. Has diarrhea currently, but was not having bowel movements for some time before arrival. She ran out of her omeprazole around the same time this started. Date seen by provider: Jul 30, 2018 Time Seen by Provider: 10:32 Attending Physician Libertad Chapin MD PCP Renzo Dial MD Consult Date of Admission Jul 29, 2018 at 19:10 Home Medications Home Medications Reviewed patient Home Medication Reconciliation performed by pharmacy medication reconciliations wardrobe technician and/or nursing. Patients Allergies have been reviewed. Allergies Coded Allergies: No Known Drug Allergies (Verified , 02/14/09) BDD-Eobhff-Udkfyx Hx Patient Social History Alcohol Use: Regular Use Recreational Drug Use: No (DENIES, BUT PER OLD RECORDS, HISTORY OF NARCOTIC USE /ABUSE) Drug of Choice: cannibus Smoking Status: Current Everyday Smoker Type Used: Cigarettes 2nd Hand Smoke Exposure: Yes Recent Foreign Travel: No Contact w/other who traveled: No Recent Hopitalizations: No Recent Infectious Disease Expo: No Physical Abuse Screen: No Sexual Abuse: No Immunizations Up To Date Tetanus Booster (TDap): Unknown Date of Pneumonia Vaccine: Aug 17, 2011 Date of Influenza Vaccine: Aug 15, 2016 Past Medical History PMHx: Alcoholism h/o Pancreatitis Seizures PSurgHx: Hernia repair Family Medical History Significant Family History: Hypertension (she thinks in her grandparents), Other Conditions/Hx (pt states she doesn't know anything about parents medical hx) Family History: Patient reports no known family medical history. Review of Systems ([facility]) Constitutional: chills, malaise EENTM: No nose congestion, No throat pain Respiratory: No cough, No short of breath Cardiovascular: No chest pain Gastrointestinal: see HPI Genitourinary: no symptoms reported Musculoskeletal: no symptoms reported Skin: no symptoms reported Psychiatric/Neurological: No Symptoms Reported Reviewed Test Results Reviewed Test Results Lab Laboratory Tests Test 07/29/18 15:53 07/30/18 05:51 07/30/18 07:31 07/30/18 09:37 Range/Units White Blood Count 6.1 6.7 4.3-11.0 10^3/uL Red Blood Count 4.06 L 3.39 L 4.35-5.85 10^6/uL Hemoglobin 16.1 H 13.0 11.5-16.0 G/DL Hematocrit 43 38 35-52 % Mean Corpuscular Volume 105 H 112 H 80-99 FL Mean Corpuscular Hemoglobin 40 H 38 H 25-34 PG Mean Corpuscular Hemoglobin Concent 38 H 34 32-36 G/DL Red Cell Distribution Width 12.1 12.1 10.0-14.5 % Platelet Count 246 179 130-400 10^3/uL Mean Platelet Volume 10.6 H 10.2 7.4-10.4 FL Neutrophils (%) (Auto) 70 56 42-75 % Lymphocytes (%) (Auto) 17 31 12-44 % Monocytes (%) (Auto) 10 8 0-12 % Eosinophils (%) (Auto) 3 5 0-10 % Basophils (%) (Auto) 1 1 0-10 % Neutrophils # (Auto) 4.3 3.7 1.8-7.8 X 10^3 Lymphocytes # (Auto) 1.0 2.1 1.0-4.0 X 10^3 Monocytes # (Auto) 0.6 0.6 0.0-1.0 X 10^3 Eosinophils # (Auto) 0.2 0.3 0.0-0.3 10^3/uL Basophils # (Auto) 0.1 0.0 0.0-0.1 10^3/uL Urine Color YELLOW Urine Clarity CLEAR Urine pH 7 5-9 Urine Specific [place] 1.010 L 1.016-1.022 Urine Protein 1+ H NEGATIVE Urine Glucose (UA) NEGATIVE NEGATIVE Urine Ketones 2+ H NEGATIVE Urine Nitrite NEGATIVE NEGATIVE Urine Bilirubin NEGATIVE NEGATIVE Urine Urobilinogen 8 H NORMAL MG/DL Urine Leukocyte Esterase 1+ H NEGATIVE Urine RBC (Auto) NEGATIVE NEGATIVE Urine RBC NONE /HPF Urine WBC 2-5 /HPF Urine Squamous Epithelial Cells 10-25 H /HPF Urine Crystals NONE /LPF Urine Bacteria FEW H /HPF Urine Casts NONE /LPF Urine Mucus SMALL H /LPF Urine Culture Indicated NO Urine Test NEGATIVE NEGATIVE Sodium Level 134 L 137 135-145 MMOL/L Potassium Level 3.0 L 3.5 L 3.6-5.0 MMOL/L Chloride Level 97 L 105 98-107 MMOL/L Carbon Dioxide Level 23 15 L 21-32 MMOL/L Anion Gap 14 17 H 5-14 MMOL/L Blood Urea Nitrogen 4 L 4 L 7-18 MG/DL Creatinine 0.63 0.57 L 0.60-1.30 MG/DL Estimat Glomerular Filtration Rate > 60 > 60 BUN/Creatinine Ratio 6 7 Glucose Level 84 51 *L 70-105 MG/DL Calcium Level 9.2 7.8 L 8.5-10.1 MG/DL Corrected Calcium 9.3 8.4 L 8.5-10.1 MG/DL Magnesium Level 1.8 1.8-2.4 MG/DL Total Bilirubin 1.3 H 0.9 0.1-1.0 MG/DL Aspartate Amino Transf (AST/SGOT) 49 H 33 5-34 U/L Alanine Aminotransferase (ALT/SGPT) 25 20 0-55 U/L Alkaline Phosphatase 156 H 127 40-136 U/L Total Protein 7.6 6.1 L 6.4-8.2 GM/DL Albumin 3.9 3.3 3.2-4.5 GM/DL Lipase 46 50 8-78 U/L Urine Opiates Screen NEGATIVE NEGATIVE Urine Oxycodone Screen NEGATIVE NEGATIVE Urine Methadone Screen NEGATIVE NEGATIVE Urine Propoxyphene Screen NEGATIVE NEGATIVE Urine Barbiturates Screen NEGATIVE NEGATIVE Ur Tricyclic Antidepressants Screen NEGATIVE NEGATIVE Urine Phencyclidine Screen NEGATIVE NEGATIVE Urine Amphetamines Screen NEGATIVE NEGATIVE Urine Methamphetamines Screen NEGATIVE NEGATIVE Urine Benzodiazepines Screen POSITIVE H NEGATIVE Urine Cocaine Screen NEGATIVE NEGATIVE Urine Cannabinoids Screen POSITIVE H NEGATIVE Amylase Level 67 25-125 U/L Glucometer 71 186 H 70-110 MG/DL Radiology CT abd/pelvis: IMPRESSION: CT abdomen and pelvis: 1. Prominent inflammatory stranding subjacent to the pancreas, most likely reflecting acute pancreatitis. There is no evidence of pancreatic necrosis. 2. Cystic lesions in the region of the pancreatic head and body/tail of the pancreas which are more prominent since prior CT. Pancreatic pseudocyst would be the favored differential diagnostic consideration. In general, differential diagnostic considerations for cystic lesions of the pancreas but includes five branch type IPMN and serous and mucinous pancreatic neoplasms. These would be considered less likely given the findings of pancreatitis. 3. Diffuse fatty infiltration of the liver. Physical Exam-([facility]) Physical Exam Vital Signs VS - Last 72 Hours, by Label 07/29/18 07/29/18 07/29/18 07/29/18 15:28 19:48 20:15 20:15 Temp 97.8 98.5 97.8 Pulse 90 84 86 Resp 16 18 18 B/P (MAP) 147/104 (118) 140/105 130/92 (105) Pulse Ox 100 100 O2 Delivery Room Air Room Air Room Air Room Air 07/30/18 07/30/18 07/30/18 07/30/18 00:01 04:15 08:00 08:00 Temp 97.9 97.5 95.9 Pulse 87 81 63 Resp 17 17 18 B/P (MAP) 135/86 (102) 129/87 (101) 129/88 (102) Pulse Ox 95 97 97 100 O2 Delivery Room Air Room Air Room Air Room Air 07/30/18 07/30/18 07/30/18 08:53 11:50 16:00 Temp 97.7 97.4 Pulse 79 95 Resp 18 B/P (MAP) 118/80 (93) 161/93 (115) 138/64 (88) Pulse Ox 98 100 O2 Delivery Room Air Room Air Capillary Refill : Less Than 3 Seconds General Appearance: no apparent distress Respiratory: lungs clear, normal breath sounds Cardiovascular: regular rate, rhythm, no murmur Gastrointestinal: normal bowel sounds, soft, tenderness (epigastric, RUQ) Extremities: no pedal edema Neurologic/Psychiatric: alert, normal mood/affect Skin: normal color, warm/dry Assessment/Plan Assessment/Plan Admission Dx Pancreatitis Pancreatic pseudocyst Admission Status: Observation Assessment & Plan Pancreatitis- mild by labs and exam, but notable on CT scan. Was NPO overnight and had improved pain. Had hypoglycemia this am and tolerated oral, is advancing as tolerated. Fentanyl prn. Pancreatic pseudocyst- Dr Lowe consulted, appreciate recommendations Seizure d/o- resume home Keppra Heavy alcohol use- encouraged complete cessation given her fatty liver and recurrent pancreatitis DVT ppx- enoxaparin Clinical Quality Measures DVT/VTE Risk/Contraindication: Risk Factor Score Per Nursin RFS Level Per Nursing on Admit: 2=Moderate LIBERTAD CHAPIN MD Jul 30, 2018 11:29 am
[2018-07-30] MEDS: ENOXAPARIN 40 MG/0.4 ML (LOVENOX) SYR SC SCH (12:06)
[2018-07-30] MEDS: LEVETIRACETAM 1,000 MG (KEPPRA) TABLET PO SCH (20:26)
[2018-07-31] MEDS: fentaNYL INJECTION 100 MCG/2 ML AMP IV PRN ×3 (00:27→04:50)
[2018-07-31 00:47] VITALS: BP 143/94
[2018-07-31 04:12] VITALS: BP 137/94
[2018-07-31] MEDS: NS W/KCL 40 MEQ/L 1,000 ML IV SCH ×2 (04:51→11:49)
[2018-07-31] MEDS: LEVETIRACETAM 1,000 MG (KEPPRA) TABLET PO SCH (05:03)
[2018-07-31 06:03] LABS: HEMOGLOBIN 13.9 G/DL (11.5-16.0); MEAN PLATELET VOLUME 10.3 FL (7.4-10.4); RED BLOOD COUNT 3.57 10^6/uL (4.35-5.85); RED CELL DISTRIBUTION WIDTH 11.4 % (10.0-14.5)
[2018-07-31 06:25] LABS: ALANINE AMINOTRANSFERASE 17 U/L (0-55); ALBUMIN 3.3 GM/DL (3.2-4.5); ALKALINE PHOSPHATASE 125 U/L (40-136); BILIRUBIN,TOTAL 0.6 MG/DL (0.1-1.0); BUN/CREATININE RATIO 4; CALCIUM 8.5 MG/DL (8.5-10.1); CARBON DIOXIDE 18 MMOL/L (21-32); CHLORIDE 107 MMOL/L (98-107); CREATININE SERUM 0.54 MG/DL (0.60-1.30); GFR ESTIMATED > 60; GLUCOSE 118 MG/DL (70-105); POTASSIUM 3.8 MMOL/L (3.6-5.0); SODIUM 134 MMOL/L (135-145); TOTAL PROTEIN 6.2 GM/DL (6.4-8.2)
[2018-07-31 07:46] VITALS: BP 143/91
[2018-07-31] MEDS: PANTOPRAZOLE 40 MG (PROTONIX) VIAL IV SCH (08:30)
[2018-07-31] MEDS: NICOTINE 21 MG (NICODERM) PATCH TD SCH (08:31)
--- NOTE | 2018-07-31 08:35 | Progress Note ---
Subjective Date Seen by Provider: Jul 31, 2018 Time Seen by Provider: 08:10 Subjective/Events-last exam Pt seen and evaluated, she is resting comfortably in bed. She reports she is just starting to "come to" from her approximately 90 second witnessed tonic clonic sz at 0700 this morning. Per the nurse's note, pt was incontinent of urine and had post-ictal confusion. 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 She says does not regularly have szs, but she will have a seizure around Friday if she "really gets after it with the whiskey" over the weekend. She denies heavy drinking before coming to the ED on Friday. She denies abdominal pain, nausea, vomiting, or diarrhea and feels she is improving. She says she will probably eat something this morning. She also endorses ALEXIS today post-sz. It feels like pressure and is located and the crown and over her occiput bilaterally. She does not usually have ALEXIS following her szs. Dr. Posadas I saw pt at 10:20 and went over events of this morning. Since that time she has eaten without any abdominal pain. She also reports a small lump in upper abdomen. Review of Systems General: No Chills, No Night Sweats, No Malaise HEENT: Head Aches; No Visual Changes, No Dysphasia Pulmonary: No Dyspnea, No Cough Cardiovascular: No: Chest Pain, Palpitations Gastrointestinal: No: Nausea, Vomiting, Abdominal Pain Genitourinary: No Dysuria, No Frequency Musculoskeletal: No: neck pain, back pain Neurological: Confusion (this resolved within an hour of her sz), Seizures; No : Weakness, Numbness, Change in speech Objective Exam Vital Signs Date Time Temp Pulse Resp B/P (MAP) Pulse Ox O2 Delivery O2 Flow Rate FiO2 07/31/18 07:46 97.5 102 17 143/91 (108) 96 Room Air 07/31/18 04:15 98.4 07/31/18 04:12 98.9 84 16 137/94 (108) 100 Room Air 07/31/18 00:47 98.8 91 20 143/94 (110) 99 Room Air 07/30/18 20:00 97.8 90 20 138/78 (98) 99 Room Air 07/30/18 16:00 97.4 95 138/64 (88) 100 Room Air 07/30/18 11:50 97.7 79 18 161/93 (115) 98 Room Air 07/30/18 08:53 118/80 (93) I & O 07/31/18 07:00 Intake Total 6605 ml Output Total 3800 ml Balance 2805 ml Capillary Refill : Less Than 3 Seconds General Appearance: No Apparent Distress, WD/WN HEENT: PERRL/EOMI, Pharynx Normal, Moist Mucous Membranes Neck: Full Range of Motion, Normal Inspection, Non Tender, Supple Respiratory: Chest Non Tender, Lungs Clear, Normal Breath Sounds, No Accessory Muscle Use, No Respiratory Distress Cardiovascular: Regular Rate, Rhythm, No Edema Peripheral Pulses: 2+ Radial Pulses (R), 2+ Radial Pulses (L) Gastrointestinal: normal bowel sounds, non tender, soft; No distended, No guarding, No rebound; mass (1 cm indurated nodule nursing home between xyphoid process and umbilicus, non tender) Extremity: No Calf Tenderness, No Pedal Edema Neurologic/Psychiatric: Alert, Oriented x3, No Motor/Sensory Deficits, Normal 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, 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 Norm as 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 Skin: Normal Color, Warm/Dry Lymphatic: No Adenopathy (cervical, axillary, or inguinal) Results Lab Laboratory Tests 07/30/18 09:37: Glucometer 186H 07/31/18 04:56: Glucometer 83 07/31/18 05:45: White Blood Count 6.0, Red Blood Count 3.57L, Hemoglobin 13.9, Hematocrit 39, Mean Corpuscular Volume 108H, Mean Corpuscular Hemoglobin 39H, Mean Corpuscular Hemoglobin Concent 36, Red Cell Distribution Width 11.4, Platelet Count 171, Mean Platelet Volume 10.3, Sodium Level 134L, Potassium Level 3.8, Chloride Level 107, Carbon Dioxide Level 18L, Anion Gap 9, Blood Urea Nitrogen < 2L, Creatinine 0.54L, Estimat Glomerular Filtration Rate > 60, BUN/Creatinine Ratio 4, Glucose Level 118H, Calcium Level 8.5, Corrected Calcium 9.1, Total Bilirubin 0.6, Aspartate Amino Transf (AST/SGOT) 27, Alanine Aminotransferase ( ALT/SGPT) 17, Alkaline Phosphatase 125, Total Protein 6.2L, Albumin 3.3 Assessment/Plan Assessment/Plan Assessment/Plan Dr. Posadas Acute on Chronic Pancreatitis Pt is tolerating diet without pain or need for pain control. Pancreatic enzymes are normal. From Surgical standpoint pt can go home today. I did a full physical exam on pt and palpated the upper abdominal mass; appx 1cm and firm, but mobile. Pt can have this removed as an outpt. She had no questions. She had a CT which showed pancreatic inflammation and an increase in her pancreatic pseudocysts (reported to me as 20% larger). 07/31/18 (student A/P): Will continue IV fluids as well as anti-emetics and pain control PRN. Pt stated she will likely eat this morning. Her sz this morning may have been due to a missed dose of Keppra yesterday morning. She is scheduled for 1000 mg PO BID. Will monitor for recurrence. If pt can tolerate oral intake w/o return of sxs she can be D/C home. -Kai Montoya, MS3 Clinical Quality Measures DVT/VTE Risk/Contraindication: Risk Factor Score Per Nursin RFS Level Per Nursing on Admit: 2=Moderate KAI MONTOYA MEDICAL STUDENT Jul 31, 2018 08:35 SERVANDO POSADAS DO Jul 31, 2018 10:35
[2018-07-31] MEDS: ENOXAPARIN 40 MG/0.4 ML (LOVENOX) SYR SC SCH (11:48)
--- NOTE | 2018-07-31 12:07 | Discharge Instructions ---
Discharge [facility]ly [facility] Discharge Medications New, Converted or Re-Newed RX: Other Continued Medications: Albuterol Sulfate (Proventil Hfa) 6.7 Gm Hfa.aer.ad 2 PUFF IH Q6H PRN for SHORTNESS OF BREATH, EACH Levetiracetam (Levetiracetam) 1,000 Mg Tablet 1000 MG PO BID, TAB Mirtazapine (Mirtazapine) 30 Mg Tablet 30 MG PO HS PRN for SLEEP, TAB LAST FILLED NOVEMBER 2017 Omeprazole (Omeprazole) 40 Mg Capsule.dr 40 MG PO DAILY, CAP LAST FILLED 06-17-18 #30 Vit W-Ca,Fe,FA(<1 mg) ( Formula) 1 Each Tablet 1 TAB PO DAILY, TAB Discontinued Medications: Norgestimate-Ethinyl Estradiol (Ortho-Cyclen 28 Tablet) 1 Each Tablet 1 TAB PO DAILY, TAB LAST FILLED 06-17-18 #28 Patient Instructions Goal/Follow Up Appt: Follow up with Dr. Zimmerman on 08/03 at 11 am. Patient Instructions: Stop taking control pills because with your age and smoking, it increases your risk of developing blood clot. Do not drive or swim unsupervised due to your recent seizure, talk to you doctor about when it is safe to resume. Return to The [facility] For: Fever, inability to keep down liquids. Activity & Diet Discharge Diet: Eat Small Frequent Meals, Liquid Diet (advance to bland foods and regular diet as tolerated) Copy Copies To 1: BARTOLO ZIMMERMAN MD, BETHANY N MD Jul 31, 2018 12:07 pm
[2018-07-31 12:34] VITALS: BP 178/96
[2018-07-31 13:38] VITALS: BP 178/96
--- NOTE | 2018-07-31 17:43 | Discharge Summary ---
Diagnosis/Chief Complaint Date of Admission Jul 29, 2018 at 20:15 Date of Discharge Jul 31, 2018 at 12:05 Admission Diagnosis Admission Diagnosis Pancreatitis Pancreatic pseudocyst Seizure d/o Heavy alcohol use- n Discharge Diagnosis Pancreatitis- mild by labs and exam, but notable on CT scan. Was NPO overnight and had improved pain. On day of d/c was tolerating oral well with minimal pain. Pancreatic pseudocyst- Dr Lowe consulted, appreciate recommendations, no surgical intervention needed. Seizure d/o- resumed home Keppra. Had seizure on morning of d/c, suspect due to missed doses of Keppra with her pancreatitis episode. Instructed her not to drive until cleared by primary provider. Heavy alcohol use- encouraged complete cessation given her fatty liver and recurrent pancreatitis Chief Complaint/HPI Chief Complaint/HPI 47 yo female started having abdominal pain and nausea about 10 days ago. She had worsening to the point of pain with only a few bites of food. She has had pancreatitis in the past. She drinks 2-4 beers most days and she does smoke cigarettes as well. No fever, has had chills. Has diarrhea currently, but was not having bowel movements for some time before arrival. She ran out of her omeprazole around the same time this started. Discharge Summary-Simple/Stand Consultations Dr. Lowe/General Surgery Discharge Physical Examination Allergies: Coded Allergies: No Known Drug Allergies (Verified , 02/14/09) Vitals & I&Os Vital Sign - Last 12Hours Date Time Temp Pulse Resp B/P (MAP) Pulse Ox O2 Delivery O2 Flow Rate FiO2 07/31/18 13:38 102 18 178/96 100 Room Air 07/31/18 12:34 97.6 Intake and Output 07/30/18 23:59 Intake Total 3665 ml Output Total 1550 ml Balance 2115 ml General Appearance: Alert, No Acute Distress Respiratory: Clear to Auscultation, Normal Air Movement Cardiovascular: Regular Rate, No Murmurs Abdominal: Normal Bowel Sounds, Soft, Other (mild epigastric tenderness to palpation) Neuro: Normal Speech Psych/Mental Status: Mental Status NL Hospital Course See final discharge diagnosis. Labs Laboratory Tests Test 07/30/18 05:51 07/30/18 07:31 07/30/18 09:37 07/31/18 04:56 Range/Units White Blood Count 6.7 4.3-11.0 10^3/uL Red Blood Count 3.39 L 4.35-5.85 10^6/uL Hemoglobin 13.0 11.5-16.0 G/DL Hematocrit 38 35-52 % Mean Corpuscular Volume 112 H 80-99 FL Mean Corpuscular Hemoglobin 38 H 25-34 PG Mean Corpuscular Hemoglobin Concent 34 32-36 G/DL Red Cell Distribution Width 12.1 10.0-14.5 % Platelet Count 179 130-400 10^3/uL Mean Platelet Volume 10.2 7.4-10.4 FL Neutrophils (%) (Auto) 56 42-75 % Lymphocytes (%) (Auto) 31 12-44 % Monocytes (%) (Auto) 8 0-12 % Eosinophils (%) (Auto) 5 0-10 % Basophils (%) (Auto) 1 0-10 % Neutrophils # (Auto) 3.7 1.8-7.8 X 10^3 Lymphocytes # (Auto) 2.1 1.0-4.0 X 10^3 Monocytes # (Auto) 0.6 0.0-1.0 X 10^3 Eosinophils # (Auto) 0.3 0.0-0.3 10^3/uL Basophils # (Auto) 0.0 0.0-0.1 10^3/uL Sodium Level 137 135-145 MMOL/L Potassium Level 3.5 L 3.6-5.0 MMOL/L Chloride Level 105 98-107 MMOL/L Carbon Dioxide Level 15 L 21-32 MMOL/L Anion Gap 17 H 5-14 MMOL/L Blood Urea Nitrogen 4 L 7-18 MG/DL Creatinine 0.57 L 0.60-1.30 MG/DL Estimat Glomerular Filtration Rate > 60 BUN/Creatinine Ratio 7 Glucose Level 51 *L 70-105 MG/DL Calcium Level 7.8 L 8.5-10.1 MG/DL Corrected Calcium 8.4 L 8.5-10.1 MG/DL Total Bilirubin 0.9 0.1-1.0 MG/DL Aspartate Amino Transf (AST/SGOT) 33 5-34 U/L Alanine Aminotransferase (ALT/SGPT) 20 0-55 U/L Alkaline Phosphatase 127 40-136 U/L Total Protein 6.1 L 6.4-8.2 GM/DL Albumin 3.3 3.2-4.5 GM/DL Amylase Level 67 25-125 U/L Lipase 50 8-78 U/L Glucometer 71 186 H 83 70-110 MG/DL Test 07/31/18 05:45 Range/Units White Blood Count 6.0 4.3-11.0 10^3/uL Red Blood Count 3.57 L 4.35-5.85 10^6/uL Hemoglobin 13.9 11.5-16.0 G/DL Hematocrit 39 35-52 % Mean Corpuscular Volume 108 H 80-99 FL Mean Corpuscular Hemoglobin 39 H 25-34 PG Mean Corpuscular Hemoglobin Concent 36 32-36 G/DL Red Cell Distribution Width 11.4 10.0-14.5 % Platelet Count 171 130-400 10^3/uL Mean Platelet Volume 10.3 7.4-10.4 FL Sodium Level 134 L 135-145 MMOL/L Potassium Level 3.8 3.6-5.0 MMOL/L Chloride Level 107 98-107 MMOL/L Carbon Dioxide Level 18 L 21-32 MMOL/L Anion Gap 9 5-14 MMOL/L Blood Urea Nitrogen < 2 L 7-18 MG/DL Creatinine 0.54 L 0.60-1.30 MG/DL Estimat Glomerular Filtration Rate > 60 BUN/Creatinine Ratio 4 Glucose Level 118 H 70-105 MG/DL Calcium Level 8.5 8.5-10.1 MG/DL Corrected Calcium 9.1 8.5-10.1 MG/DL Total Bilirubin 0.6 0.1-1.0 MG/DL Aspartate Amino Transf (AST/SGOT) 27 5-34 U/L Alanine Aminotransferase (ALT/SGPT) 17 0-55 U/L Alkaline Phosphatase 125 40-136 U/L Total Protein 6.2 L 6.4-8.2 GM/DL Albumin 3.3 3.2-4.5 GM/DL Radiology Reviewed CT abd/pelvis: IMPRESSION: CT abdomen and pelvis: 1. Prominent inflammatory stranding subjacent to the pancreas, most likely reflecting acute pancreatitis. There is no evidence of pancreatic necrosis. 2. Cystic lesions in the region of the pancreatic head and body/tail of the pancreas which are more prominent since prior CT. Pancreatic pseudocyst would be the favored differential diagnostic consideration. In general, differential diagnostic considerations for cystic lesions of the pancreas but includes five branch type IPMN and serous and mucinous pancreatic neoplasms. These would be considered less likely given the findings of pancreatitis. 3. Diffuse fatty infiltration of the liver. Discharge Instructions to patient/family Please see electronic discharge instructions given to patient. Discharge Medications Reviewed and agree with Discharge Medication list on patient's Discharge Instruction sheet Clinical Quality Measures DVT/VTE Risk/Contraindication: Risk Factor Score Per Nursin RFS Level Per Nursing on Admit: 2=Moderate Copy Copies To 1: BARTOLO ZIMMERMAN MD, BETHANY N MD Jul 31, 2018 17:43
== END 2018-07-31 12:05 | disposition home or self-care (01) ==
LOC: EDUNIT# 15:11 → ER 15:12 → UNDOADMOB 19:10 → 4TH 19:10 → UNDODISOB 07-31 13:30
PROVIDERS: ADMIT Family Medicine; ATTEND Family Medicine
DX: K85.90 Acute pancreatitis without necrosis or infection, unspecified (principal); K86.1 Other chronic pancreatitis; K86.3 Pseudocyst of pancreas; G40.909 Epilepsy, unspecified, not intractable, without status epilepticus; F17.210 Nicotine dependence, cigarettes, uncomplicated; F10.10 Alcohol abuse, uncomplicated; R19.06 Epigastric swelling, mass or lump; I10 Essential (primary) hypertension; K21.9 Gastro-esophageal reflux disease without esophagitis; F41.9 Anxiety disorder, unspecified; F31.9 Bipolar disorder, unspecified
CPT/HCPCS: 36415; 74177; 80053; 80306; 81000; 82150; 82962; 83690; 83735; 84703; 85025; 85027; 96361; 96365; 96375; G0378

== ENCOUNTER 2018-09-25 00:37 | Emergency (ER) | payer SELFPAY ==
[~2018-09-25] VITALS: Ht 158.8 cm; Wt 49.9 kg
[~2018-09-25 00:37] MED LIST changes: +PREN-8 PO; +RT-ALBUINH IH
[2018-09-25] MEDS ORDERED: NS IV 1000 ML 1,000 ML IV ONE (00:44)
[2018-09-25] MEDS ORDERED: FAMOTIDINE 20MG/2ML IV (PEPCID) IVP ONE (00:45)
[2018-09-25] MEDS ORDERED: ONDANSETRON 4 MG/2 ML (SDV) Z0FRAN IVP ONE (00:45)
[2018-09-25 01:52] LABS: BASOPHILS # (AUTO) 0.1 10^3/uL (0.0-0.1); BASOPHILS % (AUTO) 1 % (0-10); EOSINOPHILS # (AUTO) 1.1 10^3/uL (0.0-0.3); EOSINOPHILS % (AUTO) 11 % (0-10); HEMATOCRIT 41 % (35-52); HEMOGLOBIN 14.8 G/DL (11.5-16.0); LYMPHOCYTES # (AUTO) 2.4 X 10^3 (1.0-4.0); LYMPHOCYTES % (AUTO) 25 % (12-44); MEAN CORPUSCULAR HEMOGLOBIN 37 PG (25-34); MEAN CORPUSCULAR HGB CONC 36 G/DL (32-36); MEAN CORPUSCULAR VOLUME 103 FL (80-99); MEAN PLATELET VOLUME 10.1 FL (7.4-10.4); MONOCYTES # (AUTO) 0.5 X 10^3 (0.0-1.0); MONOCYTES % (AUTO) 6 % (0-12); NEUTROPHILS # (AUTO) 5.4 X 10^3 (1.8-7.8); NEUTROPHILS % (AUTO) 57 % (42-75); PLATELET COUNT 126 10^3/uL (130-400); RED BLOOD COUNT 4.02 10^6/uL (4.35-5.85); RED CELL DISTRIBUTION WIDTH 12.8 % (10.0-14.5); WHITE BLOOD COUNT 9.5 10^3/uL (4.3-11.0)
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
[2018-09-25] MEDS ORDERED: fentaNYL INJECTION 100 MCG/2 ML AMP IVP ONE (02:00)
[2018-09-25 02:05] LABS: ALANINE AMINOTRANSFERASE 56 U/L (0-55); ALBUMIN 3.9 GM/DL (3.2-4.5); ALKALINE PHOSPHATASE 140 U/L (40-136); BILIRUBIN,TOTAL 0.7 MG/DL (0.1-1.0); BUN/CREATININE RATIO 8; CALCIUM 8.8 MG/DL (8.5-10.1); CARBON DIOXIDE 21 MMOL/L (21-32); CHLORIDE 104 MMOL/L (98-107); CREATININE SERUM 0.61 MG/DL (0.60-1.30); GFR ESTIMATED > 60; GLUCOSE 99 MG/DL (70-105); LIPASE 122 U/L (8-78); POTASSIUM 3.9 MMOL/L (3.6-5.0); SODIUM 143 MMOL/L (135-145); TOTAL PROTEIN 7.4 GM/DL (6.4-8.2)
[2018-09-25] MEDS ORDERED: KETOROLAC 30 MG/ML VIAL IVP ONE (02:30)
[2018-09-25] MEDS ORDERED: HYDROcodone/APAP 5 MG/325 MG (LORTAB) TAB PO ONE (03:00)
[2018-09-25] MEDS ORDERED: RX-HYDROCODONE/APAP 5/325 MG #4 TAB PK PO PRN (03:15)
[2018-09-25 03:17] VITALS: BP 127/94
== END 2018-09-25 03:17 | disposition home or self-care (01) ==
LOC: EDUNIT# 00:37 → ER 00:38
DX: K85.90 Acute pancreatitis without necrosis or infection, unspecified (principal); F10.20 Alcohol dependence, uncomplicated; F12.10 Cannabis abuse, uncomplicated; I10 Essential (primary) hypertension; G40.909 Epilepsy, unspecified, not intractable, without status epilepticus; K21.9 Gastro-esophageal reflux disease without esophagitis; F41.9 Anxiety disorder, unspecified; F32.9 Major depressive disorder, single episode, unspecified; Z91.5 Personal history of self-harm; Z82.49 Family history of ischemic heart disease and other diseases of the circulatory system; Z87.19 Personal history of other diseases of the digestive system; Z98.890 Other specified postprocedural states; Z79.51 Long term (current) use of inhaled steroids; Z77.22 Contact with and (suspected) exposure to environmental tobacco smoke (acute) (chronic)
CPT/HCPCS: 36415; 80053; 80320; 83690; 85025

== ENCOUNTER 2018-09-29 05:35 | Inpatient (IN) | payer OTHER ==
[~2018-09-29] VITALS: Ht 160 cm; Wt 54.4 kg
[2018-09-29 05:57] LABS: BASOPHILS % (AUTO) 0 % (0-10); EOSINOPHILS # (AUTO) 0.4 10^3/uL (0.0-0.3); EOSINOPHILS % (AUTO) 4 % (0-10); HEMATOCRIT 39 % (35-52); HEMOGLOBIN 14.5 G/DL (11.5-16.0); LYMPHOCYTES # (AUTO) 1.8 X 10^3 (1.0-4.0); LYMPHOCYTES % (AUTO) 21 % (12-44); MEAN CORPUSCULAR HEMOGLOBIN 37 PG (25-34); MEAN CORPUSCULAR HGB CONC 37 G/DL (32-36); MEAN CORPUSCULAR VOLUME 101 FL (80-99); MEAN PLATELET VOLUME 10.6 FL (7.4-10.4); MONOCYTES # (AUTO) 1.1 X 10^3 (0.0-1.0); MONOCYTES % (AUTO) 12 % (0-12); NEUTROPHILS # (AUTO) 5.3 X 10^3 (1.8-7.8); NEUTROPHILS % (AUTO) 62 % (42-75); PLATELET COUNT 111 10^3/uL (130-400); RED CELL DISTRIBUTION WIDTH 12.3 % (10.0-14.5); WHITE BLOOD COUNT 8.6 10^3/uL (4.3-11.0)
[2018-09-29 05:59] LABS: BILIRUBIN,URINE 1+ (NEGATIVE); CLARITY,URINE SLIGHTLY CLOUDY; COLOR,URINE AMBER; GLUCOSE, URINE (UA) NEGATIVE (NEGATIVE); KETONES,URINE 1+ (NEGATIVE); LEUKOCYTE ESTERASE ,URINE 2+ (NEGATIVE); NITRITE,URINE NEGATIVE (NEGATIVE); PH,URINE 6 (5-9); PROTEIN,URINE 2+ (NEGATIVE); UROBILINOGEN,URINE 4 MG/DL (NORMAL)
[2018-09-29] MEDS ORDERED: FAMOTIDINE 20MG/2ML IV (PEPCID) IVP ONE (06:00)
[2018-09-29] MEDS ORDERED: ONDANSETRON 4 MG/2 ML (SDV) Z0FRAN IVP ONE (06:00)
[2018-09-29 06:12] LABS: BACTERIA,URINE MODERATE /HPF; HYALINE CASTS, URINE 0-2 /LPF; WBC,URINE 0-2 /HPF
[2018-09-29 06:20] LABS: ALANINE AMINOTRANSFERASE 37 U/L (0-55); ALBUMIN 3.6 GM/DL (3.2-4.5); ALKALINE PHOSPHATASE 144 U/L (40-136); BUN/CREATININE RATIO 3; CALCIUM 9.1 MG/DL (8.5-10.1); CARBON DIOXIDE 24 MMOL/L (21-32); CHLORIDE 102 MMOL/L (98-107); CREATININE SERUM 0.66 MG/DL (0.60-1.30); GFR ESTIMATED > 60; GLUCOSE 137 MG/DL (70-105); LIPASE 57 U/L (8-78); POTASSIUM 3.1 MMOL/L (3.6-5.0); SODIUM 139 MMOL/L (135-145); TOTAL PROTEIN 6.9 GM/DL (6.4-8.2)
[2018-09-29] MEDS ORDERED: NS IV 1000 ML 1,000 ML IV ONE (06:28)
[2018-09-29] MEDS ORDERED: fentaNYL INJECTION 100 MCG/2 ML AMP IVP STA (06:28)
--- NOTE | 2018-09-29 06:39 | ED Abdominal Pain ---
General Chief Complaint: Abdominal/GI Problems Stated Complaint: ABD PAIN Nursing Triage Note: PT AMB TO ROOM 35 W/O DIFFICULTY. A&OX4. C/O UPPER RT SIDE ABD PAIN THAT BEGAN YESTERDAY EVENING. PT REPORTS HX CHRONIC PANCREATITIS. DESCRIBED PAIN SHARP AND RATES PAIN 8/10. PT MOANING ABD GUARDING STOMACH. Sepsis Screen: No Definite Risk Source of Information: Patient Exam Limitations: No Limitations History of Present Illness Date Seen by Provider: Sep 29, 2018 Time Seen by Provider: 06:16 Initial Comments Here with report of diffuse abdominal pain but mostly in her left lower quadrant and epigastric region. Started yesterday after eating pizza. Was seen last week with concerns for pancreatitis and was offered admission. Patient declined. She tried outpatient therapy. She does drink alcohol but has switched from whiskey to be her. She did liquids otherwise throughout this week. Last night had a slice of pizza and had severe pain onset afterwards and has persisted throughout the night until this morning. Did have an episode of vomiting. Denies diarrhea. Is concerned about pancreatitis. Timing/Duration: 12 Hours Severity/Quality: Moderate, Severe Location: LLQ, Epigastric Radiation: RUQ, LUQ Activities at Onset: None Modifying Factors: Worsens With Eating; Improves With Resting Associated Symptoms: No Fever/Chills; Nausea/Vomiting; No Shortness of Air, No Weakness Allergies and Home Medications Allergies Coded Allergies: No Known Drug Allergies (Verified , 02/14/09) Home Medications Albuterol Sulfate 6.7 Gm Hfa.aer.ad, 2 PUFF IH Q6H PRN for SHORTNESS OF BREATH, (Reported) Levetiracetam 1,000 Mg Tablet, 1,000 MG PO BID, (Reported) Mirtazapine 30 Mg Tablet, 30 MG PO HS PRN for SLEEP, (Reported) LAST FILLED NOVEMBER 2017 Omeprazole 40 Mg Capsule.dr, 40 MG PO DAILY, (Reported) LAST FILLED 06-17-18 #30 Vit W-Ca,Fe,FA(<1 mg) 1 Each Tablet, 1 TAB PO DAILY, (Reported) Patient Home Medication List Home Medication List Reviewed: Yes Review of Systems Review of Systems Constitutional: see HPI; No chills, No fever EENTM: No Symptoms Reported Respiratory: No Symptoms Reported Cardiovascular: No Symptoms Reported Gastrointestinal: See HPI, Abdominal Pain; Denies Diarrhea; Nausea, Vomiting Genitourinary: No Symptoms Reported Musculoskeletal: back pain; No joint pain Skin: no symptoms reported Psychiatric/Neurological: Anxiety; Denies Headache Endocrine: No Symptoms Reported All Other Systems Reviewed Negative Unless Noted: Yes Past Blqfema-Ypphbn-Aqcfyh Hx Past Med/Social Hx: Reviewed Nursing Past Med/Soc Hx Patient Social History Alcohol Use: Regular Use Number of Drinks Today: 0 Alcohol Beverage of Choice: Beer, Whiskey, Vodka Recreational Drug Use: Yes (DENIES, BUT PER OLD RECORDS, HISTORY OF NARCOTIC USE/ABUSE) Drug of Choice: THC Smoking Status: Current Everyday Smoker Type Used: Cigarettes 2nd Hand Smoke Exposure: Yes Recent Foreign Travel: No Contact w/Someone Who Travel: No Recent Infectious Disease Expo: No Recent Hopitalizations: No Immunizations Up To Date Tetanus Booster (TDap): Unknown PED Vaccines UTD: No Date of Pneumonia Vaccine: Aug 17, 2011 Date of Influenza Vaccine: Aug 15, 2016 Seasonal Allergies Seasonal Allergies: No Past Medical History Surgeries: Yes ( X 1, hernia repair) Abdominal, Section Respiratory: No Currently Using CPAP: No Currently Using BIPAP: No Cardiac: Yes Hypertension Neurological: Yes Seizure Disorder Reproductive Disorders: No Female Reproductive Disorders: Denies Genitourinary: No Gastrointestinal: Yes Gastroesophageal Reflux, Pancreatitis Musculoskeletal: No Endocrine: No HEENT: No Cancer: No Psychosocial: Yes (MULTIPLE PSYCH ADMITS. alcoholism) Anxiety, Suicide Attempts, Bipolar, Depression Integumentary: No Blood Disorders: No Family Medical History Reviewed Nursing Family Hx Patient reports no known family medical history. Hypertension, Other Conditions/Hx Physical Exam Vital Signs Vital Signs - First Documented 09/29/18 05:42 Temp 98.8 Pulse 120 Resp 18 B/P (MAP) 140/103 (115) Pulse Ox 99 O2 Delivery Room Air Capillary Refill : Less Than 3 Seconds Height/Weight/BMI Height: 5'3.00" Weight: 120lbs. 6.0oz. [id number]; 21.3 BMI Method:Stated General Appearance: WD/WN, mild distress HEENT: PERRL/EOMI, pharynx normal Neck: full range of motion, supple Respiratory: lungs clear, normal breath sounds Cardiovascular: regular rate, rhythm, no murmur Peripheral Pulses: 2+ Dorsalis Pedis (R), 2+ Left Dors-Pedis (L), 2+ Radial Pulses (R), 2+ Radial Pulses (L) Gastrointestinal: soft, tenderness (epigastric and left lower quadrant and to a lesser extent other areas in the abdomen.) Extremities: non-tender, normal inspection Back: normal inspection, no CVA tenderness, no vertebral tenderness Neurologic/Psychiatric: alert, oriented x 3 Skin: normal color, warm/dry Progress/Results/Core Measures Results/Orders Lab Results Laboratory Tests Test 09/29/18 05:50 09/29/18 05:55 Range/Units White Blood Count 8.6 4.3-11.0 10^3/uL Red Blood Count 3.90 L 4.35-5.85 10^6/uL Hemoglobin 14.5 11.5-16.0 G/DL Hematocrit 39 35-52 % Mean Corpuscular Volume 101 H 80-99 FL Mean Corpuscular Hemoglobin 37 H 25-34 PG Mean Corpuscular Hemoglobin Concent 37 H 32-36 G/DL Red Cell Distribution Width 12.3 10.0-14.5 % Platelet Count 111 L 130-400 10^3/uL Mean Platelet Volume 10.6 H 7.4-10.4 FL Neutrophils (%) (Auto) 62 42-75 % Lymphocytes (%) (Auto) 21 12-44 % Monocytes (%) (Auto) 12 0-12 % Eosinophils (%) (Auto) 4 0-10 % Basophils (%) (Auto) 0 0-10 % Neutrophils # (Auto) 5.3 1.8-7.8 X 10^3 Lymphocytes # (Auto) 1.8 1.0-4.0 X 10^3 Monocytes # (Auto) 1.1 H 0.0-1.0 X 10^3 Eosinophils # (Auto) 0.4 H 0.0-0.3 10^3/uL Basophils # (Auto) 0.0 0.0-0.1 10^3/uL Sodium Level 139 135-145 MMOL/L Potassium Level 3.1 L 3.6-5.0 MMOL/L Chloride Level 102 98-107 MMOL/L Carbon Dioxide Level 24 21-32 MMOL/L Anion Gap 13 5-14 MMOL/L Blood Urea Nitrogen 2 L 7-18 MG/DL Creatinine 0.66 0.60-1.30 MG/DL Estimat Glomerular Filtration Rate > 60 BUN/Creatinine Ratio 3 Glucose Level 137 H 70-105 MG/DL Calcium Level 9.1 8.5-10.1 MG/DL Corrected Calcium 9.4 8.5-10.1 MG/DL Total Bilirubin 1.0 0.1-1.0 MG/DL Aspartate Amino Transf (AST/SGOT) 45 H 5-34 U/L Alanine Aminotransferase (ALT/SGPT) 37 0-55 U/L Alkaline Phosphatase 144 H 40-136 U/L Total Protein 6.9 6.4-8.2 GM/DL Albumin 3.6 3.2-4.5 GM/DL Lipase 57 8-78 U/L Serum Alcohol < 10 <10 MG/DL Urine Color ERLINDA H Urine Clarity SLIGHTLY CLOUDY Urine pH 6 5-9 Urine Specific [place] 1.020 1.016-1.022 Urine Protein 2+ H NEGATIVE Urine Glucose (UA) NEGATIVE NEGATIVE Urine Ketones 1+ H NEGATIVE Urine Nitrite NEGATIVE NEGATIVE Urine Bilirubin 1+ H NEGATIVE Urine Urobilinogen 4 H NORMAL MG/DL Urine Leukocyte Esterase 2+ H NEGATIVE Urine RBC (Auto) 1+ H NEGATIVE Urine RBC NONE /HPF Urine WBC 0-2 /HPF Urine Squamous Epithelial Cells 5-10 /HPF Urine Crystals NONE /LPF Urine Bacteria MODERATE H /HPF Urine Casts PRESENT /LPF Urine Hyaline Casts 0-2 H /LPF Urine Mucus MODERATE H /LPF Urine Culture Indicated NO Urine Test NEGATIVE NEGATIVE My Orders Orders - MARICHUY BRYANT MD Hcg,Qualitative Urine (09/29/18 06:28) Ct Abdomen/Pelvis W (09/29/18 06:28) Saline Lock/Iv-Start (09/29/18 06:28) Ns Iv 1000 Ml (Sodium Chloride 0.9%) (09/29/18 06:28) Fentanyl Injection (Sublimaze Injection (09/29/18 06:28) Iohexol Injection (Omnipaque 350 Mg/Ml 1 (09/29/18 07:45) Di Iv Start (Assessment) .IV start (09/29/18 07:43) Contrast Received (Contrast Received) (09/29/18 07:45) Ns (Ivpb) (Sodium Chloride 0.9%) (09/29/18 07:45) Dilaudid Iv 1mg Once (09/29/18 09:10) Medications Given in ED Current Medications Medications Dose Ordered Sig/Imelda Route Start Time Stop Time Status Last Admin Dose Admin Famotidine 20 mg ONCE ONCE IVP 09/29/18 06:00 09/29/18 06:01 DC 09/29/18 06:08 20 MG Iohexol 100 ml ONCE ONCE IV 09/29/18 07:45 09/29/18 07:46 DC 09/29/18 07:56 100 ML Ondansetron HCl 8 mg ONCE ONCE IVP 09/29/18 06:00 09/29/18 06:01 DC 09/29/18 06:08 8 MG Sodium Chloride 250 ml ONCE ONCE IV 09/29/18 07:45 09/29/18 07:46 DC 09/29/18 07:56 80 ML Sodium Chloride 1,000 ml @ 0 mls/hr Q0M ONCE IV 09/29/18 06:28 09/29/18 06:31 DC 09/29/18 07:08 0 MLS/HR Vital Signs/I&O 09/29/18 05:42 Temp 98.8 Pulse 120 Resp 18 B/P (MAP) 140/103 (115) Pulse Ox 99 O2 Delivery Room Air Blood Pressure Mean: 115 Progress Progress Note : Progress Note Seen and evaluated. IV, labs, UA, normal saline 1 L bolus, Zofran 8 mg IV and Pepcid 20 mg IV ordered. Fentanyl [address] abdomen and pelvis with contrast ordered. Monitor patient. 0838: CT does show significant pancreatitis with multiple pseudocysts that is worsened from previous. This is concerning given her pain and history. Patient to be admitted inpatient status on clear liquid diet with alcohol withdrawal protocol. This was discussed with the patient who agrees. Fentanyl did help earlier for a little bit but not very long. Dilaudid 1 mg IV ordered. I did discuss with the patient concerns about trading one addiction for another but she is most assuredly and pain given her pancreatitis. Patient verbalize understanding and understands the judicial use of pain medicine. I did discuss the case with Dr. Chapin who agrees with the plan. Diagnostic Imaging Diagonstic Imaging: CT Plain Films/CT/US/NM/MRI: abdomen, pelvis Comments VIA [facility]. [place] NAME: GIANNI UREÑA Joon [facility] REC#: [id number] PT STATUS: REG ER : 1970 PHYSICIAN: MARICHUY BRYANT MD ADMIT DATE: 09/29/18/ER Draft Date of Exam:09/29/18 CT ABDOMEN/PELVIS W INDICATION: Abdominal pain and back pain x24 hours. CT of the abdomen and pelvis obtained with IV contrast bolus and compared to 07/29/2018. The visualized portions of the lung bases are clear. There were no pleural fluid collections. There is no free intraperitoneal air. The liver shows diffuse fatty infiltration without focal lesion. Gallbladder shows some high density material which may represent sludge. Spleen, adrenals, and kidneys appear unremarkable. There is inflammatory change about the pancreas compatible with pancreatitis. There are multiple pancreatic cystic lesions compatible with pseudocysts which have enlarged compared to the previous study. The lesion in the pancreatic head which had measured about 2.5 x 3 cm now measures about 5.2 x 4.3 cm. Smaller cystic lesion in the pancreatic tail which had measured about 8 mm now measures about 3 cm. There is a cystic lesion along the greater curvature of the stomach which is new compared to the prior study measuring about 3 cm. There is no retroperitoneal adenopathy. There is no overt bowel obstruction. There is a moderate amount of free fluid in the pelvis which is new compared to the previous study. Impression: Findings compatible with pancreatitis are again noted. There are enlarging pseudocyst in the pancreatic head and tail compared to the previous study as well as a new probable pseudocysts in the left upper quadrant just lateral to the greater curvature of the stomach. There is a new moderate amount of ascites in the pelvis. There is fatty infiltration of the liver. Dictated on workstation # [id number] Dict: 09/29/18 0812 Trans: 09/29/18 0821 [facility] [id number] Interpreted by: CHARMAINE SANTAMARIA MD Electronically signed by: Gabino Imaging: CT Plain Films/CT/US/NM/MRI: abdomen, pelvis Comments VIA [facility]. [place] NAME: GIANNI UREÑA [facility] REC#: [id number] PT STATUS: REG ER : 1970 PHYSICIAN: MARICHUY BRYANT MD ADMIT DATE: 09/29/18/ER Draft Date of Exam:09/29/18 CT ABDOMEN/PELVIS W INDICATION: Abdominal pain and back pain x24 hours. CT of the abdomen and pelvis obtained with IV contrast bolus and compared to 07/29/2018. The visualized portions of the lung bases are clear. There were no pleural fluid collections. There is no free intraperitoneal air. The liver shows diffuse fatty infiltration without focal lesion. Gallbladder shows some high density material which may represent sludge. Spleen, adrenals, and kidneys appear unremarkable. There is inflammatory change about the pancreas compatible with pancreatitis. There are multiple pancreatic cystic lesions compatible with pseudocysts which have enlarged compared to the previous study. The lesion in the pancreatic head which had measured about 2.5 x 3 cm now measures about 5.2 x 4.3 cm. Smaller cystic lesion in the pancreatic tail which had measured about 8 mm now measures about 3 cm. There is a cystic lesion along the greater curvature of the stomach which is new compared to the prior study measuring about 3 cm. There is no retroperitoneal adenopathy. There is no overt bowel obstruction. There is a moderate amount of free fluid in the pelvis which is new compared to the previous study. Impression: Findings compatible with pancreatitis are again noted. There are enlarging pseudocyst in the pancreatic head and tail compared to the previous study as well as a new probable pseudocysts in the left upper quadrant just lateral to the greater curvature of the stomach. There is a new moderate amount of ascites in the pelvis. There is fatty infiltration of the liver. Dictated on workstation # [id number] Dict: 09/29/18 0812 Trans: 09/29/18 0821 [facility] [id number] Interpreted by: CHARMAINE SANTAMARIA MD Electronically signed by: Departure Communication (Admissions) Time/Spoke to Admitting Phy: 08:38 Impression Primary Impression: Acute pancreatitis Qualified Codes: K85.20 - Alcohol induced acute pancreatitis without necrosis or infection Additional Impression: Alcohol abuse Disposition: ADMITTED INPATIENT Condition: Stable Admissions Decision to Admit Reason: Admit from ER (General) Decision to Admit/Date: Sep 29, 2018 Time/Decision to Admit Time: 08:38 Departure-Patient Inst. Referrals: [facility] [place] (PCP/Family) Primary Care Physician MARICHUY BRYANT MD Sep 29, 2018 06:39
[2018-09-29] MEDS ORDERED: IOHEXOL 350 MG/ML 100 ML (OMNIPAQUE 350) VIAL IV ONE (07:45)
[2018-09-29] MEDS ORDERED: RECEIVED CONTRAST (Hold Metformin) IV SCH (07:45)
[2018-09-29] MEDS ORDERED: NS 250 ML (IVPB) BAG IV ONE (07:45)
--- NOTE | 2018-09-29 08:21 | Diagnostic Imaging Report ---
INDICATION: Abdominal pain and back pain x24 hours. CT of the abdomen and pelvis obtained with IV contrast bolus and compared to 07/29/2018. The visualized portions of the lung bases are clear. There were no pleural fluid collections. There is no free intraperitoneal air. The liver shows diffuse fatty infiltration without focal lesion. Gallbladder shows some high density material which may represent sludge. Spleen, adrenals, and kidneys appear unremarkable. There is inflammatory change about the pancreas compatible with pancreatitis. There are multiple pancreatic cystic lesions compatible with pseudocysts which have enlarged compared to the previous study. The lesion in the pancreatic head which had measured about 2.5 x 3 cm now measures about 5.2 x 4.3 cm. Smaller cystic lesion in the pancreatic tail which had measured about 8 mm now measures about 3 cm. There is a cystic lesion along the greater curvature of the stomach which is new compared to the prior study measuring about 3 cm. There is no retroperitoneal adenopathy. There is no overt bowel obstruction. There is a moderate amount of free fluid in the pelvis which is new compared to the previous study. Impression: Findings compatible with pancreatitis are again noted. There are enlarging pseudocyst in the pancreatic head and tail compared to the previous study as well as a new probable pseudocysts in the left upper quadrant just lateral to the greater curvature of the stomach. There is a new moderate amount of ascites in the pelvis. There is fatty infiltration of the liver. Dictated by: Dictated on workstation # [id number]
[2018-09-29] MEDS ORDERED: HYDROmorphone 2 MG/ML VIAL (DILAUDID) IV STA (09:10)
[2018-09-29] MEDS ORDERED: CATHETER FLUSH 10 ML SYR IV PRN (10:45)
[2018-09-29] MEDS: NS IV 1000 ML 1,000 ML IV SCH ×3 (10:56→19:12)
[2018-09-29] MEDS: HYDROmorphone 2 MG/ML VIAL (DILAUDID) IV PRN ×4 (12:41→22:16)
[2018-09-29] MEDS: NICOTINE 21 MG (NICODERM) PATCH TD SCH (14:15)
[2018-09-29] MEDS ORDERED: FLU QUADRIvalent (5+ YOA) 2018-2019 (AFLURIA) 0.5 ML IM ONE ×2 (15:42→16:00)
[2018-09-29] MEDS: FLU QUADRIvalent (5+ YOA) 2018-2019 (AFLURIA) 0.5 ML IM ONE ×2 (15:49→16:07)
[2018-09-29 16:10] VITALS: BP 137/83
[2018-09-29 19:55] VITALS: BP 123/83
--- NOTE | 2018-09-29 21:31 | History & Physicial (CH[facility]) ---
HPI History of Present Illness: 47 yo female with recurrent pancreatitis came to ER due to pancreas bothering her starting last night. She had some trouble with pancreatitis about a week ago and was managing at home with clear liquids/bland diet. Last night had a few bites of pizza and started vomiting and having pain in abdomen and back. Has had diarrhea x 2 days, denies blood in stools. History of heavy alcohol use , reports drank 6 beers yesterday. She is not sure if she wants treatment right now, has been many times in past. She is going to see counseling at [facility] and wants to start with just that. Date seen by provider: Sep 29, 2018 Time Seen by Provider: 12:28 Attending Physician Libertad Chapin MD [facility] [place] [place] Date of Admission Sep 29, 2018 at 9:23 am Home Medications Home Medications Reviewed patient Home Medication Reconciliation performed by pharmacy medication reconciliations quality technician fiberglass and/or nursing. Patients Allergies have been reviewed. Allergies Coded Allergies: No Known Drug Allergies (Verified , 02/14/09) [id number]-Uawcql Hx Patient Social History Alcohol Use: Regular Use Recreational Drug Use: Yes (DENIES, BUT PER OLD RECORDS, HISTORY OF NARCOTIC USE/ABUSE) Drug of Choice: THC Smoking Status: Current Everyday Smoker Type Used: Cigarettes 2nd Hand Smoke Exposure: Yes Recent Foreign Travel: No Contact w/other who traveled: No Recent Hopitalizations: Yes ("ABOUT A MONTH AGO") Recent Infectious Disease Expo: No Physical Abuse Screen: No Sexual Abuse: No Immunizations Up To Date Tetanus Booster (TDap): Unknown Date of Pneumonia Vaccine: Aug 17, 2011 Date of Influenza Vaccine: Aug 15, 2016 Past Medical History PMHx: Alcoholism h/o Pancreatitis Seizures PSurgHx: Hernia repair Family Medical History Significant Family History: Hypertension Family History: Patient reports no known family medical history. Review of Systems ([facility]) Constitutional: No fever EENTM: No nose congestion Respiratory: cough (x6 months, relates to her smoking) Cardiovascular: chest pain (intermittently, from epigastric up to particularly left breast and neck and left arm, none currently) Gastrointestinal: see HPI Genitourinary: No dysuria Skin: No rash Psychiatric/Neurological: Anxiety Reviewed Test Results Reviewed Test Results Lab Laboratory Tests Test 09/29/18 05:50 09/29/18 05:55 Range/Units White Blood Count 8.6 4.3-11.0 10^3/uL Red Blood Count 3.90 L 4.35-5.85 10^6/uL Hemoglobin 14.5 11.5-16.0 G/DL Hematocrit 39 35-52 % Mean Corpuscular Volume 101 H 80-99 FL Mean Corpuscular Hemoglobin 37 H 25-34 PG Mean Corpuscular Hemoglobin Concent 37 H 32-36 G/DL Red Cell Distribution Width 12.3 10.0-14.5 % Platelet Count 111 L 130-400 10^3/uL Mean Platelet Volume 10.6 H 7.4-10.4 FL Neutrophils (%) (Auto) 62 42-75 % Lymphocytes (%) (Auto) 21 12-44 % Monocytes (%) (Auto) 12 0-12 % Eosinophils (%) (Auto) 4 0-10 % Basophils (%) (Auto) 0 0-10 % Neutrophils # (Auto) 5.3 1.8-7.8 X 10^3 Lymphocytes # (Auto) 1.8 1.0-4.0 X 10^3 Monocytes # (Auto) 1.1 H 0.0-1.0 X 10^3 Eosinophils # (Auto) 0.4 H 0.0-0.3 10^3/uL Basophils # (Auto) 0.0 0.0-0.1 10^3/uL Sodium Level 139 135-145 MMOL/L Potassium Level 3.1 L 3.6-5.0 MMOL/L Chloride Level 102 98-107 MMOL/L Carbon Dioxide Level 24 21-32 MMOL/L Anion Gap 13 5-14 MMOL/L Blood Urea Nitrogen 2 L 7-18 MG/DL Creatinine 0.66 0.60-1.30 MG/DL Estimat Glomerular Filtration Rate > 60 BUN/Creatinine Ratio 3 Glucose Level 137 H 70-105 MG/DL Calcium Level 9.1 8.5-10.1 MG/DL Corrected Calcium 9.4 8.5-10.1 MG/DL Total Bilirubin 1.0 0.1-1.0 MG/DL Aspartate Amino Transf (AST/SGOT) 45 H 5-34 U/L Alanine Aminotransferase (ALT/SGPT) 37 0-55 U/L Alkaline Phosphatase 144 H 40-136 U/L Total Protein 6.9 6.4-8.2 GM/DL Albumin 3.6 3.2-4.5 GM/DL Lipase 57 8-78 U/L Serum Alcohol < 10 <10 MG/DL Urine Color ERLINDA H Urine Clarity SLIGHTLY CLOUDY Urine pH 6 5-9 Urine Specific [place] 1.020 1.016-1.022 Urine Protein 2+ H NEGATIVE Urine Glucose (UA) NEGATIVE NEGATIVE Urine Ketones 1+ H NEGATIVE Urine Nitrite NEGATIVE NEGATIVE Urine Bilirubin 1+ H NEGATIVE Urine Urobilinogen 4 H NORMAL MG/DL Urine Leukocyte Esterase 2+ H NEGATIVE Urine RBC (Auto) 1+ H NEGATIVE Urine RBC NONE /HPF Urine WBC 0-2 /HPF Urine Squamous Epithelial Cells 5-10 /HPF Urine Crystals NONE /LPF Urine Bacteria MODERATE H /HPF Urine Casts PRESENT /LPF Urine Hyaline Casts 0-2 H /LPF Urine Mucus MODERATE H /LPF Urine Culture Indicated NO Urine Test NEGATIVE NEGATIVE Radiology CT abd/pelvis 09/29: Impression: Findings compatible with pancreatitis are again noted. There are enlarging pseudocyst in the pancreatic head and tail compared to the previous study as well as a new probable pseudocysts in the left upper quadrant just lateral to the greater curvature of the stomach. There is a new moderate amount of ascites in the pelvis. There is fatty infiltration of the liver. Physical Exam-([facility]) Physical Exam Vital Signs VS - Last 72 Hours, by Label 09/29/18 09/29/18 09/29/18 09/29/18 05:42 09:34 11:18 16:07 Temp 98.8 98.8 Pulse 120 100 Resp 18 18 B/P (MAP) 140/103 (115) 140/100 (113) Pulse Ox 99 98 O2 Delivery Room Air Room Air Room Air 09/29/18 16:10 Temp 97.5 Pulse 82 Resp 16 B/P (MAP) 137/83 (101) Pulse Ox 98 O2 Delivery Room Air Capillary Refill : Less Than 3 Seconds General Appearance: WD/WN, no apparent distress Respiratory: lungs clear, normal breath sounds Cardiovascular: regular rate, rhythm, no murmur Gastrointestinal: normal bowel sounds, soft, tenderness (moderate epigastric) Extremities: no pedal edema Neurologic/Psychiatric: alert, other (tearful) Skin: normal color, warm/dry Assessment/Plan Assessment/Plan Admission Status: Inpatient Order (span 2 midnights) Reason for Inpatient Admission: Pancreatitis with enlarging pseudocyts and alcoholism at high risk for complications. (1) Acute pancreatitis Status: Acute Assessment & Plan: Per CT and symptoms, lipase minimally elevated. Secondary to alcohol use, recommended cessation. Clear liquids, pain control. Qualifiers: Qualified Codes: K85.20 - Alcohol induced acute pancreatitis without necrosis or infection (2) Pancreatic pseudocyst Status: Acute Assessment & Plan: Increasing in size, started on zosyn due to concern about severity of cysts. (3) Alcohol abuse Status: Chronic Assessment & Plan: Recommended cessation and treatment. Social work consult. (4) Elevated liver enzymes Status: Chronic Assessment & Plan: Chronic intermitent, likely due to alcoholic liver disease. Last Hep C check 07/2017 in clinic, will repeat. CT abdomen shows only steatosis and ascites, no mass. (5) Hypokalemia Status: Acute Assessment & Plan: Replace and recheck. (6) Thrombocytopenia Status: Acute Assessment & Plan: Has had in past, but not routinely. Suspect due to liver disease, monitor closely. (7) Macrocytic Status: Chronic Assessment & Plan: B12/folate last checked several years ago, will repeat, but likely related to underlying liver disease. (8) Ascites Status: Acute Assessment & Plan: New on CT this admit. Monitor and if increasing may need paracentesis. Qualifiers: Qualified Codes: K70.11 - Alcoholic hepatitis with ascites (9) Hepatic steatosis Status: Chronic (10) DVT prophylaxis Status: Acute Assessment & Plan: SCDs Clinical Quality Measures DVT/VTE Risk/Contraindication: Risk Factor Score Per Nursin RFS Level Per Nursing on Admit: 2=Moderate LIBERTAD CHAPIN MD Sep 29, 2018 9:31 pm
[2018-09-29] MEDS ORDERED: NON-FORMULARY MEDICATION 1 EA EA (Mirtazapine 30 MG) PO PRN (22:00)
[2018-09-29] MEDS ORDERED: RT-ALBUTEROL SULF 2.5 MG/3 ML PRE-MIX VIAL IH PRN (22:00)
[2018-09-29] MEDS ORDERED: diphenhydrAMINE 25 MG TAB (BENADRYL) PO PRN (22:15)
[2018-09-29] MEDS ORDERED: MIRTAZAPINE 15 MG (REMERON) TAB PO PRN (22:15)
[2018-09-29] MEDS: POTASSIUM CL 10MEQ/50ML IVPB 50 ML IV SCH ×2 (22:23→23:42)
[2018-09-30 00:09] VITALS: BP 136/88
[2018-09-30] MEDS: POTASSIUM CL 10MEQ/50ML IVPB 50 ML IV SCH ×6 (00:56→15:31)
[2018-09-30] MEDS: HYDROmorphone 2 MG/ML VIAL (DILAUDID) IV PRN ×6 (01:24→20:50)
[2018-09-30] MEDS: NS IV 1000 ML 1,000 ML IV SCH ×3 (03:31→19:17)
[2018-09-30 04:00] VITALS: BP 128/87
[2018-09-30 05:58] LABS: BASOPHILS % (AUTO) 1 % (0-10); EOSINOPHILS # (AUTO) 0.6 10^3/uL (0.0-0.3); EOSINOPHILS % (AUTO) 9 % (0-10); HEMATOCRIT 37 % (35-52); HEMOGLOBIN 12.3 G/DL (11.5-16.0); LYMPHOCYTES # (AUTO) 1.8 X 10^3 (1.0-4.0); LYMPHOCYTES % (AUTO) 28 % (12-44); MEAN CORPUSCULAR HEMOGLOBIN 36 PG (25-34); MEAN CORPUSCULAR HGB CONC 34 G/DL (32-36); MEAN CORPUSCULAR VOLUME 108 FL (80-99); MEAN PLATELET VOLUME 10.8 FL (7.4-10.4); MONOCYTES # (AUTO) 1.1 X 10^3 (0.0-1.0); MONOCYTES % (AUTO) 17 % (0-12); NEUTROPHILS % (AUTO) 45 % (42-75); PLATELET COUNT 99 10^3/uL (130-400); RED BLOOD COUNT 3.38 10^6/uL (4.35-5.85); RED CELL DISTRIBUTION WIDTH 12.9 % (10.0-14.5); WHITE BLOOD COUNT 6.5 10^3/uL (4.3-11.0)
[2018-09-30 06:27] LABS: ALANINE AMINOTRANSFERASE 27 U/L (0-55); ALBUMIN 3.3 GM/DL (3.2-4.5); ALKALINE PHOSPHATASE 122 U/L (40-136); BILIRUBIN,TOTAL 1.2 MG/DL (0.1-1.0); BUN/CREATININE RATIO 4; CARBON DIOXIDE 23 MMOL/L (21-32); CHLORIDE 105 MMOL/L (98-107); CREATININE SERUM 0.54 MG/DL (0.60-1.30); GFR ESTIMATED > 60; GLUCOSE 66 MG/DL (70-105); POTASSIUM 3.1 MMOL/L (3.6-5.0); SODIUM 138 MMOL/L (135-145); TOTAL PROTEIN 6.1 GM/DL (6.4-8.2)
[2018-09-30] MEDS: PANTOPRAZOLE 40 MG (PROTONIX) TAB PO SCH (07:03)
[2018-09-30] MEDS: PRENATAL VITAMIN 1 EA TAB PO SCH (07:03)
[2018-09-30] MEDS ORDERED: RT-ALBUTEROL SULF 2.5 MG/3 ML PRE-MIX VIAL IH PRN (07:45)
[2018-09-30 08:00] VITALS: BP 154/93
[2018-09-30] MEDS: NICOTINE 21 MG (NICODERM) PATCH TD SCH (08:16)
[2018-09-30] MEDS: NICOTINE PATCH REMOVAL TP SCH (08:16)
[2018-09-30] MEDS: LEVETIRACETAM 1,000 MG (KEPPRA) TABLET PO SCH ×2 (08:16→15:52)
[2018-09-30] MEDS ORDERED: NON-FORMULARY MEDICATION 1 EA EA (Prenatal Vit W-Ca,Fe,FA(<1 mg) (Prenatal Formula) 1 TAB) PO SCH (09:00)
[2018-09-30] MEDS ORDERED: NON-FORMULARY MEDICATION 1 EA EA (Omeprazole 40 MG) PO SCH (09:00)
[2018-09-30 12:00] VITALS: BP 136/93
--- NOTE | 2018-09-30 14:30 | Progress Note (SOAP) ---
Subjective Subjective/Events-last exam Afebrile, no acute events. Remains tachycardic, states she is feeling a little better and wondering about advancing diet. Review of Systems Date Seen by Provider: Sep 30, 2018 Time Seen by Provider: 11:52 Objective Exam Last Set of Vital Signs Vital Signs Date Time Temp Pulse Resp B/P (MAP) Pulse Ox O2 Delivery O2 Flow Rate FiO2 09/30/18 08:00 98.5 116 16 154/93 (113) 100 Room Air Capillary Refill : Less Than 3 Seconds I&O Intake and Output 09/30/18 00:00 Intake Total 2620 ml Balance 2620 ml Intake Oral 1620 ml IV Total 1000 ml # Voids 3 Daily Weight Change No General: Alert, No Acute Distress Lungs: Clear to Auscultation, Normal Air Movement Heart: No Murmurs, Other (tachycardic) Abdomen: Normal Bowel Sounds, Soft, Other (moderate epigastric ttp) Extremities: No Edema Neuro: Normal Speech Psych/Mental Status: Mental Status NL Results/Procedures Lab Laboratory Tests 09/30/18 05:41: White Blood Count 6.5, Red Blood Count 3.38L, Hemoglobin 12.3, Hematocrit 37, Mean Corpuscular Volume 108H, Mean Corpuscular Hemoglobin 36H, Mean Corpuscular Hemoglobin Concent 34, Red Cell Distribution Width 12.9, Platelet Count 99L, Mean Platelet Volume 10.8H, Neutrophils (%) (Auto) 45, Lymphocytes (%) (Auto) 28 , Monocytes (%) (Auto) 17H, Eosinophils (%) (Auto) 9, Basophils (%) (Auto) 1, Neutrophils # (Auto) 3.0, Lymphocytes # (Auto) 1.8, Monocytes # (Auto) 1.1H, Eosinophils # (Auto) 0.6H, Basophils # (Auto) 0.0, Sodium Level 138, Potassium Level 3.1L, Chloride Level 105, Carbon Dioxide Level 23, Anion Gap 10, Blood Urea Nitrogen 2L, Creatinine 0.54L, Estimat Glomerular Filtration Rate > 60, BUN /Creatinine Ratio 4, Glucose Level 66L, Calcium Level 8.0L, Corrected Calcium 8.6, Total Bilirubin 1.2H, Aspartate Amino Transf (AST/SGOT) 28, Alanine Aminotransferase (ALT/SGPT) 27, Alkaline Phosphatase 122, Total Protein 6.1L, Albumin 3.[address] abd/pelvis 09/29: Impression: Findings compatible with pancreatitis are again noted. There are enlarging pseudocyst in the pancreatic head and tail compared to the previous study as well as a new probable pseudocysts in the left upper quadrant just lateral to the greater curvature of the stomach. There is a new moderate amount of ascites in the pelvis. There is fatty infiltration of the liver. Assessment/Plan Assessment/Plan (1) Acute pancreatitis Status: Acute Assessment & Plan: Per CT and symptoms, lipase minimally elevated. Secondary to alcohol use, recommended cessation. Clear liquids, pain control. 09/30 Improved pain, advance diet as tolerated Qualifiers: Qualified Codes: K85.20 - Alcohol induced acute pancreatitis without necrosis or infection (2) Pancreatic pseudocyst Status: Acute Assessment & Plan: Increasing in size, started on zosyn due to concern about severity of cysts. 09/30- wrongly documented yesterday, was not on zosyn. Improving status, will not initiate abx at this time. (3) Alcohol abuse Status: Chronic Assessment & Plan: Recommended cessation and treatment. Social work consult. (4) Elevated liver enzymes Status: Chronic Assessment & Plan: Chronic intermitent, likely due to alcoholic liver disease. Last Hep C check 07/2017 in clinic, will repeat. CT abdomen shows only steatosis and ascites, no mass. 09/30- hepatitis panel pending (5) Hypokalemia Status: Acute Assessment & Plan: Replace and recheck. (6) Thrombocytopenia Status: Acute Assessment & Plan: Has had in past, but not routinely. Suspect due to liver disease, monitor closely. 09/30- decreasing, 99 today, no bleeding. (7) Macrocytic Status: Chronic Assessment & Plan: B12/folate last checked several years ago, will repeat, but likely related to underlying liver disease. 09/30 pending (8) Ascites Status: Acute Assessment & Plan: New on CT this admit. Monitor and if increasing may need paracentesis. Qualifiers: Qualified Codes: K70.11 - Alcoholic hepatitis with ascites (9) Hepatic steatosis Status: Chronic (10) DVT prophylaxis Status: Acute Assessment & Plan: SCDs Clinical Quality Measures DVT/VTE Risk/Contraindication: Risk Factor Score Per Nursin RFS Level Per Nursing on Admit: 2=Moderate LIBERTAD LATIF MD Sep 30, 2018 2:30 pm
[2018-09-30 15:40] VITALS: BP 139/81
[2018-09-30] MEDS: ONDANSETRON 4 MG/2 ML (SDV) Z0FRAN IV PRN ×2 (16:21→20:50)
[2018-09-30 19:45] VITALS: BP 142/84
[2018-10-01 00:07] VITALS: BP 157/91
[2018-10-01] MEDS: HYDROmorphone 2 MG/ML VIAL (DILAUDID) IV PRN ×4 (00:32→10:58)
[2018-10-01] MEDS: NS IV 1000 ML 1,000 ML IV SCH (03:16)
[2018-10-01 04:05] VITALS: BP 161/90
[2018-10-01] MEDS: PRENATAL VITAMIN 1 EA TAB PO SCH (06:16)
[2018-10-01] MEDS: PANTOPRAZOLE 40 MG (PROTONIX) TAB PO SCH (06:16)
[2018-10-01] MEDS: LEVETIRACETAM 1,000 MG (KEPPRA) TABLET PO SCH (06:38)
[2018-10-01 06:42] LABS: HEPATITIS C ANTIBODY C Non-Reactive (Non-Reactive)
[2018-10-01 06:42] LABS: HEMOGLOBIN 10.8 G/DL (11.5-16.0); MEAN PLATELET VOLUME 10.4 FL (7.4-10.4); RED BLOOD COUNT 2.92 10^6/uL (4.35-5.85); RED CELL DISTRIBUTION WIDTH 12.5 % (10.0-14.5); WHITE BLOOD COUNT 5.8 10^3/uL (4.3-11.0)
[2018-10-01 07:22] LABS: ALANINE AMINOTRANSFERASE 20 U/L (0-55); ALBUMIN 2.7 GM/DL (3.2-4.5); ALKALINE PHOSPHATASE 108 U/L (40-136); BILIRUBIN,TOTAL 0.8 MG/DL (0.1-1.0); BUN/CREATININE RATIO 4; CALCIUM 7.7 MG/DL (8.5-10.1); CARBON DIOXIDE 21 MMOL/L (21-32); CHLORIDE 109 MMOL/L (98-107); CREATININE SERUM 0.48 MG/DL (0.60-1.30); GFR ESTIMATED > 60; GLUCOSE 67 MG/DL (70-105); POTASSIUM 3.3 MMOL/L (3.6-5.0); SODIUM 138 MMOL/L (135-145)
[2018-10-01 08:00] VITALS: BP 135/90
[2018-10-01] MEDS ORDERED: KCL 20 MEQ TAB (K-DUR) PO NR (08:30)
[2018-10-01] MEDS: NICOTINE 21 MG (NICODERM) PATCH TD SCH (08:33)
[2018-10-01] MEDS: NICOTINE PATCH REMOVAL TP SCH (08:33)
--- NOTE | 2018-10-01 09:52 | Discharge Instructions ---
Discharge Inst-[facility] Discharge Medications Continued Medications: Albuterol Sulfate (Proventil Hfa) 6.7 Gm Hfa.aer.ad 2 PUFF IH Q6H PRN for SHORTNESS OF BREATH, EACH Levetiracetam (Levetiracetam) 1,000 Mg Tablet 1000 MG PO BID, TAB Mirtazapine (Mirtazapine) 30 Mg Tablet 30 MG PO HS PRN for SLEEP, TAB LAST FILLED #30 12-03-18 Omeprazole (Omeprazole) 40 Mg Capsule.dr 40 MG PO DAILY, CAP Vit W-Ca,Fe,FA(<1 mg) ( Formula) 1 Each Tablet 1 TAB PO DAILY, TAB Patient Instructions Goal/Follow Up Appt: Follow up with Cesar Serrano APRN at [facility] on 10/06 at 820 am. [facility] to [facility]: Inability to keep down liquid Activity & Diet Discharge Diet: Eat Small Frequent Meals, Avoid Fatty Foods Activity as Tolerated: Yes Copy Copies To 1: RAMONE Mendoza BETHANY N MD Oct 01, 2018 09:52
[2018-10-01] MEDS ORDERED: OXYC-529 PO (11:07)
[2018-10-01 11:20] VITALS: BP 135/90
--- NOTE | 2018-10-01 21:32 | Discharge Summary ---
Diagnosis/Chief Complaint Date of Admission Sep 29, 2018 at 09:23 Date of Discharge Oct 01, 2018 at 11:20 Admission Diagnosis Admission Diagnosis Pancreatitis Alcoholism Discharge Diagnosis See problem list Problems/Diagnosis: (1) Acute pancreatitis Assessment & Plan: Per CT and symptoms, lipase minimally elevated. Secondary to alcohol use, recommended cessation. Clear liquids, pain control. 09/30 Improved pain, advance diet as tolerated 10/01- discharged with 10 tabs of oxycodone for home pain control. Stressed importance of no alcohol, smoking and caution with diet. Qualifiers: Qualified Codes: K85.20 - Alcohol induced acute pancreatitis without necrosis or infection Status: Acute (2) Pancreatic pseudocyst Status: Acute (3) Alcohol abuse Assessment & Plan: Recommended cessation and treatment. Social work consult. She did not feel she was prepared for repeat interventions at this time. Status: Chronic (4) Elevated liver enzymes Assessment & Plan: Chronic intermitent, likely due to alcoholic liver disease. Last Hep C check 07/2017 in clinic, will repeat. CT abdomen shows only steatosis and ascites, no mass. hepatitis panel neg Status: Chronic (5) Hypokalemia Assessment & Plan: Replace and recheck. Status: Acute (6) Thrombocytopenia Assessment & Plan: Has had in past, but not routinely. Suspect due to liver disease, monitor closely. 09/30- decreasing, 99 today, no bleeding. Status: Acute (7) Macrocytic Assessment & Plan: B12/folate last checked several years ago, will repeat, but likely related to underlying liver disease. B12/folate normal Status: Chronic (8) Ascites Assessment & Plan: New on CT this admit. Monitor and if increasing may need paracentesis. Qualifiers: Qualified Codes: K70.11 - Alcoholic hepatitis with ascites Status: Acute (9) Hepatic steatosis Status: Chronic Chief Complaint/HPI Chief Complaint/HPI 47 yo female with recurrent pancreatitis came to ER due to pancreas bothering her starting last night. She had some trouble with pancreatitis about a week ago and was managing at home with clear liquids/bland diet. Last night had a few bites of pizza and started vomiting and having pain in abdomen and back. Has had diarrhea x 2 days, denies blood in stools. History of heavy alcohol use , reports drank 6 beers yesterday. She is not sure if she wants treatment right now, has been many times in past. She is going to see counseling at [facility] and wants to start with just that. Discharge Summary-Simple/Stand Consultations Discharge Physical Examination Allergies: Coded Allergies: No Known Drug Allergies (Verified , 02/14/09) Vitals & I&Os Vital Sign - Last 12Hours Date Time Temp Pulse Resp B/P (MAP) Pulse Ox O2 Delivery O2 Flow Rate FiO2 10/01/18 11:20 94 18 135/90 100 Room Air 10/01/18 08:00 98.0 Intake and Output 10/01/18 00:00 Intake Total 3050 ml Output Total 550 ml Balance 2500 ml General Appearance: Alert, No Acute Distress Respiratory: Clear to Auscultation, Normal Air Movement Cardiovascular: Regular Rate, No Murmurs Abdominal: Normal Bowel Sounds, Soft, Other (ttp epigastric, nodule in epigastric area just deep to skin, possible lipoma, not noted on CT.) Neuro: Normal Speech Psych/Mental Status: Mental Status NL Hospital Course See final discharge diagnosis. Labs Laboratory Tests Test 09/30/18 05:41 10/01/18 05:51 Range/Units White Blood Count 6.5 5.8 4.3-11.0 10^3/uL Red Blood Count 3.38 L 2.92 L 4.35-5.85 10^6/uL Hemoglobin 12.3 10.8 L 11.5-16.0 G/DL Hematocrit 37 31 L 35-52 % Mean Corpuscular Volume 108 H 108 H 80-99 FL Mean Corpuscular Hemoglobin 36 H 37 H 25-34 PG Mean Corpuscular Hemoglobin Concent 34 34 32-36 G/DL Red Cell Distribution Width 12.9 12.5 10.0-14.5 % Platelet Count 99 L 92 L 130-400 10^3/uL Mean Platelet Volume 10.8 H 10.4 7.4-10.4 FL Neutrophils (%) (Auto) 45 42-75 % Lymphocytes (%) (Auto) 28 12-44 % Monocytes (%) (Auto) 17 H 0-12 % Eosinophils (%) (Auto) 9 0-10 % Basophils (%) (Auto) 1 0-10 % Neutrophils # (Auto) 3.0 1.8-7.8 X 10^3 Lymphocytes # (Auto) 1.8 1.0-4.0 X 10^3 Monocytes # (Auto) 1.1 H 0.0-1.0 X 10^3 Eosinophils # (Auto) 0.6 H 0.0-0.3 10^3/uL Basophils # (Auto) 0.0 0.0-0.1 10^3/uL Sodium Level 138 138 135-145 MMOL/L Potassium Level 3.1 L 3.3 L 3.6-5.0 MMOL/L Chloride Level 105 109 H 98-107 MMOL/L Carbon Dioxide Level 23 21 21-32 MMOL/L Anion Gap 10 8 5-14 MMOL/L Blood Urea Nitrogen 2 L 2 L 7-18 MG/DL Creatinine 0.54 L 0.48 L 0.60-1.30 MG/DL Estimat Glomerular Filtration Rate > 60 > 60 BUN/Creatinine Ratio 4 4 Glucose Level 66 L 67 L 70-105 MG/DL Calcium Level 8.0 L 7.7 L 8.5-10.1 MG/DL Corrected Calcium 8.6 8.7 8.5-10.1 MG/DL Total Bilirubin 1.2 H 0.8 0.1-1.0 MG/DL Aspartate Amino Transf (AST/SGOT) 28 24 5-34 U/L Alanine Aminotransferase (ALT/SGPT) 27 20 0-55 U/L Alkaline Phosphatase 122 108 40-136 U/L Total Protein 6.1 L 5.0 L 6.4-8.2 GM/DL Albumin 3.3 2.7 L 3.2-4.5 GM/DL Vitamin B12 Level 443 058-4371 pg/mL Folate 17.5 >=4.0 ng/mL Hepatitis A IgM Antibody Non-Reactive Non-Reactive Hepatitis B Surface Antigen Non-Reactive Non-Reactive Hepatitis B Core IgM Antibody Non-Reactive Non-Reactive Hepatitis C Antibody Non-Reactive Non-Reactive Radiology Reviewed CT abd/pelvis 09/29: Impression: Findings compatible with pancreatitis are again noted. There are enlarging pseudocyst in the pancreatic head and tail compared to the previous study as well as a new probable pseudocysts in the left upper quadrant just lateral to the greater curvature of the stomach. There is a new moderate amount of ascites in the pelvis. There is fatty infiltration of the liver. Discharge Instructions to patient/family Please see electronic discharge instructions given to patient. Discharge Medications Reviewed and agree with Discharge Medication list on patient's Discharge Instruction sheet Clinical Quality Measures DVT/VTE Risk/Contraindication: Risk Factor Score Per Nursin RFS Level Per Nursing on Admit: 2=Moderate Copy Copies To 1: RAMONE Mendoza BETHANY N MD Oct 01, 2018 21:31
== END 2018-10-01 11:20 | disposition home or self-care (01) | DRG 439 ==
LOC: EDUNIT# 05:35 → ER 05:36 → 4TH 09:23
PROVIDERS: ADMIT Family Medicine; ATTEND Family Medicine
DX: K85.20 Alcohol induced acute pancreatitis without necrosis or infection (principal); F10.20 Alcohol dependence, uncomplicated; K86.3 Pseudocyst of pancreas; K70.9 Alcoholic liver disease, unspecified; E87.6 Hypokalemia; D69.59 Other secondary thrombocytopenia; K70.11 Alcoholic hepatitis with ascites; K76.0 Fatty (change of) liver, not elsewhere classified; I10 Essential (primary) hypertension; F17.210 Nicotine dependence, cigarettes, uncomplicated; G40.909 Epilepsy, unspecified, not intractable, without status epilepticus; K21.9 Gastro-esophageal reflux disease without esophagitis; F41.9 Anxiety disorder, unspecified; F31.9 Bipolar disorder, unspecified; Z91.5 Personal history of self-harm
CPT/HCPCS: 36415; 74177; 80053; 80074; 80320; 81000; 82607; 82746; 83690; 84703; 85025; 85027; 90471; 90686; 94640; 94760; 96361; 96374; 96375

== ENCOUNTER 2018-10-21 07:46 | Emergency (ER) | payer SELFPAY ==
[~2018-10-21] VITALS: Ht 157.5 cm; Wt 52.2 kg
[~2018-10-21 07:46] MED LIST changes: +OXYC-529 PO
[2018-10-21 08:18] VITALS: BP 139/91
== END 2018-10-21 08:55 | disposition left against medical advice (07) ==
LOC: EDUNIT# 07:46 → ER 07:48
DX: S61.451A Open bite of right hand, initial encounter (principal); F10.20 Alcohol dependence, uncomplicated; I10 Essential (primary) hypertension; K21.9 Gastro-esophageal reflux disease without esophagitis; G40.909 Epilepsy, unspecified, not intractable, without status epilepticus; F41.9 Anxiety disorder, unspecified; F31.9 Bipolar disorder, unspecified; F17.210 Nicotine dependence, cigarettes, uncomplicated; Z87.19 Personal history of other diseases of the digestive system; Z91.5 Personal history of self-harm; Z98.890 Other specified postprocedural states; Y04.1XXA Assault by human bite, initial encounter
CPT/HCPCS: 99283

== ENCOUNTER 2018-11-08 09:44 | Emergency (ER) | payer SELFPAY ==
[~2018-11-08] VITALS: Ht 157.5 cm; Wt 49.9 kg
[2018-11-08] MEDS ORDERED: NS IV 1000 ML 1,000 ML IV ONE (11:09)
[2018-11-08 11:21] LABS: BILIRUBIN,URINE NEGATIVE (NEGATIVE); CLARITY,URINE SLIGHTLY CLOUDY; COLOR,URINE YELLOW; GLUCOSE, URINE (UA) NEGATIVE (NEGATIVE); KETONES,URINE NEGATIVE (NEGATIVE); LEUKOCYTE ESTERASE ,URINE 2+ (NEGATIVE); NITRITE,URINE NEGATIVE (NEGATIVE); PH,URINE 6.5 (5-9); PROTEIN,URINE NEGATIVE (NEGATIVE); UROBILINOGEN,URINE 1 MG/DL (NORMAL)
--- NOTE | 2018-11-08 11:25 | ED Psychosocial ---
General Chief Complaint: Psych/Social Disorder Stated Complaint: ETOH/DETOX Nursing Triage Note: pt reports she has been on a binge for a while drinking whiskey. pt reports she has had lapses in her memory and not eating. pt states she went through 2 half gallons of whiskey in 4 days. pt reports she would like help. Source: patient Exam Limitations: no limitations History of Present Illness Date Seen by Provider: Nov 08, 2018 Time Seen by Provider: 11:04 Initial Comments Here with report of wanting to get detox. Admits to drinking quite a bit of alcohol daily. She's been through this multiple times previously. States that she is just scared because of how much she is drinking and thinks that it's time. Denies nausea or vomiting. Denies pain otherwise or other concerns. A friend brought her here today. Timing/Duration: constant, other (chronic over years) Severity: moderate Associated Symptoms: anxiety, ingestion Allergies and Home Medications Allergies Coded Allergies: No Known Drug Allergies (Verified , 02/14/09) Home Medications Albuterol Sulfate 6.7 Gm Hfa.aer.ad, 2 PUFF IH Q6H PRN for SHORTNESS OF BREATH, (Reported) Levetiracetam 1,000 Mg Tablet, 1,000 MG PO BID, (Reported) Mirtazapine 30 Mg Tablet, 30 MG PO HS PRN for SLEEP, (Reported) LAST FILLED #30 12-03-18 Omeprazole 40 Mg Capsule.dr, 40 MG PO DAILY, (Reported) Oxycodone HCl 5 Mg Tablet, 5 MG PO Q4H PRN for PAIN-SEVERE Prescribed by: LIBERTAD CHAPIN on 10/01/18 1107 Vit W-Ca,Fe,FA(<1 mg) 1 Each Tablet, 1 TAB PO DAILY, (Reported) Patient Home Medication List Home Medication List Reviewed: Yes Review of Systems Constitutional: see HPI; No chills, No fever Respiratory: no symptoms reported Cardiovascular: no symptoms reported Gastrointestinal: no symptoms reported Genitourinary: no symptoms reported Skin: no symptoms reported (I) Psychiatric/Neurological: See HPI, Anxiety, Emotional Problems All Other Systems Reviewed Negative Unless Noted: Yes Past Radepwk-Snapdo-Qtptpp Hx Past Med/Social Hx: Reviewed Nursing Past Med/Soc Hx Patient Social History Alcohol Use: Regular Use Number of Drinks Today: FF Alcohol Beverage of Choice: Beer, Whiskey, Vodka Recreational Drug Use: Yes (DENIES, BUT PER OLD RECORDS, HISTORY OF NARCOTIC USE/ABUSE) Drug of Choice: THC Smoking Status: Current Everyday Smoker Type Used: Cigarettes 2nd Hand Smoke Exposure: Yes Recent Foreign Travel: No Contact w/Someone Who Travel: No Recent Infectious Disease Expo: No Recent Hopitalizations: No Physical Abuse: No Sexual Abuse: No Mistreated: No Fear: No Immunizations Up To Date Tetanus Booster (TDap): Unknown PED Vaccines UTD: No Date of Pneumonia Vaccine: Aug 17, 2011 Date of Influenza Vaccine: Aug 15, 2016 Seasonal Allergies Seasonal Allergies: No Past Medical History Surgeries: Yes ( X 1, hernia repair, L finger surgery) Abdominal, Section, Orthopedic Respiratory: No Currently Using CPAP: No Currently Using BIPAP: No Cardiac: Yes Hypertension Neurological: Yes Seizure Disorder Reproductive Disorders: No Female Reproductive Disorders: Denies Genitourinary: No Gastrointestinal: Yes Gastroesophageal Reflux, Pancreatitis Musculoskeletal: No Endocrine: No HEENT: No Cancer: No Psychosocial: Yes (MULTIPLE PSYCH ADMITS. alcoholism) Anxiety, Suicide Attempts, Bipolar, Depression Integumentary: No Blood Disorders: No Family Medical History Reviewed Nursing Family Hx Patient reports no known family medical history. Hypertension Physical Exam Vital Signs - First Documented 11/08/18 10:10 Temp 97.6 Pulse 104 Resp 16 B/P (MAP) 154/100 (118) Pulse Ox 99 Capillary Refill : Less Than 3 Seconds Height, Weight, BMI Height: 5'2.00" Weight: 110lbs. 0.0oz. [id number]; 21.3 BMI Method:Stated General Appearance: WD/WN, no apparent distress HEENT: PERRL/EOMI, pharynx normal Neck: full range of motion, supple Respiratory: lungs clear, no accessory muscle use Cardiovascular: no murmur, tachycardia Peripheral Pulses: 2+ Dorsalis Pedis (R), 2+ Left Dors-Pedis (L), 2+ Radial Pulses (R), 2+ Radial Pulses (L) Gastrointestinal: non tender, soft Extremities: non-tender, normal inspection Neurologic/Psychiatric: no motor/sensory deficits, alert Appearance/Memory: appropriate insight, disheveled Behavior/Eye Contact: cooperative, good eye contact, normal speech Thoughts/Hallucinations: normal thought pattern, no apparent hallucination Skin: normal color, warm/dry Progress/Results/Core Measures Results/Orders Lab Results Laboratory Tests Test 11/08/18 11:12 11/08/18 11:25 11/08/18 12:20 Range/Units Urine Color YELLOW Urine Clarity SLIGHTLY CLOUDY Urine pH 6.5 5-9 Urine Specific [place] 1.010 L 1.016-1.022 Urine Protein NEGATIVE NEGATIVE Urine Glucose (UA) NEGATIVE NEGATIVE Urine Ketones NEGATIVE NEGATIVE Urine Nitrite NEGATIVE NEGATIVE Urine Bilirubin NEGATIVE NEGATIVE Urine Urobilinogen 1 NORMAL MG/DL Urine Leukocyte Esterase 2+ H NEGATIVE Urine RBC (Auto) NEGATIVE NEGATIVE Urine RBC NONE /HPF Urine WBC 10-20 /HPF Urine Squamous Epithelial Cells 0-5 /HPF Urine Crystals NONE /LPF Urine Bacteria TRACE /HPF Urine Casts NONE /LPF Urine Mucus NEGATIVE /LPF Urine Culture Indicated YES Urine Opiates Screen NEGATIVE NEGATIVE Urine Oxycodone Screen NEGATIVE NEGATIVE Urine Methadone Screen NEGATIVE NEGATIVE Urine Propoxyphene Screen NEGATIVE NEGATIVE Urine Barbiturates Screen NEGATIVE NEGATIVE Ur Tricyclic Antidepressants Screen NEGATIVE NEGATIVE Urine Phencyclidine Screen NEGATIVE NEGATIVE Urine Amphetamines Screen NEGATIVE NEGATIVE Urine Methamphetamines Screen NEGATIVE NEGATIVE Urine Benzodiazepines Screen POSITIVE H NEGATIVE Urine Cocaine Screen NEGATIVE NEGATIVE Urine Cannabinoids Screen POSITIVE H NEGATIVE White Blood Count 4.7 4.3-11.0 10^3/uL Red Blood Count 3.87 L 4.35-5.85 10^6/uL Hemoglobin 14.0 11.5-16.0 G/DL Hematocrit 39 35-52 % Mean Corpuscular Volume 102 H 80-99 FL Mean Corpuscular Hemoglobin 36 H 25-34 PG Mean Corpuscular Hemoglobin Concent 36 32-36 G/DL Red Cell Distribution Width 12.4 10.0-14.5 % Platelet Count 117 L 130-400 10^3/uL Mean Platelet Volume 11.0 H 7.4-10.4 FL Neutrophils (%) (Auto) 35 L 42-75 % Lymphocytes (%) (Auto) 45 H 12-44 % Monocytes (%) (Auto) 13 H 0-12 % Eosinophils (%) (Auto) 6 0-10 % Basophils (%) (Auto) 1 0-10 % Neutrophils # (Auto) 1.7 L 1.8-7.8 X 10^3 Lymphocytes # (Auto) 2.1 1.0-4.0 X 10^3 Monocytes # (Auto) 0.6 0.0-1.0 X 10^3 Eosinophils # (Auto) 0.3 0.0-0.3 10^3/uL Basophils # (Auto) 0.0 0.0-0.1 10^3/uL Sodium Level 144 135-145 MMOL/L Potassium Level 3.6 3.6-5.0 MMOL/L Chloride Level 106 98-107 MMOL/L Carbon Dioxide Level 22 21-32 MMOL/L Anion Gap 16 H 5-14 MMOL/L Blood Urea Nitrogen 3 L 7-18 MG/DL Creatinine 0.64 0.60-1.30 MG/DL Estimat Glomerular Filtration Rate > 60 BUN/Creatinine Ratio 5 Glucose Level 78 70-105 MG/DL Calcium Level 8.7 8.5-10.1 MG/DL Corrected Calcium 9.0 8.5-10.1 MG/DL Total Bilirubin 0.6 0.1-1.0 MG/DL Aspartate Amino Transf (AST/SGOT) 108 H 5-34 U/L Alanine Aminotransferase (ALT/SGPT) 49 0-55 U/L Alkaline Phosphatase 109 40-136 U/L Total Protein 6.6 6.4-8.2 GM/DL Albumin 3.6 3.2-4.5 GM/DL Salicylates Level < 5.0 L 5.0-20.0 MG/DL Acetaminophen Level < 10 L 10-30 UG/ML Serum Alcohol 372 *H <10 MG/DL My Orders Orders - MARICHUY BRYANT MD Ua Culture If Indicated (11/08/18 11:09) Cbc With Automated Diff (11/08/18 11:09) Comprehensive Metabolic Panel (11/08/18 11:09) Alcohol (11/08/18 11:09) Drug Screen Stat (Urine) (11/08/18 11:09) Acetaminophen (11/08/18 11:09) Salicylate (11/08/18 11:09) Ekg Tracing (11/08/18 11:09) Monitor-Rhythm Ecg Trace Only (11/08/18 11:09) Bh Status Checks/Observation Q15M (11/08/18 11:09) Saline Lock/Iv-Start (11/08/18 11:09) Ns Iv 1000 Ml (Sodium Chloride 0.9%) (11/08/18 11:09) Urine Culture (11/08/18 11:12) Medications Given in ED Current Medications Medications Dose Ordered Sig/Imelda Route Start Time Stop Time Status Last Admin Dose Admin Sodium Chloride 1,000 ml @ 0 mls/hr Q0M ONCE IV 11/08/18 11:09 11/08/18 11:10 DC 11/08/18 11:30 0 MLS/HR Vital Signs/I&O 11/08/18 10:10 Temp 97.6 Pulse 104 Resp 16 B/P (MAP) 154/100 (118) Pulse Ox 99 Blood Pressure Mean: 118 Progress Progress Note : Progress Note Seen and evaluated. We will do evaluation for labs and give 1 L normal saline as well as do an EKG as a pre-workup for medical clearance. Anticipate follow- up with [facility] treatment services on Friday. I will try to make arrangements after labs are complete. 1306: I did discuss the case with Dr. Chapin. Labs and history reviewed. Patient's oncologist 372. She does admit to drinking to have gallons of vodka. Rest the labs do not show any significant abnormalities. We will await culture on urine. Dr. Chapin we'll place and note the chart for patient for follow-up on Friday. I did speak at length with the patient and her father regarding follow-up and the need for outpatient therapy related to her alcoholism. Both verbalize understanding. The father will assist with the help. Discharged home with return precautions. Father and patient verbalize understanding instructions and agreement with plan. Initial ECG Impression Date: Nov 08, 2018 Initial ECG Impression Time: 11:31 Initial ECG Rate: 89 Initial ECG Rhythm: Normal Sinus Initial ECG Impression: Normal Comment Sinus rhythm with normal axis. No evidence of ST elevation WA. Normal axis. No evidence of ST elevation [place]. Similar to previous. Interpreted by me. Departure Impression Primary Impression: Alcohol abuse Disposition: 01 HOME, SELF-CARE Condition: Stable Departure-Patient Inst. Decision time for Depature: 13:37 Referrals: [facility] (PCP/Family) Primary Care Physician Patient Instructions: ALCOHOL AND SUBSTANCE ABUSE Add. Discharge Instructions: All discharge instructions reviewed with patient and/or family. Voiced understanding. Follow up with [facility] on Friday for recheck and further evaluation and outpatient therapy for your alcoholism. Do not drink heavily and you should arrived to [facility] sober on Wednesday. Return for worse pain, fever, vomiting, weakness, breathing problems or other concerns as needed. Copy Copies To 1: LIBERTAD CHAPIN MD, TIMOTHY D MD Nov 08, 2018 11:25
[2018-11-08 11:41] LABS: BASOPHILS % (AUTO) 1 % (0-10); EOSINOPHILS # (AUTO) 0.3 10^3/uL (0.0-0.3); EOSINOPHILS % (AUTO) 6 % (0-10); HEMATOCRIT 39 % (35-52); LYMPHOCYTES # (AUTO) 2.1 X 10^3 (1.0-4.0); LYMPHOCYTES % (AUTO) 45 % (12-44); MEAN CORPUSCULAR HEMOGLOBIN 36 PG (25-34); MEAN CORPUSCULAR HGB CONC 36 G/DL (32-36); MEAN CORPUSCULAR VOLUME 102 FL (80-99); MONOCYTES # (AUTO) 0.6 X 10^3 (0.0-1.0); MONOCYTES % (AUTO) 13 % (0-12); NEUTROPHILS # (AUTO) 1.7 X 10^3 (1.8-7.8); NEUTROPHILS % (AUTO) 35 % (42-75); PLATELET COUNT 117 10^3/uL (130-400); RED BLOOD COUNT 3.87 10^6/uL (4.35-5.85); RED CELL DISTRIBUTION WIDTH 12.4 % (10.0-14.5); WHITE BLOOD COUNT 4.7 10^3/uL (4.3-11.0)
[2018-11-08 11:47] LABS: AMPHETAMINE SCREEN, URINE NEGATIVE (NEGATIVE); BARBITURATE SCREEN URINE NEGATIVE (NEGATIVE); BENZODIAZEPINES SCREEN URINE POSITIVE (NEGATIVE); CANNABINOID SCREEN, URINE POSITIVE (NEGATIVE); COCAINE SCREEN URINE NEGATIVE (NEGATIVE); METHADONE STAT NEGATIVE (NEGATIVE); METHAMPHETAMINE SCREEN URINE S NEGATIVE (NEGATIVE); OPIATE SCREEN URINE NEGATIVE (NEGATIVE); OXYCODONE STAT NEGATIVE (NEGATIVE); PROPOXYPHENE STAT NEGATIVE (NEGATIVE); TRICYCLIC ANTIDEPRESSANTS SCRE NEGATIVE (NEGATIVE)
[2018-11-08 12:14] LABS: BACTERIA,URINE TRACE /HPF; SQUAMOUS EPITHELIAL CELL,UR 0-5 /HPF
[2018-11-08 12:46] LABS: ALANINE AMINOTRANSFERASE 49 U/L (0-55); ALBUMIN 3.6 GM/DL (3.2-4.5); ALKALINE PHOSPHATASE 109 U/L (40-136); BILIRUBIN,TOTAL 0.6 MG/DL (0.1-1.0); BUN/CREATININE RATIO 5; CALCIUM 8.7 MG/DL (8.5-10.1); CARBON DIOXIDE 22 MMOL/L (21-32); CHLORIDE 106 MMOL/L (98-107); CREATININE SERUM 0.64 MG/DL (0.60-1.30); GFR ESTIMATED > 60; GLUCOSE 78 MG/DL (70-105); POTASSIUM 3.6 MMOL/L (3.6-5.0); SALICYLATE < 5.0 MG/DL (5.0-20.0); SODIUM 144 MMOL/L (135-145); TOTAL PROTEIN 6.6 GM/DL (6.4-8.2)
[2018-11-08 12:47] LABS: ACETAMINOPHEN < 10 UG/ML (10-30)
[2018-11-08 13:44] VITALS: BP 123/70
== END 2018-11-08 13:44 | disposition home or self-care (01) ==
LOC: EDUNIT# 09:44 → ER 09:45
DX: F41.9 Anxiety disorder, unspecified (principal); I10 Essential (primary) hypertension; F32.9 Major depressive disorder, single episode, unspecified; G40.909 Epilepsy, unspecified, not intractable, without status epilepticus; F10.10 Alcohol abuse, uncomplicated; F12.10 Cannabis abuse, uncomplicated; F17.210 Nicotine dependence, cigarettes, uncomplicated; Z87.19 Personal history of other diseases of the digestive system; Z79.51 Long term (current) use of inhaled steroids; Z98.890 Other specified postprocedural states; Z91.5 Personal history of self-harm
CPT/HCPCS: 36415; 80053; 80306; 80320; 80329; 81000; 85025; 87077; 87088; 87186; 93005; 93041

== ENCOUNTER 2018-12-02 20:17 | Emergency (ER) | payer SELFPAY ==
[~2018-12-02] VITALS: Ht 157.5 cm; Wt 49.9 kg
[2018-12-02 20:29] LABS: BASOPHILS % (AUTO) 1 % (0-10); EOSINOPHILS # (AUTO) 0.2 10^3/uL (0.0-0.3); EOSINOPHILS % (AUTO) 3 % (0-10); HEMATOCRIT 42 % (35-52); LYMPHOCYTES # (AUTO) 2.7 X 10^3 (1.0-4.0); LYMPHOCYTES % (AUTO) 48 % (12-44); MEAN CORPUSCULAR HEMOGLOBIN 36 PG (25-34); MEAN CORPUSCULAR HGB CONC 35 G/DL (32-36); MEAN CORPUSCULAR VOLUME 101 FL (80-99); MEAN PLATELET VOLUME 8.8 FL (7.4-10.4); MONOCYTES # (AUTO) 0.6 X 10^3 (0.0-1.0); MONOCYTES % (AUTO) 10 % (0-12); NEUTROPHILS # (AUTO) 2.2 X 10^3 (1.8-7.8); NEUTROPHILS % (AUTO) 39 % (42-75); PLATELET COUNT 250 10^3/uL (130-400); RED BLOOD COUNT 4.18 10^6/uL (4.35-5.85); RED CELL DISTRIBUTION WIDTH 12.2 % (10.0-14.5); WHITE BLOOD COUNT 5.7 10^3/uL (4.3-11.0)
[2018-12-02] MEDS ORDERED: ONDANSETRON 4 MG/2 ML (SDV) Z0FRAN IVP ONE (20:30)
[2018-12-02] MEDS ORDERED: FAMOTIDINE 20MG/2ML IV (PEPCID) IVP ONE (20:30)
[2018-12-02 20:57] LABS: ALANINE AMINOTRANSFERASE 15 U/L (0-55); ALBUMIN 3.1 GM/DL (3.2-4.5); ALKALINE PHOSPHATASE 143 U/L (40-136); BILIRUBIN,TOTAL 0.2 MG/DL (0.1-1.0); BUN/CREATININE RATIO 6; CALCIUM 7.8 MG/DL (8.5-10.1); CARBON DIOXIDE 25 MMOL/L (21-32); CREATININE SERUM 0.64 MG/DL (0.60-1.30); GFR ESTIMATED > 60; GLUCOSE 100 MG/DL (70-105); LIPASE 33 U/L (8-78); MAGNESIUM 1.6 MG/DL (1.8-2.4); TOTAL PROTEIN 6.1 GM/DL (6.4-8.2)
[2018-12-02 21:05] LABS: BILIRUBIN,URINE NEGATIVE (NEGATIVE); CLARITY,URINE CLEAR; COLOR,URINE YELLOW; GLUCOSE, URINE (UA) NEGATIVE (NEGATIVE); KETONES,URINE NEGATIVE (NEGATIVE); LEUKOCYTE ESTERASE ,URINE NEGATIVE (NEGATIVE); NITRITE,URINE NEGATIVE (NEGATIVE); PH,URINE 7 (5-9); PROTEIN,URINE NEGATIVE (NEGATIVE); UROBILINOGEN,URINE NORMAL (NORMAL)
[2018-12-02 21:07] LABS: CHLORIDE 109 MMOL/L (98-107); POTASSIUM 3.6 MMOL/L (3.6-5.0); SODIUM 146 MMOL/L (135-145)
[2018-12-02] MEDS ORDERED: ANTACID SUSP 30 ML UDC (MYLANTA) PO ONE (21:15)
[2018-12-02] MEDS ORDERED: LIDOCAINE 2% VISCOUS 15 ML UDC PO ONE (21:15)
[2018-12-02 21:16] LABS: WBC,URINE RARE /HPF
--- NOTE | 2018-12-02 21:30 | NUR ---
NS 1L TOTAL INFUSED FROM IVF STARTED PER EMS.
--- NOTE | 2018-12-02 21:48 | ED Abdominal Pain ---
General Chief Complaint: Abdominal/GI Problems Stated Complaint: ABD PAIN Nursing Triage Note: TO ED VIA EMS WITH C/O MIDLINE ABD PAIN STARTING 4H SE[employer]Y HOSE. GIVEN 50 MCG IV FENTANYL EN ROUTE PER EMS. HX PANCREATITIS. DRINKS DAILY AND STATES SHE HAD "AT LEAST A PINT" OF ALCOHOL TODAY. Sepsis Screen: No Definite Risk Source of Information: Patient Exam Limitations: No Limitations History of Present Illness Date Seen by Provider: Dec 02, 2018 Time Seen by Provider: 20:19 Initial Comments This 48-year-old woman presents to the emergency room with complaints of epigastric pain. She received fentanyl 50 g by EMS. She states the pain started about 4 hours ago. She has been drinking alcohol heavily today. She reports that she has been drinking heavily recently without eating. This patient is well-known to me and has had this problem with epigastric pain chronically related to alcohol consumption. Patient is frequently fearful that she is developing pancreatitis. Allergies and Home Medications Allergies Coded Allergies: No Known Drug Allergies (Verified , 02/14/09) Home Medications Albuterol Sulfate 6.7 Gm Hfa.aer.ad, 2 PUFF IH Q6H PRN for SHORTNESS OF BREATH, (Reported) Famotidine 20 Mg Tablet, 20 MG PO BID Prescribed by: MICHELLE RODRIGUEZ on 12/02/182150 Levetiracetam 1,000 Mg Tablet, 1,000 MG PO BID, (Reported) Mirtazapine 30 Mg Tablet, 30 MG PO HS PRN for SLEEP, (Reported) LAST FILLED #30 12-03-18 Omeprazole 40 Mg Capsule.dr, 40 MG PO DAILY, (Reported) Oxycodone HCl 5 Mg Tablet, 5 MG PO Q4H PRN for PAIN-SEVERE Prescribed by: LIBERTAD LATIF on 10/01/18 1107 Vit W-Ca,Fe,FA(<1 mg) 1 Each Tablet, 1 TAB PO DAILY, (Reported) Sucralfate 1 Gm/10 Ml Oral.susp, 1 GM PO QID Take 30 min before eating/drinking meals and before bed. May substitute tablet to crush and slurry if liquid is cost prohibitive. Prescribed by: MICHELLE RODRIGUEZ on 12/02/182150 Patient Home Medication List Home Medication List Reviewed: Yes Review of Systems Review of Systems Constitutional: see HPI, other (Intoxicated) EENTM: No Symptoms Reported Respiratory: No Symptoms Reported Cardiovascular: No Symptoms Reported Gastrointestinal: See HPI Genitourinary: No Symptoms Reported Musculoskeletal: no symptoms reported Skin: no symptoms reported Psychiatric/Neurological: No Symptoms Reported Endocrine: No Symptoms Reported Hematologic/Lymphatic: No Symptoms Reported Past Qbgwamk-Yccayb-Qhmpxy Hx Patient Social History Alcohol Use: Regular Use Number of Drinks Today: FF Alcohol Beverage of Choice: Beer, Whiskey, Vodka Recreational Drug Use: Yes Drug of Choice: THC Type Used: Cigarettes 2nd Hand Smoke Exposure: Yes Recent Foreign Travel: No Contact w/Someone Who Travel: No Recent Infectious Disease Expo: No Recent Hopitalizations: No Immunizations Up To Date Tetanus Booster (TDap): Unknown PED Vaccines UTD: No Date of Pneumonia Vaccine: Aug 17, 2011 Date of Influenza Vaccine: Aug 15, 2016 Seasonal Allergies Seasonal Allergies: No Past Medical History Surgeries: Yes ( X 1, hernia repair, L finger surgery) Abdominal, Section, Orthopedic Respiratory: No Currently Using CPAP: No Currently Using BIPAP: No Cardiac: Yes Hypertension Neurological: Yes Seizure Disorder Reproductive Disorders: No Female Reproductive Disorders: Denies Genitourinary: No Gastrointestinal: Yes Gastroesophageal Reflux, Pancreatitis Musculoskeletal: No Endocrine: No HEENT: No Cancer: No Psychosocial: Yes (MULTIPLE PSYCH ADMITS. alcoholism) Anxiety, Suicide Attempts, Bipolar, Depression Integumentary: No Blood Disorders: No Family Medical History Patient reports no known family medical history. Hypertension Physical Exam Vital Signs Vital Signs - First Documented 12/02/18 12/02/18 20:17 22:05 Temp 97.0 Pulse 86 Resp 19 B/P (MAP) 149/107 (121) Pulse Ox 98 O2 Delivery Room Air Capillary Refill : Less Than 3 Seconds Height/Weight/BMI Height: 5'2.00" Weight: 110lbs. 0.0oz. 49.337671zz; 21.3 BMI Method:Stated General Appearance: WD/WN, mild distress, thin HEENT: PERRL/EOMI, normal ENT inspection, pharynx normal Neck: normal inspection Respiratory: lungs clear, normal breath sounds, no respiratory distress, no accessory muscle use Cardiovascular: regular rate, rhythm, no edema, no murmur Gastrointestinal: normal bowel sounds, soft, tenderness (Epigastrium) Extremities: normal inspection, no pedal edema Neurologic/Psychiatric: procedures nurse II-XII nml as tested, no motor/sensory deficits, alert, normal mood/affect, oriented x 3 Skin: normal color, warm/dry Progress/Results/Core Measures Results/Orders Lab Results Laboratory Tests Test 12/02/18 20:19 12/02/18 20:59 Range/Units White Blood Count 5.7 4.3-11.0 10^3/uL Red Blood Count 4.18 L 4.35-5.85 10^6/uL Hemoglobin 15.0 11.5-16.0 G/DL Hematocrit 42 35-52 % Mean Corpuscular Volume 101 H 80-99 FL Mean Corpuscular Hemoglobin 36 H 25-34 PG Mean Corpuscular Hemoglobin Concent 35 32-36 G/DL Red Cell Distribution Width 12.2 10.0-14.5 % Platelet Count 250 130-400 10^3/uL Mean Platelet Volume 8.8 7.4-10.4 FL Neutrophils (%) (Auto) 39 L 42-75 % Lymphocytes (%) (Auto) 48 H 12-44 % Monocytes (%) (Auto) 10 0-12 % Eosinophils (%) (Auto) 3 0-10 % Basophils (%) (Auto) 1 0-10 % Neutrophils # (Auto) 2.2 1.8-7.8 X 10^3 Lymphocytes # (Auto) 2.7 1.0-4.0 X 10^3 Monocytes # (Auto) 0.6 0.0-1.0 X 10^3 Eosinophils # (Auto) 0.2 0.0-0.3 10^3/uL Basophils # (Auto) 0.0 0.0-0.1 10^3/uL Sodium Level 146 H 135-145 MMOL/L Potassium Level 3.6 3.6-5.0 MMOL/L Chloride Level 109 H 98-107 MMOL/L Carbon Dioxide Level 25 21-32 MMOL/L Anion Gap 12 5-14 MMOL/L Blood Urea Nitrogen 4 L 7-18 MG/DL Creatinine 0.64 0.60-1.30 MG/DL Estimat Glomerular Filtration Rate > 60 BUN/Creatinine Ratio 6 Glucose Level 100 70-105 MG/DL Calcium Level 7.8 L 8.5-10.1 MG/DL Corrected Calcium 8.5 8.5-10.1 MG/DL Magnesium Level 1.6 L 1.8-2.4 MG/DL Total Bilirubin 0.2 0.1-1.0 MG/DL Aspartate Amino Transf (AST/SGOT) 26 5-34 U/L Alanine Aminotransferase (ALT/SGPT) 15 0-55 U/L Alkaline Phosphatase 143 H 40-136 U/L Total Protein 6.1 L 6.4-8.2 GM/DL Albumin 3.1 L 3.2-4.5 GM/DL Lipase 33 8-78 U/L Serum Alcohol 384 *H <10 MG/DL Urine Color YELLOW Urine Clarity CLEAR Urine pH 7 5-9 Urine Specific [place] 1.010 L 1.016-1.022 Urine Protein NEGATIVE NEGATIVE Urine Glucose (UA) NEGATIVE NEGATIVE Urine Ketones NEGATIVE NEGATIVE Urine Nitrite NEGATIVE NEGATIVE Urine Bilirubin NEGATIVE NEGATIVE Urine Urobilinogen NORMAL NORMAL MG/DL Urine Leukocyte Esterase NEGATIVE NEGATIVE Urine RBC (Auto) NEGATIVE NEGATIVE Urine RBC NONE /HPF Urine WBC RARE /HPF Urine Squamous Epithelial Cells 2-5 /HPF Urine Crystals NONE /LPF Urine Bacteria NONE /HPF Urine Casts NONE /LPF Urine Mucus NEGATIVE /LPF Urine Culture Indicated NO My Orders Orders - MICHELLE FELICIANO MD Alcohol (12/02/18 20:23) Cbc With Automated Diff (12/02/18 20:23) Comprehensive Metabolic Panel (12/02/18 20:23) Lipase (12/02/18 20:23) Magnesium (12/02/18 20:23) Ua Culture If Indicated (12/02/18 20:23) Ondansetron Injection (Zofran Injectio (12/02/18 20:30) Famotidine Injection (Pepcid Injection) (12/02/18 20:30) Lidocaine 2% Viscous 15 Ml (Xylocaine Vi (12/02/18 21:15) Antacid Suspension (Mylanta Suspension (12/02/18 21:15) Medications Given in ED Current Medications Medications Dose Ordered Sig/Imelda Route Start Time Stop Time Status Last Admin Dose Admin Al Hydrox/Mg Hydrox/Simethicone 30 ml ONCE ONCE PO 12/02/18 21:15 12/02/18 21:16 DC 12/02/18 21:30 30 ML Famotidine 20 mg ONCE ONCE IVP 12/02/18 20:30 12/02/18 20:31 DC 12/02/18 20:36 20 MG Lidocaine HCl 15 ml ONCE ONCE PO 12/02/18 21:15 12/02/18 21:16 DC 12/02/18 21:30 15 ML Ondansetron HCl 8 mg ONCE ONCE IVP 12/02/18 20:30 12/02/18 20:31 DC 12/02/18 20:36 8 MG Vital Signs/I&O 12/02/18 12/02/18 20:17 22:05 Temp 97.0 97.0 Pulse 86 86 Resp B/P (MAP) 149/107 (121) 144/106 (119) Pulse Ox 98 O2 Delivery Room Air 12/03/18 00:00 Intake Total 500 ml Balance 500 ml Blood Pressure Mean: 121 Progress Progress Note : Progress Note Labs were fairly unremarkable. Serum alcohol level was quite elevated as is typical for this patient. This patient is well-known to me and has chronic problems with epigastric pain associated with her alcohol consumption. GI cocktail didn't help her pain briefly. Patient states she has an appointment with [facility] tomorrow to talk about rehabilitation treatment. As I discussed with the patient on multiple occasions before, there is nothing I can do to resolve her epigastric pain as long as she continues to drink alcohol. I will add Pepcid and Carafate to her Prilosec as I have done in the past. Departure Impression Primary Impression: Epigastric pain Additional Impressions: Alcohol intoxication Qualified Codes: F10.929 - Alcohol use, unspecified with intoxication, unspecified Alcohol dependence Qualified Codes: F10.29 - Alcohol dependence with unspecified alcohol-induced disorder Disposition: 01 HOME, SELF-CARE Condition: Improved Departure-Patient Inst. Decision time for Depature: 21:44 Referrals: [facility] (PCP/Family) Primary Care Physician Patient Instructions: Acute Abdomen (Belly Pain), Adult (DC), Alcohol Abuse and Alcoholism (DC) Add. Discharge Instructions: Begin tapering your alcohol consumption immediately but do not stop alcohol abruptly as this may cause dangerous seizures and withdrawal. Continue taking your Prilosec. Add Pepcid and Carafate as prescribed. Follow-up with [facility] for your substance abuse appointment tomorrow. Return to care if symptoms are worsening. All discharge instructions reviewed with patient and/or family. Voiced understanding. Scripts Sucralfate (Carafate) 1 Gm/10 Ml Oral.susp 1 GM PO QID, #1200 ML Take 30 min before eating/drinking meals and before bed. May substitute tablet to crush and slurry if liquid is cost prohibitive. Prov: MICHELLE FELICIANO MD 12/02/18 Famotidine (Pepcid) 20 Mg Tablet 20 MG PO BID, #60 TAB Prov: MICHELLE FELICIANO MD 12/02/18 Copy Copies To 1: DANYELL CHEN JOSHUA T MD Dec 02, 2018 21:48
[2018-12-02] MEDS ORDERED: FAMO-119 PO (21:51)
[2018-12-02] MEDS ORDERED: SUCR1ORA5 PO (21:51)
[2018-12-02 22:05] VITALS: BP 144/106
== END 2018-12-02 22:05 | disposition home or self-care (01) ==
LOC: EDUNIT# 20:17 → ER 20:18
DX: R10.13 Epigastric pain (principal); F10.229 Alcohol dependence with intoxication, unspecified; I10 Essential (primary) hypertension; F12.10 Cannabis abuse, uncomplicated; G40.909 Epilepsy, unspecified, not intractable, without status epilepticus; K21.9 Gastro-esophageal reflux disease without esophagitis; F31.9 Bipolar disorder, unspecified; F41.9 Anxiety disorder, unspecified; Z87.19 Personal history of other diseases of the digestive system; Z77.22 Contact with and (suspected) exposure to environmental tobacco smoke (acute) (chronic); Z98.890 Other specified postprocedural states; Z91.5 Personal history of self-harm; Z79.51 Long term (current) use of inhaled steroids
CPT/HCPCS: 36415; 80053; 80320; 81000; 83690; 83735; 85025

== ENCOUNTER 2018-12-06 12:56 | Emergency (ER) | payer SELFPAY, OTHER | END 2018-12-06 16:57 | disposition home or self-care (01) | LOC: ER 12:56 ==

== ENCOUNTER 2018-12-30 19:01 | Observation (INO) | payer OTHER ==
[~2018-12-30] VITALS: Ht 157.5 cm; Wt 55.5 kg
--- NOTE | 2018-12-30 19:05 | NUR ---
PT UNAWARE OF HOW MANY DRINKS SHE HAS HAD THROUGHOUT THIS DAY. REPORTS DRINKING [place] AND [place].
--- NOTE | 2018-12-30 19:44 | ED Psychosocial ---
General Chief Complaint: Substance Abuse Stated Complaint: ETOH Nursing Triage Note: PT TO ROOM #5 [facility]IA [facility] WITH C/O ETOH INTOXICATION. UPON ARRIVAL PT A&OX4 , TEARFUL, AND LAUGHING. PT STATES, "IM DRUNK AND I NEED HELP." REPORTS TO DRINKING [place] AND [place] THROUGHOUT EVENING. PT REPORTS ABD PAIN DT CHRONIC PANCREATITIS. PT VOICES NO OTHER C/O OR CONCERNS @ THIS TIME. Source: EMS Exam Limitations: no limitations History of Present Illness Date Seen by Provider: Dec 30, 2018 Time Seen by Provider: 19:42 Initial Comments History he was car well as to ER per EMS from home with reports of alcohol intoxication. She is alert and tearful on arrival and stating "I'm drunk and I need help". Timing/Duration: constant Severity: moderate Associated Symptoms: anxiety Allergies and Home Medications Allergies Coded Allergies: No Known Drug Allergies (Verified , 02/14/09) Home Medications Albuterol Sulfate 6.7 Gm Hfa.aer.ad, 2 PUFF IH Q6H PRN for SHORTNESS OF BREATH, (Reported) Famotidine 20 Mg Tablet, 20 MG PO BID Prescribed by: MICHELLE RODRIGUEZ on 12/02/182150 Levetiracetam 1,000 Mg Tablet, 1,000 MG PO BID, (Reported) Mirtazapine 30 Mg Tablet, 30 MG PO HS PRN for SLEEP, (Reported) LAST FILLED #30 12-03-18 Omeprazole 40 Mg Capsule.dr, 40 MG PO DAILY, (Reported) Vit W-Ca,Fe,FA(<1 mg) 1 Each Tablet, 1 TAB PO DAILY, (Reported) Sucralfate 1 Gm/10 Ml Oral.susp, 1 GM PO QID Take 30 min before eating/drinking meals and before bed. May substitute tablet to crush and slurry if liquid is cost prohibitive. Prescribed by: MICHELLE RODRIGUEZ on 12/02/182150 Patient Home Medication List Home Medication List Reviewed: Yes Review of Systems Constitutional: see HPI EENTM: see HPI Respiratory: no symptoms reported Cardiovascular: no symptoms reported Genitourinary: no symptoms reported Musculoskeletal: no symptoms reported ( she thinks something) Skin: no symptoms reported Psychiatric/Neurological: No Symptoms Reported Past Uomcobj-Kfnrpx-Vagpim Hx Patient Social History Alcohol Use: Occasionally Uses Alcohol Beverage of Choice: Beer, Whiskey, Vodka Recreational Drug Use: Yes (ETOH) Drug of Choice: THC Smoking Status: Current Everyday Smoker Type Used: Cigarettes 2nd Hand Smoke Exposure: Yes Recent Foreign Travel: No Contact w/Someone Who Travel: No Recent Infectious Disease Expo: No Recent Hopitalizations: No Immunizations Up To Date Tetanus Booster (TDap): Unknown PED Vaccines UTD: No Date of Pneumonia Vaccine: Aug 17, 2011 Date of Influenza Vaccine: Aug 15, 2016 Seasonal Allergies Seasonal Allergies: No Past Medical History Surgeries: Yes ( X 1, hernia repair, L finger surgery) Abdominal, Section, Orthopedic Respiratory: No Currently Using CPAP: No Currently Using BIPAP: No Cardiac: Yes Hypertension Neurological: Yes Seizure Disorder Reproductive Disorders: No Female Reproductive Disorders: Denies Genitourinary: No Gastrointestinal: Yes Gastroesophageal Reflux, Pancreatitis Musculoskeletal: No Endocrine: No HEENT: No Cancer: No Psychosocial: Yes (MULTIPLE PSYCH ADMITS. alcoholism) Anxiety, Suicide Attempts, Bipolar, Depression Integumentary: No Blood Disorders: No Family Medical History Patient reports no known family medical history. Hypertension Physical Exam Vital Signs - First Documented 12/30/18 19:03 Temp 96.9 Pulse 100 Resp 16 B/P (MAP) 139/100 (113) Pulse Ox 99 O2 Delivery Room Air Capillary Refill : Less Than 3 Seconds Height, Weight, BMI Height: 5'2.00" Weight: 110lbs. 0.0oz. 49.951028sb; 21.3 BMI Method:Stated General Appearance: WD/WN, no apparent distress HEENT: PERRL/EOMI, normal ENT inspection Neck: non-tender, full range of motion Gastrointestinal: normal bowel sounds, soft Neurologic/Psychiatric: alert Appearance/Memory: disheveled Skin: normal color, warm/dry Progress/Results/Core Measures Results/Orders Lab Results Laboratory Tests Test 12/30/18 19:12 12/30/18 20:05 Range/Units White Blood Count 6.8 4.3-11.0 10^3/uL Red Blood Count 4.45 4.35-5.85 10^6/uL Hemoglobin 15.1 11.5-16.0 G/DL Hematocrit 44 35-52 % Mean Corpuscular Volume 99 80-99 FL Mean Corpuscular Hemoglobin 34 25-34 PG Mean Corpuscular Hemoglobin Concent 34 32-36 G/DL Red Cell Distribution Width 12.6 10.0-14.5 % Platelet Count 141 130-400 10^3/uL Mean Platelet Volume 9.6 7.4-10.4 FL Neutrophils (%) (Auto) 51 42-75 % Lymphocytes (%) (Auto) 38 12-44 % Monocytes (%) (Auto) 6 0-12 % Eosinophils (%) (Auto) 5 0-10 % Basophils (%) (Auto) 0 0-10 % Neutrophils # (Auto) 3.4 1.8-7.8 X 10^3 Lymphocytes # (Auto) 2.5 1.0-4.0 X 10^3 Monocytes # (Auto) 0.4 0.0-1.0 X 10^3 Eosinophils # (Auto) 0.4 H 0.0-0.3 10^3/uL Basophils # (Auto) 0.0 0.0-0.1 10^3/uL Sodium Level 148 H 135-145 MMOL/L Potassium Level 3.5 L 3.6-5.0 MMOL/L Chloride Level 108 H 98-107 MMOL/L Carbon Dioxide Level 28 21-32 MMOL/L Anion Gap 12 5-14 MMOL/L Blood Urea Nitrogen 5 L 7-18 MG/DL Creatinine 0.68 0.60-1.30 MG/DL Estimat Glomerular Filtration Rate > 60 BUN/Creatinine Ratio 7 Glucose Level 87 70-105 MG/DL Calcium Level 8.4 L 8.5-10.1 MG/DL Corrected Calcium 9.0 8.5-10.1 MG/DL Total Bilirubin 0.3 0.1-1.0 MG/DL Aspartate Amino Transf (AST/SGOT) 30 5-34 U/L Alanine Aminotransferase (ALT/SGPT) 13 0-55 U/L Alkaline Phosphatase 162 H 40-136 U/L Total Protein 6.7 6.4-8.2 GM/DL Albumin 3.3 3.2-4.5 GM/DL Lipase 21 8-78 U/L Salicylates Level < 5.0 L 5.0-20.0 MG/DL Acetaminophen Level < 10 L 10-30 UG/ML Serum Alcohol 402 *H <10 MG/DL Urine Color YELLOW Urine Clarity CLEAR Urine pH 7 5-9 Urine Specific [place] 1.010 L 1.016-1.022 Urine Protein NEGATIVE NEGATIVE Urine Glucose (UA) NEGATIVE NEGATIVE Urine Ketones NEGATIVE NEGATIVE Urine Nitrite NEGATIVE NEGATIVE Urine Bilirubin NEGATIVE NEGATIVE Urine Urobilinogen NORMAL NORMAL MG/DL Urine Leukocyte Esterase NEGATIVE NEGATIVE Urine RBC (Auto) NEGATIVE NEGATIVE Urine RBC NONE /HPF Urine WBC RARE /HPF Urine Squamous Epithelial Cells 5-10 /HPF Urine Crystals NONE /LPF Urine Bacteria FEW H /HPF Urine Casts NONE /LPF Urine Mucus NEGATIVE /LPF Urine Culture Indicated NO Urine Opiates Screen NEGATIVE NEGATIVE Urine Oxycodone Screen NEGATIVE NEGATIVE Urine Methadone Screen NEGATIVE NEGATIVE Urine Propoxyphene Screen NEGATIVE NEGATIVE Urine Barbiturates Screen NEGATIVE NEGATIVE Ur Tricyclic Antidepressants Screen NEGATIVE NEGATIVE Urine Phencyclidine Screen NEGATIVE NEGATIVE Urine Amphetamines Screen NEGATIVE NEGATIVE Urine Methamphetamines Screen NEGATIVE NEGATIVE Urine Benzodiazepines Screen POSITIVE H NEGATIVE Urine Cocaine Screen NEGATIVE NEGATIVE Urine Cannabinoids Screen POSITIVE H NEGATIVE My Orders Orders - MASSIMO CACERES APRN Cbc With Automated Diff (12/30/18 19:39) Comprehensive Metabolic Panel (12/30/18 19:39) Alcohol (12/30/18 19:39) Ua Culture If Indicated (12/30/18 19:39) Drug Screen Stat (Urine) (12/30/18 19:39) Salicylate (12/30/18 19:39) Acetaminophen (12/30/18 19:39) Iv Heplock-Insert (Order) (12/30/18 19:39) Lactated Ringers (Lr 1000 Ml Iv Solution (12/30/18 20:15) Lipase (12/30/18 20:25) Ketorolac Injection (Toradol Injection) (12/30/18 20:30) Medications Given in ED Current Medications Medications Dose Ordered Sig/Imelda Route Start Time Stop Time Status Last Admin Dose Admin Ketorolac Tromethamine 15 mg ONCE ONCE IVP 12/30/18 20:30 12/30/18 20:31 DC 12/30/18 20:36 15 MG Vital Signs/I&O 12/30/18 19:03 Temp 96.9 Pulse 100 Resp 16 B/P (MAP) 139/100 (113) Pulse Ox 99 O2 Delivery Room Air Blood Pressure Mean: 113 Departure Communication (Admissions) Time/Spoke to Admitting Phy: 22:[address] Elaine. Since patient is intoxicated and suicidal she cannot be screened for mental health standpoint. We'll have to admit for observation and screen later. 2128-patient is in the room screaming "I tell you what, I asked for Fucking pain meds over an hour ago!". I discussed with her that because of her alcohol level I am not comfortable giving her opiate pain medication. She continues to scream in the room stating "you're a fucking dhruv!" She is alert and suitable for discharge. 2199- police here due to patient yelling. Patient now states to the police that she is suicidal and cannot be discharged. She also states that she is homeless. She's been verbally abusive to staff and disruptive to the emergency room. Impression Primary Impression: Alcohol intoxication Qualified Codes: F10.920 - Alcohol use, unspecified with intoxication, uncomplicated Disposition: ADMITTED INPATIENT Condition: Stable Admissions Decision to Admit Reason: Admit from ER (General) Decision to Admit/Date: Dec 30, 2018 Time/Decision to Admit Time: 21:00 Departure-Patient Inst. Decision time for Depature: 20:15 Referrals: [facility] [place] (PCP/Family) Primary Care Physician Patient Instructions: ALCOHOL AND SUBSTANCE ABUSE Add. Discharge Instructions: 1. return to er for any concerns All discharge instructions reviewed with patient and/or family. Voiced understanding. MASSIMO CACERES APRN Dec 30, 2018 19:44
[2018-12-30 19:49] LABS: BASOPHILS % (AUTO) 0 % (0-10); EOSINOPHILS # (AUTO) 0.4 10^3/uL (0.0-0.3); EOSINOPHILS % (AUTO) 5 % (0-10); HEMATOCRIT 44 % (35-52); HEMOGLOBIN 15.1 G/DL (11.5-16.0); LYMPHOCYTES # (AUTO) 2.5 X 10^3 (1.0-4.0); LYMPHOCYTES % (AUTO) 38 % (12-44); MEAN CORPUSCULAR HEMOGLOBIN 34 PG (25-34); MEAN CORPUSCULAR HGB CONC 34 G/DL (32-36); MEAN CORPUSCULAR VOLUME 99 FL (80-99); MEAN PLATELET VOLUME 9.6 FL (7.4-10.4); MONOCYTES # (AUTO) 0.4 X 10^3 (0.0-1.0); MONOCYTES % (AUTO) 6 % (0-12); NEUTROPHILS # (AUTO) 3.4 X 10^3 (1.8-7.8); NEUTROPHILS % (AUTO) 51 % (42-75); PLATELET COUNT 141 10^3/uL (130-400); RED CELL DISTRIBUTION WIDTH 12.6 % (10.0-14.5); WHITE BLOOD COUNT 6.8 10^3/uL (4.3-11.0)
[2018-12-30 20:03] LABS: ALANINE AMINOTRANSFERASE 13 U/L (0-55); ALBUMIN 3.3 GM/DL (3.2-4.5); ALKALINE PHOSPHATASE 162 U/L (40-136); BILIRUBIN,TOTAL 0.3 MG/DL (0.1-1.0); CALCIUM 8.4 MG/DL (8.5-10.1); CARBON DIOXIDE 28 MMOL/L (21-32); CHLORIDE 108 MMOL/L (98-107); GLUCOSE 87 MG/DL (70-105); POTASSIUM 3.5 MMOL/L (3.6-5.0); SALICYLATE < 5.0 MG/DL (5.0-20.0); SODIUM 148 MMOL/L (135-145); TOTAL PROTEIN 6.7 GM/DL (6.4-8.2)
[2018-12-30 20:05] LABS: ACETAMINOPHEN < 10 UG/ML (10-30)
[2018-12-30] MEDS ORDERED: LACTATED RINGERS 1,000 ML IV SCH (20:15)
[2018-12-30 20:17] LABS: BUN/CREATININE RATIO 7; CREATININE SERUM 0.68 MG/DL (0.60-1.30); GFR ESTIMATED > 60
[2018-12-30 20:23] LABS: BILIRUBIN,URINE NEGATIVE (NEGATIVE); CLARITY,URINE CLEAR; COLOR,URINE YELLOW; GLUCOSE, URINE (UA) NEGATIVE (NEGATIVE); KETONES,URINE NEGATIVE (NEGATIVE); LEUKOCYTE ESTERASE ,URINE NEGATIVE (NEGATIVE); NITRITE,URINE NEGATIVE (NEGATIVE); PH,URINE 7 (5-9); PROTEIN,URINE NEGATIVE (NEGATIVE); UROBILINOGEN,URINE NORMAL (NORMAL)
[2018-12-30] MEDS ORDERED: KETOROLAC 30 MG/ML VIAL IVP ONE (20:30)
[2018-12-30 20:33] LABS: BACTERIA,URINE FEW /HPF; WBC,URINE RARE /HPF
[2018-12-30 21:25] LABS: AMPHETAMINE SCREEN, URINE NEGATIVE (NEGATIVE); BARBITURATE SCREEN URINE NEGATIVE (NEGATIVE); BENZODIAZEPINES SCREEN URINE POSITIVE (NEGATIVE); CANNABINOID SCREEN, URINE POSITIVE (NEGATIVE); COCAINE SCREEN URINE NEGATIVE (NEGATIVE); METHADONE STAT NEGATIVE (NEGATIVE); METHAMPHETAMINE SCREEN URINE S NEGATIVE (NEGATIVE); OPIATE SCREEN URINE NEGATIVE (NEGATIVE); OXYCODONE STAT NEGATIVE (NEGATIVE); PROPOXYPHENE STAT NEGATIVE (NEGATIVE); TRICYCLIC ANTIDEPRESSANTS SCRE NEGATIVE (NEGATIVE)
--- NOTE | 2018-12-30 21:29 | NUR ---
PT YELLING OUT AND CURSING @ STAFF. PT STAES, " I ASKED FOR PAIN MEDICATION OVER A FUCKING HOUR AGO!" PT ASLO STATES, "YOU GUYS ARE PIECES OF FUCKING SHIT!" PROVIDER IN ROOM DC'D IV TO RT AC. [place] [employer] NOTIFIED AND DISPATCHED TO ED.
--- NOTE | 2018-12-30 21:40 | NUR ---
[employer] [place] [employer] ARRIV[employer] TO PT ROOM, PT REPORTS SHE IS NOW SUICIDAL. PT STATES, "I WANT TO KILL MYSELF."
[2018-12-30 22:30] VITALS: BP 154/102
[2018-12-30] MEDS ORDERED: 1/2 NS IV SOLUTION 1,000 ML IV PRN (22:32)
[2018-12-30 22:45] VITALS: BP 149/108
[2018-12-30] MEDS ORDERED: LORazepam 1 MG (ATIVAN) TAB PO PRN (22:45)
[2018-12-30] MEDS ORDERED: ONDANSETRON 4 MG (ZOFRAN) ORAL DISSOLVE TAB SL PRN (22:45)
[2018-12-30] MEDS ORDERED: D5 1/2 NS 1000 ML IV SOLUTION 1,000 ML IV PRN (22:45)
[2018-12-30] MEDS ORDERED: SENNA W/DOCUSATE (SENOKOT S) TABLET PO PRN (22:45)
[2018-12-30] MEDS ORDERED: ANTACID SUSP 30 ML UDC (MYLANTA) PO PRN (22:45)
[2018-12-30] MEDS ORDERED: ONDANSETRON 4 MG/2 ML (SDV) Z0FRAN IV PRN (22:45)
[2018-12-30] MEDS ORDERED: LORazepam INJ 2 MG/ML (ATIVAN) VIAL IM/IV PRN (22:45)
[2018-12-30 23:15] VITALS: BP 128/89
[2018-12-30 23:27] LABS: ALANINE AMINOTRANSFERASE 13 U/L (0-55); ALBUMIN 2.9 GM/DL (3.2-4.5); ALKALINE PHOSPHATASE 134 U/L (40-136); BILIRUBIN,TOTAL 0.3 MG/DL (0.1-1.0); BUN/CREATININE RATIO 8; CALCIUM 7.9 MG/DL (8.5-10.1); CARBON DIOXIDE 27 MMOL/L (21-32); CHLORIDE 110 MMOL/L (98-107); CREATININE SERUM 0.61 MG/DL (0.60-1.30); GFR ESTIMATED > 60; GLUCOSE 80 MG/DL (70-105); POTASSIUM 3.8 MMOL/L (3.6-5.0); SODIUM 148 MMOL/L (135-145); TOTAL PROTEIN 5.8 GM/DL (6.4-8.2)
[2018-12-30 23:28] LABS: INR 1.1 (0.8-1.4); PROTHROMBIN TIME PATIENT 13.8 SEC (12.2-14.7)
[2018-12-30] MEDS: PANTOPRAZOLE 40 MG (PROTONIX) VIAL IV SCH (23:50)
[2018-12-30] MEDS: LORazepam INJ 2 MG/ML (ATIVAN) VIAL IV PRN (23:50)
[2018-12-31] VITALS (13 sets, daily range): BP systolic 119–166; BP diastolic 67–106
[2018-12-31] MEDS: LORazepam INJ 2 MG/ML (ATIVAN) VIAL IV PRN (00:45)
--- NOTE | 2018-12-31 01:30 | NUR ---
Reported patient is in pain to EICU, patient states that when pancreatitis acts up takes carafate and keppra to help. EICU is aware and will place orders.
[2018-12-31] MEDS: SUCRALFATE 1 GM (CARAFATE) TAB PO SCH ×2 (02:03→08:01)
[2018-12-31] MEDS: LEVETIRACETAM 1,000 MG (KEPPRA) TABLET PO SCH ×2 (02:03→08:00)
[2018-12-31 03:53] LABS: BASOPHILS % (AUTO) 0 % (0-10); EOSINOPHILS # (AUTO) 0.5 10^3/uL (0.0-0.3); EOSINOPHILS % (AUTO) 10 % (0-10); HEMATOCRIT 34 % (35-52); HEMOGLOBIN 11.6 G/DL (11.5-16.0); LYMPHOCYTES # (AUTO) 2.3 X 10^3 (1.0-4.0); LYMPHOCYTES % (AUTO) 50 % (12-44); MEAN CORPUSCULAR HEMOGLOBIN 34 PG (25-34); MEAN CORPUSCULAR HGB CONC 34 G/DL (32-36); MEAN CORPUSCULAR VOLUME 99 FL (80-99); MEAN PLATELET VOLUME 9.7 FL (7.4-10.4); MONOCYTES # (AUTO) 0.3 X 10^3 (0.0-1.0); MONOCYTES % (AUTO) 7 % (0-12); NEUTROPHILS # (AUTO) 1.5 X 10^3 (1.8-7.8); NEUTROPHILS % (AUTO) 33 % (42-75); PLATELET COUNT 95 10^3/uL (130-400); RED CELL DISTRIBUTION WIDTH 12.1 % (10.0-14.5); WHITE BLOOD COUNT 4.6 10^3/uL (4.3-11.0)
[2018-12-31 04:16] LABS: BUN/CREATININE RATIO 9; CALCIUM 7.3 MG/DL (8.5-10.1); CARBON DIOXIDE 22 MMOL/L (21-32); CHLORIDE 108 MMOL/L (98-107); CREATININE SERUM 0.56 MG/DL (0.60-1.30); GFR ESTIMATED > 60; GLUCOSE 81 MG/DL (70-105); MAGNESIUM 1.4 MG/DL (1.8-2.4); PHOSPHORUS 3.3 MG/DL (2.3-4.7); POTASSIUM 2.8 MMOL/L (3.6-5.0); SODIUM 142 MMOL/L (135-145)
[2018-12-31] MEDS: POTASSIUM CL 10MEQ/50ML IVPB 50 ML IV SCH ×4 (05:14→08:02)
[2018-12-31] MEDS: MAGNESIUM 1 GM/100 ML IVPB 100 ML IV SCH ×2 (05:18→07:11)
[2018-12-31] MEDS ORDERED: MAGNESIUM 1 GM/100 ML IVPB 100 ML IV SCH (06:00)
[2018-12-31] MEDS ORDERED: POTASSIUM CL 10MEQ/50ML IVPB 50 ML IV SCH (06:00)
[2018-12-31] MEDS ORDERED: KCL 20 MEQ TAB (K-DUR) PO SCH (06:00)
--- NOTE | 2018-12-31 06:42 | Pulmonary Consultation ---
History of Present Illness History of Present Illness Date of Consultation 12/31/18 06:37 Time Seen by Provider: 06:37 Date of Admission History of Present Illness 48 yo with hx of acute pancreatitis, and abdominal pain presented to ED with intoxication. PT has been demanding pain meds. When she did not get pain meds she became combative and started yelling. The Police were called secondary to patient being combative and yelling. Patient told the police that she suicidal and can not be discharged. Pt also states she is homeless. Allergies and Home Medications Allergies Coded Allergies: No Known Drug Allergies (Verified , 02/14/09) Home Medications Albuterol Sulfate 6.7 Gm Hfa.aer.ad, 2 PUFF IH Q6H PRN for SHORTNESS OF BREATH, (Reported) Famotidine 20 Mg Tablet, 20 MG PO BID Prescribed by: MICHELLE RODRIGUEZ on 12/02/182150 Levetiracetam 1,000 Mg Tablet, 1,000 MG PO BID, (Reported) Mirtazapine 30 Mg Tablet, 30 MG PO HS PRN for SLEEP, (Reported) LAST FILLED #30 12-03-17 Omeprazole 40 Mg Capsule.dr, 40 MG PO DAILY, (Reported) Oxycodone HCl 5 Mg Tablet, 5 MG PO Q4H PRN for PAIN-SEVERE Prescribed by: LIBERTAD LATIF on 10/01/18 1107 Vit W-Ca,Fe,FA(<1 mg) 1 Each Tablet, 1 TAB PO DAILY, (Reported) Sucralfate 1 Gm/10 Ml Oral.susp, 1 GM PO QID Take 30 min before eating/drinking meals and before bed. May substitute tablet to crush and slurry if liquid is cost prohibitive. Prescribed by: MICHELLE RODRIGUEZ on 12/02/182150 Past Xlqggmy-Oxvlka-Ezgzuc Hx Patient Social History Alcohol Use: Occasionally Uses Alcohol Beverage of Choice: Beer, Whiskey, Vodka Recreational Drug Use: Yes (ETOH) Drug of Choice: THC Smoking Status: Current Everyday Smoker Type Used: Cigarettes 2nd Hand Smoke Exposure: Yes Recent Foreign Travel: No Contact w/Someone Who Travel: No Recent Infectious Disease Expo: No Recent Hopitalizations: No Physical Abuse: No Sexual Abuse: No Immunizations Up To Date Tetanus Booster (TDap): Unknown PED Vaccines UTD: No Date of Pneumonia Vaccine: Aug 17, 2011 Date of Influenza Vaccine: Aug 29, 2018 Seasonal Allergies Seasonal Allergies: No Past Medical History Surgeries: Yes ( X 1, hernia repair, L finger surgery) Abdominal, Section, Orthopedic Respiratory: No Currently Using CPAP: No Currently Using BIPAP: No Cardiac: Yes Hypertension Neurological: Yes Seizure Disorder Reproductive Disorders: No Female Reproductive Disorders: Denies Genitourinary: No Gastrointestinal: Yes Gastroesophageal Reflux, Pancreatitis Musculoskeletal: No Endocrine: No HEENT: No Cancer: No Psychosocial: Yes (MULTIPLE PSYCH ADMITS. alcoholism) Anxiety, Suicide Attempts, Bipolar, Depression Nursing Suicide Risk Notes: UPON [place] POLICE DEPART ARRIVAL PT REPORTS TO POLICE SHE IS NOW SUICIDIAL. Integumentary: No Blood Disorders: No Family Medical History Patient reports no known family medical history. Hypertension Sepsis Event Evaluation Height, Weight, BMI Height: 5'2.00" Weight: 122lbs. 5.0oz. 55.268883dc; 21.8 BMI Method:Stated Exam Exam Vital Signs Date Time Temp Pulse Resp B/P (MAP) Pulse Ox O2 Delivery O2 Flow Rate FiO2 12/31/18 06:00 102 17 132/84 (100) 93 Room Air 12/31/18 05:00 97 18 138/88 (105) 93 Room Air 12/31/18 04:15 Room Air 12/31/18 04:15 96.6 12/31/18 04:00 97 17 119/76 (90) 92 Room Air 12/31/18 03:00 85 18 129/80 (96) 92 Room Air 12/31/18 02:00 96 11 159/97 (117) 95 Room Air 12/31/18 01:15 93 8 142/92 (109) 98 Room Air 12/31/18 01:00 93 13 98 Room Air 12/31/18 01:00 89 12/31/18 00:15 103 15 122/67 (85) 98 Room Air 12/31/18 00:00 Room Air 12/31/18 00:00 97 11 137/98 (111) 99 Room Air 12/30/18 23:58 97.7 12/30/18 23:15 95 7 128/89 (102) 98 Room Air 12/30/18 23:00 100 11 94 Room Air 12/30/18 22:56 93 12/30/18 22:45 93 19 149/108 (122) 99 Room Air 12/30/18 22:30 Room Air 12/30/18 22:30 96 16 154/102 (119) 98 Room Air 12/30/18 22:30 96.8 12/30/18 22:23 96.9 98 16 123/88 (100) 99 Room Air 12/30/18 19:03 96.9 100 16 139/100 (113) 99 Room Air I & O 12/31/18 07:00 Intake Total 250 ml Balance 250 ml Height & Weight Height: 5'2.00" Weight: 122lbs. 5.0oz. 55.488692tf; 21.8 BMI Method:Stated Capillary Refill: Less Than 3 Seconds Gastrointestinal: normal bowel sounds, soft Results Lab Laboratory Tests 12/30/18 19:12 12/30/18 23:00 12/31/18 03:35 Assessment/Plan Assessment/Plan Acute alcohol intoxication -Pt is on CASSIE protocol Suicidal ideation while intoxicated -Psch eval Hypokalemia, hypomagnesium -Replace UDS is positive for Marijuana, benzos and alcohol BRE WATSON DO Dec 31, 2018 06:42
[2018-12-31] MEDS ORDERED: POTASSIUM CL 10MEQ/50ML IVPB 50 ML IV NR (07:45)
[2018-12-31] MEDS: PANTOPRAZOLE 40 MG (PROTONIX) VIAL IV SCH (08:01)
--- NOTE | 2018-12-31 09:18 | Short Stay Summary-Hospitalist ---
History of Present Illness HPI/Chief Complaint CC: ETOH intoxication with suicidal ideation HPI: This is a chronic alcoholic w/h/o chronic pancreatitis who presented to the ER acutely intoxicated and stating suicidal thoughts. Currently patient is lucid and no longer under the influence of ETOH and no longer states suicidal ideation. Counseled the patient on the need to stop drinking alcohol and smoking. Source: patient Date Seen 12/31/18 Time Seen by a Provider: 10:00 Attending Physician Luli Elaine DO [facility] [place] Referring Physician Date of Admission Dec 30, 2018 at 21:52 Home Medications & Allergies Home Medications Reviewed patient Home Medication Reconciliation performed by pharmacy medication reconciliations technician test systems and/or nursing. Patients Allergies have been reviewed. Allergies Allergies Coded Allergies No Known Drug Allergies (Verified02/14/09) Past Qhiwdnb-Vicyqh-Ggomst Hx Past Med/Social Hx: Reviewed Nursing Past Med/Soc Hx, Reviewed and Corrections made Patient Social History Marrital Status: Employed/Student: unemployed Alcohol Use: Occasionally Uses Alcohol Beverage of Choice: Beer, Whiskey, Vodka Recreational Drug Use: Yes (ETOH) Drug of Choice: THC Smoking Status: Current Everyday Smoker Type Used: Cigarettes 2nd Hand Smoke Exposure: Yes Recent Foreign Travel: No Contact w/other who traveled: No Recent Hopitalizations: No Recent Infectious Disease Expo: No Immunizations Up To Date Tetanus Booster (TDap): Unknown Pediatric: No Date of Pneumonia Vaccine: Aug 17, 2011 Date of Influenza Vaccine: Aug 29, 2018 Seasonal Allergies Seasonal Allergies: No Past Medical History Surgeries: Abdominal, Section, Orthopedic Currently Using CPAP: No Currently Using BIPAP: No Cardiac: Hypertension Neurological: Seizure Disorder Reproductive: No Female Reproductive Disorders: Denies Gastrointestinal: Gastroesophageal Reflux, Pancreatitis Psychosocial: Anxiety, Suicide Attempts, Bipolar, Depression History of Blood Disorders: No Family History Patient reports no known family medical history. Hypertension Review of Systems Constitutional: see HPI, weakness EENTM: no symptoms reported Respiratory: no symptoms reported Cardiovascular: no symptoms reported Gastrointestinal: abdominal pain Genitourinary: no symptoms reported Musculoskeletal: no symptoms reported Skin: no symptoms reported Psychiatric/Neurological: No Symptoms Reported All Other Systems Reviewed Negative Unless Noted: Yes Physical Exam Physical Exam Vital Signs Vital Signs - First Documented 12/30/18 19:03 Temp 96.9 Pulse 100 Resp 16 B/P (MAP) 139/100 (113) Pulse Ox 99 O2 Delivery Room Air Capillary Refill : Less Than 3 Seconds Height, Weight, BMI Height: 5'2.00" Weight: 122lbs. 5.0oz. 55.283022ij; 21.8 BMI Method:Stated General Appearance: No Apparent Distress, WD/WN, Chronically ill Eyes: Bilateral Eye Normal Inspection, Bilateral Eye PERRL HEENT: PERRL/EOMI, Normal ENT Inspection, Pharynx Normal Neck: Full Range of Motion, Normal Inspection, Non Tender, Supple, Carotid Bruit Respiratory: Chest Non Tender, Lungs Clear, Normal Breath Sounds, No Accessory Muscle Use, No Respiratory Distress Cardiovascular: Regular Rate, Rhythm, No Edema, No Gallop, No JVD, No Murmur, Normal Peripheral Pulses Gastrointestinal: Normal Bowel Sounds, No Organomegaly, No Pulsatile Mass, Non Tender, Soft Back: Normal Inspection, No CVA Tenderness, No Vertebral Tenderness Extremity: Normal Capillary Refill, Normal Inspection, Normal Range of Motion, Non Tender, No Calf Tenderness, No Pedal Edema Neurologic/Psychiatric: Alert, Oriented x3, No Motor/Sensory Deficits, Normal Mood/Affect Skin: Normal Color, Warm/Dry Lymphatic: No Adenopathy Results Results/Procedures Labs Laboratory Tests 12/30/18 19:12 12/30/18 23:00 12/31/18 03:35 Patient resulted labs reviewed. Short Stay Diagnosis Discharge Diagnosis-Short Stay Admission Diagnosis Alcohol intoxication Chronic alcoholism Chronic pancreatitis Smoker Final Discharge Diagnosis Alcohol intoxication Chronic alcoholism Chronic pancreatitis Smoker Conclusion Plan DC home Diagnosis/Problems Diagnosis/Problems (1) Alcohol abuse Status: Chronic Clinical Quality Measures DVT/VTE Risk/Contraindication: Risk Factor Score Per Nursin RFS Level Per Nursing on Admit: 2=Moderate LULI ELAINE DO Dec 31, 2018 09:18
[2018-12-31] MEDS ORDERED: KETOROLAC 30 MG/ML VIAL IVP NR (10:45)
[2018-12-31] MEDS ORDERED: PANTOPRAZOLE 40 MG (PROTONIX) TAB PO SCH (21:00)
== END 2018-12-31 10:52 | disposition home or self-care (01) ==
LOC: EDUNIT# 19:01 → ER 19:02 → ICU 21:52 → UNDOADMOB 21:52 → ICU 22:30 → UNDODISOB 12-31 13:35
PROVIDERS: ADMIT Internal Medicine; ATTEND Internal Medicine
DX: F10.229 Alcohol dependence with intoxication, unspecified (principal); K86.1 Other chronic pancreatitis; K21.9 Gastro-esophageal reflux disease without esophagitis; F41.9 Anxiety disorder, unspecified; F31.9 Bipolar disorder, unspecified; G40.909 Epilepsy, unspecified, not intractable, without status epilepticus; I10 Essential (primary) hypertension; F17.210 Nicotine dependence, cigarettes, uncomplicated; R45.851 Suicidal ideations; E87.6 Hypokalemia; E83.42 Hypomagnesemia
CPT/HCPCS: 36415; 80048; 80053; 80306; 80320; 80329; 81000; 83690; 83735; 84100; 84703; 85025; 85610; 85730; 87081; G0378

== ENCOUNTER 2019-01-02 03:34 | Emergency (ER) | payer SELFPAY ==
[~2019-01-02] VITALS: Ht 157.5 cm; Wt 55.5 kg
[2019-01-02 04:00] VITALS: BP 124/103
[2019-01-02] MEDS ORDERED: NS IV 1000 ML 1,000 ML IV SCH (04:16)
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
[2019-01-02] MEDS ORDERED: KETOROLAC 30 MG/ML VIAL IVP ONE (04:30)
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
[2019-01-02 04:40] LABS: BILIRUBIN,URINE NEGATIVE (NEGATIVE); CLARITY,URINE CLEAR; COLOR,URINE YELLOW; GLUCOSE, URINE (UA) NEGATIVE (NEGATIVE); KETONES,URINE NEGATIVE (NEGATIVE); LEUKOCYTE ESTERASE ,URINE NEGATIVE (NEGATIVE); NITRITE,URINE NEGATIVE (NEGATIVE); PH,URINE 6 (5-9); PROTEIN,URINE NEGATIVE (NEGATIVE); UROBILINOGEN,URINE NORMAL (NORMAL)
[2019-01-02 04:47] LABS: BACTERIA,URINE TRACE /HPF; SQUAMOUS EPITHELIAL CELL,UR 0-2 /HPF; WBC,URINE RARE /HPF
[2019-01-02 04:51] LABS: AMPHETAMINE SCREEN, URINE NEGATIVE (NEGATIVE); BARBITURATE SCREEN URINE NEGATIVE (NEGATIVE); BENZODIAZEPINES SCREEN URINE POSITIVE (NEGATIVE); CANNABINOID SCREEN, URINE POSITIVE (NEGATIVE); COCAINE SCREEN URINE NEGATIVE (NEGATIVE); METHADONE STAT NEGATIVE (NEGATIVE); METHAMPHETAMINE SCREEN URINE S NEGATIVE (NEGATIVE); OPIATE SCREEN URINE NEGATIVE (NEGATIVE); OXYCODONE STAT NEGATIVE (NEGATIVE); PROPOXYPHENE STAT NEGATIVE (NEGATIVE); TRICYCLIC ANTIDEPRESSANTS SCRE NEGATIVE (NEGATIVE)
[2019-01-02 05:00] VITALS: BP 149/97
[2019-01-02] MEDS ORDERED: FAMOTIDINE 20 MG (PEPCID) TABLET PO STA (05:29)
[2019-01-02] MEDS ORDERED: ANTACID SUSP 30 ML UDC (MYLANTA) PO ONE (05:30)
[2019-01-02] MEDS ORDERED: LIDOCAINE 2% VISCOUS 15 ML UDC PO ONE (05:30)
[2019-01-02 05:58] LABS: BASOPHILS % (AUTO) 0 % (0-10); EOSINOPHILS # (AUTO) 0.8 10^3/uL (0.0-0.3); EOSINOPHILS % (AUTO) 13 % (0-10); HEMATOCRIT 43 % (35-52); HEMOGLOBIN 14.7 G/DL (11.5-16.0); LYMPHOCYTES # (AUTO) 2.3 X 10^3 (1.0-4.0); LYMPHOCYTES % (AUTO) 36 % (12-44); MEAN CORPUSCULAR HEMOGLOBIN 34 PG (25-34); MEAN CORPUSCULAR HGB CONC 34 G/DL (32-36); MEAN CORPUSCULAR VOLUME 100 FL (80-99); MEAN PLATELET VOLUME 10.1 FL (7.4-10.4); MONOCYTES # (AUTO) 0.3 X 10^3 (0.0-1.0); MONOCYTES % (AUTO) 5 % (0-12); NEUTROPHILS # (AUTO) 2.9 X 10^3 (1.8-7.8); NEUTROPHILS % (AUTO) 46 % (42-75); PLATELET COUNT 100 10^3/uL (130-400); WHITE BLOOD COUNT 6.3 10^3/uL (4.3-11.0)
[2019-01-02 06:00] VITALS: BP 138/102
[2019-01-02 06:14] LABS: BAND NEUTROPHILS 0 %; BASOPHILS % (MANUAL) 0 %; EOSINOPHILS % (MANUAL) 11 %; LYMPHOCYTES % (MANUAL) 35 %; MONOCYTES % (MANUAL) 7 %; NEUTROPHILS % (MANUAL) 44 %; RBC MORPH NORMAL; REACTIVE LYMPHOCYTES 3 %
[2019-01-02 06:20] LABS: ALANINE AMINOTRANSFERASE 13 U/L (0-55); ALBUMIN 3.4 GM/DL (3.2-4.5); ALKALINE PHOSPHATASE 166 U/L (40-136); AMMONIA 28 UMOL/L (11-32); BILIRUBIN,TOTAL 0.3 MG/DL (0.1-1.0); BUN/CREATININE RATIO 5; CARBON DIOXIDE 25 MMOL/L (21-32); CHLORIDE 109 MMOL/L (98-107); CREATININE SERUM 0.59 MG/DL (0.60-1.30); GFR ESTIMATED > 60; GLUCOSE 80 MG/DL (70-105); LIPASE 41 U/L (8-78); MAGNESIUM 1.8 MG/DL (1.8-2.4); POTASSIUM 3.5 MMOL/L (3.6-5.0); SODIUM 146 MMOL/L (135-145); TOTAL PROTEIN 6.8 GM/DL (6.4-8.2)
--- NOTE | 2019-01-02 07:12 | NUR ---
PT COMPLAINS OF BACK PAIN. PT STATES SHE IS TRYING TO FIND A RIDE. DR FELICIANO NOTIFIED.
[2019-01-02] MEDS ORDERED: ACETAMINOPHEN 325 MG TABLET PO ONE (07:15)
--- NOTE | 2019-01-02 08:11 | NUR ---
PT SLEEPING. WOKE HER UP TO SEE IF SHE HAD A RIDE ET PT STATES "NO, I'M GOING TO TRY TO CALL SOMEONE AGAIN AT 0900"
--- NOTE | 2019-01-02 09:15 | NUR ---
WOKE PT UP ET STATES SHE STILL DOES NOT HAVE A RIDE. NOTIFIED HER WE WERE DISSMISSING HE TO THE WATING ROOM.
--- NOTE | 2019-01-02 09:20 | NUR ---
DR FELICIANO IN ROOM TAKING OUT IO.
[2019-01-02 09:25] VITALS: BP 150/99
== END 2019-01-02 09:25 | disposition home or self-care (01) ==
LOC: EDUNIT# 03:34 → ER 03:36
DX: K29.70 Gastritis, unspecified, without bleeding (principal); F10.20 Alcohol dependence, uncomplicated; Z04.1 Encounter for examination and observation following transport accident; I10 Essential (primary) hypertension; G40.909 Epilepsy, unspecified, not intractable, without status epilepticus; K21.9 Gastro-esophageal reflux disease without esophagitis; F41.9 Anxiety disorder, unspecified; F31.9 Bipolar disorder, unspecified; F12.10 Cannabis abuse, uncomplicated; F17.210 Nicotine dependence, cigarettes, uncomplicated; Z87.19 Personal history of other diseases of the digestive system; Z98.890 Other specified postprocedural states; Z91.5 Personal history of self-harm; Z79.51 Long term (current) use of inhaled steroids; V48.5XXA Car driver injured in noncollision transport accident in traffic accident, initial encounter
CPT/HCPCS: 36415; 36680; 80053; 80306; 80320; 81000; 82140; 83690; 83735; 85007; 85027

== ENCOUNTER 2019-01-14 15:35 | Emergency (ER) | payer SELFPAY ==
[~2019-01-14] VITALS: Ht 157.5 cm; Wt 49.9 kg
[2019-01-14] MEDS ORDERED: NS IV 1000 ML 1,000 ML IV ONE (16:11)
[2019-01-14] MEDS ORDERED: ANTACID SUSP 30 ML UDC (MYLANTA) PO ONE (16:15)
[2019-01-14] MEDS ORDERED: LIDOCAINE 2% VISCOUS 15 ML UDC PO ONE (16:15)
[2019-01-14] MEDS ORDERED: FAMOTIDINE 20MG/2ML IV (PEPCID) IVP ONE (16:15)
[2019-01-14 16:18] LABS: BASOPHILS % (AUTO) 0 % (0-10); EOSINOPHILS % (AUTO) 0 % (0-10); HEMATOCRIT 40 % (35-52); HEMOGLOBIN 13.7 G/DL (11.5-16.0); LYMPHOCYTES # (AUTO) 0.9 X 10^3 (1.0-4.0); LYMPHOCYTES % (AUTO) 14 % (12-44); MEAN CORPUSCULAR HEMOGLOBIN 34 PG (25-34); MEAN CORPUSCULAR HGB CONC 35 G/DL (32-36); MEAN CORPUSCULAR VOLUME 98 FL (80-99); MEAN PLATELET VOLUME 9.2 FL (7.4-10.4); MONOCYTES # (AUTO) 0.5 X 10^3 (0.0-1.0); MONOCYTES % (AUTO) 8 % (0-12); NEUTROPHILS # (AUTO) 5.1 X 10^3 (1.8-7.8); NEUTROPHILS % (AUTO) 78 % (42-75); PLATELET COUNT 432 10^3/uL (130-400); RED CELL DISTRIBUTION WIDTH 12.6 % (10.0-14.5); WHITE BLOOD COUNT 6.6 10^3/uL (4.3-11.0)
[2019-01-14 16:36] LABS: ALANINE AMINOTRANSFERASE 14 U/L (0-55); ALBUMIN 3.4 GM/DL (3.2-4.5); ALKALINE PHOSPHATASE 136 U/L (40-136); BUN/CREATININE RATIO 10; CALCIUM 9.2 MG/DL (8.5-10.1); CARBON DIOXIDE 26 MMOL/L (21-32); CHLORIDE 94 MMOL/L (98-107); CREATININE SERUM 0.67 MG/DL (0.60-1.30); GFR ESTIMATED > 60; GLUCOSE 116 MG/DL (70-105); LIPASE 76 U/L (8-78); SODIUM 134 MMOL/L (135-145); TOTAL PROTEIN 6.7 GM/DL (6.4-8.2)
--- NOTE | 2019-01-14 16:45 | ED Abdominal Pain ---
General Chief Complaint: Abdominal/GI Problems Stated Complaint: ABD PAIN,BACK PAIN Nursing Triage Note: PATIENT STATES THAT SHE HAS CHRONIC PANCREATITIS AND ITS "ACTING UP." C/O PAIN IN HER ABD AROUND TO HER BACK AND VOMITING TODAY. Sepsis Screen: No Definite Risk (CHARMAINE CASTRO MED STUDENT) Source of Information: Patient Exam Limitations: No Limitations (MICHELLE FELICIANO MD) History of Present Illness Date Seen by Provider: Jan 14, 2019 Time Seen by Provider: 15:55 Initial Comments Patient is a 48 year old female presenting for abdominal pain. She states the pain began at 3am today and has been fairly consistent. She describes it as a epigastric "vice-like" pain 05/26, that radiates to her back. She states she has been previously hospitalized fourteen times for pancreatitis and this pain feels similar to previous episodes. It was accompanied by nausea and six episodes of vomiting . She attempted to eat breakfast, but was unable to keep it down, since she has only had sips of water. The pain is worse with eating, and lying flat on her back, improved with sitting up. She has not tried any over the counter medication. She states that she recently got out of retirement, and that her last drink of alcohol was two days ago. Timing/Duration: Constant Severity/Quality: Severe (7/10 "vise-like", patients stated pain is disproportionate to appearance) Location: RUQ, Epigastric Radiation: Back ("across bra line") Activities at Onset: None Modifying Factors: Worsens With Breathing, Worsens With Coughing, Worsens With Eating, Worsens With Lying down; Improves With Resting Associated Symptoms: Fever/Chills, Nausea/Vomiting (vomiting six times) ( CHARMANIE CASTRO MED STUDENT) Allergies and Home Medications Allergies Coded Allergies: No Known Drug Allergies (Verified , 02/14/09) Home Medications Albuterol Sulfate 6.7 Gm Hfa.aer.ad, 2 PUFF IH Q6H PRN for SHORTNESS OF BREATH, (Reported) Famotidine 20 Mg Tablet, 20 MG PO BID Prescribed by: MICHELLE RODRIGUEZ on 12/02/18 5519 Levetiracetam 1,000 Mg Tablet, 1,000 MG PO BID, (Reported) Mirtazapine 30 Mg Tablet, 30 MG PO HS PRN for SLEEP, (Reported) LAST FILLED #30 1-17-18 Omeprazole 40 Mg Capsule.dr, 40 MG PO DAILY, (Reported) Omeprazole 20 Mg Tablet.dr, 20 MG PO BID Prescribed by: MICHELLE RODRIGUEZ on 01/14/191729 Ondansetron 4 Mg Tab.rapdis, 4 MG SL Q4H Prescribed by: MICHELLE RODRIGUEZ on 01/14/191729 Vit W-Ca,Fe,FA(<1 mg) 1 Each Tablet, 1 TAB PO DAILY, (Reported) Sucralfate 1 Gm/10 Ml Oral.susp, 1 GM PO QID Take 30 min before eating/drinking meals and before bed. May substitute tablet to crush and slurry if liquid is cost prohibitive. Prescribed by: MICHELLE RODRIGUEZ on 12/02/182150 Sucralfate 1 Gm Tablet, 1 GM PO QID Crush and mixed with about 10 mL water to make a slurry. Take 30 minutes before eating/drinking at meals and bedtime. Prescribed by: MICHELLE RODRIGUEZ on 01/14/191729 Patient Home Medication List Home Medication List Reviewed: Yes (MICHELLE FELICIANO MD) Review of Systems Review of Systems Constitutional: chills EENTM: No Symptoms Reported Respiratory: No Symptoms Reported Cardiovascular: No Symptoms Reported Gastrointestinal: Abdominal Pain, Nausea, Vomiting Genitourinary: No Symptoms Reported Musculoskeletal: back pain Skin: no symptoms reported Psychiatric/Neurological: No Symptoms Reported Endocrine: No Symptoms Reported Hematologic/Lymphatic: No Symptoms Reported (CHARMAINE CASTRO STUDENT) Past Nxrauyw-Tebykl-Tzlsgt Hx Patient Social History Alcohol Beverage of Choice: Beer, Whiskey, Vodka Drug of Choice: THC Type Used: Cigarettes 2nd Hand Smoke Exposure: Yes Recent Foreign Travel: No Contact w/Someone Who Travel: No Recent Infectious Disease Expo: No Recent Hopitalizations: Yes (CHARMAINE CASTRO STUDENT) Immunizations Up To Date Tetanus Booster (TDap): Unknown PED Vaccines UTD: No Date of Pneumonia Vaccine: Aug 17, 2011 Date of Influenza Vaccine: Aug 29, 2018 (CHARMAINE CASTRO STUDENT) Seasonal Allergies Seasonal Allergies: No (CHARMAINE CASTRO) Past Medical History Surgeries: Yes ( X 1, hernia repair, L finger surgery) Abdominal, Section, Orthopedic Respiratory: No Currently Using CPAP: No Currently Using BIPAP: No Cardiac: Yes Hypertension Neurological: Yes Seizure Disorder Reproductive Disorders: No Female Reproductive Disorders: Denies Genitourinary: No Gastrointestinal: Yes Gastroesophageal Reflux, Pancreatitis Musculoskeletal: No Endocrine: No HEENT: No Cancer: No Psychosocial: Yes (MULTIPLE PSYCH ADMITS. alcoholism) Anxiety, Suicide Attempts, Bipolar, Depression Integumentary: No Blood Disorders: No (CHARMAINE CASTRO STUDENT) Family Medical History Patient reports no known family medical history. Hypertension (CHARMAINE CASTRO) Physical Exam Vital Signs Vital Signs - First Documented 01/14/19 15:45 Temp 99.4 Pulse 67 Resp 18 B/P (MAP) 149/94 (112) Pulse Ox 97 (MICHELLE FELICIANO MD) Vital Signs Capillary Refill : Less Than 3 Seconds (CHARMAINE CASTRO STUDENT) Height/Weight/BMI Height: 5'2.00" Weight: 110lbs. 0oz. 49.724622lh; 21.8 BMI Method:Stated General Appearance: no apparent distress HEENT: PERRL/EOMI Neck: supple, normal inspection Respiratory: lungs clear, normal breath sounds, no respiratory distress Cardiovascular: regular rate, rhythm, no gallop, no murmur Gastrointestinal: soft, tenderness Rectal: deferred Extremities: normal range of motion, normal capillary refill Back: no CVA tenderness, no vertebral tenderness Neurologic/Psychiatric: alert, normal mood/affect, oriented x 3 Skin: normal color, warm/dry (CHARMAINE CASTRO STUDENT) Progress/Results/Core Measures Results/Orders Lab Results Laboratory Tests Test 01/14/19 16:05 Range/Units White Blood Count 6.6 4.3-11.0 10^3/uL Red Blood Count 4.05 L 4.35-5.85 10^6/uL Hemoglobin 13.7 11.5-16.0 G/DL Hematocrit 40 35-52 % Mean Corpuscular Volume 98 80-99 FL Mean Corpuscular Hemoglobin 34 25-34 PG Mean Corpuscular Hemoglobin Concent 35 32-36 G/DL Red Cell Distribution Width 12.6 10.0-14.5 % Platelet Count 432 H 130-400 10^3/uL Mean Platelet Volume 9.2 7.4-10.4 FL Neutrophils (%) (Auto) 78 H 42-75 % Lymphocytes (%) (Auto) 14 12-44 % Monocytes (%) (Auto) 8 0-12 % Eosinophils (%) (Auto) 0 0-10 % Basophils (%) (Auto) 0 0-10 % Neutrophils # (Auto) 5.1 1.8-7.8 X 10^3 Lymphocytes # (Auto) 0.9 L 1.0-4.0 X 10^3 Monocytes # (Auto) 0.5 0.0-1.0 X 10^3 Eosinophils # (Auto) 0.0 0.0-0.3 10^3/uL Basophils # (Auto) 0.0 0.0-0.1 10^3/uL Sodium Level 134 L 135-145 MMOL/L Potassium Level 3.0 L 3.6-5.0 MMOL/L Chloride Level 94 L 98-107 MMOL/L Carbon Dioxide Level 26 21-32 MMOL/L Anion Gap 14 5-14 MMOL/L Blood Urea Nitrogen 7 7-18 MG/DL Creatinine 0.67 0.60-1.30 MG/DL Estimat Glomerular Filtration Rate > 60 BUN/Creatinine Ratio 10 Glucose Level 116 H 70-105 MG/DL Calcium Level 9.2 8.5-10.1 MG/DL Corrected Calcium 9.7 8.5-10.1 MG/DL Total Bilirubin 1.0 0.1-1.0 MG/DL Aspartate Amino Transf (AST/SGOT) 32 5-34 U/L Alanine Aminotransferase (ALT/SGPT) 14 0-55 U/L Alkaline Phosphatase 136 40-136 U/L Total Protein 6.7 6.4-8.2 GM/DL Albumin 3.4 3.2-4.5 GM/DL Lipase 76 8-78 U/L Serum Alcohol < 10 <10 MG/DL (MICHELLE FELICIANO MD) My Orders Orders - MICHELLE FELICIANO MD Alcohol (01/14/19 16:11) Cbc With Automated Diff (01/14/19 16:11) Comprehensive Metabolic Panel (01/14/19 16:11) Lipase (01/14/19 16:11) Saline Lock/Iv-Start (01/14/19 16:11) Ns Iv 1000 Ml (Sodium Chloride 0.9%) (01/14/19 16:11) Famotidine Injection (Pepcid Injection) (01/14/19 16:15) Lidocaine 2% Viscous 15 Ml (Xylocaine Vi (01/14/19 16:15) Antacid Suspension (Mylanta Suspension (01/14/19 16:15) Pantoprazole Tablet (Protonix Tablet) (01/14/19 17:15) Ondansetron Injection (Zofran Injectio (01/14/19 17:15) Potassium Chloride (Tablet) (Klor Con Ta (01/14/19 17:15) (MICHELLE FELICIANO MD) Medications Given in ED Current Medications Medications Dose Ordered Sig/Imelda Route Start Time Stop Time Status Last Admin Dose Admin Al Hydrox/Mg Hydrox/Simethicone 30 ml ONCE ONCE PO 01/14/19 16:15 01/14/19 16:16 DC 01/14/19 16:24 30 ML Famotidine 20 mg ONCE ONCE IVP 01/14/19 16:15 01/14/19 16:16 DC 01/14/19 16:24 20 MG Lidocaine HCl 15 ml ONCE ONCE PO 01/14/19 16:15 01/14/19 16:16 DC 01/14/19 16:24 15 ML Ondansetron HCl 8 mg ONCE ONCE IVP 01/14/19 17:15 01/14/19 17:16 DC 01/14/19 17:17 8 MG Pantoprazole Sodium 40 mg ONCE ONCE PO 01/14/19 17:15 01/14/19 17:16 DC 01/14/19 17:17 40 MG Potassium Chloride 20 meq ONCE ONCE PO 01/14/19 17:15 01/14/19 17:16 DC 01/14/19 17:17 20 MEQ Sodium Chloride 1,000 ml @ 0 mls/hr Q0M ONCE IV 01/14/19 16:11 01/14/19 16:14 DC 01/14/19 16:24 0 MLS/HR (MICHELLE FELICIANO MD) Vital Signs/I&O 01/14/19 01/14/19 15:45 17:35 Temp 99.4 99.4 Pulse 67 67 Resp 18 18 B/P (MAP) 149/94 (112) 149/94 (112) Pulse Ox 97 97 (MICHELLE FELICIANO MD) Blood Pressure Mean: 112 Progress Progress Note : Progress Note Patient was interviewed, seen, examined by me along with Charmaine Castro, MS4. I agree with his history, exam, assessment, plan, and documentation. My exam is as follows: Gen.: Alert, oriented, no acute distress HEENT: normocephalic and atraumatic with moist mucous membranes Heart: Regular rate and rhythm without murmur Lungs: Clear to auscultation bilaterally with normal effort Abdomen: Soft, normal bowel sounds, subtle diffuse tenderness Neuropsych: No focal deficits, normal mood Skin: Warm and dry with normal color Labs were reviewed. They were unremarkable. Vital signs were unremarkable. Patient is managing her withdrawal potential with Ativan prescribed by Dr. Zimmerman. Labs and exam findings did not seem to warrant imaging. I avoided narcotics due to patient's abuse potential for substances. NSAIDs were not given due to suspicion for gastritis. Ultram cannot be given due to risk of lowering seizure threshold with alcohol withdrawal. GI cocktail was given as an alternative. This did not seem to improve her pain much. Patient indicated she may not be on Medications as prescribed. Protonix was therefore given before dismissal along with Pepcid by IV route. Patient admits she has not been using PPI and Carafate as previously directed. She is again encouraged to use these medications. She was congratulated on being sober today. (MICHELLE FELICIANO MD) Departure Impression Primary Impression: Generalized abdominal pain Additional Impressions: Nausea and vomiting Qualified Codes: R11.2 - Nausea with vomiting, unspecified Alcohol dependence Qualified Codes: F10.29 - Alcohol dependence with unspecified alcohol-induced disorder Hypokalemia Disposition: 01 HOME, SELF-CARE Condition: Against Medical Advice Departure-Patient Inst. Decision time for Depature: 17:15 (MICHELLE FELICIANO MD) Referrals: [facility] (PCP/Family) Primary Care Physician Patient Instructions: Acute Abdomen (Belly Pain), Adult (DC) Add. Discharge Instructions: Follow up closely with your primary care provider. If you're not drinking alcohol, you may use Tylenol (acetaminophen) up to 1000 mg every 6 hours as needed. Take omeprazole and Carafate as prescribed. Return to care if symptoms are worsening. Drink plenty of clear liquids and gradually advance her diet with small quantities of bland food as tolerated. All discharge instructions reviewed with patient and/or family. Voiced understanding. Scripts Sucralfate (Carafate) 1 Gm Tablet 1 GM PO QID, #120 TAB Crush and mixed with about 10 mL water to make a slurry. Take 30 minutes before eating/drinking at meals and bedtime. Prov: MICHELLE FELICIANO MD 01/14/19 Ondansetron (Ondansetron Odt) 4 Mg Tab.rapdis 4 MG SL Q4H, #10 TAB Prov: MICHELLE FELICIANO MD 01/14/19 Omeprazole (Omeprazole) 20 Mg Tablet. 20 MG PO BID, #60 TAB Prov: MICHELLE FELICIANO MD 01/14/19 Copy Copies To 1: BARTOLO ZIMMERMAN MD, ROBERT M MED STUDENT Jan 14, 2019 16:45 MICHELLE FELICIANO MD Jan 14, 2019 17:30
[2019-01-14] MEDS ORDERED: ONDANSETRON 4 MG/2 ML (SDV) Z0FRAN IVP ONE (17:15)
[2019-01-14] MEDS ORDERED: PANTOPRAZOLE 40 MG (PROTONIX) TAB PO ONE (17:15)
[2019-01-14] MEDS ORDERED: KCL 10 MEQ TAB (MICRO K) PO ONE (17:15)
[2019-01-14] MEDS ORDERED: SUCR1TAB36 PO (17:30)
[2019-01-14] MEDS ORDERED: OMEP20TA7 PO (17:30)
[2019-01-14] MEDS ORDERED: ONDA4TAB11 SL (17:30)
[2019-01-14 17:35] VITALS: BP 149/94
== END 2019-01-14 17:35 | disposition home or self-care (01) ==
LOC: EDUNIT# 15:35 → ER 15:36
DX: R10.84 Generalized abdominal pain (principal); R11.2 Nausea with vomiting, unspecified; F10.20 Alcohol dependence, uncomplicated; E87.6 Hypokalemia; F12.10 Cannabis abuse, uncomplicated; I10 Essential (primary) hypertension; G40.909 Epilepsy, unspecified, not intractable, without status epilepticus; K21.9 Gastro-esophageal reflux disease without esophagitis; F41.9 Anxiety disorder, unspecified; F31.9 Bipolar disorder, unspecified; Z82.49 Family history of ischemic heart disease and other diseases of the circulatory system; Z91.5 Personal history of self-harm; Z79.51 Long term (current) use of inhaled steroids; Z77.22 Contact with and (suspected) exposure to environmental tobacco smoke (acute) (chronic); Z98.890 Other specified postprocedural states; Z87.19 Personal history of other diseases of the digestive system
CPT/HCPCS: 36415; 80053; 80320; 83690; 85025; 96361; 96374; 96375

== ENCOUNTER 2019-01-16 15:44 | Emergency (ER) | payer SELFPAY ==
[~2019-01-16] VITALS: Ht 160 cm; Wt 68.0 kg
[~2019-01-16 15:44] MED LIST changes: +OMEP20TA7 PO; +ONDA4TAB11 SL
[2019-01-16] MEDS ORDERED: NS IV 1000 ML 1,000 ML IV SCH (16:00)
[2019-01-16] MEDS ORDERED: ONDANSETRON 4 MG/2 ML (SDV) Z0FRAN IVP ONE (16:00)
--- NOTE | 2019-01-16 16:04 | ED Psychosocial ---
General Chief Complaint: Substance Abuse Stated Complaint: ABD PAIN Source: patient, EMS Exam Limitations: no limitations History of Present Illness Date Seen by Provider: Jan 16, 2019 Time Seen by Provider: 15:59 Initial Comments This 48-year-old white female well-known to the emergency department at [facility] presents with a history of significant ethanol ingestion with secondary midabdominal pain from her chronic pancreatitis. The patient has been depressed and this is what has caused her to drink she relates. Patient denies any harm to self. She denies suicidal ideation. The patient has had long-standing depression which is recently caused her to seek psychiatric hospitalization last night. No beds were available in the a.m. patient continued to drink today precipitating her presentation to the emergency departments afternoon. Allergies and Home Medications Allergies Coded Allergies: No Known Drug Allergies (Verified , 02/14/09) Home Medications Albuterol Sulfate 6.7 Gm Hfa.aer.ad, 2 PUFF IH Q6H PRN for SHORTNESS OF BREATH, (Reported) Famotidine 20 Mg Tablet, 20 MG PO BID Prescribed by: MICHELLE RODRIGUEZ on 12/02/182150 Levetiracetam 1,000 Mg Tablet, 1,000 MG PO BID, (Reported) Mirtazapine 30 Mg Tablet, 30 MG PO HS PRN for SLEEP, (Reported) LAST FILLED #30 12-03-18 Omeprazole 40 Mg Capsule.dr, 40 MG PO DAILY, (Reported) Omeprazole 20 Mg Tablet.dr, 20 MG PO BID Prescribed by: MICHELLE RODRIGUEZ on 01/14/191729 Ondansetron 4 Mg Tab.rapdis, 4 MG SL Q4H Prescribed by: MICHELLE RODRIGUEZ on 01/14/191729 Vit W-Ca,Fe,FA(<1 mg) 1 Each Tablet, 1 TAB PO DAILY, (Reported) Sucralfate 1 Gm/10 Ml Oral.susp, 1 GM PO QID Take 30 min before eating/drinking meals and before bed. May substitute tablet to crush and slurry if liquid is cost prohibitive. Prescribed by: MICHELLE RODRIGUEZ on 12/02/182150 Sucralfate 1 Gm Tablet, 1 GM PO QID Crush and mixed with about 10 mL water to make a slurry. Take 30 minutes before eating/drinking at meals and bedtime. Prescribed by: MICHELLE RODRIGUEZ on 01/14/19 2410 Patient Home Medication List Home Medication List Reviewed: Yes Review of Systems Constitutional: No chills, No fever EENTM: No hearing loss Respiratory: No cough Cardiovascular: No chest pain Gastrointestinal: No abdominal pain Genitourinary: no symptoms reported Musculoskeletal: no symptoms reported Skin: No rash Psychiatric/Neurological: No Symptoms Reported Past Ahbmkzy-Qpngmv-Ipvzza Hx Past Med/Social Hx: Reviewed Nursing Past Med/Soc Hx Patient Social History Alcohol Beverage of Choice: Beer, Whiskey, Vodka Drug of Choice: THC Type Used: Cigarettes 2nd Hand Smoke Exposure: Yes Recent Foreign Travel: No Contact w/Someone Who Travel: No Recent Hopitalizations: Yes Immunizations Up To Date Tetanus Booster (TDap): Unknown PED Vaccines UTD: No Date of Pneumonia Vaccine: Aug 17, 2011 Date of Influenza Vaccine: Aug 29, 2018 Seasonal Allergies Seasonal Allergies: No Past Medical History Surgeries: Yes ( X 1, hernia repair, L finger surgery) Abdominal, Section, Orthopedic Respiratory: No Currently Using CPAP: No Currently Using BIPAP: No Cardiac: Yes Hypertension Neurological: Yes Seizure Disorder Reproductive Disorders: No Female Reproductive Disorders: Denies Genitourinary: No Gastrointestinal: Yes Gastroesophageal Reflux, Pancreatitis Musculoskeletal: No Endocrine: No HEENT: No Cancer: No Psychosocial: Yes (MULTIPLE PSYCH ADMITS. alcoholism) Anxiety, Suicide Attempts, Bipolar, Depression Integumentary: No Blood Disorders: No Family Medical History Patient reports no known family medical history. Hypertension Physical Exam Vital Signs - First Documented 01/16/19 15:57 Temp 98.7 Pulse 89 Resp 14 B/P (MAP) 123/94 (104) Pulse Ox 98 O2 Delivery Room Air Capillary Refill : Height, Weight, BMI Height: 5'2.00" Weight: 110lbs. 0oz. 49.368708ul; 21.8 BMI Method:Stated General Appearance: WD/WN, mild distress HEENT: normal ENT inspection Neck: normal inspection Respiratory: normal breath sounds Cardiovascular: regular rate, rhythm Gastrointestinal: tenderness (midepigastric) Extremities: normal range of motion, non-tender, normal inspection Neurologic/Psychiatric: no motor/sensory deficits, alert, normal mood/affect Behavior/Eye Contact: normal speech Thoughts/Hallucinations: No no apparent hallucination, No auditory hallucinations Skin: normal color, warm/dry Progress/Results/Core Measures Results/Orders Lab Results Laboratory Tests Test 01/16/19 15:50 01/16/19 16:16 Range/Units White Blood Count 6.8 4.3-11.0 10^3/uL Red Blood Count 3.73 L 4.35-5.85 10^6/uL Hemoglobin 12.9 11.5-16.0 G/DL Hematocrit 37 35-52 % Mean Corpuscular Volume 98 80-99 FL Mean Corpuscular Hemoglobin 35 H 25-34 PG Mean Corpuscular Hemoglobin Concent 35 32-36 G/DL Red Cell Distribution Width 13.2 10.0-14.5 % Platelet Count 399 130-400 10^3/uL Mean Platelet Volume 9.0 7.4-10.4 FL Neutrophils (%) (Auto) 55 42-75 % Lymphocytes (%) (Auto) 34 12-44 % Monocytes (%) (Auto) 8 0-12 % Eosinophils (%) (Auto) 3 0-10 % Basophils (%) (Auto) 1 0-10 % Neutrophils # (Auto) 3.8 1.8-7.8 X 10^3 Lymphocytes # (Auto) 2.3 1.0-4.0 X 10^3 Monocytes # (Auto) 0.5 0.0-1.0 X 10^3 Eosinophils # (Auto) 0.2 0.0-0.3 10^3/uL Basophils # (Auto) 0.1 0.0-0.1 10^3/uL Sodium Level 142 135-145 MMOL/L Potassium Level 2.9 L 3.6-5.0 MMOL/L Chloride Level 104 98-107 MMOL/L Carbon Dioxide Level 24 21-32 MMOL/L Anion Gap 14 5-14 MMOL/L Blood Urea Nitrogen 4 L 7-18 MG/DL Creatinine 0.61 0.60-1.30 MG/DL Estimat Glomerular Filtration Rate > 60 BUN/Creatinine Ratio 7 Glucose Level 148 H 70-105 MG/DL Calcium Level 7.9 L 8.5-10.1 MG/DL Corrected Calcium 8.7 8.5-10.1 MG/DL Total Bilirubin 0.3 0.1-1.0 MG/DL Aspartate Amino Transf (AST/SGOT) 28 5-34 U/L Alanine Aminotransferase (ALT/SGPT) 14 0-55 U/L Alkaline Phosphatase 111 40-136 U/L Total Protein 5.7 L 6.4-8.2 GM/DL Albumin 3.0 L 3.2-4.5 GM/DL Lipase 68 8-78 U/L Acetaminophen Level < 10 L 10-30 UG/ML Serum Alcohol 488 *H <10 MG/DL Urine Color YELLOW Urine Clarity CLEAR Urine pH 7 5-9 Urine Specific [place] 1.005 L 1.016-1.022 Urine Protein NEGATIVE NEGATIVE Urine Glucose (UA) NEGATIVE NEGATIVE Urine Ketones NEGATIVE NEGATIVE Urine Nitrite NEGATIVE NEGATIVE Urine Bilirubin NEGATIVE NEGATIVE Urine Urobilinogen NORMAL NORMAL MG/DL Urine Leukocyte Esterase NEGATIVE NEGATIVE Urine RBC (Auto) NEGATIVE NEGATIVE Urine RBC NONE /HPF Urine WBC 0-2 /HPF Urine Squamous Epithelial Cells 5-10 /HPF Urine Crystals NONE /LPF Urine Bacteria NEGATIVE /HPF Urine Casts NONE /LPF Urine Mucus NEGATIVE /LPF Urine Culture Indicated NO Urine Opiates Screen NEGATIVE NEGATIVE Urine Oxycodone Screen NEGATIVE NEGATIVE Urine Methadone Screen NEGATIVE NEGATIVE Urine Propoxyphene Screen NEGATIVE NEGATIVE Urine Barbiturates Screen NEGATIVE NEGATIVE Ur Tricyclic Antidepressants Screen NEGATIVE NEGATIVE Urine Phencyclidine Screen NEGATIVE NEGATIVE Urine Amphetamines Screen NEGATIVE NEGATIVE Urine Methamphetamines Screen NEGATIVE NEGATIVE Urine Benzodiazepines Screen NEGATIVE NEGATIVE Urine Cocaine Screen NEGATIVE NEGATIVE Urine Cannabinoids Screen NEGATIVE NEGATIVE My Orders Orders - ALEKSANDRA PISANO MD Lipase (01/16/19 15:53) Cbc With Automated Diff (01/16/19 15:53) Comprehensive Metabolic Panel (01/16/19 15:53) Ua Culture If Indicated (01/16/19 15:53) Ekg Tracing (01/16/19 15:53) Chest 1 View, Ap/Pa Only (01/16/19 15:53) Ns Iv 1000 Ml (Sodium Chloride 0.9%) (01/16/19 16:00) Ondansetron Injection (Zofran Injectio (01/16/19 16:00) Alcohol (01/16/19 15:58) Drug Screen Stat (Urine) (01/16/19 15:58) Acetaminophen (01/16/19 15:58) Medications Given in ED Current Medications Medications Dose Ordered Sig/Imelda Route Start Time Stop Time Status Last Admin Dose Admin Ondansetron HCl 4 mg ONCE ONCE IVP 01/16/19 16:00 01/16/19 16:01 DC 3/2/19 16:25 4 MG Vital Signs/I&O 01/16/19 15:57 Temp 98.7 Pulse 89 Resp 14 B/P (MAP) 123/94 (104) Pulse Ox 98 O2 Delivery Room Air Progress Progress Note : Time: 17:41 Progress Note The patient's lipase was normal. The remainder the patient's laboratory evaluation was essentially unremarkable other than a blood alcohol of approximate 440. The patient was observed in the emergency department for approximately 2 hours while she slept. At the time of discharge patient was awake and alert. The patient was able to ambulate without difficulty. Patient promised that she would follow-up with her mental health counselor on Friday. Telephone calls were made to mental health (Don) and information was provided to him for close follow-up with the patient. Departure Impression Primary Impression: Alcohol abuse Additional Impression: Anxiety and depression Disposition: 01 HOME, SELF-CARE Condition: Improved Departure-Patient Inst. Decision time for Depature: 17:43 Referrals: [facility] (PCP/Family) Primary Care Physician Patient Instructions: ALCOHOL AND SUBSTANCE ABUSE Add. Discharge Instructions: Follow-up with mental health on Friday. DON will call you with instructions. Return if any problems or questions. All discharge instructions reviewed with patient and/or family. Voiced understanding. ALEKSANDRA PISANO MD Jan 16, 2019 16:04
[2019-01-16 16:06] LABS: BASOPHILS # (AUTO) 0.1 10^3/uL (0.0-0.1); BASOPHILS % (AUTO) 1 % (0-10); EOSINOPHILS # (AUTO) 0.2 10^3/uL (0.0-0.3); EOSINOPHILS % (AUTO) 3 % (0-10); HEMATOCRIT 37 % (35-52); HEMOGLOBIN 12.9 G/DL (11.5-16.0); LYMPHOCYTES # (AUTO) 2.3 X 10^3 (1.0-4.0); LYMPHOCYTES % (AUTO) 34 % (12-44); MEAN CORPUSCULAR HEMOGLOBIN 35 PG (25-34); MEAN CORPUSCULAR HGB CONC 35 G/DL (32-36); MEAN CORPUSCULAR VOLUME 98 FL (80-99); MONOCYTES # (AUTO) 0.5 X 10^3 (0.0-1.0); MONOCYTES % (AUTO) 8 % (0-12); NEUTROPHILS # (AUTO) 3.8 X 10^3 (1.8-7.8); NEUTROPHILS % (AUTO) 55 % (42-75); PLATELET COUNT 399 10^3/uL (130-400); RED CELL DISTRIBUTION WIDTH 13.2 % (10.0-14.5); WHITE BLOOD COUNT 6.8 10^3/uL (4.3-11.0)
[2019-01-16 16:27] LABS: ALANINE AMINOTRANSFERASE 14 U/L (0-55); ALKALINE PHOSPHATASE 111 U/L (40-136); BILIRUBIN,TOTAL 0.3 MG/DL (0.1-1.0); BUN/CREATININE RATIO 7; CALCIUM 7.9 MG/DL (8.5-10.1); CARBON DIOXIDE 24 MMOL/L (21-32); CHLORIDE 104 MMOL/L (98-107); CREATININE SERUM 0.61 MG/DL (0.60-1.30); GFR ESTIMATED > 60; GLUCOSE 148 MG/DL (70-105); LIPASE 68 U/L (8-78); POTASSIUM 2.9 MMOL/L (3.6-5.0); SODIUM 142 MMOL/L (135-145); TOTAL PROTEIN 5.7 GM/DL (6.4-8.2)
[2019-01-16 16:28] LABS: BILIRUBIN,URINE NEGATIVE (NEGATIVE); CLARITY,URINE CLEAR; COLOR,URINE YELLOW; GLUCOSE, URINE (UA) NEGATIVE (NEGATIVE); KETONES,URINE NEGATIVE (NEGATIVE); LEUKOCYTE ESTERASE ,URINE NEGATIVE (NEGATIVE); NITRITE,URINE NEGATIVE (NEGATIVE); PH,URINE 7 (5-9); PROTEIN,URINE NEGATIVE (NEGATIVE); UROBILINOGEN,URINE NORMAL (NORMAL)
[2019-01-16 16:37] LABS: BACTERIA,URINE NEGATIVE /HPF
[2019-01-16 16:38] LABS: WBC,URINE 0-2 /HPF
--- NOTE | 2019-01-16 16:38 | Diagnostic Imaging Report ---
INDICATION: Pancreatitis and shortness of breath. FINDINGS: The lungs demonstrate no focal infiltrate or consolidation. There is no effusion. There is no pneumothorax. Heart size and mediastinal contours appear appropriate and pulmonary vascularity appears normal. IMPRESSION: 1. No radiographic evidence of an acute cardiopulmonary process. Dictated by: Dictated on workstation # [id number]
[2019-01-16 16:39] LABS: ACETAMINOPHEN < 10 UG/ML (10-30)
[2019-01-16 16:43] LABS: AMPHETAMINE SCREEN, URINE NEGATIVE (NEGATIVE); BARBITURATE SCREEN URINE NEGATIVE (NEGATIVE); BENZODIAZEPINES SCREEN URINE NEGATIVE (NEGATIVE); CANNABINOID SCREEN, URINE NEGATIVE (NEGATIVE); COCAINE SCREEN URINE NEGATIVE (NEGATIVE); METHADONE STAT NEGATIVE (NEGATIVE); METHAMPHETAMINE SCREEN URINE S NEGATIVE (NEGATIVE); OPIATE SCREEN URINE NEGATIVE (NEGATIVE); OXYCODONE STAT NEGATIVE (NEGATIVE); PROPOXYPHENE STAT NEGATIVE (NEGATIVE); TRICYCLIC ANTIDEPRESSANTS SCRE NEGATIVE (NEGATIVE)
[2019-01-16 17:41] VITALS: BP 123/94
== END 2019-01-16 17:45 | disposition home or self-care (01) ==
LOC: EDUNIT# 15:44 → ER 15:45
DX: F10.20 Alcohol dependence, uncomplicated (principal); F41.8 Other specified anxiety disorders; F32.9 Major depressive disorder, single episode, unspecified; I10 Essential (primary) hypertension; G40.909 Epilepsy, unspecified, not intractable, without status epilepticus; K21.9 Gastro-esophageal reflux disease without esophagitis; F31.9 Bipolar disorder, unspecified; Z91.5 Personal history of self-harm; Z79.51 Long term (current) use of inhaled steroids; Z77.22 Contact with and (suspected) exposure to environmental tobacco smoke (acute) (chronic); Z87.19 Personal history of other diseases of the digestive system; Z98.890 Other specified postprocedural states
CPT/HCPCS: 36415; 71045; 80053; 80306; 80320; 80329; 81000; 83690; 85025; 93005

== ENCOUNTER → 2019-10-29 | Outpatient (CLI) | payer MEDICAID, OTHER ==
--- NOTE | 2019-10-26 13:51 | Diagnostic Imaging Report ---
INDICATION: Rule out radiopaque foreign body. FINDINGS: No radiopaque foreign bodies are identified over either orbit. The sinuses are clear. IMPRESSION: No evidence of radiopaque foreign body in either orbit. Dictated by: Dictated on workstation # [id number]
[~2019-10-29] MED LIST changes: +CYAN-41 PO; -CYAN10006 PO
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
== END ==
LOC: RAD 10-19 09:50
PROVIDERS: ATTEND Internal Medicine
DX: Z01.818 Encounter for other preprocedural examination (principal); M47.26 Other spondylosis with radiculopathy, lumbar region; K86.2 Cyst of pancreas
CPT/HCPCS: 72148

== ENCOUNTER 2020-10-05 18:15 | Emergency (ER) | payer OTHER ==
[~2020-10-05] VITALS: Ht 161.2 cm; Wt 56.6 kg
[~2020-10-05 18:15] MED LIST changes: +OMEP40CA27 PO; -OMEP40CA36 PO; +OXC5T PO; -OXYC-529 PO
--- NOTE | 2020-10-05 18:23 | ED EENT ---
History of Present Illness General Chief Complaint: General Problems/Pain Stated Complaint: CHIN BRUISE Source: patient Exam Limitations: no limitations History of Present Illness Date Seen by Provider: Oct 05, 2020 Time Seen by Provider: 18:20 Initial Comments To ER by EMS from home with reports of right sided jaw pain after a fall 1 month ago. Drinks Whiskey daily. Timing/Duration: abrupt Severity: moderate Prearrival Treatment: no prearrival treatment Associated Symptoms: facial pain/swelling Allergies and Home Medications Allergies Coded Allergies: No Known Drug Allergies (Verified , 02/14/09) Home Medications Albuterol Sulfate 6.7 Gm Hfa.aer.ad, 2 PUFF IH Q6H PRN for SHORTNESS OF BREATH, (Reported) Famotidine 20 Mg Tablet, 20 MG PO BID Prescribed by: MICHELLE RODRIGUEZ on 12/02/182150 Levetiracetam 1,000 Mg Tablet, 1,000 MG PO BID, (Reported) Mirtazapine 30 Mg Tablet, 30 MG PO HS PRN for SLEEP, (Reported) LAST FILLED #30 18 Naproxen 500 Mg Tablet, 500 MG PO BID PRN for PAIN-MODERATE (5-7) Prescribed by: MASSIMO CACERES on 10/05/202001 Omeprazole 40 Mg Capsule.dr, 40 MG PO DAILY, (Reported) Omeprazole 20 Mg Tablet.dr, 20 MG PO BID Prescribed by: MICHELLE RODRIGUEZ on 01/14/191729 Ondansetron 4 Mg Tab.rapdis, 4 MG SL Q4H Prescribed by: MICHELLE RODRIGUEZ on 01/14/191729 Vit W-Ca,Fe,FA(<1 mg) 1 Each Tablet, 1 TAB PO DAILY, (Reported) Sucralfate 1 Gm/10 Ml Oral.susp, 1 GM PO QID Take 30 min before eating/drinking meals and before bed. May substitute tablet to crush and slurry if liquid is cost prohibitive. Prescribed by: MICHELLE RODRIGUEZ on 12/02/182150 Sucralfate 1 Gm Tablet, 1 GM PO QID Crush and mixed with about 10 mL water to make a slurry. Take 30 minutes before eating/drinking at meals and bedtime. Prescribed by: MICHELLE RODRIGUEZ on 01/14/191729 Patient Home Medication List Home Medication List Reviewed: Yes Review of Systems Review of Systems Constitutional: see HPI Eyes: No Symptoms Reported Ears: No Symptoms Reported Nose: no symptoms reported Mouth: see HPI, pain Throat: no symptoms reported Respiratory: no symptoms reported Cardiovascular: no symptoms reported Musculoskeletal: no symptoms reported Neurological: No Symptoms Reported Hematologic/Lymphatic: No Symptoms Reported Immunological/Allergic: no symptoms reported Past Qqvlasw-Kbkmfe-Gtibvz Hx Patient Social History Alcohol Beverage of Choice: Beer, Whiskey, Vodka Drug of Choice: THC Type Used: Cigarettes 2nd Hand Smoke Exposure: Yes Recent Hopitalizations: Yes Immunizations Up To Date Tetanus Booster (TDap): Unknown PED Vaccines UTD: No Date of Pneumonia Vaccine: Aug 17, 2011 Date of Influenza Vaccine: Aug 29, 2018 Seasonal Allergies Seasonal Allergies: No Past Medical History Surgeries: Yes ( X 1, hernia repair, L finger surgery) Abdominal, Section, Orthopedic Respiratory: No Currently Using CPAP: No Currently Using BIPAP: No Cardiac: Yes Hypertension Neurological: Yes Seizure Disorder Reproductive Disorders: No Female Reproductive Disorders: Denies Genitourinary: No Gastrointestinal: Yes Gastroesophageal Reflux, Pancreatitis Musculoskeletal: No Endocrine: No HEENT: No Cancer: No Psychosocial: Yes (MULTIPLE PSYCH ADMITS. alcoholism) Anxiety, Suicide Attempts, Bipolar, Depression Integumentary: No Blood Disorders: No Family Medical History Patient reports no known family medical history. Hypertension Physical Exam Vital Signs Vital Signs - First Documented 10/05/20 18:16 Temp 35.3 Pulse 81 Resp 20 B/P (MAP) 142/91 (108) Pulse Ox 99 O2 Delivery Room Air Height, Weight, BMI Height: 5'3.00" Weight: 150lbs. 0oz. [id number]; 21.8 BMI Method:Estimated General Appearance: WD/WN, no apparent distress Eyes: bilateral eye normal inspection, bilateral eye PERRL, bilateral eye EOMI Ears: bilateral ear auricle normal, bilateral ear canal normal, bilateral ear TM normal Nose: normal inspection; No active bleeding Mouth/Throat: normal mouth inspection; No mandibular swelling; other (minor bruising yellowish in color over the chin. ) Neck: non-tender, full range of motion Respiratory: no respiratory distress, no accessory muscle use Gastrointestinal: normal bowel sounds, non tender Neurologic/Psychiatric: alert, normal mood/affect Skin: normal color, warm/dry Progress/Results/Core Measures Results/Orders My Orders Orders - MASSIMO CACERES APRN Ct Head/Face/Cervical Wo (10/05/20 18:19) Vital Signs/I&O 10/05/20 10/05/20 18:16 20:05 Temp 35.3 36.3 Pulse 81 78 Resp 20 18 B/P (MAP) 142/91 (108) 132/78 (108) Pulse Ox 99 99 O2 Delivery Room Air Room Air Departure Communication (Admissions) Able to eat and drink x1 month, bruising on chin is yellowish in color consistent with subacute injury (tho not likely a month as she claims). She is able to speak, no obvious swelling. Will dc to home with OMFS follow up. Impression Primary Impression: Mandible fracture Disposition: 01 HOME, SELF-CARE Condition: Stable Departure-Patient Inst. Decision time for Depature: 19:46 Referrals: [facility] (PCP/Family) Primary Care Physician JOSE CLARK DDJohnson Patient Instructions: Jaw Fracture Add. Discharge Instructions: 1. Call Dr. Clark tomorrow to make an appointment to be seen next week for recheck. Return to ER for any concerns. All discharge instructions reviewed with patient and/or family. Voiced understanding. Scripts Naproxen (Naprosyn) 500 Mg Tablet 500 MG PO BID PRN for PAIN-MODERATE (5-7), #30 TAB 0 Refills Prov: MASSIMO CACERES APRN 10/05/20 MASSIMO CACERES APRN Oct 05, 2020 18:23
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
[2020-10-05] MEDS ORDERED: NAPR-1071 PO (20:02)
[2020-10-05 20:05] VITALS: BP 132/78
== END 2020-10-05 20:05 | disposition home or self-care (01) ==
LOC: EDUNIT# 18:15 → ER 18:16
DX: S02.611A Fracture of condylar process of right mandible, initial encounter for closed fracture (principal); K21.9 Gastro-esophageal reflux disease without esophagitis; G40.909 Epilepsy, unspecified, not intractable, without status epilepticus; F32.9 Major depressive disorder, single episode, unspecified; Z82.49 Family history of ischemic heart disease and other diseases of the circulatory system; Z77.22 Contact with and (suspected) exposure to environmental tobacco smoke (acute) (chronic); W19.XXXA Unspecified fall, initial encounter
CPT/HCPCS: 70450; 70486; 72125

== ENCOUNTER 2020-10-22 18:34 | Emergency (ER) | payer OTHER ==
[~2020-10-22] VITALS: Ht 158 cm; Wt 54.5 kg
[2020-10-22] MEDS ORDERED: LACTATED RINGERS 1,000 ML IV ONE (18:45)
[2020-10-22 18:54] LABS: BASOPHILS % (AUTO) 0 % (0-10); EOSINOPHILS % (AUTO) 1 % (0-10); HEMATOCRIT 32 % (35-52); LYMPHOCYTES # (AUTO) 0.6 10^3/uL (1.0-4.0); LYMPHOCYTES % (AUTO) 11 % (12-44); MEAN CORPUSCULAR HEMOGLOBIN 37 pg (25-34); MEAN CORPUSCULAR HGB CONC 34 g/dL (32-36); MEAN CORPUSCULAR VOLUME 107 fL (80-99); MEAN PLATELET VOLUME 9.5 fL (9.0-12.2); MONOCYTES # (AUTO) 0.4 10^3/uL (0.0-1.0); MONOCYTES % (AUTO) 7 % (0-12); NEUTROPHILS # (AUTO) 4.6 10^3/uL (1.8-7.8); NEUTROPHILS % (AUTO) 81 % (42-75); PLATELET COUNT 80 10^3/uL (130-400); WHITE BLOOD COUNT 5.7 10^3/uL (4.3-11.0)
[2020-10-22] MEDS ORDERED: LEVETIRACETAM INJECTION 500 MG in NS (IVPB) 50 ML IV ONE (19:00)
[2020-10-22 19:03] LABS: CHLORIDE 104 MMOL/L (98-107); POTASSIUM 3.5 MMOL/L (3.6-5.0); SODIUM 138 MMOL/L (135-145)
[2020-10-22 19:04] LABS: ALBUMIN 3.5 GM/DL (3.2-4.5)
[2020-10-22 19:05] LABS: CALCIUM 8.2 MG/DL (8.5-10.1)
[2020-10-22 19:06] LABS: GLUCOSE 100 MG/DL (70-105); TOTAL PROTEIN 6.5 GM/DL (6.4-8.2)
[2020-10-22 19:07] LABS: CARBON DIOXIDE 20 MMOL/L (21-32)
[2020-10-22 19:08] LABS: BILIRUBIN,TOTAL 0.9 MG/DL (0.1-1.0)
--- NOTE | 2020-10-22 19:08 | ED Neurological Problem ---
General Chief Complaint: Neurological Problems Stated Complaint: SEIZURE Nursing Triage Note: PT TO ED PER EMS FOR C/O SEIZURE-LIKE ACTIVITY. PT REPORTS SHE "RAN OUT OF HER DEPAKOTE EARLIER THIS WEEK." STATES THIS IS HER "SECOND SEIZURE THIS WEEK." PT ALSO REPORTS SHE HAS CONSUMED ETOH TODAY SHE DOES EVERY DAY. PT DENIES LOSS OF BOWEL OR BLADDER CONTROL. NO OTHER C/O VOICED. Nursing Sepsis Screen: No Definite Risk History of Present Illness Date Seen by Provider: Oct 22, 2020 Time Seen by Provider: 18:40 Initial Comments 49-year-old female presents via EMS after having two seizures at home that were witnessed by her daughter. Patient has a history of seizure disorders, she is supposed to be taking Tegretol but she has not taken it in over a week. She reports drinking alcohol lately, she reports drinking several Lujan lites today.She is alert and answering questions appropriately. She denies hitting her head or LOC. EMS reports glucose 114. Diagnosed with mandible fx on 10/05/20 Timing/Duration: 1-3 hours Associated Symptoms: No loss of consciousness, No nausea/vomiting; seizures; No slurred speech; trouble walking (unstable gait); No vision changes Allergies and Home Medications Allergies Coded Allergies: No Known Drug Allergies (Verified , 02/14/09) Home Medications Albuterol Sulfate 6.7 Gm Hfa.aer.ad, 2 PUFF IH Q6H PRN for SHORTNESS OF BREATH, (Reported) Famotidine 20 Mg Tablet, 20 MG PO BID Prescribed by: MICHELLE RODRIGUEZ on 12/02/182150 Levetiracetam 1,000 Mg Tablet, 1,000 MG PO BID, (Reported) Levetiracetam 500 Mg Tablet, 500 MG PO BID Prescribed by: BRIANNA BERMEO on 10/22/202025 Mirtazapine 30 Mg Tablet, 30 MG PO HS PRN for SLEEP, (Reported) LAST FILLED #30 12-03-17 Naproxen 500 Mg Tablet, 500 MG PO BID PRN for PAIN-MODERATE (5-7) Prescribed by: MASSIMO CACERES on 10/05/202001 Omeprazole 40 Mg Capsule.dr, 40 MG PO DAILY, (Reported) Omeprazole 20 Mg Tablet., 20 MG PO BID Prescribed by: MICHELLE RODRIGUEZ on 01/14/191729 Ondansetron 4 Mg Tab.rapdis, 4 MG SL Q4H Prescribed by: MICHELLE RODRIGUEZ on 01/14/19 173 Vit W-Ca,Fe,FA(<1 mg) 1 Each Tablet, 1 TAB PO DAILY, (Reported) Sucralfate 1 Gm/10 Ml Oral.susp, 1 GM PO QID Take 30 min before eating/drinking meals and before bed. May substitute tablet to crush and slurry if liquid is cost prohibitive. Prescribed by: MICHELLE RODRIGUEZ on 12/02/182150 Sucralfate 1 Gm Tablet, 1 GM PO QID Crush and mixed with about 10 mL water to make a slurry. Take 30 minutes before eating/drinking at meals and bedtime. Prescribed by: MICHELLE RODRIGUEZ on 01/14/191729 Patient Home Medication List Home Medication List Reviewed: Yes Review of Systems Review of Systems Constitutional: no symptoms reported, see HPI Psychiatric/Neurological: See HPI, Tonic Clonic Seizures All Other Systems Reviewed Negative Unless Noted: Yes Past Fmuovvj-Mfsskl-Brtkzl Hx Past Med/Social Hx: Reviewed Nursing Past Med/Soc Hx Patient Social History Alcohol Use: Regular Use Number of Drinks Today: 1 Alcohol Beverage of Choice: Beer, Whiskey, Vodka Recreational Drug Use: Yes Drug of Choice: MARIJUANA Smoking Status: Current Everyday Smoker Type Used: Cigarettes 2nd Hand Smoke Exposure: Yes Recent Foreign Travel: No Contact w/Someone Who Travel: No Recent Infectious Disease Expo: No Recent Hopitalizations: No Physical Abuse: No Sexual Abuse: No Mistreated: No Fear: No Immunizations Up To Date Tetanus Booster (TDap): Unknown PED Vaccines UTD: No Date of Pneumonia Vaccine: Aug 17, 2011 Date of Influenza Vaccine: Aug 29, 2018 Seasonal Allergies Seasonal Allergies: No Past Medical History Surgeries: Yes ( X 1, hernia repair, L finger surgery) Abdominal, Section, Orthopedic Respiratory: No Currently Using CPAP: No Currently Using BIPAP: No Cardiac: Yes Hypertension Neurological: Yes Seizure Disorder Reproductive Disorders: No Female Reproductive Disorders: Denies Genitourinary: No Gastrointestinal: Yes Gastroesophageal Reflux, Pancreatitis Musculoskeletal: No Endocrine: No HEENT: No Cancer: No Psychosocial: Yes (MULTIPLE PSYCH ADMITS. alcoholism) Anxiety, Suicide Attempts, Bipolar, Depression Integumentary: No Blood Disorders: No Family Medical History Patient reports no known family medical history. Hypertension Physical Exam Vital Signs Vital Signs - First Documented 10/22/20 18:36 Temp 36.8 Pulse 90 Resp 20 B/P (MAP) 159/96 (117) Pulse Ox 97 O2 Delivery Room Air Capillary Refill : Less Than 3 Seconds Height, Weight, BMI Height: 5'3.00" Weight: 150lbs. 0oz. [id number]; 21.00 BMI Method:Estimated General Appearance: WD/WN, no apparent distress HEENT: PERRL/EOMI, normal ENT inspection, TMs normal, pharynx normal Neck: non-tender, full range of motion, supple, normal inspection Respiratory: chest non-tender, lungs clear Gastrointestinal: normal bowel sounds, non tender, soft Back: normal inspection, no CVA tenderness, no vertebral tenderness Extremities: normal range of motion, non-tender, normal inspection, no pedal edema Neurologic/Psychiatric: no motor/sensory deficits, alert, normal mood/affect, oriented x 3 Crainal Nerves: normal hearing, normal speech, PERRL Coordination/Gait: No normal gait (unsteady) Motor/Sensory: no motor deficit, no sensory deficit Skin: normal color, warm/dry Progress/Results/Core Measures Results/Orders Lab Results Laboratory Tests Test 10/22/20 18:48 10/22/20 19:29 Range/Units White Blood Count 5.7 4.3-11.0 10^3/uL Red Blood Count 3.00 L 3.80-5.11 10^6/uL Hemoglobin 11.0 L 11.5-16.0 g/dL Hematocrit 32 L 35-52 % Mean Corpuscular Volume 107 H 80-99 fL Mean Corpuscular Hemoglobin 37 H 25-34 pg Mean Corpuscular Hemoglobin Concent 34 32-36 g/dL Red Cell Distribution Width 14.3 10.0-14.5 % Platelet Count 80 L 130-400 10^3/uL Mean Platelet Volume 9.5 9.0-12.2 fL Immature Granulocyte % (Auto) 0 % Neutrophils (%) (Auto) 81 H 42-75 % Lymphocytes (%) (Auto) 11 L 12-44 % Monocytes (%) (Auto) 7 0-12 % Eosinophils (%) (Auto) 1 0-10 % Basophils (%) (Auto) 0 0-10 % Neutrophils # (Auto) 4.6 1.8-7.8 10^3/uL Lymphocytes # (Auto) 0.6 L 1.0-4.0 10^3/uL Monocytes # (Auto) 0.4 0.0-1.0 10^3/uL Eosinophils # (Auto) 0.0 0.0-0.3 10^3/uL Basophils # (Auto) 0.0 0.0-0.1 10^3/uL Immature Granulocyte # (Auto) 0.0 0.0-0.1 10^3/uL Prothrombin Time 13.2 12.2-14.7 SEC INR Comment 1.0 0.8-1.4 Activated Partial Thromboplast Time 29 24-35 SEC Sodium Level 138 135-145 MMOL/L Potassium Level 3.5 L 3.6-5.0 MMOL/L Chloride Level 104 98-107 MMOL/L Carbon Dioxide Level 20 L 21-32 MMOL/L Anion Gap 14 5-14 MMOL/L Blood Urea Nitrogen 6 L 7-18 MG/DL Creatinine 0.72 0.60-1.30 MG/DL Estimat Glomerular Filtration Rate > 60 BUN/Creatinine Ratio 8 Glucose Level 100 70-105 MG/DL Calcium Level 8.2 L 8.5-10.1 MG/DL Corrected Calcium 8.6 8.5-10.1 MG/DL Total Bilirubin 0.9 0.1-1.0 MG/DL Aspartate Amino Transf (AST/SGOT) 97 H 5-34 U/L Alanine Aminotransferase (ALT/SGPT) 30 0-55 U/L Alkaline Phosphatase 100 40-136 U/L Total Protein 6.5 6.4-8.2 GM/DL Albumin 3.5 3.2-4.5 GM/DL Acetaminophen Level < 10 L 10-30 UG/ML Valproic Acid (Depakene) Level 4.0 L 50.0-100.0 UG/ML Serum Alcohol < 10 <10 MG/DL Urine Color YELLOW Urine Clarity CLEAR Urine pH 7.5 5-9 Urine Specific [place] 1.015 L 1.016-1.022 Urine Protein TRACE H NEGATIVE Urine Glucose (UA) NEGATIVE NEGATIVE Urine Ketones TRACE H NEGATIVE Urine Nitrite NEGATIVE NEGATIVE Urine Bilirubin NEGATIVE NEGATIVE Urine Urobilinogen 1.0 < = 1.0 MG/DL Urine Leukocyte Esterase TRACE H NEGATIVE Urine RBC (Auto) NEGATIVE NEGATIVE Urine RBC RARE /HPF Urine WBC 2-5 /HPF Urine Squamous Epithelial Cells 5-10 /HPF Urine Crystals NONE /LPF Urine Bacteria TRACE /HPF Urine Casts NONE /LPF Urine Mucus NEGATIVE /LPF Urine Culture Indicated NO Urine Opiates Screen NEGATIVE NEGATIVE Urine Oxycodone Screen NEGATIVE NEGATIVE Urine Methadone Screen NEGATIVE NEGATIVE Urine Propoxyphene Screen NEGATIVE NEGATIVE Urine Barbiturates Screen NEGATIVE NEGATIVE Ur Tricyclic Antidepressants Screen NEGATIVE NEGATIVE Urine Phencyclidine Screen NEGATIVE NEGATIVE Urine Amphetamines Screen NEGATIVE NEGATIVE Urine Methamphetamines Screen NEGATIVE NEGATIVE Urine Benzodiazepines Screen NEGATIVE NEGATIVE Urine Cocaine Screen NEGATIVE NEGATIVE Urine Cannabinoids Screen POSITIVE H NEGATIVE My Orders Orders - JEAN-CLAUDE,BRIANNA COFFEE GROWER Acetaminophen (10/22/20 18:43) Alcohol (10/22/20 18:43) Cbc With Automated Diff (10/22/20 18:43) Comprehensive Metabolic Panel (10/22/20 18:43) Drug Screen Stat (Urine) (10/22/20 18:43) Protime With Inr (10/22/20 18:43) Partial Thromboplastin Time (10/22/20 18:43) Ua Culture If Indicated (10/22/20 18:43) Valproic Acid (10/22/20 18:43) Ed Iv/Invasive Line Start (10/22/20 18:43) Lactated Ringers (Lr 1000 Ml Iv Solution (10/22/20 18:45) Levetiracetam Injection (Keppra Injectio (10/22/20 19:00) Lorazepam Injection (Ativan Injection) (10/22/20 19:56) Medications Given in ED Current Medications Medications Dose Ordered Sig/Imelda Route Start Time Stop Time Status Last Admin Dose Admin Lactated Ringer's 1,000 ml @ 0 mls/hr Q0M ONCE IV 10/22/20 18:45 10/22/20 18:46 DC 10/22/20 19:03 0 MLS/HR Levetiracetam 500 mg/Sodium Chloride 55 ml @ 100 mls/hr ONCE ONCE IV 10/22/20 19:00 10/22/20 19:32 DC 10/22/20 19:11 100 MLS/HR Vital Signs/I&O 10/22/20 10/22/20 18:36 21:10 Temp 36.8 Pulse 90 64 Resp 20 16 B/P (MAP) 159/96 (117) 148/88 Pulse Ox 97 97 O2 Delivery Room Air Room Air Blood Pressure Mean: 117 Progress Progress Note : Time: 18:40 Progress Note Patient seen and evaluated, will obtain labs, normal saline 1 L per IV and Ke ppra 500 mg IV. 1914 Ativan 1 mg IV. No seizure activity. 1999 Patient labs all normal, serum alcohol negative. 2099 she has been alert and oriented through ED visit. No seizure activity. Discharge instructions and return precautions reviewed with the patient and her daughter by phone. All questions answered. Stressed the importance of the patient continuing to take her seizure medicine daily as prescribed. Departure Impression Primary Impression: Seizure disorder Additional Impression: Alcohol abuse Disposition: HOME, SELF-CARE Condition: Improved Departure-Patient Inst. Decision time for Depature: 21:00 Referrals: [facility] [place] (PCP/Family) Primary Care Physician Patient Instructions: Seizures, Adult (DC), Alcohol Abuse and Alcoholism (DC) Add. Discharge Instructions: Follow-up with your primary care provider for seizure disorder. Either resume taking your Depakote or begin the prescription for Keppra. Consider treatment for drug and alcohol addiction. Return to the Emergency Dept for new, urgent healthcare needs. All discharge instructions reviewed with patient and/or family. Voiced understanding. Scripts Levetiracetam (Keppra) 500 Mg Tablet 500 MG PO BID, #60 TAB 0 Refills Prov: BRIANNA BERMEO 10/22/20 BRIANNA BERMEO Oct 22, 2020 19:08
[2020-10-22 19:10] LABS: ALKALINE PHOSPHATASE 100 U/L (40-136); CREATININE SERUM 0.72 MG/DL (0.60-1.30); GFR ESTIMATED > 60
[2020-10-22 19:11] LABS: BUN/CREATININE RATIO 8; PROTHROMBIN TIME PATIENT 13.2 SEC (12.2-14.7)
--- NOTE | 2020-10-22 19:11 | NUR ---
THIS RN TO BEDSIDE, FLUIDS INITIATED. PT EDUCATED TO USE CALL LIGHT NEEDED. CALL LIGHT AT PT'S LT HAND, SIDERAILS UP X2, HOB ELEVATED, DOOR TO ROOM FOR PT OBSERVATION
[2020-10-22 19:13] LABS: ALANINE AMINOTRANSFERASE 30 U/L (0-55)
--- NOTE | 2020-10-22 19:25 | NUR ---
THIS RN TO PT'S ROOM TO FIND HER SITTING ON THE EDGE OF THE BED, GOING THROUGH HER PURSE. PT HAD PULLED IV OUT. THIS RN OBSERVED BLOOD ALL THROUGHOUT THE PT'S BAG, ON HER PHONE, CLOTHING ETC. NEW IV STARTED BY THIS RN AT THIS TIME.
--- NOTE | 2020-10-22 19:32 | NUR ---
PT INSTRUCTED TO STAY IN BED ET USE CALL LIGHT PREVIOUSLY EDUCATED. PT VOICED UNDERSTANDING. SIDERAILS AGAIN, UP X2, HOB ELEVATED, CALL LIGHT IN REACH, DOOR OPEN TO ROOM FOR PT OBSERVATION.
[2020-10-22 19:36] LABS: BILIRUBIN,URINE NEGATIVE (NEGATIVE); CLARITY,URINE CLEAR; COLOR,URINE YELLOW; GLUCOSE, URINE (UA) NEGATIVE (NEGATIVE); KETONES,URINE TRACE (NEGATIVE); LEUKOCYTE ESTERASE ,URINE TRACE (NEGATIVE); NITRITE,URINE NEGATIVE (NEGATIVE); PH,URINE 7.5 (5-9); PROTEIN,URINE TRACE (NEGATIVE)
[2020-10-22 19:45] LABS: BACTERIA,URINE TRACE /HPF; RBC,URINE RARE /HPF
[2020-10-22 19:46] LABS: ACETAMINOPHEN < 10 UG/ML (10-30)
[2020-10-22 19:49] LABS: AMPHETAMINE SCREEN, URINE NEGATIVE (NEGATIVE); BARBITURATE SCREEN URINE NEGATIVE (NEGATIVE); BENZODIAZEPINES SCREEN URINE NEGATIVE (NEGATIVE); CANNABINOID SCREEN, URINE POSITIVE (NEGATIVE); COCAINE SCREEN URINE NEGATIVE (NEGATIVE); METHADONE STAT NEGATIVE (NEGATIVE); METHAMPHETAMINE SCREEN URINE S NEGATIVE (NEGATIVE); OPIATE SCREEN URINE NEGATIVE (NEGATIVE); OXYCODONE STAT NEGATIVE (NEGATIVE); PROPOXYPHENE STAT NEGATIVE (NEGATIVE); TRICYCLIC ANTIDEPRESSANTS SCRE NEGATIVE (NEGATIVE)
[2020-10-22] MEDS ORDERED: LORazepam INJ 2 MG/ML (ATIVAN) VIAL IVP STA (19:56)
[2020-10-22] MEDS ORDERED: LEVE500T99 PO (20:26)
--- NOTE | 2020-10-22 20:54 | NUR ---
jessee keene called et. requested ride home for pt.
[2020-10-22 21:10] VITALS: BP 148/88
--- NOTE | 2020-10-22 21:10 | NUR ---
PT DISCHARGED TO HOME W/ DAUGHTER. THIS RN DISCUSSED DISCHARGE INSTRUCTIONS W/ DAUGHTER. UNDERSTANDING VOICED, NO QUESTIONS.
== END 2020-10-22 21:10 | disposition home or self-care (01) ==
LOC: EDUNIT# 18:34 → ER 18:35
DX: G40.909 Epilepsy, unspecified, not intractable, without status epilepticus (principal); F10.10 Alcohol abuse, uncomplicated; K21.9 Gastro-esophageal reflux disease without esophagitis; F32.9 Major depressive disorder, single episode, unspecified; F17.210 Nicotine dependence, cigarettes, uncomplicated; Z82.49 Family history of ischemic heart disease and other diseases of the circulatory system
CPT/HCPCS: 80053; 80164; 80306; 81000; 85025; 85610; 85730; 99284; G0480 ×2; 36415; 80320; 80329

== ENCOUNTER 2021-03-24 18:05 | Emergency (ER) | payer MEDICAID, OTHER ==
[~2021-03-24] VITALS: Ht 167 cm; Wt 54.0 kg
[2021-03-24 18:05] VITALS: BP 144/100
[~2021-03-24 18:05] MED LIST changes: +LEVE500T99 PO
[2021-03-24] MEDS ORDERED: cefTRIAXone 1,000 MG/2.86 ml vial (IM ONLY) IM ONE (18:15)
[2021-03-24] MEDS ORDERED: LIDOCAINE 1% INJ 20 ML 20 ML VIAL INJ ONE (18:15)
[2021-03-24] MEDS ORDERED: ONDANSETRON 4 MG (ZOFRAN) ORAL DISSOLVE TAB PO STA (18:15)
[2021-03-24] MEDS ORDERED: KETOROLAC 60 MG/2 ML VIAL IM ONE (18:15)
--- NOTE | 2021-03-24 18:23 | ED Integumentary General ---
General Chief Complaint: Skin/Wound Problems Stated Complaint: BREAST PAIN Source: patient Exam Limitations: no limitations History of Present Illness Date Seen by Provider: March 24, 2021 Time Seen by Provider: 18:06 Initial Comments Patient presents to the ER by EMS with chief complaint of 1 day progressively worsening pain swelling and erythema of her left breast. She says she discovered a slow-growing small lump in her left breast in the same place about 4 days ago but it started becoming painful yesterday. No nipple discharge. She had a clean mammogram within the last year through her primary care office. She has not been alternating for the pain because she says the pain is so great is making her nauseated. She has not drank any alcohol today. No trauma to the breast. She denies a history of breast cancer. No significant weight loss or other constitutional symptoms. No cough shortness of air fever chills. Allergies and Home Medications Allergies Coded Allergies: No Known Drug Allergies (Verified , 02/14/09) Home Medications Albuterol Sulfate 6.7 Gm Hfa.aer.ad, 2 PUFF IH Q6H PRN for SHORTNESS OF BREATH, (Reported) Famotidine 20 Mg Tablet, 20 MG PO BID Prescribed by: MICHELLE RODRIGUEZ on 12/02/182150 Hydrocodone/Acetaminophen 1 Each Tablet, 1 TAB PO Q6H PRN for PAIN-MODERATE (5- 7) Prescribed by: EDITA SPRINGER on 03/24/21 183 Levetiracetam 1,000 Mg Tablet, 1,000 MG PO BID, (Reported) Levetiracetam 500 Mg Tablet, 500 MG PO BID Prescribed by: BRIANNA BERMEO on 10/22/202025 Mirtazapine 30 Mg Tablet, 30 MG PO HS PRN for SLEEP, (Reported) LAST FILLED #30 12-03-18 Naproxen 500 Mg Tablet, 500 MG PO BID PRN for PAIN-MODERATE (5-7) Prescribed by: MASSIMO CACERES on 10/05/202001 Omeprazole 40 Mg Capsule., 40 MG PO DAILY, (Reported) Omeprazole 20 Mg Tablet.dr, 20 MG PO BID Prescribed by: MICHELLE RODRIGUEZ on 01/14/191729 Ondansetron 4 Mg Tab.rapdis, 4 MG SL Q4H Prescribed by: MICHELLE RODRIGUEZ on 01/14/19 1730 Ondansetron 4 Mg Tab.rapdis, 4 MG PO Q6H PRN for NAUSEA/VOMITING Prescribed by: EDITA SPRINGER on 03/24/21 183 Vit W-Ca,Fe,FA(<1 mg) 1 Each Tablet, 1 TAB PO DAILY, (Reported) Sucralfate 1 Gm/10 Ml Oral.susp, 1 GM PO QID Take 30 min before eating/drinking meals and before bed. May substitute tablet to crush and slurry if liquid is cost prohibitive. Prescribed by: MICHELLE RODRIGUEZ on 12/02/18 215 Sucralfate 1 Gm Tablet, 1 GM PO QID Crush and mixed with about 10 mL water to make a slurry. Take 30 minutes before eating/drinking at meals and bedtime. Prescribed by: MICHELLE RODRIGUEZ on 01/14/19 173 Sulfamethoxazole/Trimethoprim 1 Each Tablet, 1 EACH PO BID Prescribed by: EDITA SPRINGER on 03/24/211829 Patient Home Medication List Home Medication List Reviewed: Yes Review of Systems Review of Systems Constitutional: No chills, No diaphoresis EENTM: No ear discharge, No hearing loss Respiratory: No cough, No dyspnea on exertion Cardiovascular: No chest pain, No palpitations Gastrointestinal: No abdominal pain, No constipation; nausea; No vomiting Genitourinary: No discharge, No dysuria Musculoskeletal: No back pain, No joint pain Skin: see HPI, change in color, lumps Past Gvdjiiq-Skbgzu-Uflcjj Hx Patient Social History Alcohol Beverage of Choice: Beer, Whiskey, Vodka Drug of Choice: MARIJUANA Type Used: Cigarettes 2nd Hand Smoke Exposure: Yes Recent Hopitalizations: No Immunizations Up To Date Tetanus Booster (TDap): Unknown PED Vaccines UTD: No Date of Pneumonia Vaccine: Aug 17, 2011 Date of Influenza Vaccine: Aug 29, 2018 Seasonal Allergies Seasonal Allergies: No Past Medical History Surgeries: Yes ( X 1, hernia repair, L finger surgery) Abdominal, Section, Orthopedic Respiratory: No Currently Using CPAP: No Currently Using BIPAP: No Cardiac: Yes Hypertension Neurological: Yes Seizure Disorder Reproductive Disorders: No Female Reproductive Disorders: Denies Genitourinary: No Gastrointestinal: Yes Gastroesophageal Reflux, Pancreatitis Musculoskeletal: No Endocrine: No HEENT: No Cancer: No Psychosocial: Yes (MULTIPLE PSYCH ADMITS. alcoholism) Anxiety, Suicide Attempts, Bipolar, Depression Integumentary: No Blood Disorders: No Family Medical History Patient reports no known family medical history. Hypertension Physical Exam Vital Signs Vital Signs - First Documented 03/24/21 18:05 Temp 36.7 Pulse 114 Resp 18 B/P (MAP) 144/100 (115) Pulse Ox 98 Capillary Refill : General Appearance: WD/WN, mild distress HEENT: PERRL/EOMI, pharynx normal Neck: full range of motion, normal inspection Cardiovascular: normal peripheral pulses, regular rate, rhythm Respiratory: no respiratory distress, no accessory muscle use Gastrointestinal: non tender, soft Extremities: normal range of motion, non-tender, normal capillary refill Neurologic/Psychiatric: alert, oriented x 3 Skin: warm/dry, other (7:00 position inferior medial to the left nipple on the left breast is a 4 cm, tender lump with a scant amount of dried drainage at the nipple. Exquisitely tender to palpation. Mobile, firm, not attached lump. No peau d' orange overlying the lump.) Progress/Results/Core Measures Results/Orders My Orders Orders - EDITA SPRINGER Ketorolac Injection (Toradol Injection) (03/24/21 18:15) Ondansetron Oral Dissolve Tab (Zofran (03/24/21 18:15) Rx-Hydrocodone/Apap 5-325 Mg (Rx-Vicodin (03/24/21 18:15) Ceftriaxone For Im Use (Rocephin For Im (03/24/21 18:15) Lidocaine 1% Inj 20 Ml (Xylocaine 1% Inj (03/24/21 18:15) Rx-Ondansetron Po (Rx-Zofran Po) (03/24/21 18:32) Ondansetron Oral Dissolve Tab (Zofran (03/24/21 18:45) Medications Given in ED Current Medications Medications Dose Ordered Sig/Imelda Route Start Time Stop Time Status Last Admin Dose Admin Acetaminophen/ Hydrocodone Bitart 1 ea Q6H PRN PO 03/24/21 18:15 03/24/21 18:30 1 EA Ceftriaxone Sodium 1,000 mg ONCE ONCE IM 03/24/21 18:15 03/24/21 18:17 DC 03/24/21 18:30 1,000 MG Ketorolac Tromethamine 60 mg ONCE ONCE IM 03/24/21 18:15 03/24/21 18:17 DC 03/24/21 18:29 60 MG Lidocaine HCl 2.1 ml ONCE ONCE INJ 03/24/21 18:15 03/24/21 18:17 DC 03/24/21 18:30 2.1 ML Vital Signs/I&O 03/24/21 18:05 Temp 36.7 Pulse 114 Resp 18 B/P (MAP) 144/100 (115) Pulse Ox 98 Progress Progress Note : Time: 18:20 Progress Note Likely she has a ductal blockage with incidental mastitis. Plan is to use warm compresses, nausea medicine, pain medicine, antibiotics and follow-up outpatient with her primary care doctor at [facility]. The patient's heart rate is 100 is likely due to pain. She is afebrile and otherwise aseptic vital signs in appearance. We have reinforced the importance of follow-up to make sure this resolves through her primary care office. Return precautions were given. Departure Impression Primary Impression: Mastitis in female Disposition: 01 HOME, SELF-CARE Condition: Stable Departure-Patient Inst. Decision time for Depature: 18:22 Referrals: [facility] (PCP/Family) Primary Care Physician PAYAM RESENDEZ MD Patient Instructions: Mastitis (DC) Add. Discharge Instructions: Drink plenty of fluids. 1 to 2 tablets of Zofran every 6 hours as necessary to control nausea and/or vomiting. Ibuprofen 800 mg every 8 hours as necessary for pain. Tylenol 650 mg every 8 hours as necessary for pain. Hydrocodone 1 tablet every 6 hours as necessary for severe breakthrough pain. Warm moist compresses applied to the breast and nipple every hour for pain relief. Plan to follow-up next week with your primary care office or with the general surgeon for reevaluation. Return to the ER if you are having severe fever above 102.5 or other worrisome symptoms. Expect improvement in symptoms over the next 3 to 4 days on antibiotics. All discharge instructions reviewed with patient and/or family. Voiced understanding. Scripts Sulfamethoxazole/Trimethoprim (Bactrim Ds Tablet) 1 Each Tablet 1 EACH PO BID for 10 Days, #20 TAB 0 Refills Prov: EDITA SPRINGER 03/24/21 Ondansetron (Ondansetron Odt) 4 Mg Tab.rapdis 4 MG PO Q6H PRN for NAUSEA/VOMITING, #10 TAB 0 Refills Prov: EDITA SPRINGER 03/24/21 Hydrocodone/Acetaminophen (Hydrocodone-Acetamin 5-325 mg) 1 Each Tablet 1 TAB PO Q6H PRN for PAIN-MODERATE (5-7), #15 TAB 0 Refills Prov: EDITA SPRINGER 03/24/21 Copy Copies To 1: DANYELL CHEN DO; PAYAM RESENDEZ MD, TITUS J March 24, 2021 18:23
[2021-03-24] MEDS ORDERED: ACHD5005 PO (18:30)
[2021-03-24] MEDS ORDERED: ONDA4TAB11 PO (18:30)
[2021-03-24] MEDS ORDERED: SULF1TAB35 PO (18:30)
[2021-03-24] MEDS ORDERED: RX-ONDANSETRON 4 MG ODT (ZOFRAN) PPK #4 PO STA (18:32)
[2021-03-24] MEDS ORDERED: ONDANSETRON 4 MG (ZOFRAN) ORAL DISSOLVE TAB PO ONE (18:45)
== END 2021-03-24 18:45 | disposition home or self-care (01) ==
LOC: EDUNIT# 18:06 → ER 18:07
DX: N61.0 Mastitis without abscess (principal); K21.9 Gastro-esophageal reflux disease without esophagitis; I10 Essential (primary) hypertension; G40.909 Epilepsy, unspecified, not intractable, without status epilepticus; F41.9 Anxiety disorder, unspecified; F32.9 Major depressive disorder, single episode, unspecified; Z77.22 Contact with and (suspected) exposure to environmental tobacco smoke (acute) (chronic); Z79.899 Other long term (current) drug therapy
CPT/HCPCS: 99284

== ENCOUNTER 2021-03-29 17:28 | Day surgery (SDC) | payer MEDICAID ==
[~2021-03-29] VITALS: Ht 157 cm; Wt 59.9 kg
[~2021-03-29 17:28] MED LIST changes: +ONDA4TAB11 PO; +SULF1TAB35 PO
[2021-03-29] MEDS ORDERED: morphine INJ 10 MG/ML 1ML (SYR OR VIAL) IVP STA (17:31)
--- NOTE | 2021-03-29 17:42 | ED Integumentary General ---
General Chief Complaint: Skin/Wound Problems Stated Complaint: L BREAST PAIN Source: patient Exam Limitations: no limitations (EDITA SPRINGER) History of Present Illness Date Seen by Provider: March 29, 2021 Time Seen by Provider: 17:23 Initial Comments Patient presents ER by EMS from home with chief complaint of left breast pain and swelling that is worse today. Symptoms started a little less than a week ago with some redness and swelling at the base of her left breast. She was seen in the ER started on antibiotics and set to follow-up outpatient with surgery over the weekend, 4 days ago. She says she never followed up with surgery and is on her last hydrocodone. Last alcoholic drink was yesterday. Last food was 5 AM this morning. She drank water just prior to EMS arrival. She had vomiting x1 today. No fevers or chills. No nausea now. (EDITA SPRINGER) Allergies and Home Medications Allergies Coded Allergies: No Known Drug Allergies (Verified , 02/14/09) Home Medications Albuterol Sulfate 6.7 Gm Hfa.aer.ad, 2 PUFF IH Q6H PRN for SHORTNESS OF BREATH, (Reported) Famotidine 20 Mg Tablet, 20 MG PO BID Prescribed by: MICHELLE RODRIGUEZ on 12/02/182150 Hydrocodone/Acetaminophen 1 Each Tablet, 1 TAB PO Q6H PRN for PAIN-MODERATE (5- 7) Prescribed by: EDITA SPRINGER on 03/24/211830 Levetiracetam 1,000 Mg Tablet, 1,000 MG PO BID, (Reported) Levetiracetam 500 Mg Tablet, 500 MG PO BID Prescribed by: BRIANNA BERMEO on 10/22/202025 Mirtazapine 30 Mg Tablet, 30 MG PO HS PRN for SLEEP, (Reported) LAST FILLED #30 12-03-18 Naproxen 500 Mg Tablet, 500 MG PO BID PRN for PAIN-MODERATE (5-7) Prescribed by: MASSIMO CACERES on 10/05/202001 Omeprazole 40 Mg Capsule., 40 MG PO DAILY, (Reported) Omeprazole 20 Mg Tablet., 20 MG PO BID Prescribed by: MICHELLE RODRIGUEZ on 01/14/191729 Ondansetron 4 Mg Tab.rapdis, 4 MG SL Q4H Prescribed by: MICHELLE RODRIGUEZ on 01/14/19 1730 Ondansetron 4 Mg Tab.rapdis, 4 MG PO Q6H PRN for NAUSEA/VOMITING Prescribed by: EDITA SPRINGER on 03/24/21 183 Vit W-Ca,Fe,FA(<1 mg) 1 Each Tablet, 1 TAB PO DAILY, (Reported) Sucralfate 1 Gm/10 Ml Oral.susp, 1 GM PO QID Take 30 min before eating/drinking meals and before bed. May substitute tablet to crush and slurry if liquid is cost prohibitive. Prescribed by: MICHELLE RODRIGUEZ on 12/02/18 2151 Sucralfate 1 Gm Tablet, 1 GM PO QID Crush and mixed with about 10 mL water to make a slurry. Take 30 minutes before eating/drinking at meals and bedtime. Prescribed by: MICHELLE RODRIGUEZ on 01/14/19 173 Sulfamethoxazole/Trimethoprim 1 Each Tablet, 1 EACH PO BID Prescribed by: EDITA SPRINGER on 03/24/21 183 Patient Home Medication List Home Medication List Reviewed: Yes (EDITA SPRINGER) Review of Systems Review of Systems Constitutional: No chills, No diaphoresis, No fever EENTM: No ear discharge, No ear pain Respiratory: No cough, No short of breath Cardiovascular: No chest pain, No edema Gastrointestinal: No abdominal pain, No constipation, No diarrhea Genitourinary: No discharge, No dysuria Musculoskeletal: No back pain, No joint pain Skin: see HPI (EDITA SPRINGER) All Other Systems Reviewed Negative Unless Noted: Yes (EDITA SPRINGER) Past Vyqowib-Enfsym-Kabfdr Hx Patient Social History Alcohol Use: Regular Use Alcohol Beverage of Choice: Beer, Whiskey, Vodka Drug of Choice: MARIJUANA Smoking Status: Current Everyday Smoker (Half pack per day) Type Used: Cigarettes 2nd Hand Smoke Exposure: Yes Recent Hopitalizations: No (EDITA SPRINGER) Immunizations Up To Date Tetanus Booster (TDap): Unknown PED Vaccines UTD: No Date of Pneumonia Vaccine: Aug 17, 2011 Date of Influenza Vaccine: Aug 29, 2018 (EDITA SPRINGER) Seasonal Allergies Seasonal Allergies: No (EDITA SPRINGER) Past Medical History Surgeries: Yes ( X 1, hernia repair, L finger surgery) Abdominal, Section, Orthopedic Respiratory: No Currently Using CPAP: No Currently Using BIPAP: No Cardiac: Yes Hypertension Neurological: Yes Seizure Disorder Reproductive Disorders: No Female Reproductive Disorders: Denies [employer]IST History: Menopausal Genitourinary: No Gastrointestinal: Yes Gastroesophageal Reflux, Pancreatitis Musculoskeletal: No Endocrine: No HEENT: No Cancer: No Psychosocial: Yes (MULTIPLE PSYCH ADMITS. alcoholism) Anxiety, Suicide Attempts, Bipolar, Depression Integumentary: No Blood Disorders: No (EDITA SPRINGER) Family Medical History Patient reports no known family medical history. Hypertension (EDITA SPRINGER) Physical Exam Vital Signs Vital Signs - First Documented 03/29/21 17:35 Temp 35.8 Pulse 114 Resp 20 B/P (MAP) 135/82 (99) O2 Delivery Room Air (MASSIMO CACERES APRN) Vital Signs Capillary Refill : (EDITA SPRINGER) General Appearance: WD/WN, no apparent distress HEENT: PERRL/EOMI, pharynx normal Neck: non-tender, full range of motion, normal inspection Cardiovascular: normal peripheral pulses, regular rate, rhythm Respiratory: lungs clear, normal breath sounds, no respiratory distress, no accessory muscle use Gastrointestinal: normal bowel sounds, non tender, soft Skin: other (Erythematous, fluctuant abscess on the lower portion of the left breast with pointing) (EDITA SPRINGER) Progress/Results/Core Measures Results/Orders Lab Results Laboratory Tests Test 03/29/21 17:50 Range/Units White Blood Count 6.7 4.3-11.0 10^3/uL Red Blood Count 2.73 L 3.80-5.11 10^6/uL Hemoglobin 10.1 L 11.5-16.0 g/dL Hematocrit 30 L 35-52 % Mean Corpuscular Volume 109 H 80-99 fL Mean Corpuscular Hemoglobin 37 H 25-34 pg Mean Corpuscular Hemoglobin Concent 34 32-36 g/dL Red Cell Distribution Width 14.0 10.0-14.5 % Platelet Count 161 130-400 10^3/uL Mean Platelet Volume 9.5 9.0-12.2 fL Immature Granulocyte % (Auto) 1 % Neutrophils (%) (Auto) 80 H 42-75 % Lymphocytes (%) (Auto) 10 L 12-44 % Monocytes (%) (Auto) 7 0-12 % Eosinophils (%) (Auto) 2 0-10 % Basophils (%) (Auto) 1 0-10 % Neutrophils # (Auto) 5.4 1.8-7.8 10^3/uL Lymphocytes # (Auto) 0.7 L 1.0-4.0 10^3/uL Monocytes # (Auto) 0.4 0.0-1.0 10^3/uL Eosinophils # (Auto) 0.1 0.0-0.3 10^3/uL Basophils # (Auto) 0.1 0.0-0.1 10^3/uL Immature Granulocyte # (Auto) 0.1 0.0-0.1 10^3/uL Sodium Level 133 L 135-145 MMOL/L Potassium Level 2.2 *L 3.6-5.0 MMOL/L Chloride Level 98 98-107 MMOL/L Carbon Dioxide Level 14 L 21-32 MMOL/L Anion Gap 21 H 5-14 MMOL/L Blood Urea Nitrogen 10 7-18 MG/DL Creatinine 0.79 0.60-1.30 MG/DL Estimat Glomerular Filtration Rate > 60 BUN/Creatinine Ratio 13 Glucose Level 67 L 70-105 MG/DL Calcium Level 8.1 L 8.5-10.1 MG/DL Corrected Calcium 9.1 8.5-10.1 MG/DL Total Bilirubin 1.1 H 0.1-1.0 MG/DL Aspartate Amino Transf (AST/SGOT) 145 H 5-34 U/L Alanine Aminotransferase (ALT/SGPT) 57 H 0-55 U/L Alkaline Phosphatase 246 H 40-136 U/L Total Protein 6.2 L 6.4-8.2 GM/DL Albumin 2.7 L 3.2-4.5 GM/DL Serum Alcohol 36 H <10 MG/DL (MASSIMO CACERES APRN) My Orders Orders - MASSIMO CACERES APRN Magnesium (03/29/21 18:18) Potassium Chloride (Tablet) (K Dur Table (03/29/21 18:30) (MASSIMO CACERES APRN) Medications Given in ED Current Medications Medications Dose Ordered Sig/Imelda Route Start Time Stop Time Status Last Admin Dose Admin Lactated Ringer's 1,000 ml @ 0 mls/hr Q0M ONCE IV 03/29/21 17:45 03/29/21 17:46 DC 03/29/21 17:54 1,000 MLS/HR Potassium Chloride 60 meq ONCE ONCE PO 03/29/21 18:30 03/29/21 18:31 03/29/21 18:26 60 MEQ (MASSIMO CACERES APRN) Vital Signs/I&O 03/29/21 17:35 Temp 35.8 Pulse 114 Resp 20 B/P (MAP) 135/82 (99) O2 Delivery Room Air (MASSIMO CACERES APRN) Progress Progress Note : Time: 17:45 Progress Note Doxycycline IV, labs. She has heart rate in the low 100s so unless he has a large white count no need to do a septic work-up. Discussed the case with Dr. Millard and since she just drink water before coming in he would suggest we put her on the case load for the first case in the morning. He agrees with antibiotics fluids pain medicine and alcohol withdrawal protocol. (EDITA SPRINGER) Departure Communication (Admissions) Time/Spoke to Admitting Phy: 17:35 Discussed the case with Dr. Millard. Put her on the case first thing in the morning for incision of left breast and drainage. (EDITA SPRINGER) Give her 60 mEq of potassium orally here and 60 mEq of potassium chloride IV upstairs. (MASSIMO CACERES APRN) Impression Primary Impression: Breast abscess of female Disposition: ADMITTED INPATIENT Condition: Stable Admissions Decision to Admit Reason: Admit from ER (General) Decision to Admit/Date: March 29, 2021 Time/Decision to Admit Time: 17:30 (EDITA SPRINGER) Departure-Patient Inst. Ref[place]: [facility] [place] Primary Care Physician EDITA SPRINGER March 29, 2021 17:42 MASSIMO CACERES APRN March 29, 2021 18:29
[2021-03-29] MEDS ORDERED: LACTATED RINGERS 1,000 ML IV ONE (17:45)
[2021-03-29 17:57] LABS: BASOPHILS # (AUTO) 0.1 10^3/uL (0.0-0.1); BASOPHILS % (AUTO) 1 % (0-10); EOSINOPHILS # (AUTO) 0.1 10^3/uL (0.0-0.3); EOSINOPHILS % (AUTO) 2 % (0-10); HEMATOCRIT 30 % (35-52); HEMOGLOBIN 10.1 g/dL (11.5-16.0); LYMPHOCYTES # (AUTO) 0.7 10^3/uL (1.0-4.0); LYMPHOCYTES % (AUTO) 10 % (12-44); MEAN CORPUSCULAR HEMOGLOBIN 37 pg (25-34); MEAN CORPUSCULAR HGB CONC 34 g/dL (32-36); MEAN CORPUSCULAR VOLUME 109 fL (80-99); MEAN PLATELET VOLUME 9.5 fL (9.0-12.2); MONOCYTES # (AUTO) 0.4 10^3/uL (0.0-1.0); MONOCYTES % (AUTO) 7 % (0-12); NEUTROPHILS # (AUTO) 5.4 10^3/uL (1.8-7.8); NEUTROPHILS % (AUTO) 80 % (42-75); PLATELET COUNT 161 10^3/uL (130-400); WHITE BLOOD COUNT 6.7 10^3/uL (4.3-11.0)
[2021-03-29 18:05] LABS: ALBUMIN 2.7 GM/DL (3.2-4.5)
[2021-03-29 18:06] LABS: CHLORIDE 98 MMOL/L (98-107); SODIUM 133 MMOL/L (135-145)
[2021-03-29 18:07] LABS: CALCIUM 8.1 MG/DL (8.5-10.1)
[2021-03-29 18:08] LABS: GLUCOSE 67 MG/DL (70-105); TOTAL PROTEIN 6.2 GM/DL (6.4-8.2)
[2021-03-29 18:09] LABS: CARBON DIOXIDE 14 MMOL/L (21-32)
[2021-03-29 18:10] LABS: BILIRUBIN,TOTAL 1.1 MG/DL (0.1-1.0)
[2021-03-29 18:12] LABS: ALKALINE PHOSPHATASE 246 U/L (40-136); CREATININE SERUM 0.79 MG/DL (0.60-1.30); GFR ESTIMATED > 60
[2021-03-29 18:13] LABS: BUN/CREATININE RATIO 13
[2021-03-29 18:15] LABS: ALANINE AMINOTRANSFERASE 57 U/L (0-55)
[2021-03-29 18:18] LABS: POTASSIUM 2.2 MMOL/L (3.6-5.0)
[2021-03-29] MEDS ORDERED: KCL 20 MEQ TAB (K-DUR) PO ONE (18:30)
[2021-03-29] MEDS ORDERED: ONDANSETRON 4 MG (ZOFRAN) ORAL DISSOLVE TAB SL PRN (19:00)
[2021-03-29] MEDS ORDERED: ONDANSETRON 4 MG/2 ML (SDV) Z0FRAN IV PRN ×2 (19:00)
[2021-03-29] MEDS ORDERED: LORazepam INJ 2 MG/ML (ATIVAN) VIAL IM/IV PRN (19:00)
[2021-03-29] MEDS ORDERED: D5 1/2 NS 1000 ML IV SOLUTION 1,000 ML IV PRN (19:00)
[2021-03-29] MEDS ORDERED: ANTACID SUSP 30 ML UDC (MYLANTA) PO PRN (19:00)
[2021-03-29] MEDS ORDERED: 1/2 NS IV SOLUTION 1,000 ML IV PRN (19:00)
[2021-03-29] MEDS ORDERED: SENNA W/DOCUSATE (SENOKOT S) TABLET PO PRN (19:00)
[2021-03-29] MEDS ORDERED: LORazepam 1 MG (ATIVAN) TAB PO PRN (19:00)
[2021-03-29] MEDS ORDERED: LORazepam INJ 2 MG/ML (ATIVAN) VIAL IV PRN (19:00)
[2021-03-29] MEDS ORDERED: HYDROmorphone 2 MG/ML VIAL (DILAUDID) IV PRN (19:00)
[2021-03-29 20:16] VITALS: BP 104/55
[2021-03-29] MEDS: MAGNESIUM OXIDE (MAG-OX)400 MG TAB PO SCH (20:34)
[2021-03-29] MEDS: DOXYCYCLINE INJECTION 100 MG in NS (IVPB) 100 ML IV SCH (20:34)
[2021-03-29] MEDS: NS IV 1000 ML 1,000 ML IV SCH (20:38)
[2021-03-29] MEDS: POTASSIUM CL 10 MEQ/50 ML IVPB (PRE-MIX) IV SCH ×3 (21:41→23:39)
[2021-03-29 23:40] VITALS: BP 96/58
[2021-03-30] VITALS (12 sets, daily range): BP systolic 83–111; BP diastolic 52–64
[2021-03-30] MEDS: POTASSIUM CL 10 MEQ/50 ML IVPB (PRE-MIX) IV SCH ×3 (00:42→02:57)
[2021-03-30] MEDS: morphine INJ 4 MG/ML 1 ML (VIAL/SYRINGE) IV PRN ×3 (03:00→08:10)
[2021-03-30 05:45] LABS: BASOPHILS # (AUTO) 0.1 10^3/uL (0.0-0.1); BASOPHILS % (AUTO) 1 % (0-10); EOSINOPHILS # (AUTO) 0.2 10^3/uL (0.0-0.3); EOSINOPHILS % (AUTO) 2 % (0-10); HEMATOCRIT 24 % (35-52); LYMPHOCYTES # (AUTO) 0.5 10^3/uL (1.0-4.0); LYMPHOCYTES % (AUTO) 9 % (12-44); MEAN CORPUSCULAR HEMOGLOBIN 36 pg (25-34); MEAN CORPUSCULAR HGB CONC 33 g/dL (32-36); MEAN CORPUSCULAR VOLUME 109 fL (80-99); MEAN PLATELET VOLUME 9.7 fL (9.0-12.2); MONOCYTES # (AUTO) 0.3 10^3/uL (0.0-1.0); MONOCYTES % (AUTO) 6 % (0-12); NEUTROPHILS # (AUTO) 4.9 10^3/uL (1.8-7.8); NEUTROPHILS % (AUTO) 81 % (42-75); PLATELET COUNT 143 10^3/uL (130-400); WHITE BLOOD COUNT 6.1 10^3/uL (4.3-11.0)
[2021-03-30] MEDS: THIAMINE 100 MG (VITAMIN B-1) TAB PO SCH (06:18)
[2021-03-30] MEDS: MULTIVIT W/MINERALS TAB (THERAGRAN M) PO SCH (06:18)
[2021-03-30] MEDS: NS IV 1000 ML 1,000 ML IV SCH ×4 (06:47→23:00)
--- NOTE | 2021-03-30 07:36 | History & Physical-Surgical ---
History of Present Illness History of Present Illness Reason for visit/HPI CC: left breast abscess Patient is a 50 year old female with left breast infection that started last week. Continued to worsen. Was seen in the ED and given antibiotics last week, was supposed to follow up with surgeon but did not. Worsening pain yesterday. 9/10 sharp constant pain. Worse when touched. Nothing making better. States had mammogram last year, not sure where. Denies n/v fever sweats chills shortness of breath or chest pain at this time. Date of Admission March 29, 2021 at 17:45 Date Seen by a Provider: March 30, 2021 Time Seen by a Provider: 07:34 I consulted on this patient on 03/30/21 07:30 Attending Physician Demar Driscoll DO Admitting Physician [facility] Consult Allergies and Home Medications Allergies Coded Allergies: No Known Drug Allergies (Verified , 02/14/09) Home Medications Albuterol Sulfate 6.7 Gm Hfa.aer.ad, 2 PUFF IH Q6H PRN for SHORTNESS OF BREATH, (Reported) Famotidine 20 Mg Tablet, 20 MG PO BID Prescribed by: MICHELLE RODRIGUEZ on 12/02/182150 Hydrocodone/Acetaminophen 1 Each Tablet, 1 TAB PO Q6H PRN for PAIN-MODERATE (5- 7) Prescribed by: EDITA SPRINGER on 03/24/211830 Levetiracetam 1,000 Mg Tablet, 1,000 MG PO BID, (Reported) Levetiracetam 500 Mg Tablet, 500 MG PO BID Prescribed by: BRIANNA BERMEO on 10/22/202025 Mirtazapine 30 Mg Tablet, 30 MG PO HS PRN for SLEEP, (Reported) LAST FILLED #30 12-03-17 Naproxen 500 Mg Tablet, 500 MG PO BID PRN for PAIN-MODERATE (5-7) Prescribed by: MASSIMO CACERES on 10/05/202001 Omeprazole 40 Mg Capsule., 40 MG PO DAILY, (Reported) Omeprazole 20 Mg Tablet.dr, 20 MG PO BID Prescribed by: MICHELLE RODRIGUEZ on 01/14/191729 Ondansetron 4 Mg Tab.rapdis, 4 MG SL Q4H Prescribed by: MICHELLE RODRIGUEZ on 2/28/19 1730 Ondansetron 4 Mg Tab.rapdis, 4 MG PO Q6H PRN for NAUSEA/VOMITING Prescribed by: EDITA SPRINGER on 03/24/21 183 Vit W-Ca,Fe,FA(<1 mg) 1 Each Tablet, 1 TAB PO DAILY, (Reported) Sucralfate 1 Gm/10 Ml Oral.susp, 1 GM PO QID Take 30 min before eating/drinking meals and before bed. May substitute tablet to crush and slurry if liquid is cost prohibitive. Prescribed by: MICHELLE RODRIGUEZ on 12/02/18 215 Sucralfate 1 Gm Tablet, 1 GM PO QID Crush and mixed with about 10 mL water to make a slurry. Take 30 minutes before eating/drinking at meals and bedtime. Prescribed by: MICHELLE RODRIGUEZ on 01/14/191729 Sulfamethoxazole/Trimethoprim 1 Each Tablet, 1 EACH PO BID Prescribed by: EDITA SPRINGER on 03/24/211829 Patient Home Medication List Home Medication List Reviewed: Yes Past Enutgls-Mdltig-Ykioyf Hx Patient Social History Number of Drinks Today: FF Drug of Choice: MARIJUANA Smoking Status: Current Everyday Smoker Type Used: Cigarettes 2nd Hand Smoke Exposure: Yes Recent Hopitalizations: No Alcohol Use?: Yes Have you traveled recently?: No Immunizations Up To Date Tetanus Booster (TDap): Unknown PED Vaccines UTD: No Date of Pneumonia Vaccine: Aug 17, 2011 Date of Influenza Vaccine: Aug 29, 2018 Seasonal Allergies Seasonal Allergies: No Surgeries History of Surgeries: Yes ( X 1, hernia repair, L finger surgery) Surgeries: Abdominal, Section, Orthopedic Respiratory History of Respiratory Disorde: No Cardiovascular History of Cardiac Disorders: Yes Cardiac Disorders: Hypertension Neurological History of Neurological Disord: Yes Neurological Disorders: Seizure Disorder Reproductive System Hx Reproductive Disorders: No Female Reproductive Disorders: Denies 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 alcoholism) Behavioral Health Disorders: Anxiety, Suicide Attempts, Bipolar, Depression Integumentary History of Skin or Integumenta: No Blood Transfusions History of Blood Disorders: No Reviewed Nursing Assessment Reviewed/Agree w Nursing PMH: Yes Family Medical History Significant Family History: Hypertension Family Medial History: Patient reports no known family medical history. Review of Systems Constitutional: No chills, No diaphoresis EENTM: No blurred vision, No double vision Respiratory: No cough, No dyspnea on exertion Cardiovascular: No chest pain, No palpitations Gastrointestinal: No abdominal pain, No nausea, No vomiting Genitourinary: No decreased output, No discharge Musculoskeletal: No back pain, No joint pain Skin: other (left breast erythema and necrotic appearing skin, fluctuant left breast large area) Psychiatric/Neurological: Denies Anxiety, Denies Depressed, Denies Emotional Problems All Other Systems Reviewed Negative Unless Noted: Yes (Negative excepted noted.) Physical Exam Vital Signs Vital Signs - First Documented 03/29/21 03/29/21 17:35 18:37 Temp 35.8 Pulse 114 Resp 20 B/P (MAP) 135/82 (99) Pulse Ox 100 O2 Delivery Room Air Capillary Refill : Less Than 3 Seconds Height, Weight, BMI Height: 5'3.00" Weight: 150lbs. 0oz. [id number]; 22.23 BMI Method:Estimated General Appearance: No Apparent Distress, Thin HEENT: PERRL/EOMI, Normal ENT Inspection Neck: Non Tender, Supple Respiratory: No Accessory Muscle Use, No Respiratory Distress, Other (left brast fluctuant area around areola, erythema and necrotic skin large portion of breast) Cardiovascular: Regular Rate, Rhythm, No JVD Gastrointestinal: Normal Bowel Sounds, Non Tender, Soft Rectal: Deferred Back: No CVA Tenderness, No Vertebral Tenderness Extremity: Normal Capillary Refill, Normal Inspection Neurologic/Psychiatric: Alert, Oriented x3, No Motor/Sensory Deficits, 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 grower II- XII Norm as Tested Skin: Warm/Dry, Other (left breast changes as above) Lymphatic: No Adenopathy Data Review Labs Laboratory Tests 03/29/21 17:50: White Blood Count 6.7, Red Blood Count 2.73L, Hemoglobin 10.1L, Hematocrit 30L, Mean Corpuscular Volume 109H, Mean Corpuscular Hemoglobin 37H, Mean Corpuscular Hemoglobin Concent 34, Red Cell Distribution Width 14.0, Platelet Count 161, Mean Platelet Volume 9.5, Immature Granulocyte % (Auto) 1, Neutrophils (%) (Auto) 80H, Lymphocytes (%) (Auto) 10L, Monocytes (%) (Auto) 7, Eosinophils (%) (Auto) 2, Basophils (%) (Auto) 1, Neutrophils # (Auto) 5.4, Lymphocytes # (Auto) 0.7L, Monocytes # (Auto) 0.4, Eosinophils # (Auto) 0.1, Basophils # (Auto) 0.1, Immature Granulocyte # (Auto) 0.1, Sodium Level 133L, Potassium Level 2.2*L, Chloride Level 98, Carbon Dioxide Level 14L, Anion Gap 21H, Blood Urea Nitrogen 10, Creatinine 0.79, Estimat Glomerular Filtration Rate > 60, BUN/Creatinine Ratio 13, Glucose Level 67L, Calcium Level 8.1L, Corrected Calcium 9.1, Magnesium Level 2.0, Total Bilirubin 1.1H, Aspartate Amino Transf (AST/SGOT) 145H, Alanine Aminotransferase (ALT/SGPT) 57H, Alkaline Phosphatase 246H, Total Protein 6.2L, Albumin 2.7L, Serum Alcohol 36H 03/30/21 05:35: White Blood Count 6.1, Red Blood Count 2.22L, Hemoglobin 8.0#L, Hematocrit 24L, Mean Corpuscular Volume 109H, Mean Corpuscular Hemoglobin 36H, Mean Corpuscular Hemoglobin Concent 33, Red Cell Distribution Width 14.4, Platelet Count 143, Mean Platelet Volume 9.7, Immature Granulocyte % (Auto) 2, Neutrophils (%) (Auto) 81H, Lymphocytes (%) (Auto) 9L, Monocytes (%) (Auto) 6, Eosinophils (%) (Auto) 2, Basophils (%) (Auto) 1, Neutrophils # (Auto) 4.9, Lymphocytes # (Auto) 0.5L, Monocytes # (Auto) 0.3, Eosinophils # (Auto) 0.2, Basophils # (Auto) 0.1, Immature Granulocyte # (Auto) 0.1 Assessment/Plan Assessment/Plan Admission Sheng left breast abscess left breast cellulitis hypokalemia on antibiotics discussed risks and benefits of incision and drainage and possible partial mastectomy and leaving wound open and needing daily wound care she understands this and wishes to proceed npo repeat labs this morning consult medicine for medical management Admission Status: Observation Assessment/Plan left breast abscess left breast cellulitis hypokalemia on antibiotics discussed risks and benefits of incision and drainage and possible partial mastectomy and leaving wound open and needing daily wound care she understands this and wishes to proceed npo repeat labs this morning consult medicine for medical management DEMAR DRISCOLL DO March 30, 2021 07:36
[2021-03-30 07:57] LABS: BUN/CREATININE RATIO 12; CALCIUM 7.5 MG/DL (8.5-10.1); CARBON DIOXIDE 14 MMOL/L (21-32); CHLORIDE 108 MMOL/L (98-107); CREATININE SERUM 0.78 MG/DL (0.60-1.30); GFR ESTIMATED > 60; POTASSIUM 3.6 MMOL/L (3.6-5.0); SODIUM 134 MMOL/L (135-145)
[2021-03-30 08:03] LABS: GLUCOSE 47 MG/DL (70-105)
[2021-03-30] MEDS ORDERED: LIDOCAINE/EPI 1%-1:100,000 (XYLOCAINE) 20ML ONE (08:11)
[2021-03-30] MEDS ORDERED: DEXTROSE 50% 50 ML (IMS) SYR IV ONE ×2 (08:15→10:45)
[2021-03-30] MEDS ORDERED: SEVOFLURANE (ULTANE) 15 ML INHAL SOLN ONE ×3 (08:35→10:33)
[2021-03-30] MEDS ORDERED: fentaNYL INJ 100 MCG/2 ML AMP ONE (08:35)
[2021-03-30] MEDS ORDERED: proPOfol 200 MG/20 ML (DIPRIVAN) VIAL IV ONE (08:35)
[2021-03-30] MEDS ORDERED: LIDOCAINE PF 2% 5 ML (XYLOCAINE) VIAL ONE (08:35)
[2021-03-30] MEDS ORDERED: MIDAZOLAM 2 MG/2 ML (VERSED) VIAL ONE (08:36)
[2021-03-30] MEDS: LACTATED RINGERS 1,000 ML IV PRN ×2 (09:15→10:04)
[2021-03-30 09:20] LABS: BENZODIAZEPINES SCREEN URINE POSITIVE (NEGATIVE)
[2021-03-30 09:21] LABS: AMPHETAMINE SCREEN, URINE NEGATIVE (NEGATIVE); BARBITURATE SCREEN URINE NEGATIVE (NEGATIVE); CANNABINOID SCREEN, URINE POSITIVE (NEGATIVE); COCAINE SCREEN URINE NEGATIVE (NEGATIVE); METHADONE STAT NEGATIVE (NEGATIVE); METHAMPHETAMINE SCREEN URINE S NEGATIVE (NEGATIVE); OPIATE SCREEN URINE POSITIVE (NEGATIVE); OXYCODONE STAT NEGATIVE (NEGATIVE); PROPOXYPHENE STAT NEGATIVE (NEGATIVE); TRICYCLIC ANTIDEPRESSANTS SCRE NEGATIVE (NEGATIVE)
[2021-03-30] MEDS: DOXYCYCLINE INJECTION 100 MG in NS (IVPB) 100 ML IV SCH ×2 (09:50→19:43)
[2021-03-30] MEDS ORDERED: ONDANSETRON 4 MG/2 ML (SDV) Z0FRAN IVP PRN (10:45)
[2021-03-30] MEDS: MAGNESIUM OXIDE (MAG-OX)400 MG TAB PO SCH ×2 (11:30→19:43)
[2021-03-30] MEDS: FOLIC ACID 1 MG TAB PO SCH (11:30)
[2021-03-30] MEDS ORDERED: LEVO50TA6 PO (15:16)
[2021-03-30] MEDS ORDERED: ACHD5005 PO (15:16)
[2021-03-30] MEDS ORDERED: ONDA4TAB11 PO (15:16)
[2021-03-30] MEDS ORDERED: SERT-414 PO (15:16)
[2021-03-30] MEDS ORDERED: LISI20TA26 PO (15:16)
[2021-03-30] MEDS ORDERED: SULF1TAB35 PO (15:16)
[2021-03-30] MEDS ORDERED: IBUP-1780 PO (15:16)
[2021-03-30] MEDS ORDERED: DIVA250T2 PO (15:16)
[2021-03-30] MEDS ORDERED: GBPN600T PO (15:16)
[2021-03-30] MEDS: HYDROcodone/APAP 5 MG/325 MG (LORTAB) TAB PO PRN (19:51)
--- NOTE | 2021-03-30 21:40 | OPERATIVE REPORT ---
DATE OF SERVICE: 03/30/2021 PREOPERATIVE DIAGNOSIS: Left breast abscess. POSTOPERATIVE DIAGNOSIS: Left breast abscess and necrotic tissue. PROCEDURE: Incision and drainage and debridement of 12 x 6 x 4 cm of left breast. SURGEON: Demar Millard DO ANESTHESIA: General. ESTIMATED BLOOD LOSS: Minimal. COMPLICATIONS: None. INDICATIONS: The patient is a 50-year-old female with an ongoing left breast infection. The patient was supposed to follow up outpatient; however, did not make it to appointment. The patient returned to the Emergency Department for further pain and worsening symptoms. The patient was admitted and kept n.p.o. for surgical intervention. The patient understands risks and benefits of procedure and wished to proceed with procedure. Consent was signed in the chart. DESCRIPTION OF PROCEDURE: The patient was taken to the operating suite. She was prepped and draped in sterile fashion. Timeout was performed. A large area of fluctuance of the left breast, a 15 blade scalpel was used to make a skin incision. Purulent material erupted; culture was obtained. Skin had necrotic tissue areas, which a 15 blade was used to excise this area of necrotic-appearing tissue. All the purulent material was erupted. Several tracts within the left breast were present, which also had areas of necrotic fat throughout this area, which cautery was then used to debride the tissue, overall dimensions being 12 x 6 x 4 cm. Once healthy tissue, the wound was then irrigated with a power rn clinical review. Hemostasis was achieved. The wound was then packed with Kerlix soaked in Betadine. The area was then washed, and dried and sterile bandage was applied. The patient tolerated procedure well without any complications. She was taken to recovery room in stable condition. Job ID: [id number] DocumentID: [id number] Dictated Date: 03/30/2021 14:31:26 Operations/Dispatch Date: 03/30/2021 21:40:07 Dictated By: DEMAR MILLARD DO
[2021-03-31 00:18] VITALS: BP 107/70
[2021-03-31] MEDS: HYDROcodone/APAP 5 MG/325 MG (LORTAB) TAB PO PRN ×3 (04:41→13:21)
[2021-03-31 04:43] VITALS: BP 107/71
[2021-03-31] MEDS: MULTIVIT W/MINERALS TAB (THERAGRAN M) PO SCH (05:37)
[2021-03-31] MEDS: THIAMINE 100 MG (VITAMIN B-1) TAB PO SCH (05:37)
[2021-03-31] MEDS: NS IV 1000 ML 1,000 ML IV SCH ×4 (05:37→23:15)
[2021-03-31 05:53] LABS: HEMATOCRIT 24 % (35-52); HEMOGLOBIN 7.8 g/dL (11.5-16.0); MEAN CORPUSCULAR HEMOGLOBIN 38 pg (25-34); MEAN CORPUSCULAR HGB CONC 33 g/dL (32-36); MEAN CORPUSCULAR VOLUME 115 fL (80-99); MEAN PLATELET VOLUME 10.2 fL (9.0-12.2); PLATELET COUNT 190 10^3/uL (130-400); WHITE BLOOD COUNT 8.7 10^3/uL (4.3-11.0)
[2021-03-31 06:02] LABS: CHLORIDE 106 MMOL/L (98-107); POTASSIUM 3.5 MMOL/L (3.6-5.0); SODIUM 133 MMOL/L (135-145)
[2021-03-31 06:03] LABS: CALCIUM 7.6 MG/DL (8.5-10.1)
[2021-03-31 06:04] LABS: GLUCOSE 138 MG/DL (70-105)
[2021-03-31 06:05] LABS: CARBON DIOXIDE 16 MMOL/L (21-32)
[2021-03-31 06:07] LABS: CREATININE SERUM 0.73 MG/DL (0.60-1.30); GFR ESTIMATED > 60
[2021-03-31 06:08] LABS: BUN/CREATININE RATIO 12
[2021-03-31 08:00] VITALS: BP 123/78
[2021-03-31] MEDS: FOLIC ACID 1 MG TAB PO SCH (08:46)
[2021-03-31] MEDS: DOXYCYCLINE INJECTION 100 MG in NS (IVPB) 100 ML IV SCH ×2 (08:46→19:30)
[2021-03-31] MEDS: MAGNESIUM OXIDE (MAG-OX)400 MG TAB PO SCH ×2 (08:46→19:30)
--- NOTE | 2021-03-31 09:13 | Anesthesia-General Post-Op ---
General Patient Condition Mental Status/LOC: Same as Preop Cardiovascular: Satisfactory Nausea/Vomiting: Absent Respiratory: Satisfactory Pain: Controlled Complications: Absent Post Op Complications Complications None Follow Up Care/Instructions Patient Instructions None needed. Anesthesia/Patient Condition Patient Condition Patient is doing well, no complaints, stable vital signs, no apparent adverse anesthesia problems. No complications reported per nursing. D/C home per [facility] Criteria: BREANNA Paulino CRNA March 31, 2021 09:13
[2021-03-31 12:00] VITALS: BP 125/65
--- NOTE | 2021-03-31 13:24 | Progress Note - Surgery ---
Subjective Time Seen by a Provider: 12:46 Subjective/Events-last exam Pt seen and examined, states she has not had any seizures. Her main complaint is of pain, "its rubbing against my sweatshirt and hurting". Tolerating diet. Review of Systems General: Fatigue Pulmonary: No Dyspnea, No Cough Cardiovascular: No: Chest Pain, Palpitations Gastrointestinal: No: Nausea, Vomiting, Abdominal Pain Objective Exam Vital Signs Date Time Temp Pulse Resp B/P (MAP) Pulse Ox O2 Delivery O2 Flow Rate FiO2 03/31/21 12:00 36.3 90 20 125/65 (85) 98 Room Air 03/31/21 08:00 Room Air 03/31/21 08:00 36.2 93 20 123/78 (93) 98 Room Air 03/31/21 04:43 36.6 91 18 107/71 (83) 94 Room Air 03/31/21 00:18 36.6 79 18 107/70 (82) 97 Nasal Cannula 3.00 03/30/21 19:55 Room Air 03/30/21 19:31 36.6 98 20 95/59 (71) 96 Room Air 03/30/21 16:25 36.7 85 16 93/61 (72) 96 Nasal Cannula 3.00 I & O 03/31/21 07:00 Intake Total 2010 ml Output Total 350 ml Balance 1660 ml Capillary Refill : Less Than 3 SecondsLess Than 3 Seconds General Appearance: No Apparent Distress, Thin HEENT: PERRL/EOMI Respiratory: Lungs Clear, Normal Breath Sounds, No Accessory Muscle Use, No Respiratory Distress Cardiovascular: Regular Rate, Rhythm, No JVD Gastrointestinal: non tender, soft, no organomegaly Neurologic/Psychiatric: Alert, Oriented x3, No Motor/Sensory Deficits, 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 Skin: Warm/Dry, Other (left breast with bandage and packing) Results Lab Laboratory Tests 03/31/21 05:30: White Blood Count 8.7, Red Blood Count 2.08L, Hemoglobin 7.8L, Hematocrit 24L, Mean Corpuscular Volume 115H, Mean Corpuscular Hemoglobin 38H, Mean Corpuscular Hemoglobin Concent 33, Red Cell Distribution Width 14.8H, Platelet Count 190, Mean Platelet Volume 10.2, Sodium Level 133L, Potassium Level 3.5L, Chloride [place] 106, Carbon Dioxide Level 16L, Anion Gap 11, Blood Urea Nitrogen 9, Creatinine 0.73, Estimat Glomerular Filtration Rate > 60, BUN/Creatinine Ratio 12, Glucose Level 138H, Calcium Level 7.6L Microbiology 03/30/21 MRSA Screen - Final, Complete Assessment/Plan Assessment/Plan Assessment/Plan Seizure Disorder - will restart Levetiracetam Hyponatremia - IV fluids Hypokalemia - will replace HTN - BP in normal range will monitor, no meds needed at this point Left breast abscess/cellulitis S/P I&D SERVANDO POSADAS DO March 31, 2021 13:24
[2021-03-31] MEDS: POTASSIUM CL 10MEQ/50ML IVPB 50 ML IV SCH ×2 (14:33→15:36)
[2021-03-31 15:40] VITALS: BP 113/74
[2021-03-31 20:28] VITALS: BP 124/71
[2021-04-01] VITALS (7 sets, daily range): BP systolic 130–169; BP diastolic 69–97
[2021-04-01] MEDS: HYDROcodone/APAP 5 MG/325 MG (LORTAB) TAB PO PRN ×4 (02:06→21:20)
[2021-04-01] MEDS: MULTIVIT W/MINERALS TAB (THERAGRAN M) PO SCH (05:48)
[2021-04-01] MEDS: THIAMINE 100 MG (VITAMIN B-1) TAB PO SCH (05:48)
[2021-04-01] MEDS: NS IV 1000 ML 1,000 ML IV SCH ×3 (07:15→20:10)
[2021-04-01] MEDS: FOLIC ACID 1 MG TAB PO SCH (09:18)
[2021-04-01] MEDS: MAGNESIUM OXIDE (MAG-OX)400 MG TAB PO SCH (09:18)
[2021-04-01] MEDS: DOXYCYCLINE INJECTION 100 MG in NS (IVPB) 100 ML IV SCH ×2 (09:25→21:21)
--- NOTE | 2021-04-01 11:46 | Progress Note - Surgery ---
Subjective Time Seen by a Provider: 10:48 Subjective/Events-last exam Pt seen and examined, states no new complaints. Events of last night noted, pt doesn't remember why she fell to her knees; denied hitting head. Pt thinks her last seizure was around 30 days ago. Review of Systems General: Fatigue, Malaise Pulmonary: No Dyspnea, No Cough Cardiovascular: No: Chest Pain, Palpitations Gastrointestinal: No: Nausea, Vomiting Objective Exam Vital Signs Date Time Temp Pulse Resp B/P (MAP) Pulse Ox O2 Delivery O2 Flow Rate FiO2 04/01/21 08:40 98 Room Air 04/01/21 08:00 36.1 85 18 169/83 (111) 98 Room Air 04/01/21 03:58 37.0 83 18 131/70 (90) 97 Room Air 04/01/21 00:38 36.2 96 18 130/69 (89) 99 Room Air 03/31/21 20:28 36.4 93 19 124/71 (88) 98 Room Air 03/31/21 19:35 Room Air 03/31/21 15:40 36.6 81 20 113/74 (87) 96 Room Air 03/31/21 12:00 36.3 90 20 125/65 (85) 98 Room Air I & O0 04/01/21 07:00 Intake Total 1000 ml Balance 1000 ml Capillary Refill : Less Than 3 SecondsLess Than 3 Seconds General Appearance: No Apparent Distress, Thin HEENT: PERRL/EOMI Respiratory: Lungs Clear, Normal Breath Sounds, No Accessory Muscle Use, No Respiratory Distress Cardiovascular: Regular Rate, Rhythm, No JVD Gastrointestinal: non tender, soft, no organomegaly Skin: Warm/Dry, Other (left breast with bandage and packing) Results Lab Microbiology 03/30/21 Gram Stain - Final, Resulted 03/30/21 Anaerobic Culture, Resulted Pending 03/30/21 Surgical Culture - Preliminary, Resulted No growth 03/30/21 MRSA Screen - Final, Complete Assessment/Plan Assessment/Plan Assessment/Plan Seizure Disorder - will restart Levetiracetam Hyponatremia - IV fluids Hypokalemia - will replace HTN - BP in normal range will monitor, no meds needed at this point Left breast abscess/cellulitis S/P I&D SERVANDO POSADAS DO April 01, 2021 11:46
[2021-04-02 04:14] VITALS: BP 144/91
[2021-04-02] MEDS: HYDROcodone/APAP 5 MG/325 MG (LORTAB) TAB PO PRN ×3 (04:24→17:03)
[2021-04-02] MEDS: MULTIVIT W/MINERALS TAB (THERAGRAN M) PO SCH (05:54)
[2021-04-02 07:40] VITALS: BP 146/102
[2021-04-02] MEDS: FOLIC ACID 1 MG TAB PO SCH (08:15)
[2021-04-02] MEDS: DOXYCYCLINE INJECTION 100 MG in NS (IVPB) 100 ML IV SCH (08:15)
[2021-04-02 11:19] VITALS: BP 134/91
[2021-04-02 16:00] VITALS: BP 130/94
[2021-04-02] MEDS ORDERED: DOXYCYCLINE 100 MG (VIBRAMYCIN) TABLET PO SCH (17:00)
[2021-04-02] MEDS ORDERED: DOXY100T2 PO (18:15)
[2021-04-02] MEDS ORDERED: ACHD5005 PO (18:15)
--- NOTE | 2021-04-02 18:19 | Discharge Inst-Simple/Standard ---
Discharge Inst-Standard Discharge Medications New, Converted or Re-Newed RX: Transmitted to Pharmacy Patient Instructions/Follow Up Plan of Care/Instructions/FU: [place] office to see nurses for packing education and dressing change. Needs daily dressing changes. Activity as Tolerated: No Discharge Diet: Regular Diet Other Inst to Patient Follow up Appt: Make appointment for 2 week [place]. Need dressing changes daily. Irrigate and pack with Iodoform. Call and be seen by Dr. Millard's nurses tomorrow and daily for dressing changes. Instructions: No lifting greater than 10 pounds. No strenuous activity. May shower in 24 hours, no tub bath or soaking. Use incentive spirometer at home as directed. No Smoking Skin/Wound Care: Need dressing changes daily. You can have this done with Dr. Millard's office tomorrow and will arrange further depending on your needs. If you have someone that can do dressing changes for you, bring them to the off ice so they can be educated. Symptoms to Report: Appetite Changes, Extremity Discoloration, Numbness/Tingling, Swelling Increased, Bleeding Excessive, Eyesight Changes, Pain Increased, Urine Color Change, Constipation(Persistent), Fever over 101 degree F, Pain/Pressure in chest, Urinating Difficulty, Cough Up/Vomit Blood, Heart Beat Irreg/Pounding, Pain/Pressure in jaw, Vaginal Bleeding Increase, Cramps in feet or legs, Lightheadedness, Pain/Pressure in shoulder, Diarrhea(Persistent), Memory Changes Suddenly, Questions/Concerns, Weight gain consecutive days, Dizziness/Fainting, Nausea/Vomiting, Shortness of Breath, Weight gain over 2 pounds If questions or concerns contact your physician Or seek help at emergency department. DEMAR MILLARD DO April 02, 2021 18:19
--- NOTE | 2021-04-02 19:55 | Progress Note - Surgery ---
Subjective Date Seen by a Provider: April 02, 2021 Time Seen by a Provider: 09:18 Subjective/Events-last exam Patient no new complaints. Pain in left breast better. Denies any new complaints. Denies n/v fever sweats chills shortness of breath or chest pain. Objective Exam Vital Signs Date Time Temp Pulse Resp B/P (MAP) Pulse Ox O2 Delivery O2 Flow Rate FiO2 04/02/21 19:11 04/02/21 16:00 35.8 95 20 130/94 (106) 97 Room Air 04/02/21 11:19 36.5 89 18 134/91 (105) 97 Room Air 04/02/21 08:02 99 Room Air 04/02/21 07:40 36.8 91 17 146/102 (117) 96 Room Air 04/02/21 04:14 36.6 87 20 144/91 (108) 97 Room Air 04/01/21 23:48 36.7 88 18 146/94 (111) 99 Room Air 04/01/21 20:15 99 Room Air 04/01/21 20:00 36.2 87 20 149/90 (109) 98 Room Air I & O 04/02/21 07:00 Intake Total 1650 ml Output Total 660 ml Balance 990 ml Capillary Refill : Less Than 3 SecondsLess Than 3 Seconds General Appearance: No Apparent Distress, Thin HEENT: PERRL/EOMI Respiratory: Chest Non Tender, No Accessory Muscle Use, No Respiratory Distress Cardiovascular: Regular Rate, Rhythm, No JVD Gastrointestinal: non tender, soft, no organomegaly Extremity: Non Tender Neurologic/Psychiatric: Alert, Oriented x3, Normal Mood/Affect Skin: Warm/Dry, Other (left breast open wound, good granulation tissue no necrotic tissue) Results Lab Microbiology 03/30/21 Gram Stain - Final, Resulted 03/30/21 Anaerobic Culture - Preliminary, Resulted Mixed Anaerobic Jolene See Comments 03/30/21 Surgical Culture - Final, Resulted Actinomyces radingae 03/30/21 MRSA Screen - Final, Complete Assessment/Plan Assessment/Plan Assessment/Plan Seizure Disorder Hyponatremia Hypokalemia HTN Left breast abscess/cellulitis S/P I&D Patient explained need for wound care. Dressing changed today. Will have wound care done in the office. Home on antibiotics Wanting to go home. Dc today DEMAR DRISCOLL DO April 02, 2021 19:55
--- NOTE | 2021-04-03 12:44 | D/C HH Face to Face Order ---
D/C Face to Face Orders Instructions for Patient Via [facility], Patient Instructions/FollowUp: Patient needs daily wound care to left breast. Irrigate and pack with iodoform gauze. Physician to follow Patient: [place] Diet for Home: Regular Diet Patient Data-Allergies,Ht & Wt Patient Allergies: Coded Allergies: No Known Drug Allergies (Verified , 02/14/09) Height (Feet): 5 Height (Inches): 3.00 Weight (Pounds): 150 Weight (Ounces): 0 Home Health Need/Face to Face Date of Face to Face: April 02, 2021 Clinical Findings: Wound infection I have seen Pt [id number]: Yes Discharged To: Home Diagnosis/Conditions: Left breast abscess. Patient high risk for not following up. Patient is Homebound due to: CognItive deficits Homebound Status Due to the above stated illness, injury or surgical procedure (medical condition or diagnosis) and associated clinical findings, the patient is homebound because of his/her inability to leave home except with aid of a supportive device and/or person AND leaving the home requires a considerable and taxing effort or is medically contraindicated. Pt req the following assistanc: Aid of another person Home Health Nursing Orders Home Health Services Order: Nursing Services, Wound Care-Eval/Treat Home Health Infusion Therapy Line Start Date: March 29, 2021 Certify Stmt I certify that this patient is under my care and that I, a nurse practitioner or a physician; a law office assistant working with me, had a face to face encounter that - meets the physician face to face encounter requirements with this patient as dated. DEMAR DRISCOLL DO April 03, 2021 12:44
== END 2021-04-02 19:00 | disposition home or self-care (01) ==
LOC: EDUNIT# 17:28 → ER 17:29 → 4TH 17:45 → UNDOADMOB 17:45 → SDC 17:45 → 4TH 17:45 → UNDODISOB 04-02 19:00 → SDC 04-02 19:00
PROVIDERS: ATTEND Surgery
DX: N61.1 Abscess of the breast and nipple (principal); I10 Essential (primary) hypertension; F32.9 Major depressive disorder, single episode, unspecified; K21.9 Gastro-esophageal reflux disease without esophagitis; F41.9 Anxiety disorder, unspecified; F17.210 Nicotine dependence, cigarettes, uncomplicated; Z79.899 Other long term (current) drug therapy
CPT/HCPCS: 19120; 80048 ×2; 80053; 80306; 82947; 83735; 84703; 85025 ×2; 85027; 87070; 87075; 87077; 87081; 87185; 87205; 87636; 96374; 99284; G0480; 36415; 80320; 88304

== ENCOUNTER 2021-05-17 18:46 | Emergency (ER) | payer MEDICAID ==
[~2021-05-17] VITALS: Ht 152 cm; Wt 49.0 kg
[~2021-05-17 18:46] MED LIST changes: +DIVA250T2 PO; +DOXY100T2 PO; +GBPN600T PO; +IBUP-1780 PO; +LEVO50TA6 PO; +LISI20TA26 PO; +MIRT-69 PO; -MIRT30TA6 PO; -OMEP40CA27 PO; +OMEP40CA6 PO; +SERT-414 PO
--- NOTE | 2021-05-17 18:53 | ED General ---
General Stated Complaint: LETHARGY 2 WEEKS Source of Information: Patient, EMS Exam Limitations: No Limitations (MASSIMO CACERES APRN) History of Present Illness Date Seen by Provider: May 17, 2021 Time Seen by Provider: 18:50 Initial Comments to ER by EMS from home after family called EMS with reports of lethargy for 2 weeks. EMS arrived and found her to be lethargic, blood pressure in the 80s and blood sugar was low. They gave one half amp of D50 which improved her mental status. On arrival she is alert, belligerent and yelling at us. She adamantly denies any alcohol use. Timing/Duration: 1-2 Days Severity: Moderate Associated Systoms: Denies Symptoms, Nausea/Vomiting (MASSIMO CACERES APRN) Allergies and Home Medications Allergies Coded Allergies: No Known Drug Allergies (Verified , 02/14/09) Home Medications Divalproex Sodium 250 Mg Tablet.dr, 250 MG PO BID, (Reported) LAST FILLED 01-26-2021 #60/30 DAY SUPPLY Doxycycline Hyclate 100 Mg Tablet, 100 MG PO BID@ Prescribed by: DEMAR DRISCOLL on 04/02/211814 Gabapentin 600 Mg Tablet, 600 MG PO TID, (Reported) LAST FILLED 12-27-2020 #90/30 DAY SUPPLY Hydrocodone/Acetaminophen 1 Each Tablet, 1 TAB PO Q6H PRN for PAIN-MODERATE (5- 7) Prescribed by: DEMAR DRISCOLL on 04/02/211815 Ibuprofen 800 Mg Tablet, 800 MG PO TID PRN for PAIN-MILD, (Reported) Levothyroxine Sodium 50 Mcg Tablet, 50 MCG PO DAILY, (Reported) LAST FILLED 01-26-2021 #30/30 DAY SUPPLY Lisinopril 20 Mg Tablet, 20 MG PO DAILY, (Reported) LAST FILLED 01-26-2021 #30/30 DAY SUPPLY Ondansetron 4 Mg Tab.rapdis, 4 MG PO Q8H PRN for NAUSEA/VOMITING-1ST LINE, (Reported) Sertraline HCl 100 Mg Tablet, 100-200 MG PO DAILY, (Reported) LAST FILLED 01-26-2021 #60/30 DAY SUPPLY Patient Home Medication List Home Medication List Reviewed: Yes (MASSIMO CACERES APRN) Review of Systems Review of Systems Constitutional: see HPI EENTM: see HPI Respiratory: no symptoms reported Cardiovascular: no symptoms reported Genitourinary: no symptoms reported Musculoskeletal: no symptoms reported Skin: no symptoms reported Psychiatric/Neurological: See HPI Hematologic/Lymphatic: No Symptoms Reported Immunological/Allergic: no symptoms reported (MASISMO CACERES APRN) Past Utfewtl-Ffiwnl-Typdkz Hx Immunizations Up To Date Tetanus Booster (TDap): Unknown PED Vaccines UTD: No (MASSIMO CACERES APRN) Seasonal Allergies Seasonal Allergies: No (MASSIMO CACERES APRN) Past Medical History Surgeries: Yes ( X 1, hernia repair, L finger surgery) Abdominal, Section, Orthopedic Respiratory: No Currently Using CPAP: No Currently Using BIPAP: No Cardiac: Yes Hypertension Neurological: Yes Seizure Disorder Reproductive Disorders: No Female Reproductive Disorders: Denies 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 alcoholism) Anxiety, Suicide Attempts, Bipolar, Depression Integumentary: No Blood Disorders: No (MASSIMO CACERES APRN) Family Medical History Patient reports no known family medical history. Hypertension (MASSIMO CACERES APRN) Physical Exam Vital Signs Vital Signs - First Documented 05/17/21 05/18/21 19:00 00:56 Temp 37.7 Pulse 93 Resp 16 B/P (MAP) 84/61 (69) Pulse Ox 98 O2 Delivery Room Air (LESLYE DAVID MD) Vital Signs Capillary Refill : (MASSIMO CACERES APRN) Height, Weight, BMI Height: 5'3.00" Weight: 150lbs. 0oz. 68.302128fn; 22.23 BMI Method:Estimated General Appearance: No Apparent Distress, WD/WN, Chronically ill (Thin, pale, scleral icterus. Belligerent, screaming at us to get her a warm blanket, with any question she states "20 questions over here FUCK!" ) Eyes: Bilateral Eye Normal Inspection, Bilateral Eye PERRL, Bilateral Eye EOMI HEENT: Scleral Icterus (L), Scleral Icterus (R) Neck: Full Range of Motion, Normal Inspection Respiratory: No Accessory Muscle Use, No Respiratory Distress Cardiovascular: Normal Peripheral Pulses, Tachycardia Gastrointestinal: Non Tender, Soft Extremity: Normal Capillary Refill, Normal Inspection Neurologic/Psychiatric: Alert, Oriented x3 Skin: Normal Color, Warm/Dry (MASSIMO CACERES APRN) Focused Exam Lactate Level 05/17/21 19:40: Lactic Acid Level 12.63*H 05/17/21 22:55: Lactic Acid Level 5.60*H (LESLYE DAVID MD) Lactic Acid Level Laboratory Tests Test 05/17/21 19:40 05/17/21 22:55 Lactic Acid Level 12.63 MMOL/L (0.50-2.00) *H 5.60 MMOL/L (0.50-2.00) *H (LESLYE DAVID MD) Progress/Results/Core Measures Suspected Sepsis SIRS Temperature: Pulse: Respiratory Rate: Laboratory Tests 05/17/21 18:55: White Blood Count 9.7 Blood Pressure / Mean: 05/17/21 19:40: Lactic Acid Level 12.63*H Laboratory Tests 05/17/21 18:55: Creatinine 2.40H, INR Comment 1.4, Platelet Count 251, Total Bilirubin 4.0H (MASSIMO CACERES APRN) Results/Orders Lab Results Laboratory Tests Test 05/17/21 18:55 05/17/21 19:17 05/17/21 19:40 05/17/21 20:20 Range/Units White Blood Count 9.7 4.3-11.0 10^3/uL Red Blood Count 2.35 L 3.80-5.11 10^6/uL Hemoglobin 8.9 L 11.5-16.0 g/dL Hematocrit 27 L 35-52 % Mean Corpuscular Volume 116 H 80-99 fL Mean Corpuscular Hemoglobin 38 H 25-34 pg Mean Corpuscular Hemoglobin Concent 33 32-36 g/dL Red Cell Distribution Width 14.2 10.0-14.5 % Platelet Count 251 130-400 10^3/uL Mean Platelet Volume 10.5 9.0-12.2 fL Immature Granulocyte % (Auto) 2 % Neutrophils (%) (Auto) 64 42-75 % Lymphocytes (%) (Auto) 22 12-44 % Monocytes (%) (Auto) 12 0-12 % Eosinophils (%) (Auto) 0 0-10 % Basophils (%) (Auto) 0 0-10 % Neutrophils # (Auto) 6.2 1.8-7.8 10^3/uL Lymphocytes # (Auto) 2.1 1.0-4.0 10^3/uL Monocytes # (Auto) 1.2 H 0.0-1.0 10^3/uL Eosinophils # (Auto) 0.0 0.0-0.3 10^3/uL Basophils # (Auto) 0.0 0.0-0.1 10^3/uL Immature Granulocyte # (Auto) 0.2 H 0.0-0.1 10^3/uL Prothrombin Time 17.3 H 12.2-14.7 SEC INR Comment 1.4 0.8-1.4 Sodium Level 135 135-145 MMOL/L Potassium Level 2.5 *L 3.6-5.0 MMOL/L Chloride Level 100 98-107 MMOL/L Carbon Dioxide Level 7 *L 21-32 MMOL/L Anion Gap 28 H 5-14 MMOL/L Blood Urea Nitrogen 9 7-18 MG/DL Creatinine 2.40 H 0.60-1.30 MG/DL Estimat Glomerular Filtration Rate 21 BUN/Creatinine Ratio 4 Glucose Level 125 H 70-105 MG/DL Glucometer 96 83 70-110 MG/DL Calcium Level 8.0 L 8.5-10.1 MG/DL Corrected Calcium 9.1 8.5-10.1 MG/DL Total Bilirubin 4.0 H 0.1-1.0 MG/DL Aspartate Amino Transf (AST/SGOT) 542 H 5-34 U/L Alanine Aminotransferase (ALT/SGPT) 129 H 0-55 U/L Alkaline Phosphatase 256 H 40-136 U/L Total Creatine Kinase 45 29-168 U/L Total Protein 5.8 L 6.4-8.2 GM/DL Albumin 2.6 L 3.2-4.5 GM/DL Lipase 23 8-78 U/L Beta-Hydroxybutyrate (Chem panel) 1.94 H 0.00-0.27 MMOL/L Serum Alcohol 32 H <10 MG/DL Lactic Acid Level 12.63 *H 0.50-2.00 MMOL/L Blood Gas Puncture Site L BRACH Blood Gas Patient Temperature 37.0 Arterial Blood pH 7.25 *L 7.37-7.43 Arterial Blood Partial Pressure CO2 17 *L 35-45 MMHG Arterial Blood Partial Pressure O2 119 H 79-93 MMHG Arterial Blood HCO3 7 *L 23-27 MMOL/L Arterial Blood Total CO2 7.7 L 21.0-31.0 MMOL/L Arterial Blood Oxygen Saturation 98 94-100 % Arterial Blood Base Excess -18.9 L -2.5-2.5 MMOL/L Juancho Test YES-POS Blood Gas Ventilator Setting NO Blood Gas Inspired Oxygen RA Test 05/17/21 20:38 05/17/21 22:29 05/17/21 22:55 Range/Units Urine Color DARK YELLOW Urine Clarity SL CLOUDY Urine pH 6.0 5-9 Urine Specific [place] 1.020 1.016-1.022 Urine Protein 2+ H NEGATIVE Urine Glucose (UA) TRACE H NEGATIVE Urine Ketones TRACE H NEGATIVE Urine Nitrite NEGATIVE NEGATIVE Urine Bilirubin 2+ H NEGATIVE Urine Urobilinogen >=8.0 < = 1.0 MG/DL Urine Leukocyte Esterase TRACE H NEGATIVE Urine RBC (Auto) 1+ H NEGATIVE Urine RBC 2-5 H /HPF Urine WBC 5-10 H /HPF Urine Crystals PRESENT H /LPF Urine Amorphous Sediment MOD DEBRA URATES H /LPF Urine Bacteria TRACE /HPF Urine Casts PRESENT /LPF Urine Hyaline Casts >50 H /LPF Urine Mucus SMALL H /LPF Urine Culture Indicated YES Urine Test NEGATIVE NEGATIVE Urine Opiates Screen NEGATIVE NEGATIVE Urine Oxycodone Screen NEGATIVE NEGATIVE Urine Methadone Screen NEGATIVE NEGATIVE Urine Propoxyphene Screen NEGATIVE NEGATIVE Urine Barbiturates Screen NEGATIVE NEGATIVE Ur Tricyclic Antidepressants Screen NEGATIVE NEGATIVE Urine Phencyclidine Screen NEGATIVE NEGATIVE Urine Amphetamines Screen NEGATIVE NEGATIVE Urine Methamphetamines Screen NEGATIVE NEGATIVE Urine Benzodiazepines Screen NEGATIVE NEGATIVE Urine Cocaine Screen NEGATIVE NEGATIVE Urine Cannabinoids Screen NEGATIVE NEGATIVE Glucometer 102 70-110 MG/DL SARS-CoV-2 RNA (RT-PCR) Not Detected Not Detecte Lactic Acid Level 5.60 *H 0.50-2.00 MMOL/L (LESLYE DAVID MD) My Orders Orders - LESLYE DAVID MD Fentanyl Inj (Sublimaze Injection) (05/18/21 01:30) Potassium Chloride (Tablet) (K Dur Table (05/18/21 01:30) (LESLYE DAVID MD) Medications Given in ED Current Medications Medications Dose Ordered Sig/Imelda Route Start Time Stop Time Status Last Admin Dose Admin Al Hydrox/Mg Hydrox/Simethicone 30 ml ONCE ONCE PO 05/17/21 21:45 05/17/21 21:46 DC 05/17/21 21:39 30 ML Lidocaine HCl 15 ml ONCE ONCE PO 05/17/21 21:45 05/17/21 21:46 DC 05/17/21 21:39 15 ML Piperacillin Sod/ Tazobactam Sod 4.5 gm/Sodium Chloride 100 ml @ 200 mls/hr ONCE ONCE IV 05/17/21 20:45 05/17/21 21:14 DC 05/17/21 21:04 200 MLS/HR (LESLYE DAVID MD) Vital Signs/I&O 05/17/21 05/18/21 19:00 00:56 Temp 37.7 37.7 Pulse 93 93 Resp 16 16 B/P (MAP) 84/61 (69) 94/60 (69) Pulse Ox 98 O2 Delivery Room Air 05/17/21 23:59 Intake Total 2700 ml Balance 2700 ml (LESLYE DAVID MD) Vital Signs/I&O Capillary Refill : (MASSIMO CACERES APRN) Diagnostic Imaging Diagonstic Imaging: Xray Plain Films/CT/US/NM/MRI: chest Comments NAME: GIANNI UREÑA [facility] REC#: [id number] PT STATUS: REG ER : 1970 PHYSICIAN: MASSIMO CACERES APRN ADMIT DATE: 05/17/21/ER Draft Date of Exam:05/17/21 CHEST 1 VIEW, AP/PA ONLY INDICATION: Weakness. EXAMINATION: Chest 05/17/2021 COMPARISON: 01/16/2019 FINDINGS: The cardiomediastinal silhouette is unremarkable. The pulmonary vasculature is within normal limits. The lungs and pleural spaces are clear. IMPRESSION: No evidence of an acute cardiopulmonary process. Dictated on workstation # [id number] Dict: 05/17/212100 Trans: 05/17/212103 CVB [id number] Interpreted by: SANDRA OCHOA MD Electronically signed by: (MASSIMO CACERES APRN) Critical Care Note Critical Care Start Time: 18:55 Stop Time: 20:55 Total Time (minutes) 60 (MASSIMO CACERES APRN) Departure Communication (Admissions) 4959-She is known to be an alcoholic, alcohol level is only 32 with a markedly elevated lactic acid. One of the differentials outside of obviously severe sepsis includes an alcohol withdrawal seizure. She has received 2.5 L of crystalloids in the emergency room, her pressure is up to 95/60 heart rate 92 respiratory rate 15 100% on room air. She asked for something for acid reflux. GI cocktail ordered. Will admit on empiric Zosyn. 2199-Spoke with Dr Elaine from hospitalist service here, would like patient transferred to higher level of care. 2243-Dr Farris from has accepted the patient for transfer. (MASSIMO CACERES APRN) Impression Primary Impression: Hypokalemia Additional Impressions: Alcohol abuse DODIE (acute kidney injury) Lactic acidosis Disposition: XFER SHT-TRM HOSP Condition: Improved Admissions Decision to Admit Reason: Admit from ER (General) Decision to Admit/Date: May 17, 2021 Time/Decision to Admit Time: 21:53 (MASSIMO CACERES APRN) Transfer Transfer Reason: Exceeds level of care Time Spoke to Accepting Phy: 22:30 Transfer Time: 01:30 Transfer Facility: [facility] Method of Transfer: EMS (LESLYE DAVID MD) Departure-Patient Inst. Referrals: [facility] (PCP/Family) Primary Care Physician MASSIMO CACERES APRN May 17, 2021 18:53 LESLYE DAVID MD May 18, 2021 01:31
[2021-05-17] MEDS ORDERED: NS IV 1000 ML 1,000 ML IV SCH ×2 (19:00→21:30)
[2021-05-17 19:04] LABS: BASOPHILS % (AUTO) 0 % (0-10); EOSINOPHILS % (AUTO) 0 % (0-10); HEMATOCRIT 27 % (35-52); HEMOGLOBIN 8.9 g/dL (11.5-16.0); LYMPHOCYTES # (AUTO) 2.1 10^3/uL (1.0-4.0); LYMPHOCYTES % (AUTO) 22 % (12-44); MEAN CORPUSCULAR HEMOGLOBIN 38 pg (25-34); MEAN CORPUSCULAR HGB CONC 33 g/dL (32-36); MEAN CORPUSCULAR VOLUME 116 fL (80-99); MEAN PLATELET VOLUME 10.5 fL (9.0-12.2); MONOCYTES # (AUTO) 1.2 10^3/uL (0.0-1.0); MONOCYTES % (AUTO) 12 % (0-12); NEUTROPHILS # (AUTO) 6.2 10^3/uL (1.8-7.8); NEUTROPHILS % (AUTO) 64 % (42-75); PLATELET COUNT 251 10^3/uL (130-400); WHITE BLOOD COUNT 9.7 10^3/uL (4.3-11.0)
[2021-05-17 19:12] LABS: ALBUMIN 2.6 GM/DL (3.2-4.5)
[2021-05-17 19:15] LABS: TOTAL PROTEIN 5.8 GM/DL (6.4-8.2)
[2021-05-17 19:19] LABS: CREATININE SERUM 2.4 MG/DL (0.60-1.30)
[2021-05-17 19:20] LABS: INR 1.4 (0.8-1.4); POTASSIUM 2.5 MMOL/L (3.6-5.0); PROTHROMBIN TIME PATIENT 17.3 SEC (12.2-14.7)
[2021-05-17] MEDS ORDERED: HURRICAINE EXT TUBE (BENZOCAINE) XX ONE (20:15)
[2021-05-17 20:29] LABS: ABG BASE EXCESS -18.9 MMOL/L (-2.5-2.5); ABG OXYGEN SATURATION 98 % (94-100); ABG PO2 119 MMHG (79-93); ABG TCO2 7.7 MMOL/L (21.0-31.0); ALLENS TEST YES-POS; INSPIRED O2 RA; VENTILATOR NO
[2021-05-17 20:31] LABS: ABG PCO2 17 MMHG (35-45); ABG PH 7.25 (7.37-7.43)
[2021-05-17 20:43] LABS: CLARITY,URINE SL CLOUDY; COLOR,URINE DARK YELLOW; GLUCOSE, URINE (UA) TRACE (NEGATIVE); KETONES,URINE TRACE (NEGATIVE); LEUKOCYTE ESTERASE ,URINE TRACE (NEGATIVE); NITRITE,URINE NEGATIVE (NEGATIVE); PROTEIN,URINE 2+ (NEGATIVE)
[2021-05-17] MEDS ORDERED: PIPERACILLIN SODIUM/TAZOBACTAM 4.5 GM in NS (IVPB) 100 ML IV ONE (20:45)
[2021-05-17] MEDS: LACTATED RINGERS 1,000 ML IV SCH ×2 (21:04→22:48)
--- NOTE | 2021-05-17 21:04 | Diagnostic Imaging Report ---
INDICATION: Weakness. EXAMINATION: Chest 05/17/2021 COMPARISON: 01/16/2019 FINDINGS: The cardiomediastinal silhouette is unremarkable. The pulmonary vasculature is within normal limits. The lungs and pleural spaces are clear. IMPRESSION: No evidence of an acute cardiopulmonary process. Dictated by: Dictated on workstation # [id number]
[2021-05-17 21:44] LABS: HYALINE CASTS, URINE >50 /LPF
[2021-05-17] MEDS ORDERED: ANTACID SUSP 30 ML UDC (MYLANTA) PO ONE (21:45)
[2021-05-17] MEDS ORDERED: LIDOCAINE 2% VISCOUS 15 ML UDC PO ONE (21:45)
[2021-05-17 21:46] LABS: AMORPHOUS SEDIMENT,UR MOD AMOR URATES /LPF; BACTERIA,URINE TRACE /HPF
[2021-05-17 22:01] LABS: AMPHETAMINE SCREEN, URINE NEGATIVE (NEGATIVE); BARBITURATE SCREEN URINE NEGATIVE (NEGATIVE); BENZODIAZEPINES SCREEN URINE NEGATIVE (NEGATIVE); CANNABINOID SCREEN, URINE NEGATIVE (NEGATIVE); COCAINE SCREEN URINE NEGATIVE (NEGATIVE); METHADONE STAT NEGATIVE (NEGATIVE); METHAMPHETAMINE SCREEN URINE S NEGATIVE (NEGATIVE); OPIATE SCREEN URINE NEGATIVE (NEGATIVE); OXYCODONE STAT NEGATIVE (NEGATIVE); PROPOXYPHENE STAT NEGATIVE (NEGATIVE); TRICYCLIC ANTIDEPRESSANTS SCRE NEGATIVE (NEGATIVE)
[2021-05-17] MEDS ORDERED: POTASSIUM CL 10MEQ/50ML IVPB 50 ML IV SCH (22:45)
[2021-05-18 00:56] VITALS: BP 94/60
[2021-05-18] MEDS ORDERED: fentaNYL INJ 100 MCG/2 ML AMP IVP ONE (01:30)
[2021-05-18] MEDS ORDERED: KCL 20 MEQ TAB (K-DUR) PO ONE (01:30)
--- NOTE | 2021-05-18 07:01 | Diagnostic Imaging Report ---
PROCEDURE: CT abdomen and pelvis without contrast. TECHNIQUE: Multiple contiguous axial images were obtained through the abdomen and pelvis without the use of intravenous contrast. Auto Exposure Controls were utilized during the CT exam to meet ALARA standards for radiation dose reduction. INDICATION: Severe sepsis, nausea COMPARISON: 09/29/2018 FINDINGS: The visualized lung bases are clear. The liver demonstrates diffusely decreased density throughout, which is new from the prior examination. However, a 2.1 cm ovoid hyperdensity is noted within the right hepatic lobe, appearing new from the prior examination. The liver is enlarged measuring near 20 cm, increased in size from the prior examination. The spleen is unremarkable. The adrenal glands are unremarkable. 4.2 cm cystic lesion within the tail of the pancreas is noted, increased in size from the prior examination when it measured 2.0 cm. Additional 1.6 cm hypodensity is noted within the neck/proximal body of the pancreas, decreased in size from the prior examination when it measured up to 5.2 cm. Very minimal inflammatory stranding is noted near the tail of the pancreas. No additional new focal peripancreatic fluid collection. The gallbladder is filled with hyperdense material. No significant inflammatory stranding about the gallbladder. The bilateral kidneys and ureters are unremarkable. Minimal vascular calcifications. No aneurysmal dilatation of the abdominal aorta. The urinary bladder is unremarkable. The uterus and adnexal structures are unremarkable for age. Mild mural thickening of the majority of the colon without adjacent inflammatory stranding. No bowel obstruction or pneumatosis. No significant adenopathy, free air or free fluid within the abdomen or pelvis. Chronic right-sided rib fractures. Scattered osseous degenerative changes without acute osseous abnormality. IMPRESSION: Focal peripancreatic cystic lesion/fluid collections as described above, one appearing increased in size since 2018 while the other appears decreased in size since 2018. Findings are favored to relate to pseudocysts. Cystic mass lesions felt less likely. Minimal fat stranding about the tail of the pancreas. Recommend clinical correlation with laboratory values for questionable pancreatitis. Hepatosplenomegaly with associated severe fatty infiltration of the liver, new from the prior examination. However, there also appears to be a new 2.1 cm lesion within the right hepatic lobe. A CT versus MRI of the abdomen with and without contrast using hepatic mass protocol is recommended for further evaluation. Sludge versus debris filling the gallbladder without adjacent inflammatory stranding. Diffuse mural thickening of the colon, felt related to poor distention, colitis felt less likely. Additional findings as described above. Faxed to [facility] ER at 6:59 a.m. by [email or web address]. Dictated by: Dictated on workstation # [id number]
[2021-05-18 10:42] LABS: BILIRUBIN,URINE 2+ (NEGATIVE)
== END 2021-05-18 00:56 | disposition short-term general hospital (02) ==
LOC: EDUNIT# 18:46 → ER 18:48
DX: E87.6 Hypokalemia (principal); F10.10 Alcohol abuse, uncomplicated; N17.9 Acute kidney failure, unspecified; E87.2 Acidosis; I10 Essential (primary) hypertension; F41.9 Anxiety disorder, unspecified; F31.9 Bipolar disorder, unspecified; G40.909 Epilepsy, unspecified, not intractable, without status epilepticus; Z20.822 Contact with and (suspected) exposure to COVID-19; Z79.899 Other long term (current) drug therapy
CPT/HCPCS: 71045; 74176; 80053; 80306; 81000; 82010; 82550; 82805; 82947; 83605; 83690; 84703; 85025; 85610; 86850; 86900; 86901; 86920; 87040; 87088; 87636; 93005; 99291; G0480; 36415; 80320

== ENCOUNTER 2021-10-13 23:37 | Emergency (ER) | payer MEDICAID ==
[~2021-10-13] VITALS: Ht 152 cm; Wt 49.0 kg
[~2021-10-13 23:37] MED LIST changes: +CYCL10TA25 PO; -SULF1TAB35 PO; +SULF1TAB38 PO
[2021-10-13] MEDS ORDERED: MIDO10TA (23:46)
[2021-10-13] MEDS ORDERED: BUSP5TAB59 (23:46)
[2021-10-13 23:48] VITALS: BP_SYST 138; BP_SYST 140; BP_SYST 146; BP_DIAS 87; BP_DIAS 89; BP_DIAS 92
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
[2021-10-14 00:16] LABS: BILIRUBIN,URINE 2+ (NEGATIVE); CLARITY,URINE CLEAR; COLOR,URINE YELLOW; GLUCOSE, URINE (UA) NEGATIVE (NEGATIVE); KETONES,URINE TRACE (NEGATIVE); LEUKOCYTE ESTERASE ,URINE NEGATIVE (NEGATIVE); NITRITE,URINE NEGATIVE (NEGATIVE); PROTEIN,URINE NEGATIVE (NEGATIVE)
[2021-10-14 00:18] LABS: BASOPHILS % (AUTO) 1 % (0-10); EOSINOPHILS # (AUTO) 0.6 10^3/uL (0.0-0.3); EOSINOPHILS % (AUTO) 9 % (0-10); HEMATOCRIT 36 % (35-52); HEMOGLOBIN 11.6 g/dL (11.5-16.0); LYMPHOCYTES # (AUTO) 2.4 10^3/uL (1.0-4.0); LYMPHOCYTES % (AUTO) 36 % (12-44); MEAN CORPUSCULAR HEMOGLOBIN 32 pg (25-34); MEAN CORPUSCULAR HGB CONC 32 g/dL (32-36); MEAN CORPUSCULAR VOLUME 100 fL (80-99); MEAN PLATELET VOLUME 10.4 fL (9.0-12.2); MONOCYTES # (AUTO) 0.9 10^3/uL (0.0-1.0); MONOCYTES % (AUTO) 14 % (0-12); NEUTROPHILS # (AUTO) 2.7 10^3/uL (1.8-7.8); NEUTROPHILS % (AUTO) 41 % (42-75); PLATELET COUNT 165 10^3/uL (130-400); WHITE BLOOD COUNT 6.6 10^3/uL (4.3-11.0)
[2021-10-14 00:24] LABS: BACTERIA,URINE TRACE /HPF; WBC,URINE 0-2 /HPF
[2021-10-14 00:25] LABS: CALCIUM OXALATE CRYSTALS,UR MODERATE /LPF
[2021-10-14 00:26] LABS: ALBUMIN 2.9 GM/DL (3.2-4.5); POTASSIUM 3.8 MMOL/L (3.6-5.0)
[2021-10-14 00:28] LABS: TOTAL PROTEIN 5.5 GM/DL (6.4-8.2)
[2021-10-14 00:30] LABS: BILIRUBIN,TOTAL 0.5 MG/DL (0.1-1.0)
[2021-10-14 00:32] LABS: CREATININE SERUM 0.71 MG/DL (0.60-1.30)
[2021-10-14 00:48] VITALS: BP 102/60
== END 2021-10-14 00:50 | disposition home or self-care (01) ==
LOC: EDUNIT# 23:37 → ER 23:39
DX: I95.89 Other hypotension (principal); I10 Essential (primary) hypertension; F41.9 Anxiety disorder, unspecified; F31.9 Bipolar disorder, unspecified; G40.909 Epilepsy, unspecified, not intractable, without status epilepticus; F17.210 Nicotine dependence, cigarettes, uncomplicated; Z79.899 Other long term (current) drug therapy
CPT/HCPCS: 36415; 80053; 81000; 85025; 86141

== ENCOUNTER 2021-12-26 16:41 | Emergency (ER) | payer MEDICAID ==
[~2021-12-26 16:41] MED LIST changes: +BUSP5TAB59; +MIDO10TA
--- NOTE | 2021-12-26 17:11 | ED General ---
General Stated Complaint: HOLE IN BREAST Source of Information: Patient Exam Limitations: No Limitations History of Present Illness Date Seen by Provider: Dec 26, 2021 Time Seen by Provider: 17:00 Initial Comments Patient is a 51-year-old female who presents to the emergency department today with a chief complaint of wound on the left breast. She has had previous mastitis on the left with surgical excision. She states she started getting symptoms of an infection on the breast over the weekend went to her primary care provider, Dr. Andersen on Friday and was started on Bactrim. She states she woke up this morning and there was a "hole" in her breast. It drained lots of pus. She denies significant fever. She is not nauseous. She is not short of breath. She is not having any other complaints of pain or injury. No fevers or chills. She is a smoker. All other review of systems reviewed and negative except as stated. Timing/Duration: 3-4 Days Severity: Mild Associated Systoms: Other ("smoker's cough") Allergies and Home Medications Allergies Coded Allergies: No Known Drug Allergies (Verified , 02/14/09) Patient Home Medication List Home Medication List Reviewed: Yes Buspirone HCl (Buspirone HCl) 5 Mg Tablet, (Reported) Entered as Reported by: JACKIE NÚÑEZ on 10/13/21 2346 Divalproex Sodium (Depakote) 250 Mg Tablet., 250 MG PO BID, (Reported) Entered as Reported by: MATEO ADKINS on 03/30/21 151 Doxycycline Hyclate (Doxycycline Hyclate) 100 Mg Tablet, 100 MG PO BID@ Prescribed by: DEMAR DRISCOLL on 04/02/211814 Gabapentin (Gabapentin) 600 Mg Tablet, 600 MG PO TID, (Reported) Entered as Reported by: MATEO ADKINS on 03/30/21 151 Hydrocodone/Acetaminophen (Hydrocodone-Acetamin 5-325 mg) 1 Each Tablet, 1 TAB PO Q6H PRN for PAIN-MODERATE (5-7) Prescribed by: DEMAR DRISCOLL on 04/02/21 181 Ibuprofen (Ibuprofen) 800 Mg Tablet, 800 MG PO TID PRN for PAIN-MILD, (Reported) Entered as Reported by: MATEO ADKINS on 03/30/21 151 Levothyroxine Sodium (Levothyroxine Sodium) 50 Mcg Tablet, 50 MCG PO DAILY, (Reported) Entered as Reported by: MATEO ADKINS on 03/30/21 151 Lisinopril (Lisinopril) 20 Mg Tablet, 20 MG PO DAILY, (Reported) Entered as Reported by: MATEO ADKINS on 03/30/21 151 Midodrine HCl (Midodrine HCl) 10 Mg Tablet, (Reported) Entered as Reported by: JACKIE NÚÑEZ on 10/13/21 2346 Ondansetron (Ondansetron Odt) 4 Mg Tab.rapdis, 4 MG PO Q8H PRN for NAUSEA/VOMITING-1ST LINE, (Reported) Entered as Reported by: MATEO ADKINS on 03/30/21 151 Sertraline HCl (Sertraline HCl) 100 Mg Tablet, 100-200 MG PO DAILY, (Reported) Entered as Reported by: MATEO ADKINS on 03/30/211515 Review of Systems Review of Systems Constitutional: see HPI EENTM: no symptoms reported Respiratory: cough (chronic) Cardiovascular: no symptoms reported Gastrointestinal: no symptoms reported Genitourinary: no symptoms reported Musculoskeletal: no symptoms reported Skin: other (skin wound left breast) Past Brvsllm-Tkfvhi-Gkbhxz Hx Immunizations Up To Date Tetanus Booster (TDap): Unknown PED Vaccines UTD: No Seasonal Allergies Seasonal Allergies: No Past Medical History Surgery/Hospitalization HX: TBI, C-SECT, HERNIA, HTN, SEIZURE, GERD, PANCREATITIS, ANX, DEPRESSION, Surgeries: Yes ( X 1, hernia repair, L finger surgery) Abdominal, Section, Orthopedic Respiratory: No Currently Using CPAP: No Currently Using BIPAP: No Cardiac: Yes Hypertension Neurological: Yes Seizure Disorder Reproductive Disorders: No Female Reproductive Disorders: Denies DATA LEAD History: Menopausal Genitourinary: No Gastrointestinal: Yes Gastroesophageal Reflux, Pancreatitis Musculoskeletal: No Endocrine: No HEENT: No Cancer: No Psychosocial: Yes (MULTIPLE PSYCH ADMITS. alcoholism) Anxiety, Suicide Attempts, Bipolar, Depression Integumentary: No Blood Disorders: No Family Medical History Patient reports no known family medical history. Hypertension Physical Exam Vital Signs Capillary Refill : Height, Weight, BMI Height: 5'3.00" Weight: 150lbs. 0oz. 68.109161po; 21.00 BMI Method:Estimated General Appearance: No Apparent Distress, WD/WN Eyes: Bilateral Eye Normal Inspection, Bilateral Eye PERRL, Bilateral Eye EOMI Neck: Normal Inspection Respiratory: No Accessory Muscle Use, No Respiratory Distress, Wheezing (bilateral expiratory wheezes, no respiratory distress) Cardiovascular: Regular Rate, Rhythm Gastrointestinal: Non Tender, Soft Extremity: Normal Inspection, Normal Range of Motion Neurologic/Psychiatric: Alert, Oriented x3, No Motor/Sensory Deficits, Normal Mood/Affect Skin: Normal Color, Warm/Dry, Other (Patient has about a 1 cm area of ulceration just beneath the left nipple along a previous scar line with mild surrounding erythema that extends up and lateral over the left breast; no induration. No fluctuance. No underlying masses. She has skin thickening in the area of prior scar. No nipple discharge.) Progress/Results/Core Measures Suspected Sepsis SIRS Temperature: Pulse: Respiratory Rate: Blood Pressure / Mean: Results/Orders Vital Signs/I&O Capillary Refill : Progress Note : Time: 17:16 Progress Note Discussed plan of care with the patient. We will clean the wound with Betasept and place a little triple antibiotic ointment. Recommended that she changes from Bactrim to doxycycline. Were going to howard the erythema with a skin marker. I have advised her to watch the wound closely over the next couple of days after changing antibiotics and if the redness is spreading she needs to come back and likely be admitted for IV antibiotics. As of now she has no complaints of fever, rapid heartbeat, shortness of breath, nausea or vomiting. No clinical signs of sepsis. Tylenol or ibuprofen for pain and close follow-up with her primary care physician. Going to refer her back to Dr. Lowe who has seen her in the past for breast abscess Departure Impression Primary Impression: Wound of left breast Qualified Codes: S21.002A - Unspecified open wound of left breast, initial encounter Additional Impression: Cellulitis of left breast Disposition: 01 HOME, SELF-CARE Condition: Stable Departure-Patient Inst. Decision time for Depature: 17:18 Referrals: [facility] [place] (PCP/Family) Primary Care Physician Patient Instructions: Cellulitis and Erysipelas (Skin Infections) Add. Discharge Instructions: Clean the area gently twice a day with soap and water. Keep the wound covered with gauze. Apply a little triple antibiotic biotic ointment twice a day for the next 2 to 3 days. Take the doxycycline, twice a day for the next 10 days. Be sure and finish the entire course of antibiotics. Tylenol and/or ibuprofen as needed for pain. Please follow-up with your primary care physician as well as Dr. Lowe who previously treated you for breast abscess. He may want to follow this infection in clinic to make sure that you do not develop another abscess under the wound. Come back to the emergency department if, after a couple of days of changing the antibiotics (or sooner) you have increasing redness, develop a fever, increased pain or other symptoms of worsening infection. Scripts Doxycycline Hyclate (Doxycycline Hyclate) 100 Mg Tablet 100 MG PO BID for 10 Days, #20 TAB Prov: LESLYE DAVID MD 12/26/21 LESLYE DAVID MD Dec 26, 2021 17:11
[2021-12-26] MEDS ORDERED: DOXY100T2 PO (17:21)
[2021-12-26 17:27] VITALS: BP 112/70
== END 2021-12-26 17:29 | disposition home or self-care (01) ==
LOC: EDUNIT# 16:41 → ER 16:43
DX: L98.499 Non-pressure chronic ulcer of skin of other sites with unspecified severity (principal); N61.0 Mastitis without abscess; L53.9 Erythematous condition, unspecified; I10 Essential (primary) hypertension; F41.9 Anxiety disorder, unspecified; F31.9 Bipolar disorder, unspecified; G40.909 Epilepsy, unspecified, not intractable, without status epilepticus; Z91.51 Personal history of suicidal behavior; Z79.899 Other long term (current) drug therapy
CPT/HCPCS: 99281

== ENCOUNTER → 2022-01-21 | Outpatient (CLI) | payer MEDICAID ==
--- NOTE | 2022-01-21 13:32 | Diagnostic Imaging Report ---
INDICATION: Left breast pain. COMPARISON: 01/20/2017. TECHNIQUE: 2D and 3D bilateral diagnostic mammography was performed with CAD. FINDINGS: Both breasts are heterogeneously dense, limiting the sensitivity of mammography. Post surgical changes of the left breast are noted, new since the prior mammogram from 2017. This does create some dimpling of the skin and perhaps some mild retraction of the nipple. No discrete mass is identified apart from benign-appearing intraparenchymal lymph nodes in both breasts. There are vascular and benign parenchymal calcifications bilaterally. The axillae are unremarkable. IMPRESSION: No mammographic features suspicious for malignancy are identified. There are post surgical changes in the left breast. Sonographic interrogation of the area of pain in the upper outer left breast is recommended. In addition, sonographic interrogation of the retroareolar left breast could be performed due to the complaint of nipple retraction. ACR BI-RADS Category 0: Incomplete. (Needs additional imaging evaluation). Result letter will be mailed to the patient. Note: At least 10% of breast cancer is not imaged by mammography. Dictated by: Dictated on workstation # [id number]
--- NOTE | 2022-01-21 13:59 | Diagnostic Imaging Report ---
INDICATION: Left breast pain as well as left nipple inversion. COMPARISON: Correlation is made with the diagnostic mammogram from earlier this same day. FINDINGS: Sonographic interrogation of the area of pain in the upper outer left breast was performed. This corresponds to the 2-3 o'clock location 7 cm from the nipple. No underlying abnormality is seen. In addition, the retroareolar region was evaluated and is grossly unremarkable. There is a thin area of hypoechogenicity at the 3 o'clock location 1 cm from the nipple near the patient's scar measuring 14 mm x 8 mm x 5 mm. This could represent scar tissue. No fluid collection is seen. No other abnormalities are detected. IMPRESSION: 1. No sonographic abnormality at the area of pain in the upper outer left breast. 2. No sonographic abnormality in the retroareolar left breast. 3. Indeterminate region of hypoechogenicity at the 3 o'clock location 1 cm from the nipple potentially represents scar tissue. Followup left mammogram and left breast ultrasound in 6 months is recommended to show continued stability. ACR BI-RADS Category 3: Probably benign findings. Result letter will be mailed to the patient. Note: At least 10% of breast cancer is not imaged by mammography. Dictated by: Dictated on workstation # [id number]
== END ==
LOC: RAD 12:27
PROVIDERS: ATTEND Surgery
DX: N64.59 Other signs and symptoms in breast (principal); N64.4 Mastodynia; Z98.890 Other specified postprocedural states
CPT/HCPCS: 76642; 77066; G0279; 77062

== ENCOUNTER 2022-03-05 05:31 | Outpatient (CLI) | payer MEDICAID ==
[~2022-03-05] VITALS: Ht 157.5 cm; Wt 55.9 kg
[2022-03-05] MEDS ORDERED: CHOL20002 PO (13:26)
[2022-03-05] MEDS ORDERED: PYRI25TA3 PO (13:26)
[2022-03-05] MEDS ORDERED: THIA100T66 PO (13:26)
[2022-03-05] MEDS ORDERED: FOLI1TAB33 PO (13:26)
[2022-03-07] MEDS ORDERED: ACHD5005 PO (08:29)
== END 2022-03-05 14:07 | disposition home or self-care (01) ==
LOC: PREOP 05:31
PROVIDERS: ATTEND Surgery
DX: Z01.818 Encounter for other preprocedural examination (principal)

== ENCOUNTER 2022-03-07 06:06 | Day surgery (SDC) | payer MEDICAID ==
[2022-03-07] VITALS (11 sets, daily range): BP systolic 87–132; BP diastolic 51–90
[~2022-03-07] VITALS: Ht 157.5 cm; Wt 55.9 kg
[~2022-03-07 06:06] MED LIST changes: +CHOL20002 PO; +FOLI1TAB33 PO; +PYRI25TA3 PO; +THIA100T66 PO
[2022-03-07] MEDS ORDERED: ceFAZolin 2 GM IV Premixed 50 ML IV ONE (06:15)
[2022-03-07] MEDS ORDERED: LACTATED RINGERS 1,000 ML IV PRN (07:00)
[2022-03-07] MEDS ORDERED: LIDOCAINE PF 2% 5 ML (XYLOCAINE) VIAL ONE (07:12)
[2022-03-07] MEDS ORDERED: proPOfol 200 MG/20 ML (DIPRIVAN) VIAL IV ONE (07:12)
[2022-03-07] MEDS ORDERED: MIDAZOLAM 2 MG/2 ML (VERSED) VIAL ONE (07:13)
[2022-03-07] MEDS ORDERED: fentaNYL INJ 100 MCG/2 ML AMP ONE ×2 (07:13→09:08)
[2022-03-07] MEDS ORDERED: LIDOCAINE/EPI 2% 1:100,00 (XYLOCAINE) 20 ML VIAL ONE (07:16)
--- NOTE | 2022-03-07 07:49 | Progress Note-Pre Operative ---
Pre-Operative Progress Note H&P Reviewed The H&P was reviewed, patient examined and no changes noted. Date Seen by Provider: Mar 07, 2022 Time Seen by Provider: 07:49 Date H&P Reviewed: Mar 07, 2022 Time H&P Reviewed: 07:49 Pre-Operative Diagnosis: recurrent left breast wound DEMAR DRISCOLL DO Mar 07, 2022 07:49
[2022-03-07] MEDS ORDERED: ONDANSETRON 4 MG/2 ML (SDV) Z0FRAN ONE (08:21)
[2022-03-07] MEDS ORDERED: SEVOFLURANE (ULTANE) 15 ML INHAL SOLN ONE (08:21)
--- NOTE | 2022-03-07 08:28 | Progress Note-Post Operative ---
Post-Operative Progess Note Surgeon (s)/Cardiology Technologist (s) Surgeon DEMAR DRISCOLL DO Cardiology Technologist: na Pre-Operative Diagnosis recurrent left breast wound Post-Operative Diagnosis same Procedure & Operative Findings Date of Procedure 03/07/22 Procedure Performed/Findings excision left breast wound 6x 3.5cm Anesthesia Type general Estimated Blood Loss Estimated blood loss (mL): minimal Specimens/Packing Specimens Removed left breast Packing: kerlex wet to dry DEMAR DRISCOLL DO Mar 07, 2022 08:28
[2022-03-07] MEDS ORDERED: ACHD5005 PO (08:29)
--- NOTE | 2022-03-07 08:30 | Discharge Inst-Simple/Standard ---
Discharge Inst-Standard Discharge Medications New, Converted or Re-Newed RX: Transmitted to Pharmacy Patient Instructions/Follow Up Plan of Care/Instructions/FU: [place] 2 weeks Activity as Tolerated: Yes Discharge Diet: Regular Diet Other Inst to Patient Follow up Appt: Make appointment for 2 week. Instructions: No lifting greater than 10 pounds. No strenuous activity. May shower in 24 hours, no tub bath or soaking. Use incentive spirometer at home as directed. No Smoking Skin/Wound Care: You have wound packed with Kerlex. Need to change dressing daily and as needed with wet to dry kerlex. Symptoms to Report: Appetite Changes, Extremity Discoloration, Numbness/Tingling, Swelling Increased, Bleeding Excessive, Eyesight Changes, Pain Increased, Urine Color Change, Constipation(Persistent), Fever over 101 degree F, Pain/Pressure in chest, Urinating Difficulty, Cough Up/Vomit Blood, Heart Beat Irreg/Pounding, Pain/Pressure in jaw, Vaginal Bleeding Increase, Cramps in feet or legs, Lightheadedness, Pain/Pressure in shoulder, Diarrhea(Persistent), Memory Changes Suddenly, Questions/Concerns, Weight gain consecutive days, Dizziness/Fainting, Nausea/Vomiting, Shortness of Breath, Weight gain over 2 pounds If questions or concerns contact your physician Or seek help at emergency department. DEMAR DRISCOLL DO Mar 07, 2022 08:30
--- NOTE | 2022-03-07 08:34 | Anesthesia-General Post-Op ---
General Patient Condition Mental Status/LOC: Same as Preop Cardiovascular: Satisfactory Nausea/Vomiting: Absent Respiratory: Satisfactory Pain: Controlled Complications: Absent Post Op Complications Complications None Follow Up Care/Instructions Patient Instructions None needed. Anesthesia/Patient Condition Patient Condition Patient is doing well, no complaints, stable vital signs, no apparent adverse anesthesia problems. No complications reported per nursing. EARL OMALLEY CRNA Mar 07, 2022 08:34
[2022-03-07] MEDS ORDERED: fentaNYL INJ 100 MCG/2 ML AMP IVP ONE (08:45)
[2022-03-07] MEDS ORDERED: ONDANSETRON 4 MG/2 ML (SDV) Z0FRAN IVP PRN (08:45)
--- NOTE | 2022-03-07 18:59 | OPERATIVE REPORT ---
DATE OF SERVICE: 03/07/2022 PREOPERATIVE DIAGNOSIS: Left breast wound. POSTOPERATIVE DIAGNOSIS: Left breast wound. PROCEDURE: Excision of left breast wound, 6 x 3.5 cm with release of left nipple. SURGEON: Demra Millard DO ANESTHESIA: General. ESTIMATED BLOOD LOSS: Minimal. COMPLICATIONS: None. INDICATIONS: The patient is a 51-year-old female who has a history of infection on the left breast. She has had continued wound issues and also nipple retraction. She was discussed risks and benefits of procedure and also need for continued packing until healed from the inside out. She understands and wishes to proceed. Consent was signed in the chart. DESCRIPTION OF PROCEDURE: The patient was taken to the operating suite. She was prepped and draped in sterile fashion. Surgical pause was performed. Elliptical incision was made around the previous scar and small wound and cautery was used to dissect around all the fibrotic scar tissue and the scar tissue was noted to go up to the posterior nipple where this was retracted. This was released and the specimen was removed and sent for pathology. Hemostasis was achieved. The wound was then irrigated with copious amounts of irrigation and suction. The wound was then packed with Kerlix wet to dry sterile bandages were applied. The patient tolerated the procedure well without any complications. She was taken to recovery room in stable condition. Job ID: [id number] DocumentID: [id number] Dictated Date: 03/07/2022 14:21:51 Automation Consultant Date: 03/07/2022 18:58:30 Dictated By: DEMAR MILLARD DO MTDD
== END 2022-03-07 10:45 ==
LOC: SDC 06:06
PROVIDERS: ATTEND Surgery
DX: N61.0 Mastitis without abscess (principal); S21.002D Unspecified open wound of left breast, subsequent encounter; F17.210 Nicotine dependence, cigarettes, uncomplicated
CPT/HCPCS: 87081; 88304

== ENCOUNTER 2022-06-29 12:59 | Emergency (ER) | payer MEDICAID ==
[~2022-06-29] VITALS: Ht 157 cm; Wt 54.0 kg
[~2022-06-29 12:59] MED LIST changes: +OMEP20TA56 PO; -OMEP20TA7 PO
[2022-06-29] MEDS ORDERED: ONDANSETRON 4 MG/2 ML (SDV) Z0FRAN ONE (13:11)
[2022-06-29] MEDS ORDERED: NS IV 1000 ML 1,000 ML IV STA (13:23)
[2022-06-29 13:29] LABS: BASOPHILS % (AUTO) 0 % (0-10); EOSINOPHILS # (AUTO) 0.1 10^3/uL (0.0-0.3); EOSINOPHILS % (AUTO) 1 % (0-10); HEMATOCRIT 42 % (35-52); HEMOGLOBIN 15.2 g/dL (11.5-16.0); LYMPHOCYTES # (AUTO) 1.9 10^3/uL (1.0-4.0); LYMPHOCYTES % (AUTO) 20 % (12-44); MEAN CORPUSCULAR HEMOGLOBIN 35 pg (25-34); MEAN CORPUSCULAR HGB CONC 36 g/dL (32-36); MEAN CORPUSCULAR VOLUME 97 fL (80-99); MEAN PLATELET VOLUME 9.5 fL (9.0-12.2); MONOCYTES # (AUTO) 0.7 10^3/uL (0.0-1.0); MONOCYTES % (AUTO) 8 % (0-12); NEUTROPHILS # (AUTO) 6.5 10^3/uL (1.8-7.8); NEUTROPHILS % (AUTO) 70 % (42-75); PLATELET COUNT 141 10^3/uL (130-400); WHITE BLOOD COUNT 9.3 10^3/uL (4.3-11.0)
[2022-06-29] MEDS ORDERED: HYDROmorphone 2 MG/ML VIAL (DILAUDID) IV ONE (13:30)
[2022-06-29] MEDS ORDERED: ONDANSETRON 4 MG/2 ML (SDV) Z0FRAN IVP ONE (13:30)
--- NOTE | 2022-06-29 13:35 | ED GI ---
General Chief Complaint: Abdominal/GI Problems Stated Complaint: ABD/BACK PAIN Nursing Triage Note: PT BROUGHT TO ED VIA [facility] ON BLS. PT C/O ABD. PAIN AND BACK PAIN X'S THREE DAYS. DENIES KNOWN INJURY. PT STATES SHE HAS HX OF PANCREATITIS. PT CONSUMES ROUGHLY 0.5 PINT HARD LIQUOR DAILY. PT IN ROOM 05 GROANING WITH PAIN. PROVIDER NOTIFIED. Source of Information: Patient (ITALO VALENTIN) History of Present Illness Date Seen by Provider: Jun 29, 2022 Time Seen by Provider: 13:33 Initial Comments patient presents via ems for luq abd pain, nausea and vomiting. She has a history of pancreatitis and states this feels similar. She is a heavy daily drinker and states she had 2 shots before coming in. Timing/Duration: 1 Day Severity/Quality: Moderate Location: LUQ Radiation: No Radiation (ITALO VALETNIN) Allergies and Home Medications Allergies Coded Allergies: sulfamethoxazole (Verified Allergy, Unknown, Rash, 03/07/22) trimethoprim (Verified Allergy, Unknown, Rash, 03/07/22) Patient Home Medication List Home Medication List Reviewed: Yes (ITALO VALENTIN) Buspirone HCl (Buspirone HCl) 5 Mg Tablet, (Reported) Entered as Reported by: JACKIE NÚÑEZ on 10/13/21 2346 Cholecalciferol (Vitamin D3) (Vitamin D3) 50 Mcg (2000 Unit) Capsule, 50 MCG PO, (Reported) Entered as Reported by: DAVID MARCUS on 03/05/22 1326 Divalproex Sodium (Depakote) 250 Mg Tablet.dr, 250 MG PO BID, (Reported) Entered as Reported by: MATEO ADKINS on 03/30/21 1516 Folic Acid (Folic Acid) 1 Mg Tablet, 1 MG PO DAILY, (Reported) Entered as Reported by: DAVID MARCUS on 03/05/22 1326 Gabapentin (Gabapentin) 600 Mg Tablet, 600 MG PO TID, (Reported) Entered as Reported by: MATEO ADKINS on 03/30/21 1516 Hydrocodone/Acetaminophen (Hydrocodone-Acetamin 5-325 mg) 5 Mg-325 Mg Tablet, 1 EACH PO Q4H PRN for PAIN-MODERATE (5-7) Prescribed by: DEMAR DRISCOLL on 03/07/22 0829 Ibuprofen (Ibuprofen) 800 Mg Tablet, 800 MG PO TID PRN for PAIN-MILD, (Reported) Entered as Reported by: MATEO ADKINS on 03/30/21 1516 Levothyroxine Sodium (Levothyroxine Sodium) 50 Mcg Tablet, 50 MCG PO DAILY, (Reported) Entered as Reported by: MATEO ADKINS on 03/30/21 1516 Lisinopril (Lisinopril) 20 Mg Tablet, 20 MG PO DAILY, (Reported) Entered as Reported by: MATEO ADKINS on 03/30/21 1516 Midodrine HCl (Midodrine HCl) 10 Mg Tablet, (Reported) Entered as Reported by: JACKIE NÚÑEZ on 10/13/21 2346 Ondansetron (Ondansetron Odt) 4 Mg Tab.rapdis, 4 MG PO Q8H PRN for NAUSEA/VOMITING-1ST LINE, (Reported) Entered as Reported by: MATEO ADKINS on 03/30/21 151 Ondansetron (Ondansetron Odt) 4 Mg Tab.rapdis, 4 MG PO TID Prescribed by: John Valentin on 06/29/22 1442 Pyridoxine HCl (Vitamin B-6) Unknown Strength Tablet, Unknown Dose PO, (Reported) Entered as Reported by: DAVID MARCUS on 03/05/22 1326 Sertraline HCl (Sertraline HCl) 100 Mg Tablet, 100-200 MG PO DAILY, (Reported) Entered as Reported by: MATEO ADKINS on 03/30/21 151 Thiamine HCl (B-1) Unknown Strength Tablet, Unknown Dose PO, (Reported) Entered as Reported by: DAVID MARCUS on 03/05/22 1326 Review of Systems Review of Systems Constitutional: no symptoms reported EENTM: No Symptoms Reported Respiratory: No Symptoms Reported Cardiovascular: No Symptoms Reported Gastrointestinal: Abdominal Pain, Nausea, Vomiting Musculoskeletal: no symptoms reported Skin: no symptoms reported Psychiatric/Neurological: No Symptoms Reported Endocrine: No Symptoms Reported (ITALO VALENTIN) Past Tkipkqk-Vekoaw-Biqvah Hx Patient Social History Tobacco Use?: Yes Tobacco type used: Cigarettes Smoking Status: Heavy Tobacco Smoker Use of E-Cig and/or Vaping dev: No Substance use?: No Alcohol Use?: Yes Alcohol type: Hard Liquor Alcohol Frequency: Daily Pt feels they are or have been: No (ITALO VALENTIN) Immunizations Up To Date Tetanus Booster (TDap): Unknown PED Vaccines UTD: No First/Initial COVID19 Vaccinat: OCT 2021 Second COVID19 Vaccination Kamran: NOV 2020 Third COVID19 Vaccination Date: OCT 2021 (ITALO VALENTIN) Seasonal Allergies Seasonal Allergies: No (ITALO VALENTIN) Past Medical History Surgery/Hospitalization HX: TBI, C-SECT, HERNIA, HTN, SEIZURE, GERD, PANCREATITIS, ANX, DEPRESSION, Surgeries: Yes ( X 1, hernia repair, L finger surgery) Abdominal, Section, Orthopedic Respiratory: No Currently Using CPAP: No Currently Using BIPAP: No Cardiac: Yes (B/P MEDS ARE PRN) Hypertension Neurological: Yes Seizure Disorder Last Menstrual Period: Nov 17, 2015 Reproductive Disorders: No Female 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 alcoholism) Anxiety, Suicide Attempts, Bipolar, Depression Integumentary: Yes (WOUND LEFT BREAST) Blood Disorders: No Adverse Reaction/Blood Tranf: No (ITALO VALENTIN) Family Medical History Patient reports no known family medical history. Hypertension (ITALO VALENTIN) Physical Exam Vital Signs Vital Signs - First Documented 06/29/22 13:01 Temp 36.6 Pulse 64 Resp 18 B/P (MAP) 180/100 (126) Pulse Ox 98 O2 Delivery Room Air (MICHELLE FELICIANO MD) Vital Signs Capillary Refill : Less Than 3 Seconds (ITALO VALENTIN) Height/Weight/BMI Height: 5'3.00" Weight: 150lbs. 0oz. 68.814141eq; 21.00 BMI Method:Estimated General Appearance: WD/WN, no apparent distress HEENT: PERRL/EOMI, normal ENT inspection Neck: non-tender, full range of motion Respiratory: chest non-tender, lungs clear, normal breath sounds Cardiovascular: regular rate, rhythm, no edema Gastrointestinal: normal bowel sounds, tenderness (mild ttp LUQ) Extremities: normal range of motion, non-tender Back: normal inspection Neurologic/Psychiatric: extension course counselor II-XII nml as tested, oriented x 3 Skin: normal color, warm/dry (ITALO VALENTIN) Progress/Results/Core Measures Results/Orders Lab Results Laboratory Tests Test 06/29/22 13:10 Range/Units White Blood Count 9.3 4.3-11.0 10^3/uL Red Blood Count 4.33 3.80-5.11 10^6/uL Hemoglobin 15.2 11.5-16.0 g/dL Hematocrit 42 35-52 % Mean Corpuscular Volume 97 80-99 fL Mean Corpuscular Hemoglobin 35 H 25-34 pg Mean Corpuscular Hemoglobin Concent 36 32-36 g/dL Red Cell Distribution Width 11.9 10.0-14.5 % Platelet Count 141 130-400 10^3/uL Mean Platelet Volume 9.5 9.0-12.2 fL Immature Granulocyte % (Auto) 0 % Neutrophils (%) (Auto) 70 42-75 % Lymphocytes (%) (Auto) 20 12-44 % Monocytes (%) (Auto) 8 0-12 % Eosinophils (%) (Auto) 1 0-10 % Basophils (%) (Auto) 0 0-10 % Neutrophils # (Auto) 6.5 1.8-7.8 10^3/uL Lymphocytes # (Auto) 1.9 1.0-4.0 10^3/uL Monocytes # (Auto) 0.7 0.0-1.0 10^3/uL Eosinophils # (Auto) 0.1 0.0-0.3 10^3/uL Basophils # (Auto) 0.0 0.0-0.1 10^3/uL Immature Granulocyte # (Auto) 0.0 0.0-0.1 10^3/uL Sodium Level 134 L 135-145 MMOL/L Potassium Level 4.0 3.6-5.0 MMOL/L Chloride Level 99 98-107 MMOL/L Carbon Dioxide Level 19 L 21-32 MMOL/L Anion Gap 16 H 5-14 MMOL/L Blood Urea Nitrogen 8 7-18 MG/DL Creatinine 0.75 0.60-1.30 MG/DL Estimat Glomerular Filtration Rate 96 BUN/Creatinine Ratio 11 Glucose Level 105 70-105 MG/DL Calcium Level 10.1 8.5-10.1 MG/DL Corrected Calcium 9.8 8.5-10.1 MG/DL Total Bilirubin 1.2 H 0.1-1.0 MG/DL Aspartate Amino Transf (AST/SGOT) 56 H 5-34 U/L Alanine Aminotransferase (ALT/SGPT) 34 0-55 U/L Alkaline Phosphatase 124 40-136 U/L Total Protein 8.0 6.4-8.2 GM/DL Albumin 4.4 3.2-4.5 GM/DL Lipase 35 8-78 U/L Serum Alcohol < 10 <10 MG/DL (MICHELLE FELICIANO MD) My Orders Orders - MICHELLE FELICIANO MD Ondansetron Injection (Zofran Injectio (06/29/22 13:11) (MICHELLE FELICIANO MD) Vital Signs/I&O 06/29/22 06/29/22 13:01 14:56 Temp 36.6 36.6 Pulse 64 74 Resp 18 18 B/P (MAP) 180/100 (126) 162/93 Pulse Ox 98 98 O2 Delivery Room Air Room Air (MICHELLE FELICIANO MD) Blood Pressure Mean: 126 Departure Communication (Admissions) Patient is afebrile, nontoxic and in no distress. She feels markedly improved after therapy in the emergency room. CT of the abdomen pelvis shows chronic sta ble changes but no acute findings. Lab work is reassuring and her lipase is normal. Patient will be treated symptomatically at this time and I recommended follow-up with primary care. (ITALO VALENTIN) Impression Primary Impression: Abdominal pain Additional Impression: Nausea and vomiting Disposition: HOME, SELF-CARE Condition: Stable Departure-Patient Inst. Decision time for Depature: 14:41 (ITALO VALENTIN) Referrals: BARTOLO ZIMMERMAN MD (PCP) Primary Care Physician [facility] [place] ([place]) Primary Care Physician Patient Instructions: Abdominal Pain, Adult ED Scripts Ondansetron (Ondansetron Odt) 4 Mg Tab.rapdis 4 MG PO TID for Nausea, #14 TAB Prov: ITALO VALENTIN 06/29/22 ATTENDING PHYSICIAN NOTE: I was physically present as attending physician in the emergency department during the care of this patient, but I was not directly involved in the decision making or delivery of care for this patient. (MICHELLE FELICIANO MD) ITALO VALENTIN Jun 29, 2022 13:35 MICHELLE FELICIANO MD Jul 01, 2022 01:03
[2022-06-29 13:38] LABS: ALBUMIN 4.4 GM/DL (3.2-4.5); CHLORIDE 99 MMOL/L (98-107); SODIUM 134 MMOL/L (135-145)
[2022-06-29 13:39] LABS: CALCIUM 10.1 MG/DL (8.5-10.1)
[2022-06-29 13:41] LABS: GLUCOSE 105 MG/DL (70-105)
[2022-06-29 13:42] LABS: BILIRUBIN,TOTAL 1.2 MG/DL (0.1-1.0); CARBON DIOXIDE 19 MMOL/L (21-32)
[2022-06-29 13:44] LABS: ALKALINE PHOSPHATASE 124 U/L (40-136); CREATININE SERUM 0.75 MG/DL (0.60-1.30); GFR ESTIMATED 96
[2022-06-29 13:45] LABS: BUN/CREATININE RATIO 11
[2022-06-29 13:47] LABS: ALANINE AMINOTRANSFERASE 34 U/L (0-55); LIPASE 35 U/L (8-78)
[2022-06-29] MEDS ORDERED: IOHEXOL 350 MG/ML 100 ML (OMNIPAQUE 350) VIAL IV ONE (14:00)
[2022-06-29] MEDS ORDERED: NS 100 ML (IVPB) BAG IV ONE (14:00)
[2022-06-29] MEDS ORDERED: HOLD METFORMIN - RECEIVED CONTRAST 20 ML VIAL IV SCH (14:00)
--- NOTE | 2022-06-29 14:20 | Diagnostic Imaging Report ---
EXAMINATION: CT abdomen and pelvis with intravenous contrast. TECHNIQUE: Multiple contiguous axial images were obtained through the abdomen and pelvis after the uneventful administration of intravenous contrast. All CT scans use one or more of the following dose optimizing techniques: automated exposure control, MA and/or KvP adjustment based on patient size and exam type or iterative reconstruction. HISTORY: Left upper quadrant abdominal pain. Back pain. COMPARISON: 05/17/2021. FINDINGS: The heart is unremarkable. The included lung bases are clear. Hypoattenuating lesion is seen in the right hepatic lobe measuring 2.3 cm, previously measuring 2.1 cm. The portal vein is patent. The gallbladder is unremarkable. Cystic focus is seen interposed between the stomach and pancreas measuring 5.9 x 5.7 cm and 5.7 cm craniocaudal. A 2nd smaller lesion is seen near the head of the pancreas measuring 2.2 x 1.6 cm. No peripancreatic inflammation is seen. The spleen, adrenal glands, and kidneys have a normal appearance. There is no pathologically enlarged mesenteric or retroperitoneal adenopathy. The bowel loops are nondilated. The appendix is visualized in the right lower quadrant and has a normal appearance. There is no free fluid or free air. No acute osseous abnormalities. Ureters and bladder are grossly normal. There is no free air, loculated collection, or adenopathy in the pelvis. IMPRESSION: 1. 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 No peripancreatic inflammatory changes are seen to suggest acute pancreatitis. However, imaging features can lag behind clinical presentation and correlation with laboratory values is recommended. 2. Hypoattenuating lesion in the right hepatic lobe, similar in size to the prior exam. This may represent a hemangioma. Consider liver protocol CT or MRI on outpatient basis to further evaluate. Dictated by: Dictated on workstation # [id number]
[2022-06-29] MEDS ORDERED: ONDA4TAB11 PO (14:42)
[2022-06-29 14:56] VITALS: BP 162/93
== END 2022-06-29 14:56 | disposition home or self-care (01) ==
LOC: EDUNIT# 12:59 → ER 13:02
DX: R10.12 Left upper quadrant pain (principal); R11.2 Nausea with vomiting, unspecified; F17.210 Nicotine dependence, cigarettes, uncomplicated
CPT/HCPCS: 74177; 80053; 83690; 85025; 99284; G0480; 36415; 80320

== ENCOUNTER → 2022-08-14 | Outpatient (CLI) | payer MEDICARE, MEDICAID ==
[~2022-08-14] MED LIST changes: +GADOTERATE 0.5 MMOL/ML (CLARISCAN) 15 ML VIAL IV ONE
--- NOTE | 2022-08-14 14:12 | Diagnostic Imaging Report ---
EXAMINATION: MRI of the abdomen with and without contrast. TECHNIQUE: Multiplanar, multisequence MR images of the abdomen were obtained with and without intravenous contrast. HISTORY: Liver lesion evaluation COMPARISON: 06/29/2022 FINDINGS: Liver: There is diffuse loss of signal on out of phase images compatible with hepatic steatosis. There is a 1.8 cm T2 hyperintense, T1 hypointense lesion within the right hepatic lobe which demonstrates peripheral discontinuous nodular enhancement with progressive filling on delayed images. No other suspicious hepatic lesion. Gallbladder and Bile Ducts: There is no intrahepatic or extrahepatic bile duct dilation. There are no filling defects in the gallbladder or common bile duct. Pancreas: There are 2 redemonstrated cystic lesions within the pancreatic body and tail. The body lesion measures 1.8 cm and the tail lesion measures 4.3 cm. No suspicious solid or enhancing component. No pancreatic ductal dilatation. There is mild atrophy. Kidneys: There is no hydronephrosis. Adrenal glands: There is no adrenal gland nodule or thickening. Spleen: The spleen is normal in size without focal lesion. Lymph Nodes: There is no suspicious lymphadenopathy. Other: There is no ascites. IMPRESSION: 1. A 1.8 cm lesion within the right hepatic lobe with imaging characteristics compatible with a hemangioma. 2. Cystic lesions within the pancreas which remain compatible with chronic pseudocysts. Recommend continued follow-up. 3. Hepatic steatosis. Dictated by: Dictated on workstation # [id number]
--- NOTE | 2022-08-14 14:42 | Diagnostic Imaging Report ---
INDICATION: 6 month followup, left breast nipple retraction and pain. COMPARISON: Correlation is made with the prior mammograms of 01/21/2022 and 01/20/2017. TECHNIQUE: Unilateral left 2D and 3D diagnostic mammography was performed with CAD. FINDINGS: The left breast shows scattered fibroglandular densities. Nipple retraction and post surgical changes appear stable. There are benign calcifications. No mass or malignant-appearing microcalcifications are seen. The left axilla is unremarkable. IMPRESSION: Stable left mammogram. Even so, directed sonographic interrogation of the area of hypoechogenicity at the 3 o'clock retroareolar left breast described on the prior mammogram is recommended and will be performed today. ACR BI-RADS Category 0: Incomplete. (Needs additional imaging evaluation). Result letter will be mailed to the patient. Note: At least 10% of breast cancer is not imaged by mammography. Dictated by: Dictated on workstation # [id number]
--- NOTE | 2022-08-14 15:11 | Diagnostic Imaging Report ---
INDICATION: Six-month followup. Correlation is made with prior left breast ultrasound from 01/21/2022. Sonographic interrogation retroareolar left breast was performed. No discrete mass is seen. The area of hypoechogenicity at the 3 o'clock location of the left breast, 1 cm from the nipple appears stable to perhaps slightly decreased in size measuring 14 x 4 x 6 mm compared with 14 x 8 x 5 mm on prior. IMPRESSION: Stable left breast ultrasound. No concerning sonographic finding is identified. ACR BI-RADS Category 2: Benign findings. Result letter will be mailed to the patient. Note: At least 10% of breast cancer is not imaged by mammography. BI-RADS Category 2 Dictated by: Dictated on workstation # [id number]
== END ==
LOC: RAD 12:30
PROVIDERS: ATTEND Surgery
DX: K76.0 Fatty (change of) liver, not elsewhere classified (principal); K86.2 Cyst of pancreas; N64.4 Mastodynia
CPT/HCPCS: 74183; 76642; 77065; G0279

== ENCOUNTER 2022-10-11 22:46 | Observation (INO) | payer MEDICARE, MEDICAID ==
[~2022-10-11] VITALS: Ht 157.4 cm; Wt 58.4 kg
[~2022-10-11 22:46] MED LIST changes: -BUSP5TAB59; +BUSP5TAB59 PO; -GADOTERATE 0.5 MMOL/ML (CLARISCAN) 15 ML VIAL IV ONE; -MIDO10TA; +MIDO10TA PO
[2022-10-11] MEDS ORDERED: LACTATED RINGERS 1,000 ML IV ONE (23:00)
[2022-10-11 23:14] LABS: BASOPHILS # (AUTO) 0.1 10^3/uL (0.0-0.1); BASOPHILS % (AUTO) 1 % (0-10); EOSINOPHILS % (AUTO) 0 % (0-10); HEMATOCRIT 42 % (35-52); HEMOGLOBIN 14.9 g/dL (11.5-16.0); LYMPHOCYTES # (AUTO) 3.8 10^3/uL (1.0-4.0); LYMPHOCYTES % (AUTO) 30 % (12-44); MEAN CORPUSCULAR HEMOGLOBIN 35 pg (25-34); MEAN CORPUSCULAR HGB CONC 36 g/dL (32-36); MEAN CORPUSCULAR VOLUME 100 fL (80-99); MONOCYTES # (AUTO) 0.6 10^3/uL (0.0-1.0); MONOCYTES % (AUTO) 5 % (0-12); NEUTROPHILS # (AUTO) 8.3 10^3/uL (1.8-7.8); NEUTROPHILS % (AUTO) 65 % (42-75); PLATELET COUNT 232 10^3/uL (130-400); WHITE BLOOD COUNT 12.8 10^3/uL (4.3-11.0)
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
[2022-10-11 23:26] LABS: ALBUMIN 4.6 GM/DL (3.2-4.5); CHLORIDE 97 MMOL/L (98-107); SODIUM 135 MMOL/L (135-145)
[2022-10-11 23:27] LABS: CALCIUM 9.1 MG/DL (8.5-10.1)
[2022-10-11 23:28] LABS: AMYLASE 82 U/L (25-125)
[2022-10-11 23:29] LABS: AMMONIA 42 UMOL/L (11-32); TOTAL PROTEIN 7.7 GM/DL (6.4-8.2)
[2022-10-11 23:30] LABS: BILIRUBIN,TOTAL 0.6 MG/DL (0.1-1.0); CARBON DIOXIDE 13 MMOL/L (21-32)
[2022-10-11 23:32] LABS: ALKALINE PHOSPHATASE 133 U/L (40-136); CREATININE SERUM 0.72 MG/DL (0.60-1.30); GFR ESTIMATED 101
[2022-10-11 23:34] LABS: BUN/CREATININE RATIO 19
[2022-10-11 23:35] LABS: ALANINE AMINOTRANSFERASE 19 U/L (0-55); SALICYLATE < 5.0 MG/DL (5.0-20.0)
[2022-10-11 23:36] LABS: MAGNESIUM 1.7 MG/DL (1.6-2.4)
[2022-10-11 23:37] LABS: LIPASE 26 U/L (8-78)
[2022-10-11 23:42] LABS: VALPROIC ACID 8.5 UG/ML (50.0-100.0)
[2022-10-12] VITALS (7 sets, daily range): BP systolic 124–145; BP diastolic 63–97
[2022-10-12 00:05] LABS: ACETAMINOPHEN < 10 UG/ML (10-30)
[2022-10-12 00:07] LABS: GLUCOSE 52 MG/DL (70-105)
[2022-10-12] MEDS ORDERED: DEXTROSE 10% IV SOLUTION 250 ML IV SCH (00:15)
[2022-10-12] MEDS ORDERED: LACTATED RINGERS 1,000 ML IV ONE ×2 (00:30)
[2022-10-12 01:37] LABS: BILIRUBIN,URINE NEGATIVE (NEGATIVE); CLARITY,URINE CLEAR; COLOR,URINE YELLOW; GLUCOSE, URINE (UA) NEGATIVE (NEGATIVE); KETONES,URINE TRACE (NEGATIVE); LEUKOCYTE ESTERASE ,URINE 1+ (NEGATIVE); NITRITE,URINE NEGATIVE (NEGATIVE); PROTEIN,URINE NEGATIVE (NEGATIVE)
[2022-10-12] MEDS ORDERED: ONDANSETRON 4 MG (ZOFRAN) ORAL DISSOLVE TAB SL PRN (02:00)
[2022-10-12] MEDS ORDERED: D5 1/2 NS 1000 ML IV SOLUTION 1,000 ML IV PRN (02:00)
[2022-10-12] MEDS ORDERED: ONDANSETRON 4 MG/2 ML (SDV) Z0FRAN IV PRN ×2 (02:00)
[2022-10-12] MEDS ORDERED: LORazepam 1 MG (ATIVAN) TAB PO PRN (02:00)
[2022-10-12] MEDS ORDERED: LORazepam INJ 2 MG/ML (ATIVAN) VIAL IM/IV PRN (02:00)
[2022-10-12] MEDS ORDERED: LORazepam INJ 2 MG/ML (ATIVAN) VIAL IV PRN (02:00)
[2022-10-12] MEDS ORDERED: ANTACID SUSP 30 ML UDC (MYLANTA) PO PRN (02:00)
[2022-10-12] MEDS ORDERED: SENNA W/DOCUSATE (SENOKOT S) TABLET PO PRN (02:00)
[2022-10-12] MEDS ORDERED: 1/2 NS IV SOLUTION 1,000 ML IV PRN (02:00)
[2022-10-12 02:14] LABS: AMPHETAMINE SCREEN, URINE NEGATIVE (NEGATIVE); BARBITURATE SCREEN URINE POSITIVE (NEGATIVE); BENZODIAZEPINES SCREEN URINE NEGATIVE (NEGATIVE); CANNABINOID SCREEN, URINE NEGATIVE (NEGATIVE); COCAINE SCREEN URINE NEGATIVE (NEGATIVE); METHADONE STAT NEGATIVE (NEGATIVE); OPIATE SCREEN URINE NEGATIVE (NEGATIVE); OXYCODONE STAT NEGATIVE (NEGATIVE); PROPOXYPHENE STAT NEGATIVE (NEGATIVE); TRICYCLIC ANTIDEPRESSANTS SCRE NEGATIVE (NEGATIVE)
[2022-10-12 02:25] LABS: RBC,URINE RARE /HPF
[2022-10-12 02:26] LABS: BACTERIA,URINE TRACE /HPF; URINE OTHER FEW WBC CLUSTERS /HPF
[2022-10-12] MEDS: D5 1/2 NS W/KCL 20 MEQ/L 1,000 ML IV SCH ×4 (03:01→22:01)
--- NOTE | 2022-10-12 05:50 | Short Stay Summary-Hospitalist ---
History of Present Illness HPI/Chief Complaint Chief complaint: Alcohol intoxication with diarrhea HPI: This is a 51-year-old female presented to the ER with acute alcohol intoxication and confusion with diarrhea and dehydration who had just finished up a 38-day 8 of alcohol detox and went to nausea but immediately went back to drinking alcohol when she arrived home currently diagnosed with C. difficile colitis and is frightened she will have a seizure. Vancomycin mouth will be ordered 4 times daily along with Questran. She will be maintained alcohol withdrawal protocol. Source: patient, RN/MD Exam Limitations: no limitations Date Seen 10/12/22 Time Seen by a Provider: 11:00 Attending Physician Renzo Dial MD PCP Admitting Physician: Luli Elaine DO Attending Physician: Luli Elaine DO Referring Physician Date of Admission Oct 12, 2022 at 00:30 Home Medications & Allergies Home Medications Reviewed patient Home Medication Reconciliation performed by pharmacy medication reconciliations cardiac cath technician and/or nursing. Patients Allergies have been reviewed. Allergies Allergies Coded Allergies sulfamethoxazole (Verified Allergy, Unknown, Rash, 03/07/22) trimethoprim (Verified Allergy, Unknown, Rash, 03/07/22) Past Nmlduik-Qpnucn-Mezqgg Hx Patient Social History Marrital Status: single Employed/Student: unemployed Tobacco Use?: Yes (1 1/2 PPD) Tobacco type used: Cigarettes Smoking Status: Current Everyday Smoker Smokeless Tobacco Frequency: Never a User Use of E-Cig and/or Vaping dev: No Substance use?: Yes Substance type: Amphetamines, Methamphetamine, Nicotine, Opiates/Opioids, Misuse of prescript meds, Marijuana Substance frequency: Once in a while Alcohol Use?: Yes (1/2 GALLON OF VODKA/DAY PLUS OTHERS) Alcohol type: Beer, Hard Liquor Additional alcohol type: VODKA Alcohol Frequency: Daily Additional Alcohol Comments: 1/2 GAL VODKA Pt feels they are or have been: Unable to obtain Immunizations Up To Date Date of Influenza Vaccine: Aug 17, 2021 First/Initial COVID19 Vaccinat: OCT 2021 Second COVID19 Vaccination Kamran: NOV 2020 Tetanus Booster (TDap): Less Than 5 Years Hepatitis A: No Hepatitis B: No PED Vaccines UTD: No Date of Pneumonia Vaccine: Aug 17, 2011 Seasonal Allergies Seasonal Allergies: No Current Status status: No Advance Directives: Unable to obtain Communicates: Verbally Primary Language: Chadian Preferred Spoken Language: Chadian Is interpretation needed?: No Implanted or Applied Medical D: None Past Medical History Surgeries: Abdominal, Section, Orthopedic Currently Using CPAP: No Currently Using BIPAP: No Hypertension Concussion, Seizure Disorder, Traumatic Brain Injury 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 Hypertension Review of Systems Constitutional: see HPI, malaise, weakness EENTM: no symptoms reported Respiratory: no symptoms reported Cardiovascular: no symptoms reported Gastrointestinal: diarrhea Genitourinary: no symptoms reported Musculoskeletal: no symptoms reported Skin: no symptoms reported Psychiatric/Neurological: No Symptoms Reported All Other Systems Reviewed Negative Unless Noted: Yes Physical Exam Physical Exam Vital Signs Vital Signs - First Documented 10/11/22 22:48 Temp 36.5 Pulse 103 Resp 20 B/P (MAP) 142/86 (104) Pulse Ox 98 O2 Delivery Room Air Capillary Refill : Less Than 3 Seconds Height, Weight, BMI Height: 5'3.00" Weight: 150lbs. 0oz. 68.524551fn; 23.57 BMI Method:Estimated General Appearance: No Apparent Distress, WD/WN, Chronically ill, Thin, Other (REEKS OF CIGARETTES, MARIJUANA AND ETOH, SPEECH IS SLURRED AND RAMBLES ON NON- STOP AT LENGTH-VERY TANGENTIALLY, APPEARS TO BE UNDER THE INFLUENCE OF SOME SUBSTANCE/S.) Eyes: Bilateral Eye Normal Inspection, Bilateral Eye PERRL HEENT: PERRL/EOMI, Other (OLD SMALL SUPER FICIAL SCABBED ABRASIONS TO FOREHEAD BILATERALLY. 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 Short Stay Diagnosis Discharge Diagnosis-Short Stay Admission Diagnosis Acute alcohol intoxication C. difficile colitis Final Discharge Diagnosis Acute alcohol intoxication C. difficile colitis History of alcohol withdrawal seizures Dehydration Conclusion Plan Alcohol withdrawal protocol Vancomycin Diagnosis/Problems Diagnosis/Problems (1) Alcohol abuse Status: Chronic LULI ELAINE DO Oct 12, 2022 05:50
[2022-10-12 05:52] LABS: BASOPHILS % (AUTO) 0 % (0-10); EOSINOPHILS # (AUTO) 0.1 10^3/uL (0.0-0.3); EOSINOPHILS % (AUTO) 1 % (0-10); HEMATOCRIT 31 % (35-52); HEMOGLOBIN 11.1 g/dL (11.5-16.0); LYMPHOCYTES # (AUTO) 1.6 10^3/uL (1.0-4.0); LYMPHOCYTES % (AUTO) 19 % (12-44); MEAN CORPUSCULAR HEMOGLOBIN 35 pg (25-34); MEAN CORPUSCULAR HGB CONC 36 g/dL (32-36); MEAN CORPUSCULAR VOLUME 98 fL (80-99); MEAN PLATELET VOLUME 9.5 fL (9.0-12.2); MONOCYTES # (AUTO) 0.6 10^3/uL (0.0-1.0); MONOCYTES % (AUTO) 7 % (0-12); NEUTROPHILS % (AUTO) 73 % (42-75); PLATELET COUNT 151 10^3/uL (130-400); WHITE BLOOD COUNT 8.2 10^3/uL (4.3-11.0)
[2022-10-12 06:21] LABS: ALBUMIN 3.2 GM/DL (3.2-4.5); BILIRUBIN,TOTAL 0.7 MG/DL (0.1-1.0); CALCIUM 7.7 MG/DL (8.5-10.1); CREATININE SERUM 0.62 MG/DL (0.60-1.30); POTASSIUM 3.8 MMOL/L (3.6-5.0); TOTAL PROTEIN 5.4 GM/DL (6.4-8.2)
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
[2022-10-12] MEDS: PANTOPRAZOLE 40 MG (PROTONIX) VIAL IV SCH (09:02)
[2022-10-12] MEDS: THIAMINE INJECTION 100 MG, FOLIC ACID INJECTION 1 MG, MAGNESIUM SULFATE 2 GM, VITAMIN M... IV SCH ×5 (09:03)
[2022-10-12] MEDS: VANCOMYCIN 125 MG CAPSULE PO SCH ×4 (09:17→19:43)
[2022-10-12] MEDS: CHOLESTYRAMINE 4 GM (QUESTRAN LITE, PREVALITE) PKT PO SCH ×3 (09:17→19:43)
[2022-10-12] MEDS ORDERED: FLU QUADRIvalent (6 months+) 60 mcg/0.5 ml 2022-23 (Fluzone) IM ONE (10:00)
[2022-10-12] MEDS ORDERED: ACETAMINOPHEN 325 MG TABLET PO PRN (11:15)
[2022-10-12] MEDS ORDERED: DIVA-76 PO (11:35)
[2022-10-12] MEDS ORDERED: IBUPROFEN 800 MG (MOTRIN) TAB PO PRN (12:15)
[2022-10-12] MEDS: GABAPENTIN 600 MG (NEURONTIN) TAB PO SCH ×2 (13:16→19:43)
[2022-10-12] MEDS: MIDODRINE 10 MG (PROAMATINE) TAB PO SCH ×2 (13:16→19:43)
[2022-10-12] MEDS: LORazepam 1 MG (ATIVAN) TAB PO SCH ×3 (17:01→23:49)
[2022-10-12] MEDS: DIVALPROEX 250 MG DELAYED RELEASE (DEPAKOTE) TAB PO SCH (19:43)
[2022-10-12] MEDS: busPIRone 5 MG (BUSPAR) TAB PO SCH (19:43)
[2022-10-13 03:58] VITALS: BP 129/76
[2022-10-13] MEDS: LORazepam 1 MG (ATIVAN) TAB PO SCH ×5 (04:14→20:49)
[2022-10-13] MEDS: LEVOTHYROXINE 50 MCG (LEVOTHROID) TAB PO SCH (05:57)
--- NOTE | 2022-10-13 06:06 | Progress Note - Hospitalist ---
Subjective HPI/CC On Admission Date Seen by Provider: Oct 13, 2022 Time Seen by Provider: 11:00 Chief complaint: Alcohol intoxication with diarrhea HPI: This is a 51-year-old female presented to the ER with acute alcohol intoxication and confusion with diarrhea and dehydration who had just finished up a 38-day 8 of alcohol detox and went to nausea but immediately went back to drinking alcohol when she arrived home currently diagnosed with C. difficile colitis and is frightened she will have a seizure. Vancomycin mouth will be ordered 4 times daily along with Questran. She will be maintained alcohol withdrawal protocol. Subjective/Events-last exam Patient sleeping Diarrhea stools continue Vancomycin p.o. and Questran Review of Systems Gastrointestinal: Diarrhea Objective Exam Vital Signs Vital Signs Date Time Temp Pulse Resp B/P (MAP) Pulse Ox O2 Delivery O2 Flow Rate FiO2 10/13/22 13:00 80 10/13/22 12:04 36.6 18 142/82 (102) 97 Room Air Capillary Refill : Less Than 3 Seconds General Appearance: No Apparent Distress, WD/WN, Chronically ill Results/Procedures Lab Patient resulted labs reviewed. Assessment/Plan Assessment and Plan Assess & Plan/Chief Complaint Assessment: Alcohol withdrawal on protocol C. difficile colitis Plan: Vancomycin Questran Ativan Diagnosis/Problems Diagnosis/Problems (1) Alcohol abuse Status: Chronic CHARLEE FERMIN DO Oct 13, 2022 06:06
[2022-10-13] MEDS: D5 1/2 NS W/KCL 20 MEQ/L 1,000 ML IV SCH ×2 (07:50→17:01)
[2022-10-13 08:13] VITALS: BP 140/88
[2022-10-13] MEDS: CHOLESTYRAMINE 4 GM (QUESTRAN LITE, PREVALITE) PKT PO SCH ×3 (09:30→20:45)
[2022-10-13] MEDS: DIVALPROEX 250 MG DELAYED RELEASE (DEPAKOTE) TAB PO SCH ×2 (09:30→20:45)
[2022-10-13] MEDS: GABAPENTIN 600 MG (NEURONTIN) TAB PO SCH ×3 (09:30→20:45)
[2022-10-13] MEDS: MIDODRINE 10 MG (PROAMATINE) TAB PO SCH ×3 (09:30→20:45)
[2022-10-13] MEDS: FOLIC ACID 1 MG TAB PO SCH (09:30)
[2022-10-13] MEDS: SERTRALINE 100 MG (ZOLOFT) TAB PO SCH (09:31)
[2022-10-13] MEDS: PANTOPRAZOLE 40 MG (PROTONIX) VIAL IV SCH (09:31)
[2022-10-13] MEDS: lisINopril 20 MG (PRINIVIL) TABLET PO SCH (09:31)
[2022-10-13] MEDS: busPIRone 5 MG (BUSPAR) TAB PO SCH ×2 (09:31→20:45)
[2022-10-13] MEDS: THIAMINE INJECTION 100 MG, FOLIC ACID INJECTION 1 MG, MAGNESIUM SULFATE 2 GM, VITAMIN M... IV SCH ×5 (09:32)
[2022-10-13] MEDS: VANCOMYCIN 125 MG CAPSULE PO SCH ×4 (09:33→20:49)
[2022-10-13 12:04] VITALS: BP 142/82
[2022-10-13 17:00] VITALS: BP 130/76
[2022-10-13 20:27] VITALS: BP 158/94
[2022-10-14] MEDS: LORazepam 1 MG (ATIVAN) TAB PO SCH ×3 (00:13→08:31)
[2022-10-14 00:49] VITALS: BP 161/89
[2022-10-14 03:31] VITALS: BP 146/93
[2022-10-14] MEDS: D5 1/2 NS W/KCL 20 MEQ/L 1,000 ML IV SCH ×3 (04:02→20:45)
[2022-10-14] MEDS: LEVOTHYROXINE 50 MCG (LEVOTHROID) TAB PO SCH (05:53)
[2022-10-14 08:00] VITALS: BP 154/79
[2022-10-14] MEDS: lisINopril 20 MG (PRINIVIL) TABLET PO SCH (08:31)
[2022-10-14] MEDS: SERTRALINE 100 MG (ZOLOFT) TAB PO SCH (08:31)
[2022-10-14] MEDS: MIDODRINE 10 MG (PROAMATINE) TAB PO SCH (08:31)
[2022-10-14] MEDS: busPIRone 5 MG (BUSPAR) TAB PO SCH ×3 (08:31→20:44)
[2022-10-14] MEDS: PANTOPRAZOLE 40 MG (PROTONIX) VIAL IV SCH (08:31)
[2022-10-14] MEDS: DIVALPROEX 250 MG DELAYED RELEASE (DEPAKOTE) TAB PO SCH ×2 (08:32→20:44)
[2022-10-14] MEDS: FOLIC ACID 1 MG TAB PO SCH (08:32)
[2022-10-14] MEDS: GABAPENTIN 600 MG (NEURONTIN) TAB PO SCH (08:32)
[2022-10-14] MEDS: VANCOMYCIN 125 MG CAPSULE PO SCH ×4 (08:37→20:44)
[2022-10-14] MEDS: THIAMINE INJECTION 100 MG, FOLIC ACID INJECTION 1 MG, MAGNESIUM SULFATE 2 GM, VITAMIN M... IV SCH ×5 (09:26)
[2022-10-14] MEDS: CHOLESTYRAMINE 4 GM (QUESTRAN LITE, PREVALITE) PKT PO SCH ×3 (10:12→20:44)
[2022-10-14] MEDS ORDERED: LORazepam 1 MG (ATIVAN) TAB PO PRN (10:15)
[2022-10-14] MEDS ORDERED: CELE-63 PO (10:52)
[2022-10-14] MEDS ORDERED: GABA800T10 PO (10:52)
[2022-10-14] MEDS ORDERED: DIVA500T15 PO (10:52)
[2022-10-14] MEDS ORDERED: POTA-177 PO (10:52)
[2022-10-14] MEDS ORDERED: FURO40TA4 PO (10:52)
[2022-10-14] MEDS ORDERED: MIDODRINE 10 MG (PROAMATINE) TAB PO PRN (11:15)
--- NOTE | 2022-10-14 11:15 | Progress Note - Hospitalist ---
ROSAWAYNE 10/14/22 1115: Subjective HPI/CC On Admission Date Seen by Provider: Oct 14, 2022 Time Seen by Provider: 10:00 Chief complaint: Alcohol intoxication with diarrhea HPI: This is a 51-year-old female presented to the ER with acute alcohol intoxication and confusion with diarrhea and dehydration who had just finished up a 38-day 8 of alcohol detox and went to nausea but immediately went back to drinking alcohol when she arrived home currently diagnosed with C. difficile colitis and is frightened she will have a seizure. Vancomycin mouth will be ordered 4 times daily along with Questran. She will be maintained alcohol withdrawal protocol. Subjective/Events-last exam Patient is awake and alert in her bed this morning, no family at bedside. Patient's hemoglobin is down from 14.9 yesterday to 11.1 today. Her WBC has also decresed from 12.8 to 8.2. She reports that her diarrhea has improved since yesterday. She complains of a burning sensation and occasionally sharp pain when she urinates that she feels started after her UA. Urine culture grew E. coli. Patient also complains of a mild headache, but states that this is a chronic issue. Patient has no other complaints. Review of Systems General: No Chills, No Night Sweats HEENT: Head Aches (mild chronic); No Visual Changes, No Eye Pain, No Ear Pain Pulmonary: No Dyspnea, No Cough Cardiovascular: No: Chest Pain, Palpitations Gastrointestinal: Diarrhea; No: Nausea, Vomiting, Abdominal Pain Genitourinary: Dysuria, Frequency Musculoskeletal: No: neck pain, back pain Neurological: No: Numbness, Confusion Objective Exam Vital Signs Vital Signs Date Time Temp Pulse Resp B/P (MAP) Pulse Ox O2 Delivery O2 Flow Rate FiO2 10/14/22 08:00 37.0 80 16 154/79 (104) Room Air 10/14/22 08:00 97 Capillary Refill : Less Than 3 Seconds General Appearance: No Apparent Distress, WD/WN HEENT: PERRL/EOMI Neck: Non Tender, Supple Respiratory: Lungs Clear, Normal Breath Sounds, No Accessory Muscle Use Cardiovascular: Regular Rate, Rhythm, Normal Peripheral Pulses Gastrointestinal: Non Tender, Soft Rectal: Deferred Back: No Vertebral Tenderness Extremity: Non Tender, No Pedal Edema Neurologic/Psychiatric: Alert, Oriented x3 Skin: Normal Color, Warm/Dry Lymphatic: No Adenopathy Results/Procedures Lab Patient resulted labs reviewed. Assessment/Plan Assessment and Plan Assess & Plan/Chief Complaint Diarrhea C. diff colitis Hx of alcohol abuse Dehydration Anemia Anxiety Depression Anemia - likely dilutional UTI Continue antibiotics Alcohol withdrawal protocol Continue IV fluids Monitor Hg Home meds for anxiety/depression LULI FERMIN DO 10/15/22 0514: Subjective Subjective/Events-last exam Pt is having more and more difficulties with sedation, so we'll decrease Ativan Diarrhea still remains but improved Vancomycin maintained for C. Diff colitis Supervisory-Addendum Brief Verification & Attestation Participated in pt care: history, MDM, physical Personally performed: exam, history, MDM, supervision of care Care discussed with: Medical Student Procedures: n/a Results interpretation: Verified all documentation Verification and Attestation of Medical Student E/M Service A medical student performed and documented this service in my presence. I reviewed and verified all information documented by the medical student and made modifications to such information, when appropriate. I personally performed the physical exam and medical decision making. Luli Fermin, Oct 15, 2022,05:14 WAYNE LEE Oct 14, 2022 11:15 LULI FERMIN DO Oct 15, 2022 05:14
[2022-10-14] MEDS: CELECOXIB 100 MG (CeleBREX) CAP PO SCH (11:18)
[2022-10-14 11:50] VITALS: BP 146/92
[2022-10-14] MEDS: GABAPENTIN 400 MG (NEURONTIN) CAP PO SCH ×3 (13:17→20:44)
[2022-10-14] MEDS ORDERED: FLU QUADRIvalent (6 months+) 60 mcg/0.5 ml 2022-23 (Fluzone) IM ONE (13:45)
[2022-10-14 16:24] VITALS: BP 147/89
[2022-10-14 19:34] VITALS: BP 144/85
[2022-10-15 00:05] VITALS: BP 142/83
[2022-10-15 04:10] VITALS: BP 170/94
[2022-10-15] MEDS: LEVOTHYROXINE 50 MCG (LEVOTHROID) TAB PO SCH (06:27)
[2022-10-15] MEDS: D5 1/2 NS W/KCL 20 MEQ/L 1,000 ML IV SCH (06:28)
[2022-10-15 08:30] VITALS: BP 138/81
[2022-10-15] MEDS ORDERED: PANTOPRAZOLE 40 MG (PROTONIX) TAB PO SCH (09:00)
--- NOTE | 2022-10-15 09:53 | Progress Note - Hospitalist ---
Subjective HPI/CC On Admission Date Seen by Provider: Oct 15, 2022 Time Seen by Provider: 10:00 Chief complaint: Alcohol intoxication with diarrhea HPI: This is a 51-year-old female presented to the ER with acute alcohol intoxication and confusion with diarrhea and dehydration who had just finished up a 38-day 8 of alcohol detox and went to nausea but immediately went back to drinking alcohol when she arrived home currently diagnosed with C. difficile colitis and is frightened she will have a seizure. Vancomycin mouth will be ordered 4 times daily along with Questran. She will be maintained alcohol withdrawal protocol. Objective Exam Vital Signs Vital Signs Date Time Temp Pulse Resp B/P (MAP) Pulse Ox O2 Delivery O2 Flow Rate FiO2 10/15/22 12:57 36.6 75 18 135/79 97 Room Air Capillary Refill : Less Than 3 Seconds Results/Procedures Lab Patient resulted labs reviewed. Assessment/Plan Assessment and Plan Assess & Plan/Chief Complaint Assessment: Alcohol withdrawal on protocol C. difficile colitis Plan: Vancomycin Questran Ativan Diagnosis/Problems Diagnosis/Problems (1) Alcohol abuse Status: Chronic CHARLEE FERMIN DO Oct 15, 2022 09:53
[2022-10-15] MEDS: GABAPENTIN 400 MG (NEURONTIN) CAP PO SCH ×2 (10:10→12:41)
[2022-10-15] MEDS: busPIRone 5 MG (BUSPAR) TAB PO SCH ×2 (10:11→12:41)
[2022-10-15] MEDS: CHOLESTYRAMINE 4 GM (QUESTRAN LITE, PREVALITE) PKT PO SCH (10:11)
[2022-10-15] MEDS: DIVALPROEX 250 MG DELAYED RELEASE (DEPAKOTE) TAB PO SCH (10:11)
[2022-10-15] MEDS: CELECOXIB 100 MG (CeleBREX) CAP PO SCH (10:11)
[2022-10-15] MEDS: VANCOMYCIN 125 MG CAPSULE PO SCH (10:12)
[2022-10-15] MEDS ORDERED: CHOL4PAC3 PO ×2 (10:22→10:34)
[2022-10-15] MEDS ORDERED: VANC125C5 PO ×2 (10:22→10:34)
--- NOTE | 2022-10-15 10:23 | Discharge Summary ---
Discharge Summary Hospital Course Was the Problem List Reviewed?: Yes Problems/Dx: (1) Alcohol abuse Status: Chronic Hospital Course Date of Admission: Oct 12, 2022 at 00:30 Admission Diagnosis : [facility] Date of Discharge: 10/15/22 Discharge Diagnosis: [ ] Hospital Course: Pt had an uneventful but lengthy hospital course for observation due to alcohol withdrawal and diarrhea. Pt was found to have C. Diff colitis. Pt improved with Questran and Vancomycin by mouth. She did complete the detox protocol. She will pursue outpatient alcohol treatment which was not successful after 38 days of sobriety in [place] at the drug and alcohol rehab program in which she arrived home she started drinking. Prognosis remains poor. Labs and Pending Lab Test: Microbiology 10/12/22 C. difficile GDH Antigen & Toxins - Final, Complete 10/12/22 Urine Culture - Final, Complete Escherichia coli Proteus species Home Meds Active Reported Celecoxib 200 Mg Capsule 200 Mg PO DAILY Gabapentin 800 Mg Tablet 800 Mg PO QID Potassium Chloride 10 Meq Tab.er.prt 10 Meq PO Q48H PRN Furosemide 40 Mg Tablet 40 Mg PO Q48H PRN Divalproex Sodium ER (Divalproex Sodium) 500 Mg Tab.er.24h 500 Mg PO HS Midodrine HCl 10 Mg Tablet 15 Mg PO Q8H PRN TAKES 1 & (10MG) TABS Buspirone HCl 5 Mg Tablet 5 Mg PO TID Depakote (Divalproex Sodium) 250 Mg Tablet.dr 250 Mg PO BID WITH MEALS Levothyroxine Sodium 50 Mcg Tablet 50 Mcg PO DAILY Assessment/Pt Instructions PCP 1 week Discharge Planning: <30 minutes discharge planning Discharge Physical Examination Vital Signs Vital Signs Date Time Temp Pulse Resp B/P (MAP) Pulse Ox O2 Delivery O2 Flow Rate FiO2 10/15/22 08:30 36.7 74 18 138/81 (100) 97 Room Air General Appearance: No Apparent Distress, WD/WN, Chronically ill Allergies: Coded Allergies: sulfamethoxazole (Verified Allergy, Unknown, Rash, 03/07/22) trimethoprim (Verified Allergy, Unknown, Rash, 03/07/22) Discharge Summary Date of Admission Oct 12, 2022 at 00:30 Date of Discharge Discharge Date: Oct 15, 2022 Admission Diagnosis Acute alcohol intoxication C. difficile colitis Discharge Diagnosis Assessment: Alcohol withdrawal on protocol C. difficile colitis Plan: Vancomycin Questran Ativan (1) Alcohol abuse Status: Chronic CHARLEE FERMIN DO Oct 15, 2022 10:22
[2022-10-15 11:34] VITALS: BP 135/79
[2022-10-15 12:57] VITALS: BP 135/79
[2022-10-15] MEDS ORDERED: VANCOMYCIN 125 MG CAPSULE PO SCH (13:00)
== END 2022-10-15 10:21 | disposition home or self-care (01) ==
LOC: EDUNIT# 22:46 → ER 22:48 → 4TH 10-12 00:30 → UNDOADMOB 10-12 00:30 → 4TH 10-12 01:45 → UNDODISOB 10-15 10:21
PROVIDERS: ADMIT Internal Medicine; ATTEND Internal Medicine
DX: F10.229 Alcohol dependence with intoxication, unspecified (principal); A04.72 Enterocolitis due to Clostridium difficile, not specified as recurrent; N39.0 Urinary tract infection, site not specified; F15.90 Other stimulant use, unspecified, uncomplicated; Y90.8 Blood alcohol level of 240 mg/100 ml or more; F11.90 Opioid use, unspecified, uncomplicated; F19.90 Other psychoactive substance use, unspecified, uncomplicated; F12.90 Cannabis use, unspecified, uncomplicated; Z91.81 History of falling; E86.0 Dehydration; F17.210 Nicotine dependence, cigarettes, uncomplicated; D64.9 Anemia, unspecified; F41.9 Anxiety disorder, unspecified; F32.A Depression, unspecified; A49.8 Other bacterial infections of unspecified site; Z91.199 Patient's noncompliance with other medical treatment and regimen due to unspecified reason; Z87.820 Personal history of traumatic brain injury; Z23 Encounter for immunization
CPT/HCPCS: 51701; 70450; 72125; 80053 ×2; 80164; 80306; 81000; 82140; 82150; 82947; 83690; 83735; 84703; 85025; 87077; 87088; 87186; 87324; 87449; 93005; 93041; 99284; G0480 ×3; 36415; 80320; 80329; 90471; 90686; 96366; 96375; 96376; G0378

== ENCOUNTER 2022-11-09 10:50 | Emergency (ER) | payer MEDICARE, MEDICAID ==
[~2022-11-09] VITALS: Ht 157 cm; Wt 57.0 kg
[~2022-11-09 10:50] MED LIST changes: +CELE-63 PO; +CHOL4PAC3 PO; +DIVA-76 PO; +DIVA500T15 PO; +FURO40TA4 PO; +GABA800T10 PO; +POTA-177 PO; +VANC125C5 PO
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
--- NOTE | 2022-11-09 12:01 | Diagnostic Imaging Report ---
Clinical Indication: Patient has bruising in the right jaw and face from a fall a couple of days ago. Alcohol use. Exam: Axial Head CT without IV contrast with sagittal and coronal reformations. Axial Maxillofacial CT scan without IV contrast with sagittal and coronal reformations. Auto Exposure Controls were utilized during the CT exam to meet ALARA standards for radiation dose reduction. Comparison: CT scan of the head, face, cervical spine without contrast dated 10/06/2020. Findings: Head and maxillofacial CT: There is diffuse brain parenchymal volume loss which is advanced for patient's age. There is mild patchy areas of low-attenuation white matter changes involving both cerebral hemispheres which may represent chronic small vessel ischemic disease and leukoaraiosis. Stable chronic nasal bone deformities and fractures noted bilaterally. There is no acute skull or maxillofacial fracture. Paranasal sinuses and mastoid air cells are clear. Orbits and globes are unremarkable. Impression: 1: There is no evidence of acute intracranial process. There is no intracranial hemorrhage or skull fracture. There is no maxillofacial fracture. 2: There is brain parenchymal volume loss which is advanced for patient's age. Dictated by: Dictated on workstation # [id number]
[2022-11-09] MEDS ORDERED: TETANUS,DIPTH,PERTUSS P/F (BOOSTRIX) 0.5 ML VIAL IM ONE (12:30)
[2022-11-09 12:50] VITALS: BP 122/66
== END 2022-11-09 12:50 | disposition home or self-care (01) ==
LOC: EDUNIT# 10:50 → ER 10:52
DX: S00.83XA Contusion of other part of head, initial encounter (principal); S41.131A Puncture wound without foreign body of right upper arm, initial encounter; F10.20 Alcohol dependence, uncomplicated; W18.2XXA Fall in (into) shower or empty bathtub, initial encounter
CPT/HCPCS: 70450; 70486

== ENCOUNTER 2022-12-16 22:58 | Emergency (ER) | payer MEDICARE, MEDICAID ==
[~2022-12-16] VITALS: Ht 157.5 cm; Wt 54.4 kg
[2022-12-16] MEDS ORDERED: LACTATED RINGERS 1,000 ML IV ONE (23:15)
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
[2022-12-16 23:20] LABS: BASOPHILS % (AUTO) 1 % (0-10); EOSINOPHILS % (AUTO) 1 % (0-10); HEMATOCRIT 40 % (35-52); HEMOGLOBIN 14.3 g/dL (11.5-16.0); LYMPHOCYTES # (AUTO) 1.5 10^3/uL (1.0-4.0); LYMPHOCYTES % (AUTO) 23 % (12-44); MEAN CORPUSCULAR HEMOGLOBIN 35 pg (25-34); MEAN CORPUSCULAR HGB CONC 36 g/dL (32-36); MEAN CORPUSCULAR VOLUME 97 fL (80-99); MEAN PLATELET VOLUME 10.4 fL (9.0-12.2); MONOCYTES # (AUTO) 0.5 10^3/uL (0.0-1.0); MONOCYTES % (AUTO) 7 % (0-12); NEUTROPHILS # (AUTO) 4.5 10^3/uL (1.8-7.8); NEUTROPHILS % (AUTO) 68 % (42-75); PLATELET COUNT 73 10^3/uL (130-400); WHITE BLOOD COUNT 6.6 10^3/uL (4.3-11.0)
[2022-12-16 23:24] LABS: ALBUMIN 4.3 GM/DL (3.2-4.5); CHLORIDE 93 MMOL/L (98-107); POTASSIUM 3.6 MMOL/L (3.6-5.0); SODIUM 131 MMOL/L (135-145)
[2022-12-16 23:26] LABS: AMMONIA 31 UMOL/L (11-32); AMYLASE 71 U/L (25-125); CALCIUM 9.2 MG/DL (8.5-10.1)
[2022-12-16 23:27] LABS: GLUCOSE 131 MG/DL (70-105); TOTAL PROTEIN 7.3 GM/DL (6.4-8.2)
[2022-12-16 23:28] LABS: CARBON DIOXIDE 11 MMOL/L (21-32)
[2022-12-16 23:29] LABS: BILIRUBIN,TOTAL 2.7 MG/DL (0.1-1.0)
[2022-12-16 23:30] LABS: ALKALINE PHOSPHATASE 218 U/L (40-136); CREATININE SERUM 0.81 MG/DL (0.60-1.30); GFR ESTIMATED 87
[2022-12-16 23:32] LABS: BUN/CREATININE RATIO 20
[2022-12-16 23:33] LABS: ALANINE AMINOTRANSFERASE 103 U/L (0-55); MAGNESIUM 2.1 MG/DL (1.6-2.4)
[2022-12-16 23:35] LABS: LIPASE 69 U/L (8-78)
[2022-12-16 23:41] LABS: ACETAMINOPHEN < 10 UG/ML (10-30)
[2022-12-17] MEDS ORDERED: ONDANSETRON 4 MG/2 ML (SDV) Z0FRAN IVP ONE
[2022-12-17] MEDS ORDERED: NS IV 1000 ML 1,000 ML IV SCH (00:15)
[2022-12-17] MEDS ORDERED: CHLO25CA10 PO (01:15)
[2022-12-17 03:00] VITALS: BP 124/83
--- NOTE | 2022-12-17 08:00 | Diagnostic Imaging Report ---
EXAMINATION: Chest radiograph, portable AP view. DATE: 12/17/2022 12:05 AM INDICATION: 52-year-old female, fall. Rib pain. COMPARISON: May 17, 2021 chest radiograph. FINDINGS: Heart size and mediastinal contours are unchanged. There is no identified pneumothorax. There is no large pleural effusion. There is no identified focal airspace consolidation. IMPRESSION: 1. No identified acute cardiopulmonary abnormality. Dictated by: Dictated on workstation # [id number]
== END 2022-12-17 03:00 | disposition home or self-care (01) ==
LOC: EDUNIT# 22:58 → ER 23:00
DX: F10.229 Alcohol dependence with intoxication, unspecified (principal); R74.8 Abnormal levels of other serum enzymes; F17.210 Nicotine dependence, cigarettes, uncomplicated; Y90.8 Blood alcohol level of 240 mg/100 ml or more; Z20.822 Contact with and (suspected) exposure to COVID-19
CPT/HCPCS: 80053; 82140; 82150; 83690; 83735; 84703; 87636; G0480 ×2; 36415; 71045; 80320; 80329; 85025; 93041

== ENCOUNTER 2023-02-27 02:07 | Emergency (ER) | payer MEDICARE, MEDICAID ==
[~2023-02-27] VITALS: Ht 157.5 cm; Wt 54.4 kg
[~2023-02-27 02:07] MED LIST changes: +CHLO25CA10 PO
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
[2023-02-27 03:55] VITALS: BP 109/65
--- NOTE | 2023-02-27 06:07 | Diagnostic Imaging Report ---
INDICATION: Right lower leg injury. FINDINGS: AP and lateral views of the right tibia-fibula show a nondisplaced fracture of the distal fibular shaft. The tibia appears to be intact. IMPRESSION: Nondisplaced oblique fracture distal shaft of the right fibula. Dictated by: Dictated on workstation # [id number]
--- NOTE | 2023-02-27 06:09 | Diagnostic Imaging Report ---
INDICATION: Right ankle pain. FINDINGS: 3 views of the right ankle show a minimally displaced oblique fracture of the distal fibular shaft. Ankle mortise is not widened. Medial malleolus is intact. IMPRESSION: Minimally displaced oblique fracture of the distal fibular shaft. This component is displaced laterally by the width of the cortex. Dictated by: Dictated on workstation # [id number]
--- NOTE | 2023-02-27 06:10 | Diagnostic Imaging Report ---
INDICATION: Right leg injury. FINDINGS: AP and lateral views of the right femur show no fracture or dislocation. IMPRESSION: Negative right femur. Dictated by: Dictated on workstation # [id number]
--- NOTE | 2023-02-27 06:19 | Diagnostic Imaging Report ---
INDICATION: Pelvic injury AP view pelvis shows no fracture or dislocation. Joint spaces are well-maintained. IMPRESSION: Negative pelvis Dictated by: Dictated on workstation # [id number]
== END 2023-02-27 03:55 | disposition home or self-care (01) ==
LOC: EDUNIT# 02:07 → ER 02:09
DX: S82.831A Other fracture of upper and lower end of right fibula, initial encounter for closed fracture (principal); F10.10 Alcohol abuse, uncomplicated; F19.10 Other psychoactive substance abuse, uncomplicated; M79.81 Nontraumatic hematoma of soft tissue; F17.210 Nicotine dependence, cigarettes, uncomplicated; W18.30XA Fall on same level, unspecified, initial encounter; Y93.01 Activity, walking, marching and hiking; Y92.009 Unspecified place in unspecified non-institutional (private) residence as the place of occurrence of the external cause
CPT/HCPCS: 72170; 73552; 73590; 73610; 99283; L4350

== ENCOUNTER 2023-03-08 18:08 | Emergency (ER) | payer MEDICARE, MEDICAID ==
[~2023-03-08] VITALS: Ht 157 cm; Wt 54.0 kg
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
--- NOTE | 2023-03-08 18:53 | Diagnostic Imaging Report ---
INDICATION: Leg pain. COMPARISON: None. FINDINGS: Two radiographic views of the right tibia and fibula were obtained and again show nonacute, nondisplaced obliquely oriented fracture of the distal fibular shaft. This resides cephalad to the tibiotalar joint space. Tibiotalar joint space is maintained, as is the right knee joint. No unexpected radiopaque foreign body is seen. IMPRESSION: Redemonstration of nonacute, nondisplaced fracture of the distal right fibular shaft. Dictated by: Dictated on workstation # [id number]
--- NOTE | 2023-03-08 18:53 | Diagnostic Imaging Report ---
INDICATION: Ankle pain. Previous fracture. COMPARISON: 02/27/2023. FINDINGS: Multiple radiographic views of the right ankle were obtained and again demonstrate obliquely oriented nonacute nondisplaced fracture of the distal right fibular shaft. No new acute fracture deformity of the right ankle is seen. Tibiotalar joint space is maintained. There is generalized soft tissue swelling. No unexpected radiopaque foreign body is identified. IMPRESSION: Stable nonacute fracture of the distal right fibular shaft. Dictated by: Dictated on workstation # [id number]
[2023-03-08 19:09] VITALS: BP 141/103
== END 2023-03-08 19:10 | disposition home or self-care (01) ==
LOC: EDUNIT# 18:08 → ER 18:10
DX: S82.831D Other fracture of upper and lower end of right fibula, subsequent encounter for closed fracture with routine healing (principal); F10.10 Alcohol abuse, uncomplicated; F17.210 Nicotine dependence, cigarettes, uncomplicated; W19.XXXD Unspecified fall, subsequent encounter
CPT/HCPCS: 29515; 73590; 73610

== ENCOUNTER 2023-03-09 15:43 | Inpatient (IN) | payer MEDICARE, MEDICAID ==
[~2023-03-09] VITALS: Ht 154 cm; Wt 58.7 kg
[2023-03-09 16:51] LABS: BASOPHILS # (AUTO) 0.1 10^3/uL (0.0-0.1); BASOPHILS % (AUTO) 2 % (0-10); EOSINOPHILS % (AUTO) 1 % (0-10); HEMATOCRIT 38 % (35-52); HEMOGLOBIN 13.5 g/dL (11.5-16.0); LYMPHOCYTES # (AUTO) 1.6 10^3/uL (1.0-4.0); LYMPHOCYTES % (AUTO) 52 % (12-44); MEAN CORPUSCULAR HEMOGLOBIN 37 pg (25-34); MEAN CORPUSCULAR HGB CONC 35 g/dL (32-36); MEAN CORPUSCULAR VOLUME 103 fL (80-99); MEAN PLATELET VOLUME 9.7 fL (9.0-12.2); MONOCYTES # (AUTO) 0.2 10^3/uL (0.0-1.0); MONOCYTES % (AUTO) 7 % (0-12); NEUTROPHILS # (AUTO) 1.1 10^3/uL (1.8-7.8); NEUTROPHILS % (AUTO) 37 % (42-75); PLATELET COUNT 74 10^3/uL (130-400)
[2023-03-09 16:53] LABS: ALBUMIN 3.7 GM/DL (3.2-4.5); POTASSIUM 3.9 MMOL/L (3.6-5.0)
[2023-03-09 16:54] LABS: CALCIUM 8.4 MG/DL (8.5-10.1)
[2023-03-09 16:55] LABS: TOTAL PROTEIN 6.2 GM/DL (6.4-8.2)
[2023-03-09 16:57] LABS: BILIRUBIN,TOTAL 0.8 MG/DL (0.1-1.0)
[2023-03-09 16:58] LABS: INR 1.1 (0.8-1.4); PROTHROMBIN TIME PATIENT 14.2 SEC (12.2-14.7)
[2023-03-09 16:59] LABS: CREATININE SERUM 0.79 MG/DL (0.60-1.30)
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
[2023-03-09] MEDS ORDERED: NALOXONE 0.4 MG/ML 1 ML (NARCAN) VIAL IV PRN (18:30)
[2023-03-09] MEDS ORDERED: MILK OF MAGNESIA 400 MG/5 ML 30 ML UDC PO PRN (18:30)
[2023-03-09] MEDS ORDERED: 1/2 NS IV SOLUTION 1,000 ML IV PRN (18:30)
[2023-03-09] MEDS ORDERED: ONDANSETRON 4 MG/2 ML (SDV) Z0FRAN IV PRN ×2 (18:30)
[2023-03-09] MEDS ORDERED: CALCIUM CARBONATE 500 MG (TUMS) TAB.CHEW PO PRN (18:30)
[2023-03-09] MEDS ORDERED: ONDANSETRON 4 MG (ZOFRAN) ORAL DISSOLVE TAB PO PRN (18:30)
[2023-03-09] MEDS ORDERED: LORazepam INJ 2 MG/ML (ATIVAN) VIAL IV PRN (18:30)
[2023-03-09] MEDS ORDERED: LACTULOSE SYRUP 10GM/15ML (ENULOSE) 30ML UDC PO PRN (18:30)
[2023-03-09] MEDS ORDERED: diphenhydrAMINE 50 MG/ML INJ (BENADRYL) IVP PRN (18:30)
[2023-03-09] MEDS ORDERED: ONDANSETRON 4 MG (ZOFRAN) ORAL DISSOLVE TAB SL PRN (18:30)
[2023-03-09] MEDS ORDERED: LORazepam INJ 2 MG/ML (ATIVAN) VIAL IM/IV PRN (18:30)
[2023-03-09] MEDS ORDERED: BISACODYL 10 MG SUPP (DULCOLAX) PR PRN (18:30)
[2023-03-09] MEDS ORDERED: SENNA W/DOCUSATE (SENOKOT S) TABLET PO PRN (18:30)
[2023-03-09] MEDS ORDERED: diphenhydrAMINE 25 MG TAB (BENADRYL) PO PRN (18:30)
[2023-03-09] MEDS ORDERED: polyethylene glycoL POWDER 17 GM (MIRALAX) PACK PO PRN (18:30)
[2023-03-09] MEDS ORDERED: ANTACID SUSP 30 ML UDC (MYLANTA) PO PRN ×2 (18:30)
[2023-03-09] MEDS ORDERED: D5 1/2 NS 1000 ML IV SOLUTION 1,000 ML IV PRN (18:30)
[2023-03-09] MEDS ORDERED: HYDROmorphone 2 MG/ML VIAL (DILAUDID) IV PRN (18:30)
[2023-03-09] MEDS ORDERED: ACETAMINOPHEN 325 MG TABLET PO PRN (18:30)
[2023-03-09 19:11] VITALS: BP 150/94
[2023-03-09] MEDS: LORazepam 1 MG (ATIVAN) TAB PO PRN (19:31)
[2023-03-09 19:33] VITALS: BP 16/150
[2023-03-09] MEDS ORDERED: RT-ALBUTEROL/IPRATROPIUM 3 ML (DUONEB) VIAL INH PRN (19:45)
[2023-03-09] MEDS: SENNOSIDES 8.6 MG (SENOKOT) TAB PO SCH (20:19)
[2023-03-09] MEDS: ENOXAPARIN 40 MG/0.4 ML (LOVENOX) SYR SC SCH (20:19)
[2023-03-09] MEDS: MAGNESIUM OXIDE (MAG-OX)400 MG TAB PO SCH (20:19)
[2023-03-09] MEDS: DOCUSATE SODIUM 100 MG (COLACE) CAP PO SCH (20:19)
[2023-03-09 22:38] LABS: BILIRUBIN,URINE NEGATIVE (NEGATIVE); CLARITY,URINE CLOUDY; COLOR,URINE YELLOW; GLUCOSE, URINE (UA) NEGATIVE (NEGATIVE); KETONES,URINE NEGATIVE (NEGATIVE); LEUKOCYTE ESTERASE ,URINE 1+ (NEGATIVE); NITRITE,URINE NEGATIVE (NEGATIVE); PROTEIN,URINE NEGATIVE (NEGATIVE)
[2023-03-09 22:52] LABS: BACTERIA,URINE LARGE /HPF; SQUAMOUS EPITHELIAL CELL,UR 0-2 /HPF
[2023-03-09 22:53] LABS: AMPHETAMINE SCREEN, URINE NEGATIVE (NEGATIVE); BARBITURATE SCREEN URINE NEGATIVE (NEGATIVE); BENZODIAZEPINES SCREEN URINE NEGATIVE (NEGATIVE); CANNABINOID SCREEN, URINE NEGATIVE (NEGATIVE); COCAINE SCREEN URINE NEGATIVE (NEGATIVE); METHADONE STAT NEGATIVE (NEGATIVE); OPIATE SCREEN URINE NEGATIVE (NEGATIVE); OXYCODONE STAT NEGATIVE (NEGATIVE); PROPOXYPHENE STAT NEGATIVE (NEGATIVE); TRICYCLIC ANTIDEPRESSANTS SCRE NEGATIVE (NEGATIVE)
[2023-03-10] VITALS (7 sets, daily range): BP systolic 137–154; BP diastolic 84–98
[2023-03-10] MEDS: LORazepam 1 MG (ATIVAN) TAB PO PRN ×2 (03:20→05:08)
[2023-03-10 04:38] LABS: EOSINOPHILS # (AUTO) 0.1 10^3/uL (0.0-0.3); HEMATOCRIT 35 % (35-52); HEMOGLOBIN 12.2 g/dL (11.5-16.0); MEAN CORPUSCULAR HEMOGLOBIN 36 pg (25-34); MEAN CORPUSCULAR HGB CONC 35 g/dL (32-36); MEAN CORPUSCULAR VOLUME 104 fL (80-99); MONOCYTES # (AUTO) 0.2 10^3/uL (0.0-1.0)
[2023-03-10 04:39] LABS: BASOPHILS % (AUTO) 1 % (0-10); EOSINOPHILS % (AUTO) 2 % (0-10); LYMPHOCYTES # (AUTO) 1.5 10^3/uL (1.0-4.0); LYMPHOCYTES % (AUTO) 53 % (12-44); MEAN PLATELET VOLUME 10.1 fL (9.0-12.2); MONOCYTES % (AUTO) 7 % (0-12); NEUTROPHILS % (AUTO) 36 % (42-75); PLATELET COUNT 62 10^3/uL (130-400); WHITE BLOOD COUNT 2.9 10^3/uL (4.3-11.0)
[2023-03-10 04:47] LABS: ALBUMIN 3.4 GM/DL (3.2-4.5); POTASSIUM 3.8 MMOL/L (3.6-5.0)
[2023-03-10 04:48] LABS: CALCIUM 8.3 MG/DL (8.5-10.1)
[2023-03-10 04:49] LABS: TOTAL PROTEIN 5.8 GM/DL (6.4-8.2)
[2023-03-10 04:51] LABS: BILIRUBIN,TOTAL 1.1 MG/DL (0.1-1.0)
[2023-03-10 04:53] LABS: CREATININE SERUM 0.73 MG/DL (0.60-1.30)
[2023-03-10] MEDS: MULTIVIT W/MINERALS TAB (THERAGRAN M) PO SCH (05:08)
[2023-03-10] MEDS: THIAMINE 100 MG (VITAMIN B-1) TAB PO SCH (05:08)
[2023-03-10] MEDS: DOCUSATE SODIUM 100 MG (COLACE) CAP PO SCH ×2 (08:31→20:01)
[2023-03-10] MEDS: SENNOSIDES 8.6 MG (SENOKOT) TAB PO SCH ×2 (08:31→20:01)
[2023-03-10] MEDS: THIAMINE INJECTION 100 MG, FOLIC ACID INJECTION 1 MG, MAGNESIUM SULFATE 2 GM, VITAMIN M... IV SCH ×5 (08:32)
[2023-03-10] MEDS: FOLIC ACID 1 MG TAB PO SCH (08:32)
[2023-03-10] MEDS: MAGNESIUM OXIDE (MAG-OX)400 MG TAB PO SCH ×2 (08:32→20:01)
[2023-03-10] MEDS ORDERED: THIAMINE INJECTION 100 MG, FOLIC ACID INJECTION 1 MG, VITAMIN MULTI INJECTION 10 ML, MA... IV SCH ×5 (09:00)
[2023-03-10] MEDS ORDERED: PRIM250T33 PO (10:42)
[2023-03-10] MEDS ORDERED: THIA100T80 PO (10:43)
[2023-03-10] MEDS ORDERED: CYAN-41 PO (10:43)
--- NOTE | 2023-03-10 11:01 | History & Physical ---
HPI History of Present Illness: Pt states she came in because of alcohol use and falls, had an ankle fracture recently. Per ER notes, daughter called EMS due to unsafe at home and alcohol concerns. Today she states she is feeling okay, thinks she'll be able to go back home after hospitalization. Source: patient Date seen by provider: Mar 10, 2023 Time Seen by Provider: 11:01 Attending Physician Renzo Dial MD PCP Admitting Physician: Luli Elaine DO Attending Physician: Joan Chapin MD Consult Date of Admission Mar 09, 2023 at 18:14 Home Medications Home Medications Reviewed patient Home Medication Reconciliation performed by pharmacy medication reconciliations water filtration technician and/or nursing. Patients Allergies have been reviewed. Allergies Coded Allergies: sulfamethoxazole (Verified Allergy, Unknown, Rash, 03/07/22) trimethoprim (Verified Allergy, Unknown, Rash, 03/07/22) UVK-Qdhokd-Cogwij Hx Patient Social History Drug of Choice: MARIJUANA Smoking Status: Current Everyday Smoker 2nd Hand Smoke Exposure: Yes Recent Hopitalizations: No Alcohol Use?: Yes Substance type: Marijuana Tobacco type used: Cigarettes Have you traveled recently?: No Immunizations Up To Date Tetanus Booster (TDap): Unknown Influenza Vaccine Up-to-Date: No; Not Current First/Initial COVID19 Vaccinat: OCT 2021 Second COVID19 Vaccination Kamran: NOV 2020 Third COVID19 Vaccination Date: NONE Past Medical History PMHx: Alcoholism h/o Pancreatitis Seizures PSurgHx: Hernia repair Left breast abscess I and D C section Left finger surgery Family Medical History Significant Family History: Hypertension Family History: Patient reports no known family medical history. Review of Systems ([facility]) Constitutional: weakness Respiratory: No short of breath Gastrointestinal: No abdominal pain Reviewed Test Results Reviewed Test Results Lab Laboratory Tests Test 03/09/23 16:04 03/09/23 16:28 03/09/23 18:51 03/09/23 22:20 Range/Units White Blood Count 3.0 L 4.3-11.0 10^3/uL Red Blood Count 3.70 L 3.80-5.11 10^6/uL Hemoglobin 13.5 11.5-16.0 g/dL Hematocrit 38 35-52 % Mean Corpuscular Volume 103 H 80-99 fL Mean Corpuscular Hemoglobin 37 H 25-34 pg Mean Corpuscular Hemoglobin Concent 35 32-36 g/dL Red Cell Distribution Width 13.5 10.0-14.5 % Platelet Count 74 L 130-400 10^3/uL Mean Platelet Volume 9.7 9.0-12.2 fL Immature Granulocyte % (Auto) 0 % Neutrophils (%) (Auto) 37 L 42-75 % Lymphocytes (%) (Auto) 52 H 12-44 % Monocytes (%) (Auto) 7 0-12 % Eosinophils (%) (Auto) 1 0-10 % Basophils (%) (Auto) 2 0-10 % Neutrophils # (Auto) 1.1 L 1.8-7.8 10^3/uL Lymphocytes # (Auto) 1.6 1.0-4.0 10^3/uL Monocytes # (Auto) 0.2 0.0-1.0 10^3/uL Eosinophils # (Auto) 0.0 0.0-0.3 10^3/uL Basophils # (Auto) 0.1 0.0-0.1 10^3/uL Immature Granulocyte # (Auto) 0.0 0.0-0.1 10^3/uL Percent Immature Platelet Fraction 4.1 0.0-7.6 % Prothrombin Time 14.2 12.2-14.7 SEC INR Comment 1.1 0.8-1.4 Activated Partial Thromboplast Time 32 24-35 SEC Sodium Level 143 135-145 MMOL/L Potassium Level 3.9 3.6-5.0 MMOL/L Chloride Level 107 98-107 MMOL/L Carbon Dioxide Level 18 L 21-32 MMOL/L Anion Gap 18 H 5-14 MMOL/L Blood Urea Nitrogen 9 7-18 MG/DL Creatinine 0.79 0.60-1.30 MG/DL Estimat Glomerular Filtration Rate 89 BUN/Creatinine Ratio 11 Glucose Level 93 70-105 MG/DL Calcium Level 8.4 L 8.5-10.1 MG/DL Corrected Calcium 8.6 8.5-10.1 MG/DL Total Bilirubin 0.8 0.1-1.0 MG/DL Aspartate Amino Transf (AST/SGOT) 199 H 5-34 U/L Alanine Aminotransferase (ALT/SGPT) 56 H 0-55 U/L Alkaline Phosphatase 141 H 40-136 U/L Total Protein 6.2 L 6.4-8.2 GM/DL Albumin 3.7 3.2-4.5 GM/DL Serum Alcohol 355 *H <10 MG/DL Glucometer 137 H 70-110 MG/DL Urine Color YELLOW Urine Clarity CLOUDY Urine pH 6.0 5-9 Urine Specific [place] 1.015 L 1.016-1.022 Urine Protein NEGATIVE NEGATIVE Urine Glucose (UA) NEGATIVE NEGATIVE Urine Ketones NEGATIVE NEGATIVE Urine Nitrite NEGATIVE NEGATIVE Urine Bilirubin NEGATIVE NEGATIVE Urine Urobilinogen 2.0 < = 1.0 MG/DL Urine Leukocyte Esterase 1+ H NEGATIVE Urine RBC (Auto) TRACE-I H NEGATIVE Urine RBC 2-5 H /HPF Urine WBC 10-25 H /HPF Urine Squamous Epithelial Cells 0-2 /HPF Urine Crystals NONE /LPF Urine Bacteria LARGE H /HPF Urine Casts NONE /LPF Urine Mucus NEGATIVE /LPF Urine Culture Indicated YES Urine Opiates Screen NEGATIVE NEGATIVE Urine Oxycodone Screen NEGATIVE NEGATIVE Urine Methadone Screen NEGATIVE NEGATIVE Urine Propoxyphene Screen NEGATIVE NEGATIVE Urine Barbiturates Screen NEGATIVE NEGATIVE Ur Tricyclic Antidepressants Screen NEGATIVE NEGATIVE Urine Phencyclidine Screen NEGATIVE NEGATIVE Urine Amphetamines Screen NEGATIVE NEGATIVE Urine Methamphetamines Screen NEGATIVE NEGATIVE Urine Benzodiazepines Screen NEGATIVE NEGATIVE Urine Cocaine Screen NEGATIVE NEGATIVE Urine Cannabinoids Screen NEGATIVE NEGATIVE Test 03/10/23 00:12 03/10/23 03:50 03/10/23 04:28 03/10/23 05:55 Range/Units Glucometer 72 124 H 132 H 70-110 MG/DL White Blood Count 2.9 L 4.3-11.0 10^3/uL Red Blood Count 3.36 L 3.80-5.11 10^6/uL Hemoglobin 12.2 11.5-16.0 g/dL Hematocrit 35 35-52 % Mean Corpuscular Volume 104 H 80-99 fL Mean Corpuscular Hemoglobin 36 H 25-34 pg Mean Corpuscular Hemoglobin Concent 35 32-36 g/dL Red Cell Distribution Width 13.6 10.0-14.5 % Platelet Count 62 L 130-400 10^3/uL Mean Platelet Volume 10.1 9.0-12.2 fL Immature Granulocyte % (Auto) 0 % Neutrophils (%) (Auto) 36 L 42-75 % Lymphocytes (%) (Auto) 53 H 12-44 % Monocytes (%) (Auto) 7 0-12 % Eosinophils (%) (Auto) 2 0-10 % Basophils (%) (Auto) 1 0-10 % Neutrophils # (Auto) 1.0 L 1.8-7.8 10^3/uL Lymphocytes # (Auto) 1.5 1.0-4.0 10^3/uL Monocytes # (Auto) 0.2 0.0-1.0 10^3/uL Eosinophils # (Auto) 0.1 0.0-0.3 10^3/uL Basophils # (Auto) 0.0 0.0-0.1 10^3/uL Immature Granulocyte # (Auto) 0.0 0.0-0.1 10^3/uL Percent Immature Platelet Fraction 3.1 0.0-7.6 % Sodium Level 138 135-145 MMOL/L Potassium Level 3.8 3.6-5.0 MMOL/L Chloride Level 107 98-107 MMOL/L Carbon Dioxide Level 17 L 21-32 MMOL/L Anion Gap 14 5-14 MMOL/L Blood Urea Nitrogen 8 7-18 MG/DL Creatinine 0.73 0.60-1.30 MG/DL Estimat Glomerular Filtration Rate 98 BUN/Creatinine Ratio 11 Glucose Level 108 H 70-105 MG/DL Calcium Level 8.3 L 8.5-10.1 MG/DL Corrected Calcium 8.8 8.5-10.1 MG/DL Total Bilirubin 1.1 H 0.1-1.0 MG/DL Aspartate Amino Transf (AST/SGOT) 330 H 5-34 U/L Alanine Aminotransferase (ALT/SGPT) 59 H 0-55 U/L Alkaline Phosphatase 137 H 40-136 U/L Total Protein 5.8 L 6.4-8.2 GM/DL Albumin 3.4 3.2-4.5 GM/DL Test 03/10/23 11:35 Range/Units Glucometer 189 H 70-110 MG/DL Physical Exam-([facility]) Physical Exam Vital Signs VS - Last 72 Hours, by Label 03/09/23 03/09/23 03/09/23 03/09/23 15:43 17:59 19:11 19:13 Temp 36.8 36.8 36.4 Pulse 86 86 85 100 Resp 19 19 18 B/P (MAP) 149/99 (116) 128/92 150/94 (112) Pulse Ox 98 98 98 O2 Delivery Room Air 03/09/23 03/09/23 03/10/23 03/10/23 19:33 19:35 00:50 01:00 Temp 36.4 36.2 Pulse 85 103 83 Resp 18 B/P (MAP) 154/92 (112) Pulse Ox 94 94 96 O2 Delivery Room Air Room Air FiO2 21 03/10/23 03/10/23 03/10/23 03/10/23 04:14 07:50 08:00 08:28 Temp 36.7 36.2 Pulse 83 83 85 Resp 16 18 B/P (MAP) 154/92 (112) 137/84 (101) Pulse Ox 96 95 O2 Delivery Room Air Room Air Room Air 03/10/23 03/10/23 03/10/23 09:20 11:52 13:18 Temp 36.3 Pulse 81 96 Resp 18 B/P (MAP) 138/90 (106) Pulse Ox 98 96 O2 Delivery Room Air Room Air O2 Flow Rate 0.00 Capillary Refill : Less Than 3 Seconds General Appearance: WD/WN Respiratory: lungs clear, normal breath sounds Cardiovascular: regular rate, rhythm Peripheral Pulses: 2+ Dorsalis Pedis (R), 2+ Left Dors-Pedis (L) Gastrointestinal: normal bowel sounds, non tender, soft Extremities: other (right ankle in splint) Neurologic/Psychiatric: alert, normal mood/affect Skin: normal color, warm/dry Assessment/Plan Assessment/Plan Admission Status: Inpatient Order (span 2 midnights) Reason for Inpatient Admission: Alcohol withdrawal with mutiple comorbidities (1) Hepatic steatosis Status: Chronic Assessment & Plan: Liver enzymes trending up, concerning for acute alcoholic hepatitis. MRI abdomen 06/2022 with 1.8 cm hepatic hemangioma and steatosis. (2) Thrombocytopenia Status: Chronic Assessment & Plan: Intermittently present, but below baseline, secondary to liver disease, follow closely. (3) Anxiety Status: Chronic Assessment & Plan: Resume home buspirone. (4) Elevated liver enzymes Status: Chronic Assessment & Plan: Monitor closely, liver enzymes increasing, repeat hep panel, check liver US. (5) Alcohol abuse Status: Chronic Assessment & Plan: library services coordinator consulted. (6) Seizure disorder Status: Chronic Assessment & Plan: Resume home depakote. (7) Falls Status: Acute Assessment & Plan: PT Qualifiers: Qualified Codes: W19.XXXD - Unspecified fall, subsequent encounter (8) Acute alcoholic intoxication Status: Acute Assessment & Plan: CIWA scoring, lorazepam per score. Vitamin replacements daily. Qualifiers: Qualified Codes: F10.920 - Alcohol use, unspecified with intoxication, uncomplicated (9) Closed fracture of right distal fibula Status: Acute Assessment & Plan: Currently splinted, repeat x-ray showed no dislocation at last ER visit, has not yet seen Ortho, will consult. Qualifiers: Qualified Codes: S82.831D - Other fracture of upper and lower end of right fibula, subsequent encounter for closed fracture with routine healing (10) Urinary tract infection Status: Acute Assessment & Plan: Culture with GNR so far, start ceftriaxone. Qualifiers: Qualified Codes: N30.01 - Acute cystitis with hematuria (11) Unable to care for self Status: Acute (12) DVT prophylaxis Status: Acute Assessment & Plan: Hold pharmacologic due to low platelets JOAN CHAPIN MD Mar 10, 2023 11:01
[2023-03-10] MEDS ORDERED: DICL20GE TP (13:24)
[2023-03-10] MEDS: GABAPENTIN 400 MG (NEURONTIN) CAP PO SCH ×2 (16:40→20:02)
[2023-03-10] MEDS: cefTRIAXone IV/IM 1,000 MG in NS (IVPB) 50 ML IV SCH (16:40)
[2023-03-10] MEDS ORDERED: NON-FORMULARY MEDICATION 1 EA EA (Gabapentin 800 MG) PO SCH (17:00)
[2023-03-10] MEDS: DIVALPROEX 250 MG DELAYED RELEASE (DEPAKOTE) TAB PO SCH (17:26)
[2023-03-10] MEDS: DIVALPROEX EXT RELEASE 250 MG (DEPAKOTE ER) TAB PO SCH (20:01)
[2023-03-10] MEDS: MELATONIN 3 MG TABLET PO PRN (20:01)
[2023-03-10] MEDS: ENOXAPARIN 40 MG/0.4 ML (LOVENOX) SYR SC SCH (20:01)
[2023-03-10] MEDS: busPIRone 5 MG (BUSPAR) TAB PO SCH (20:02)
[2023-03-10] MEDS: PRIMIDONE 250MG (MYSOLINE) TAB PO SCH (20:02)
[2023-03-10] MEDS ORDERED: NON-FORMULARY MEDICATION 1 EA EA (Divalproex Sodium (Divalproex Sodium ER) 500 MG) PO SCH (21:00)
[2023-03-11 03:38] VITALS: BP 138/99
[2023-03-11 05:31] LABS: BASOPHILS % (AUTO) 1 % (0-10); EOSINOPHILS # (AUTO) 0.1 10^3/uL (0.0-0.3); EOSINOPHILS % (AUTO) 2 % (0-10); HEMATOCRIT 34 % (35-52); HEMOGLOBIN 11.7 g/dL (11.5-16.0); LYMPHOCYTES # (AUTO) 1.6 10^3/uL (1.0-4.0); LYMPHOCYTES % (AUTO) 53 % (12-44); MEAN CORPUSCULAR HEMOGLOBIN 36 pg (25-34); MEAN CORPUSCULAR HGB CONC 35 g/dL (32-36); MEAN CORPUSCULAR VOLUME 104 fL (80-99); MEAN PLATELET VOLUME 10.4 fL (9.0-12.2); MONOCYTES # (AUTO) 0.3 10^3/uL (0.0-1.0); MONOCYTES % (AUTO) 9 % (0-12); NEUTROPHILS % (AUTO) 35 % (42-75)
[2023-03-11 05:32] LABS: PLATELET COUNT 39 10^3/uL (130-400)
[2023-03-11] MEDS: LEVOTHYROXINE 50 MCG (LEVOTHROID) TAB PO SCH (05:43)
[2023-03-11] MEDS: THIAMINE 100 MG (VITAMIN B-1) TAB PO SCH (05:43)
[2023-03-11] MEDS: MULTIVIT W/MINERALS TAB (THERAGRAN M) PO SCH (05:43)
[2023-03-11 05:53] LABS: ALBUMIN 3.3 GM/DL (3.2-4.5); BILIRUBIN,TOTAL 1.1 MG/DL (0.1-1.0); CALCIUM 8.4 MG/DL (8.5-10.1); CREATININE SERUM 0.65 MG/DL (0.60-1.30); POTASSIUM 3.6 MMOL/L (3.6-5.0); TOTAL PROTEIN 5.8 GM/DL (6.4-8.2)
[2023-03-11 07:14] VITALS: BP 119/74
[2023-03-11] MEDS: DIVALPROEX 250 MG DELAYED RELEASE (DEPAKOTE) TAB PO SCH ×2 (08:54→17:04)
[2023-03-11] MEDS: busPIRone 5 MG (BUSPAR) TAB PO SCH ×3 (08:54→21:00)
[2023-03-11] MEDS: CYANOCOBALAMIN 1,000 MCG (VITAMIN B-12) TABLET PO SCH (08:54)
[2023-03-11] MEDS: PRIMIDONE 250MG (MYSOLINE) TAB PO SCH ×2 (08:54→21:00)
[2023-03-11] MEDS: GABAPENTIN 400 MG (NEURONTIN) CAP PO SCH ×4 (08:54→21:00)
[2023-03-11] MEDS: FOLIC ACID 1 MG TAB PO SCH (08:54)
[2023-03-11] MEDS: MAGNESIUM OXIDE (MAG-OX)400 MG TAB PO SCH ×2 (08:54→21:00)
[2023-03-11] MEDS: SENNOSIDES 8.6 MG (SENOKOT) TAB PO SCH ×2 (08:55→20:59)
[2023-03-11] MEDS: DOCUSATE SODIUM 100 MG (COLACE) CAP PO SCH ×2 (08:55→20:59)
[2023-03-11] MEDS: THIAMINE INJECTION 100 MG, FOLIC ACID INJECTION 1 MG, MAGNESIUM SULFATE 2 GM, VITAMIN M... IV SCH ×5 (08:55)
--- NOTE | 2023-03-11 10:09 | Progress Note ---
Subjective Subjective/Events-last exam Pt states she feels tired. Denies other concerns. She says she couldn't go far on her boot. She says at home she has her walker and friends to check on her and that she can get around crawling on her knees. Objective Exam Last Set of Vital Signs Vital Signs Date Time Temp Pulse Resp B/P (MAP) Pulse Ox O2 Delivery O2 Flow Rate FiO2 03/11/23 07:46 96 Room Air 0.00 03/11/23 07:14 36.5 96 18 119/74 (89) 03/09/23 19:33 21 Capillary Refill : Less Than 3 Seconds I&O Intake and Output 03/11/23 00:00 Intake Total 2955.2 ml Output Total 250 ml Balance 2705.2 ml Intake Oral 1940 ml IV Total 1015.2 ml Output Urine Total 250 ml # Voids 1 # Urine Diapers 9 # Bowel Movements 1 General: Alert, No Acute Distress Lungs: Clear to Auscultation, Normal Air Movement Heart: Regular Rate, No Murmurs Abdomen: Normal Bowel Sounds, Soft, No Tenderness Extremities: No Edema Neuro: Normal Speech Psych/Mental Status: Mood NL Results/Procedures Lab Laboratory Tests 03/10/23 11:35: Glucometer 189H 03/10/23 17:39: Glucometer 144H 03/10/23 23:49: Glucometer 192H 03/11/23 05:07: White Blood Count 3.0L, Red Blood Count 3.24L, Hemoglobin 11.7, Hematocrit 34L, Mean Corpuscular Volume 104H, Mean Corpuscular Hemoglobin 36H, Mean Corpuscular Hemoglobin Concent 35, Red Cell Distribution Width 13.5, Platelet Count 39*L, Mean Platelet Volume 10.4, Immature Granulocyte % (Auto) 0, Neutrophils (%) (Auto) 35L, Lymphocytes (%) (Auto) 53H, Monocytes (%) (Auto) 9, Eosinophils (%) (Auto) 2, Basophils (%) (Auto) 1, Neutrophils # (Auto) 1.0L, Lymphocytes # (Auto) 1.6, Monocytes # (Auto) 0.3, Eosinophils # (Auto) 0.1, Basophils # (Auto) 0.0, Immature Granulocyte # (Auto) 0.0, Sodium Level 138, Potassium Level 3.6, Chloride Level 104, Carbon Dioxide Level 21, Anion Gap 13, Blood Urea Nitrogen 6L, Creatinine 0.65, Estimat Glomerular Filtration Rate 105, BUN/Creatinine Ratio 9, Glucose Level 95, Calcium Level 8.4L, Corrected Calcium 9.0, Total B ilirubin 1.1H, Aspartate Amino Transf (AST/SGOT) 134H, Alanine Aminotransferase (ALT/SGPT) 50, Alkaline Phosphatase 132, Total Protein 5.8L, Albumin 3.3 03/11/23 05:14: Glucometer 104 Microbiology 03/09/23 Urine Culture - Preliminary, Resulted Escherichia coli Klebsiella pneumoniae Assessment/Plan Assessment/Plan (1) Hepatic steatosis Status: Chronic Assessment & Plan: Liver enzymes trending up, concerning for acute alcoholic hepatitis. MRI abdomen 06/2022 with 1.8 cm hepatic hemangioma and steatosis. Liver US pending. (2) Thrombocytopenia Status: Chronic Assessment & Plan: Intermittently present, but below baseline, secondary to liver disease, follow closely. (3) Anxiety Status: Chronic Assessment & Plan: Resume home buspirone. (4) Elevated liver enzymes Status: Chronic Assessment & Plan: Monitor closely, liver enzymes increasing initially, repeat hep panel, check liver US. (5) Alcohol abuse Status: Chronic Assessment & Plan: administrative services specialist consulted. (6) Seizure disorder Status: Chronic Assessment & Plan: Resume home depakote. (7) Falls Status: Acute Assessment & Plan: PT Qualifiers: Qualified Codes: W19.XXXD - Unspecified fall, subsequent encounter (8) Acute alcoholic intoxication Status: Resolved Assessment & Plan: CIWA scoring, lorazepam per score. Vitamin replacements daily. Qualifiers: Qualified Codes: F10.920 - Alcohol use, unspecified with intoxication, uncomplicated (9) Closed fracture of right distal fibula Status: Acute Assessment & Plan: Currently splinted, repeat x-ray showed no dislocation at last ER visit, has not yet seen Ortho, will consult. 03/11 boot placed Qualifiers: Qualified Codes: S82.831D - Other fracture of upper and lower end of right fibula, subsequent encounter for closed fracture with routine healing (10) Urinary tract infection Status: Acute Assessment & Plan: Culture with GNR so far, start ceftriaxone. Qualifiers: Qualified Codes: N30.01 - Acute cystitis with hematuria (11) Unable to care for self Status: Acute Assessment & Plan: Today is open to considering longterm for therapy, hospice social worker notified. (12) DVT prophylaxis Status: Acute Assessment & Plan: Hold pharmacologic due to low platelets LIBERTAD LATIF MD Mar 11, 2023 10:09
--- NOTE | 2023-03-11 10:13 | Physical Therapy Evaluation ---
PT Evaluation-General Medical Diagnosis Admission Date Mar 10, 2023 at 12:52 Medical Diagnosis: ETOH abuse/TBI Onset Date: Mar 10, 2023 Therapy Diagnosis Therapy Diagnosis: debility/weakness Height/Weight Height (Feet): 5 Height (Inches): 3.00 Weight (Pounds): 150 Weight (Ounces): 0 Precautions Precautions/Isolations: Fall Prevention, Standard Precautions Weight Bear Status Right Lower Extremity: Right Weight Bearing/Tolerated Left Lower Extremity: Left Full Weight Bearing CAM boot right LE in place Referral Physician: Marla Reason for Referral: Evaluation/Treatment Medical History Pertinent Medical History: Alcoholism, Smoking Additional Medical History polysubstance abuse/suicide attempts Current History EMS called due to alcoholism/patient found naked and in BM Social History Home: Apartment Prior Prior Level of Function SCALE: Activities may be completed with or without assistive devices. 4-Qnyohdxjdv-pekdlvh completes the activity by him/herself with no assistance from a helper. 5-Set-up or Clean-up Assistance-helper sets up or cleans up; patient completes activity. [place] assists only prior to or following the activity. 4-Supervision or Touching Assistance-helper provides verbal cues and/or touching/steadying and/or contact guard assistance as patient completes activity. Assistance may be provided throughout the activity or intermittently. 3-Partial/Moderate Assistance-helper does LESS THAN HALF the effort. [place] lifts, holds or supports trunk or limbs, but provides less than half the effort. 2-Substantial/Maximal Assistance-helper does MORE THAN HALF the effort. [place] lifts or holds trunk or limbs and provides more than half the effort. 8-Vxelzwgvp-opfrny does ALL the effort. Patient does none of the effort to complete the activity. Or, the assistance of 2 or more helpers is required for the patient to complete the activity. If activity was not attempted, code reason: 7-Patient Refused. 9-Not Applicable-not attempted and the patient did not perform the activity before the current illness, exacerbation or injury. 10-Not Attempted due to Environmental Limitations-(lack of equipment, weather restraints, etc.). 88-Not Attempted due to Medical Conditions or Safety Concerns. Bed Mobility: 6 Transfers (B,C,W/C): 6 Gait: 6 Indoor Mobility (Ambulation): Independent Stairs: Independent Prior Devices Use: Walker (4WW with brakes that don't work) PT Evaluation-Current Subjective Patient agrees to PT. Patient donned CAM boot right LE with VC's from PT Pain Numeric Pain Scale: 5-Moderate Pain Location: Right Location Body Site: Ankle Pain Description: Acute Objective Patient Orientation: Person, Time, Situation ROM/Strength ROM Lower Extremities right LE WFL (ankle NT) left LE WFL Strength Lower Extremities 3/5 grossly bilateral LE all planes Integumentary/Posture Bladder Incontinence: Yes Posture WFL Neuromuscular (Tone, Coordination, Reflexes) diminished coordination due to weakness Sensory Vision: Functional Hearing: Functional Transfers Sit to Lying (QC): 6 Lying to Sitting/Side of Bed(Q: 6 Sit to Stand (QC): 4 Gait Mode of Locomotion: Walk Anticipated Mode of Locomotion: Walk Walk 10 feet (QC): 3 Walk 50 ft with 2 Turns(QC): 3 Walk 150 ft (QC): 88 Distance: 50' Gait Assistive Device: Walker 4 Wheeled (brakes do not work) Comments/Gait Description very unsteady gait sequence with PT correct Balance Sitting Static: Normal Sitting Dynamic: Normal Standing Static: Fair Standing Dynamic: Poor Assessment/Needs Patient will benefit from skilled PT to address functional strength and mobility to improve current LOF. Patient currently requires minimal to moderate assist with all OOB activity for patient's safety. Rehab Potential: Guarded Post Rehab Potential-Barriers: compliance PT Sustainability Officer Goals [facility] Goals PT Sustainability Officer Goals Time Frame: March 22, 2023 Roll Left & Right (QC): 6 Sit to Lying (QC): 6 Lying-Sitting on Side/Bed(QC): 6 Sit to Stand (QC): 4 Chair/Wsd-uq-Obvos Xfer(QC): 4 Walk 10 feet (QC): 4 Walk 50ft with 2 Turns (QC): 4 Walk 150 ft (QC): 4 PT Plan Problem List Problem List: Activity Tolerance, Functional Strength, Safety, Balance, Gait, Transfer, Bed Mobility Treatment/Plan Treatment Plan: Continue Plan of Care Treatment Plan: Bed Mobility, Education, Functional Activity Bhavana, Functional Strength, Gait, Safety, Therapeutic Exercise, Transfers Treatment Duration: March 22, 2023 Frequency: 6 times per week Estimated Hrs Per Day: .25 hour per day Patient and/or Family Agrees t: Yes Safety Risks/Education Patient Education: Gait Training Time Time In: 845 Time Out: 911 DATE: Mar 11, 2023 Total Billed Treatment Time: 26 Total Billed Treatment 1 visit EVM 12 min GT 14 min GIANNI CALIX PT Mar 11, 2023 10:13
[2023-03-11 11:08] VITALS: BP 128/81
--- NOTE | 2023-03-11 12:28 | Consultation - Ortho ---
Consult - Ortho Subjective Date of Exam 03/11/23 Chief Complaint Right ankle injury HPI/Events since last exam fall over a week ago, did not keep orthopedic followup, I was asked to see the patient while she was an inpatient Medical, Surgical History see admit Social History see admit Family History see admit Review of Systems - Allergies: Coded Allergies: sulfamethoxazole (Verified Allergy, Unknown, Rash, 03/07/22) trimethoprim (Verified Allergy, Unknown, Rash, 03/07/22) Home Meds Reported Medications Diclofenac Sodium (Voltaren Arthritis Pain) 1 % Gel..gram., 1 APPFUL TP DAILY PRN for PAIN, EA 03/10/23 Cyanocobalamin (Vitamin B-12) (Vitamin B-12) 1,000 Mcg Tablet, 1000 MCG PO DAILY, TAB 03/10/23 Thiamine HCl (Vitamin B-1) 100 Mg Tablet, 100 MG PO DAILY, TAB 03/10/23 Primidone (Mysoline) 250 Mg Tablet, 250 MG PO BID 03/10/23 Celecoxib (Celecoxib) 200 Mg Capsule, 200 MG PO DAILY, CAP 10/14/22 Gabapentin (Gabapentin) 800 Mg Tablet, 800 MG PO QID, TAB 10/14/22 Divalproex Sodium (Divalproex Sodium ER) 500 Mg Tab.er.24h, 500 MG PO HS, TAB 10/14/22 Buspirone HCl (Buspirone HCl) 5 Mg Tablet, 5 MG PO TID, TAB 10/13/21 Divalproex Sodium (Depakote) 250 Mg Tablet.dr, 250 MG PO BID WITH MEALS, TAB 03/30/21 Levothyroxine Sodium (Levothyroxine Sodium) 50 Mcg Tablet, 50 MCG PO DAILY, TAB 03/30/21 Objective Exam Right ankle: swelling, resovling ecchymosis, DFs and PFs ankle, sensation grossly intact to light touch Vital Signs Vital Signs Date Time Temp Pulse Resp B/P (MAP) Pulse Ox O2 Delivery O2 Flow Rate FiO2 03/11/23 11:08 36.0 87 18 128/81 (97) 99 Room Air 03/11/23 08:00 Room Air 03/11/23 07:46 96 Room Air 0.00 03/11/23 07:14 36.5 96 18 119/74 (89) 96 Room Air 03/11/23 06:55 91 03/11/23 03:38 36.4 99 18 138/99 (112) 97 Room Air 0.00 0.00 03/11/23 01:00 85 03/10/23 23:47 36.2 90 18 144/98 (113) 98 Room Air 0.00 0.00 03/10/23 23:46 Room Air 03/10/23 19:37 36.7 100 18 146/88 (107) 97 Room Air 03/10/23 19:00 110 03/10/23 15:44 36.4 105 18 141/96 (111) 100 Room Air 03/10/23 13:18 96 I & O 03/11/23 07:00 Intake Total 1440 ml Balance 1440 ml Lab Results Laboratory Tests 03/10/23 17:39: Glucometer 144H 03/10/23 23:49: Glucometer 192H 03/11/23 05:07: White Blood Count 3.0L, Red Blood Count 3.24L, Hemoglobin 11.7, Hematocrit 34L, Mean Corpuscular Volume 104H, Mean Corpuscular Hemoglobin 36H, Mean Corpuscular Hemoglobin Concent 35, Red Cell Distribution Width 13.5, Platelet Count 39*L, Mean Platelet Volume 10.4, Immature Granulocyte % (Auto) 0, Neutrophils (%) (Auto) 35L, Lymphocytes (%) (Auto) 53H, Monocytes (%) (Auto) 9, Eosinophils (%) (Auto) 2, Basophils (%) (Auto) 1, Neutrophils # (Auto) 1.0L, Lymphocytes # ( Auto) 1.6, Monocytes # (Auto) 0.3, Eosinophils # (Auto) 0.1, Basophils # (Auto) 0.0, Immature Granulocyte # (Auto) 0.0, Sodium Level 138, Potassium Level 3.6, Chloride Level 104, Carbon Dioxide Level 21, Anion Gap 13, Blood Urea Nitrogen 6L, Creatinine 0.65, Estimat Glomerular Filtration Rate 105, BUN/Creatinine Ratio 9, Glucose Level 95, Calcium Level 8.4L, Corrected Calcium 9.0, Total Bilirubin 1.1H, Aspartate Amino Transf (AST/SGOT) 134H, Alanine Aminotransferase (ALT/SGPT) 50, Alkaline Phosphatase 132, Total Protein 5.8L, Albumin 3.3 03/11/23 05:14: Glucometer 104 03/11/23 11:06: Glucometer 132H Microbiology 03/09/23 Urine Culture - Preliminary, Resulted Escherichia coli Klebsiella pneumoniae Imaging 3 views of the right ankle were reviewed from PACS and demonstrated nondisplaced distal fibula fracture with intact mortise and intact syndesmosis Assessment and Plan Assessment Right Distal Fibula Fracture Problem List Right Distal Fibula Fracture Plan Cam boot WBAT in cam boot Recommend repeat x-rays in ~1 month Final Diagonsis Right Distal Fibula Fracture Level of the visit: Level 3 (nonbillable) LISANDRA HOLLAND MD Mar 11, 2023 12:28
--- NOTE | 2023-03-11 14:15 | Occupational Therapy Eval ---
OT Evaluation-General/PLF Medical Diagnosis Admission Date Mar 10, 2023 at 12:52 Medical Diagnosis: ETOH abuse/TBI Onset Date: Mar 10, 2023 Therapy Diagnosis Therapy Diagnosis: impaired balance/coordination Height/Weight Height (Feet): 5 Height (Inches): 3.00 Weight (Pounds): 150 Weight (Ounces): 0 Precautions Precautions/Isolations: Fall Prevention, Standard Precautions Safety Interventions: Bed Exit Alarm Weight Bear Status Weight Bearing Restriction: Weight Bearing/Tolerated Location Restriction: L LE (with CAM BOOT) Referral Physician: Marla Referral Reason: Self Care, Evaluation/Treatment Medical History Pertinent Medical History: Alcoholism, Smoking Additional Medical History Frequent hospital episodes w/ noncompliant f/u Social History Home: Apartment ADL-Prior Level of Function SCALE: Activities may be completed with or without assistive devices. 9-Qtfbanxeal-enwsmdw completes the activity by him/herself with no assistance from a helper. 5-Set-up or Clean-up Assistance-helper sets up or cleans up; patient completes activity. [place] assists only prior to or following the activity. 4-Supervision or Touching Assistance-helper provides verbal cues and/or touching/steadying and/or contact guard assistance as patient completes activity. Assistance may be provided throughout the activity or intermittently. 3-Partial/Moderate Assistance-helper does LESS THAN HALF the effort. [place] lifts, holds or supports trunk or limbs, but provides less than half the effort. 2-Substantial/Maximal Assistance-helper does MORE THAN HALF the effort. [place] lifts or holds trunk or limbs and provides more than half the effort. 0-Cmszxgwfg-pakqie does ALL the effort. Patient does none of the effort to complete the activity. Or, the assistance of 2 or more helpers is required for the patient to complete the activity. If activity was not attempted, code reason: 7-Patient Refused. 9-Not Applicable-not attempted and the patient did not perform the activity before the current illness, exacerbation or injury. 10-Not Attempted due to Environmental Limitations-(lack of equipment, weather restraints, etc.). 88-Not Attempted due to Medical Conditions or Safety Concerns. Self Care: Needed Some Help (d/t ETOH abuse and unkempt personal hygiene, assist required to initiate ADLS) Functional Cognition: Needed Some Help DME/Equipment Comments 4ww/seat and broken brake cable Drive Self: No OT Current Status Subjective Resting in bed, NPO for testing Mental Status/Objective Patient Orientation: Person, Place Attachments: IV Current Upper Extremity ROM BUE ROM WFLs Upper Extremity Coordination tremors noted Upper Extremity Strength 4/5 grossly ADL-Treatment Eating (QC): 88 Oral Hygiene (QC): 4 Shower/Bathe Self (QC): 7 Upper Body Dressing (QC): 5 Lower Body Dressing (QC): 5 On/Off Footwear (QC): 6 Toileting Hygiene (QC): 5 Education OT Patient Education: Correct positioning, Modified ADL techniques, Progress toward Goal/Update tx plan, Purpose of tx/functional activities, Reviewed precautions, Safety issues, Transfer techniques, Use of adapted equipment Teaching Recipient: Patient Teaching Methods: Demonstration, Discussion Response to Teaching: Verbalize Understanding, Reinforcement Needed OT Rn Lactation Goals Rn Lactation Goals Eating (QC): 6 Oral Hygiene (QC): 6 Toileting Hygiene (QC): 6 Shower/Bathe Self (QC): 6 Upper Body Dressing (QC): 6 Lower Body Dressing (QC): 6 On/Off Footwear (QC): 6 1=Demonstrate adherence to instructed precautions during ADL tasks. 2=Patient will verbalize/demonstrate understanding of assistive devices/modifications for ADL. 3=Patient will improve strength/tolerance for activity to enable patient to perform ADL's. OT Education/Plan Problem List/Assessment Assessment: Decreased Safety Aware, Impaired Coordination, Impaired Funct Balance, Impaired Self-Care Skills Discharge Recommendations Plan/Recommendations: Continue POC Treatment Plan/Plan of Care Treatment,Training & Education: Yes Patient would benefit from OT for education, treatment and training to promote independence in ADL's, mobility, safety and/or upper extremity function for ADL's. Plan of Care: ADL Retraining, Functional Mobility, Group Exercise/Act as Ind, Orthotic Fitting/Training, UE Funct Exercise/Act, UE Neuromus Re-Ed/Coord Treatment Duration: Mar 15, 2023 Frequency: 3 times per week (3-5 times per week) Estimated Hrs Per Day: .25 hour per day Agreement: Yes Rehab Potential: Guarded Time Start Time: 14:00 Stop Time: 14:18 DATE: Mar 11, 2023 Total Time Billed (hr/min): 18 Billed Treatment Time EVL 18 min BASIL MORRISON OT Mar 11, 2023 14:15
--- NOTE | 2023-03-11 15:38 | Diagnostic Imaging Report ---
PROCEDURE: US Hepatic (Liver). TECHNIQUE: Multiple real-time grayscale images were obtained over the right upper quadrant in various projections. INDICATION: Elevated LFTs. COMPARISON: CT abdomen on 06/29/2022. FINDINGS: The liver measures 15.4 cm and is diffusely hyperechoic echoic. No focal liver lesions identified. Previously noted hemangioma is not well characterized with ultrasound. The gallbladder demonstrates multiple gallstones. The common bile duct measures 0.6 m. The pancreas is not well seen due to overlying bowel gas. Visualized portions of the aorta and IVC are normal. The right kidney is normal. IMPRESSION: Hepatic steatosis. Cholelithiasis without evidence of acute cholecystitis. Pancreas is not well evaluated due to overlying bowel gas. Recommend cross-sectional imaging for surveillance of any pancreatic lesion. The previously noted hepatic hemangioma is not well characterized with ultrasound. Dictated by: Dictated on workstation # [id number]
[2023-03-11 16:06] VITALS: BP 142/90
[2023-03-11] MEDS: cefTRIAXone IV/IM 1,000 MG in NS (IVPB) 50 ML IV SCH (17:03)
[2023-03-11 20:43] VITALS: BP 142/86
[2023-03-11] MEDS: DIVALPROEX EXT RELEASE 250 MG (DEPAKOTE ER) TAB PO SCH (21:00)
[2023-03-11] MEDS: ENOXAPARIN 40 MG/0.4 ML (LOVENOX) SYR SC SCH (21:02)
[2023-03-11 21:07] LABS: HEPATITIS C ANTIBODY C Non-Reactive (Non-Reactive)
[2023-03-12] VITALS: BP 141/90
[2023-03-12 03:54] VITALS: BP 135/84
[2023-03-12] MEDS: THIAMINE 100 MG (VITAMIN B-1) TAB PO SCH (06:22)
[2023-03-12] MEDS: MULTIVIT W/MINERALS TAB (THERAGRAN M) PO SCH (06:22)
[2023-03-12] MEDS: LEVOTHYROXINE 50 MCG (LEVOTHROID) TAB PO SCH (06:22)
[2023-03-12 06:30] LABS: BASOPHILS % (AUTO) 1 % (0-10); HEMOGLOBIN 11.2 g/dL (11.5-16.0); MONOCYTES # (AUTO) 0.2 10^3/uL (0.0-1.0)
[2023-03-12 06:32] LABS: EOSINOPHILS # (AUTO) 0.1 10^3/uL (0.0-0.3); EOSINOPHILS % (AUTO) 3 % (0-10); HEMATOCRIT 33 % (35-52); LYMPHOCYTES # (AUTO) 1.7 10^3/uL (1.0-4.0); LYMPHOCYTES % (AUTO) 57 % (12-44); MEAN CORPUSCULAR HEMOGLOBIN 37 pg (25-34); MEAN CORPUSCULAR HGB CONC 34 g/dL (32-36); MEAN CORPUSCULAR VOLUME 108 fL (80-99); MEAN PLATELET VOLUME 10.7 fL (9.0-12.2); MONOCYTES % (AUTO) 8 % (0-12); NEUTROPHILS # (AUTO) 0.9 10^3/uL (1.8-7.8); NEUTROPHILS % (AUTO) 31 % (42-75); PLATELET COUNT 41 10^3/uL (130-400); WHITE BLOOD COUNT 2.9 10^3/uL (4.3-11.0)
[2023-03-12 06:46] LABS: ALBUMIN 3.3 GM/DL (3.2-4.5)
[2023-03-12 06:47] LABS: POTASSIUM 3.8 MMOL/L (3.6-5.0)
[2023-03-12 06:48] LABS: CALCIUM 8.5 MG/DL (8.5-10.1)
[2023-03-12 06:49] LABS: TOTAL PROTEIN 5.7 GM/DL (6.4-8.2)
[2023-03-12 06:51] LABS: BILIRUBIN,TOTAL 0.9 MG/DL (0.1-1.0)
[2023-03-12 06:53] LABS: CREATININE SERUM 0.65 MG/DL (0.60-1.30)
[2023-03-12 08:17] VITALS: BP 152/104
[2023-03-12] MEDS: DOCUSATE SODIUM 100 MG (COLACE) CAP PO SCH ×2 (08:17→20:13)
[2023-03-12] MEDS: GABAPENTIN 400 MG (NEURONTIN) CAP PO SCH ×4 (08:17→20:11)
[2023-03-12] MEDS: CYANOCOBALAMIN 1,000 MCG (VITAMIN B-12) TABLET PO SCH (08:17)
[2023-03-12] MEDS: MAGNESIUM OXIDE (MAG-OX)400 MG TAB PO SCH (08:17)
[2023-03-12] MEDS: FOLIC ACID 1 MG TAB PO SCH (08:17)
[2023-03-12] MEDS: PRIMIDONE 250MG (MYSOLINE) TAB PO SCH ×2 (08:17→20:11)
[2023-03-12] MEDS: DIVALPROEX 250 MG DELAYED RELEASE (DEPAKOTE) TAB PO SCH ×2 (08:18→17:09)
[2023-03-12] MEDS: busPIRone 5 MG (BUSPAR) TAB PO SCH ×3 (08:18→20:11)
[2023-03-12] MEDS: SENNOSIDES 8.6 MG (SENOKOT) TAB PO SCH ×2 (08:18→20:13)
[2023-03-12 12:11] VITALS: BP 128/86
[2023-03-12 15:54] VITALS: BP 147/90
[2023-03-12] MEDS: cefTRIAXone IV/IM 1,000 MG in NS (IVPB) 50 ML IV SCH (17:09)
--- NOTE | 2023-03-12 17:20 | Progress Note ---
Subjective Subjective/Events-last exam Pt seen at 1155. She denies specific concerns, was irritated trying to get lunch tray in place. She is still open to going to SNF. Objective Exam Last Set of Vital Signs Vital Signs Date Time Temp Pulse Resp B/P (MAP) Pulse Ox O2 Delivery O2 Flow Rate FiO2 03/12/23 15:54 37.0 81 18 147/90 (109) 100 Room Air 03/12/23 08:00 0.00 03/09/23 19:33 21 Capillary Refill : Less Than 3 Seconds I&O Intake and Output 03/12/23 00:00 Intake Total 1860 ml Balance 1860 ml Intake Oral 1860 ml # Voids 4 # Urine Diapers 5 # Bowel Movements 2 General: Alert, No Acute Distress Lungs: Clear to Auscultation, Normal Air Movement Heart: Regular Rate, No Murmurs Neuro: Normal Speech Psych/Mental Status: Mental Status NL Results/Procedures Lab Laboratory Tests 03/11/23 18:01: Glucometer 289H 03/12/23 00:03: Glucometer 114H 03/12/23 05:43: Glucometer 113H 03/12/23 06:12: White Blood Count 2.9L, Red Blood Count 3.05L, Hemoglobin 11.2L, Hematocrit 33L, Mean Corpuscular Volume 108H, Mean Corpuscular Hemoglobin 37H, Mean Corpuscular Hemoglobin Concent 34, Red Cell Distribution Width 13.6, Platelet Count 41L, Mean Platelet Volume 10.7, Immature Granulocyte % (Auto) 0, Neutrophils (%) (Auto) 31L, Lymphocytes (%) (Auto) 57H, Monocytes (%) (Auto) 8, Eosinophils (%) (Auto) 3, Basophils (%) (Auto) 1, Neutrophils # (Auto) 0.9L, Lymphocytes # (Auto) 1.7, Monocytes # (Auto) 0.2, Eosinophils # (Auto) 0.1, Basophils # (Auto) 0.0, Immature Granulocyte # (Auto) 0.0, Percent Immature Platelet Fraction 7.6, Sodium Level 136, Potassium Level 3.8, Chloride Level 102, Carbon Dioxide Level 23, Anion Gap 11, Blood Urea Nitrogen 5L, Creatinine 0.65, Estimat Glomerular Filtration Rate 105, BUN/Creatinine Ratio 8, Glucose Level 123H, Calcium Level 8.5, Corrected Calcium 9.1, Total Bilirubin 0.9, Aspartate Amino Transf (AST/SGOT) 83H, Alanine Aminotransferase (ALT/SGPT) 39, Alkaline Phosphatase 131, Total Protein 5.7L, Albumin 3.3 03/12/23 11:52: Glucometer 98 Microbiology 03/09/23 Urine Culture - Final, Complete Escherichia coli Klebsiella pneumoniae Assessment/Plan Assessment/Plan (1) Hepatic steatosis Status: Chronic Assessment & Plan: Admit- Liver enzymes trending up, concerning for acute alcoholic hepatitis. MRI abdomen 06/2022 with 1.8 cm hepatic hemangioma and steatosis. Liver US pending. 03/12 liver US with hepatic steatosis and cholelithiasis without evidence of inflammation. LFTs trended down. (2) Thrombocytopenia Status: Chronic Assessment & Plan: Intermittently present, but below baseline, secondary to liver disease, follow closely. (3) Anxiety Status: Chronic Assessment & Plan: Resume home buspirone. (4) Elevated liver enzymes Status: Chronic Assessment & Plan: Monitor closely, liver enzymes increasing initially, repeat hep panel, check liver US. Hep panel neg, liver enzymes trending down (5) Alcohol abuse Status: Chronic Assessment & Plan: food and nutrition services supervisor consulted. (6) Seizure disorder Status: Chronic Assessment & Plan: Resume home depakote. (7) Falls Status: Acute Assessment & Plan: PT Qualifiers: Qualified Codes: W19.XXXD - Unspecified fall, subsequent encounter (8) Acute alcoholic intoxication Status: Resolved Assessment & Plan: CIWA scoring, lorazepam per score. Vitamin replacements daily. Qualifiers: Qualified Codes: F10.920 - Alcohol use, unspecified with intoxication, uncomplicated (9) Closed fracture of right distal fibula Status: Acute Assessment & Plan: Currently splinted, repeat x-ray showed no dislocation at last ER visit, has not yet seen Ortho, will consult. 03/11 boot placed Qualifiers: Qualified Codes: S82.831D - Other fracture of upper and lower end of right fibula, subsequent encounter for closed fracture with routine healing (10) Urinary tract infection Status: Acute Assessment & Plan: Culture with GNR so far, start ceftriaxone. E coli and klebsiella Qualifiers: Qualified Codes: N30.01 - Acute cystitis with hematuria (11) Unable to care for self Status: Acute Assessment & Plan: Today is open to considering detention for therapy, social media community manager [facility] (12) DVT prophylaxis Status: Acute Assessment & Plan: Hold pharmacologic due to low platelets LIBERTAD LATIF MD Mar 12, 2023 17:20
[2023-03-12 20:03] VITALS: BP 132/87
[2023-03-12] MEDS: CEPHALEXIN 250 MG (KEFLEX) CAP PO SCH (20:11)
[2023-03-12] MEDS: DIVALPROEX EXT RELEASE 250 MG (DEPAKOTE ER) TAB PO SCH (20:11)
[2023-03-12] MEDS: ENOXAPARIN 40 MG/0.4 ML (LOVENOX) SYR SC SCH (20:12)
[2023-03-13] VITALS (7 sets, daily range): BP systolic 113–151; BP diastolic 77–94
[2023-03-13] MEDS: LEVOTHYROXINE 50 MCG (LEVOTHROID) TAB PO SCH (05:31)
[2023-03-13] MEDS: MULTIVIT W/MINERALS TAB (THERAGRAN M) PO SCH (05:31)
[2023-03-13 05:46] LABS: LYMPHOCYTES # (AUTO) 1.7 10^3/uL (1.0-4.0)
[2023-03-13 05:48] LABS: BASOPHILS % (AUTO) 0 % (0-10); EOSINOPHILS # (AUTO) 0.1 10^3/uL (0.0-0.3); EOSINOPHILS % (AUTO) 2 % (0-10); HEMATOCRIT 30 % (35-52); HEMOGLOBIN 10.6 g/dL (11.5-16.0); LYMPHOCYTES % (AUTO) 52 % (12-44); MEAN CORPUSCULAR HEMOGLOBIN 38 pg (25-34); MEAN CORPUSCULAR HGB CONC 35 g/dL (32-36); MEAN CORPUSCULAR VOLUME 108 fL (80-99); MONOCYTES # (AUTO) 0.4 10^3/uL (0.0-1.0); MONOCYTES % (AUTO) 11 % (0-12); NEUTROPHILS # (AUTO) 1.1 10^3/uL (1.8-7.8); NEUTROPHILS % (AUTO) 34 % (42-75); PLATELET COUNT 41 10^3/uL (130-400); WHITE BLOOD COUNT 3.3 10^3/uL (4.3-11.0)
[2023-03-13 05:57] LABS: ALBUMIN 3.2 GM/DL (3.2-4.5)
[2023-03-13 05:58] LABS: POTASSIUM 4.1 MMOL/L (3.6-5.0)
[2023-03-13 05:59] LABS: CALCIUM 8.7 MG/DL (8.5-10.1)
[2023-03-13 06:00] LABS: TOTAL PROTEIN 5.6 GM/DL (6.4-8.2)
[2023-03-13 06:02] LABS: BILIRUBIN,TOTAL 0.9 MG/DL (0.1-1.0)
[2023-03-13 06:04] LABS: CREATININE SERUM 0.61 MG/DL (0.60-1.30)
[2023-03-13] MEDS: DIVALPROEX 250 MG DELAYED RELEASE (DEPAKOTE) TAB PO SCH ×2 (08:54→18:12)
[2023-03-13] MEDS: GABAPENTIN 400 MG (NEURONTIN) CAP PO SCH ×4 (08:54→20:17)
[2023-03-13] MEDS: SENNOSIDES 8.6 MG (SENOKOT) TAB PO SCH ×2 (08:54→21:05)
[2023-03-13] MEDS: busPIRone 5 MG (BUSPAR) TAB PO SCH ×3 (08:54→20:17)
[2023-03-13] MEDS: DOCUSATE SODIUM 100 MG (COLACE) CAP PO SCH ×2 (08:54→21:05)
[2023-03-13] MEDS: FOLIC ACID 1 MG TAB PO SCH (09:01)
[2023-03-13] MEDS: CYANOCOBALAMIN 1,000 MCG (VITAMIN B-12) TABLET PO SCH (09:01)
[2023-03-13] MEDS: PRIMIDONE 250MG (MYSOLINE) TAB PO SCH ×2 (09:02→20:17)
[2023-03-13] MEDS: CEPHALEXIN 250 MG (KEFLEX) CAP PO SCH ×2 (09:02→20:16)
--- NOTE | 2023-03-13 10:43 | Physical Therapy Daily Note ---
PT Daily Note-Current Subjective Patient agrees to PT. Pain Section J - Health Conditions 1. Rarely or not at all 2. Occasionally 3. Frequently 4. Almost constantly 8. Unable to answer Pain Effect on Sleep: 1 Pain Interference with Therapy: 1 Pain Interference w/Day-to-Day: 1 Mental Status Patient Orientation: Person, Time, Situation Transfers SCALE: Activities may be completed with or without assistive devices. 3-Wyalypjdqb-wrcobln completes the activity by him/herself with no assistance from a helper. 5-Set-up or Clean-up Assistance-helper sets up or cleans up; patient completes activity. [place] assists only prior to or following the activity. 4-Supervision or Touching Assistance-helper provides verbal cues and/or touching/steadying and/or contact guard assistance as patient completes activity. Assistance may be provided throughout the activity or intermittently. 3-Partial/Moderate Assistance-helper does LESS THAN HALF the effort. [place] lifts, holds or supports trunk or limbs, but provides less than half the effort. 2-Substantial/Maximal Assistance-helper does MORE THAN HALF the effort. [place] lifts or holds trunk or limbs and provides more than half the effort. 3-Dwfgdrbfa-urbuud does ALL the effort. Patient does none of the effort to complete the activity. Or, the assistance of 2 or more helpers is required for the patient to complete the activity. If activity was not attempted, code reason: 7-Patient Refused. 9-Not Applicable-not attempted and the patient did not perform the activity before the current illness, exacerbation or injury. 10-Not Attempted due to Environmental Limitations-(lack of equipment, weather restraints, etc.). 88-Not Attempted due to Medical Conditions or Safety Concerns. Lying to Sitting/Side of Bed(Q: 6 Sit to Stand (QC): 4 Chair/Gpi-we-Srunk Xfer(QC): 4 Weight Bearing Right Lower Extremity: Right Weight Bearing/Tolerated Left Lower Extremity: Left Full Weight Bearing CAM boot right LE in place Gait Training Distance: 175' Walk 10 feet (QC): 4 Walk 50 ft with 2 Turns(QC): 4 Walk 150 ft (QC): 4 Gait Assistive Device: FWW improved gait sequence with FWW use Assessment Patient tolerated improved distance with gait training with FWW. Patient instructed to not use 4WW due to it is not safe for patient to utilize and right hand brake is broken. PT Prison Goals Big Data Engineer Goals PT Prison Goals Time Frame: March 22, 2023 Roll Left & Right (QC): 6 Sit to Lying (QC): 6 Lying-Sitting on Side/Bed(QC): 6 Sit to Stand (QC): 4 Chair/Yux-fl-Tdqmk Xfer(QC): 4 Walk 10 feet (QC): 4 Walk 50ft with 2 Turns (QC): 4 Walk 150 ft (QC): 4 PT Plan Treatment/Plan Treatment Plan: Continue Plan of Care Treatment Plan: Bed Mobility, Education, Functional Activity Bhavana, Functional Strength, Gait, Safety, Therapeutic Exercise, Transfers Treatment Duration: March 22, 2023 Frequency: 6 times per week Estimated Hrs Per Day: .25 hour per day Patient and/or Family Agrees t: Yes Time Time In: 955 Time Out: 1005 DATE: Mar 13, 2023 Total Billed Treatment Time: 10 Total Billed Treatment 1 visit GT 10 min GIANNI CALIX PT Mar 13, 2023 10:43
--- NOTE | 2023-03-13 11:09 | Occupational Ther Daily Note ---
OT Current Status-Daily Note Subjective Up in bed reclined, agreeable to OT, reports fall unwitnessed Mental Status/Objective Patient Orientation: Person, Place, Time, Situation ADL-Treatment Therapy Code Descriptions/Definitions Functional [place] Measure: 0=Not Assessed/NA 4=Minimal Assistance 1=Total Assistance 5=Supervision or Setup 2=Maximal Assistance 6=Modified [place] 3=Moderate Assistance 7=Complete IndependenceSCALE: Activities may be completed with or without assistive devices. 1-Hwublooyka-hravqsc completes the activity by him/herself with no assistance from a helper. 5-Set-up or Clean-up Assistance-helper sets up or cleans up; patient completes activity. [place] assists only prior to or following the activity. 4-Supervision or Touching Assistance-helper provides verbal cues and/or touching/steadying and/or contact guard assistance as patient completes activity. Assistance may be provided throughout the activity or intermittently. 3-Partial/Moderate Assistance-helper does LESS THAN HALF the effort. [place] lifts, holds or supports trunk or limbs, but provides less than half the effort. 2-Substantial/Maximal Assistance-helper does MORE THAN HALF the effort. [place] lifts or holds trunk or limbs and provides more than half the effort. 8-Nhgzbdshw-ehlbae does ALL the effort. Patient does none of the effort to complete the activity. Or, the assistance of 2 or more helpers is required for the patient to complete the activity. If activity was not attempted, code reason: 7-Patient Refused. 9-Not Applicable-not attempted and the patient did not perform the activity before the current illness, exacerbation or injury. 10-Not Attempted due to Environmental Limitations-(lack of equipment, weather restraints, etc.). 88-Not Attempted due to Medical Conditions or Safety Concerns. Eating (QC): 6 Oral Hygiene (QC): 5 Shower/Bathe Self (QC): 7 (OT recommends shower) Upper Body Dressing (QC): 5 Lower Body Dressing (QC): 4 On/Off Footwear: 5 Toileting Hygiene (QC): 5 Toilet Transfer (QC): 5 DECREASED SAFETY AWARENESS, DONS CAM BOOT INDEPENDENTLY Education OT Patient Education: Correct positioning, Exercise program, Modified ADL techniques, Safety issues, Transfer techniques Teaching Recipient: Patient Teaching Methods: Demonstration, Discussion Response to Teaching: Reinforcement Needed OT Snf Goals Insulation Manager Goals Eating (QC): 6 Oral Hygiene (QC): 6 Toileting Hygiene (QC): 6 Shower/Bathe Self (QC): 6 Upper Body Dressing (QC): 6 Lower Body Dressing (QC): 6 On/Off Footwear (QC): 6 1=Demonstrate adherence to instructed precautions during ADL tasks. 2=Patient will verbalize/demonstrate understanding of assistive devices/modifi cations for ADL. 3=Patient will improve strength/tolerance for activity to enable patient to perform ADL's. OT Education/Plan Problem List/Assessment Assessment: Decreased Activ Tolerance, Decreased Safety Aware, Impaired Self- Care Skills Discharge Recommendations Plan/Recommendations: Continue POC Treatment Plan/Plan of Care Treatment,Training & Education: Yes Patient would benefit from OT for education, treatment and training to promote independence in ADL's, mobility, safety and/or upper extremity function for ADL's. Plan of Care: ADL Retraining, Functional Mobility, Group Exercise/Act as Ind, Orthotic Fitting/Training, UE Funct Exercise/Act, UE Neuromus Re-Ed/Coord Treatment Duration: Mar 15, 2023 Frequency: 3 times per week (3-5 times per week) Estimated Hrs Per Day: .25 hour per day Agreement: Yes Rehab Potential: Guarded Time Start Time: 09:50 Stop Time: 10:08 DATE: Mar 13, 2023 Total Time Billed (hr/min): 18 Billed Treatment Time ADL 18 min BASIL MORRISON OT Mar 13, 2023 11:09
--- NOTE | 2023-03-13 15:05 | Progress Note ---
Subjective Subjective/Events-last exam Pt states she is feeling okay. She tried to get up yesterday and fell to her knees, states her ankle in the boot is now a little more irritated. Objective Exam Last Set of Vital Signs Vital Signs Date Time Temp Pulse Resp B/P (MAP) Pulse Ox O2 Delivery O2 Flow Rate FiO2 03/13/23 13:01 79 03/13/23 11:59 36.1 18 113/77 (89) 98 Room Air 03/12/23 08:00 0.00 03/09/23 19:33 21 Capillary Refill : Less Than 3 Seconds I&O Intake and Output 03/13/23 00:00 Intake Total 2590 ml Balance 2590 ml Intake Oral 2540 ml IV Total 50 ml # Voids 13 # Bowel Movements 8 General: Alert, No Acute Distress Lungs: Clear to Auscultation, Normal Air Movement Heart: Regular Rate, No Murmurs Abdomen: Normal Bowel Sounds, Soft Neuro: Normal Speech Psych/Mental Status: Mood NL Results/Procedures Lab Laboratory Tests 03/13/23 05:16: White Blood Count 3.3L, Red Blood Count 2.82L, Hemoglobin 10.6L, Hematocrit 30L, Mean Corpuscular Volume 108H, Mean Corpuscular Hemoglobin 38H, Mean Corpuscular Hemoglobin Concent 35, Red Cell Distribution Width 13.7, Platelet Count 41L, Mean Platelet Volume 11.0, Immature Granulocyte % (Auto) 0, Neutrophils (%) (A uto) 34L, Lymphocytes (%) (Auto) 52H, Monocytes (%) (Auto) 11, Eosinophils (%) (Auto) 2, Basophils (%) (Auto) 0, Neutrophils # (Auto) 1.1L, Lymphocytes # (Auto) 1.7, Monocytes # (Auto) 0.4, Eosinophils # (Auto) 0.1, Basophils # (Auto) 0.0, Immature Granulocyte # (Auto) 0.0, Percent Immature Platelet Fraction 7.4, Sodium Level 136, Potassium Level 4.1, Chloride Level 103, Carbon Dioxide Level 22, Anion Gap 11, Blood Urea Nitrogen 5L, Creatinine 0.61, Estimat Glomerular Filtration Rate 107, BUN/Creatinine Ratio 8, Glucose Level 79, Calcium Level 8.7, Corrected Calcium 9.3, Total Bilirubin 0.9, Aspartate Amino Transf (AST/SGOT) 61H, Alanine Aminotransferase (ALT/SGPT) 35, Alkaline Phosphatase 117, Total Protein 5.6L, Albumin 3.2 Microbiology 03/09/23 Urine Culture - Final, Complete Escherichia coli Klebsiella pneumoniae Assessment/Plan Assessment/Plan (1) Hepatic steatosis Status: Chronic Assessment & Plan: Admit- Liver enzymes trending up, concerning for acute alcoholic hepatitis. MRI abdomen 06/2022 with 1.8 cm hepatic hemangioma and steatosis. Liver US pending. 03/12 liver US with hepatic steatosis and cholelithiasis without evidence of inflammation. LFTs trended down. (2) Thrombocytopenia Status: Chronic Assessment & Plan: Intermittently present, but below baseline, secondary to liver disease, follow closely. (3) Anxiety Status: Chronic Assessment & Plan: Resume home buspirone. (4) Elevated liver enzymes Status: Chronic Assessment & Plan: Monitor closely, liver enzymes increasing initially, repeat hep panel, check liver US. Hep panel neg, liver enzymes trending down (5) Alcohol abuse Status: Chronic Assessment & Plan: business services assistant consulted. (6) Seizure disorder Status: Chronic Assessment & Plan: Resume home depakote. (7) Falls Status: Acute Assessment & Plan: PT, plan for d/c to SNF Qualifiers: Qualified Codes: W19.XXXD - Unspecified fall, subsequent encounter (8) Acute alcoholic intoxication Status: Resolved Assessment & Plan: CIWA scoring, lorazepam per score. Vitamin replacements daily. Qualifiers: Qualified Codes: F10.920 - Alcohol use, unspecified with intoxication, uncomplicated (9) Closed fracture of right distal fibula Status: Acute Assessment & Plan: Currently splinted, repeat x-ray showed no dislocation at last ER visit, has not yet seen Ortho, will consult. 03/11 boot placed Qualifiers: Qualified Codes: S82.831D - Other fracture of upper and lower end of right fibula, subsequent encounter for closed fracture with routine healing (10) Urinary tract infection Status: Acute Assessment & Plan: Culture with GNR so far, start ceftriaxone. E coli and klebsiella Qualifiers: Qualified Codes: N30.01 - Acute cystitis with hematuria (11) Unable to care for self Status: Acute Assessment & Plan: Today is open to considering [facility] for therapy, healthcare social worker notified, anticipate d/c to SNF tomorrow (12) DVT prophylaxis Status: Acute Assessment & Plan: Hold pharmacologic due to low platelets LIBERTAD LATIF MD Mar 13, 2023 15:05
[2023-03-13] MEDS: MELATONIN 3 MG TABLET PO PRN (20:16)
[2023-03-13] MEDS: DIVALPROEX EXT RELEASE 250 MG (DEPAKOTE ER) TAB PO SCH (20:16)
[2023-03-13] MEDS: ENOXAPARIN 40 MG/0.4 ML (LOVENOX) SYR SC SCH (20:17)
[2023-03-13] MEDS ORDERED: CEPH250C PO (21:58)
[2023-03-14 03:48] VITALS: BP 123/74
[2023-03-14] MEDS: MULTIVIT W/MINERALS TAB (THERAGRAN M) PO SCH (06:31)
[2023-03-14] MEDS: LEVOTHYROXINE 50 MCG (LEVOTHROID) TAB PO SCH (06:31)
[2023-03-14 07:11] LABS: BASOPHILS % (AUTO) 0 % (0-10); LYMPHOCYTES # (AUTO) 1.1 10^3/uL (1.0-4.0)
[2023-03-14 07:13] LABS: EOSINOPHILS # (AUTO) 0.1 10^3/uL (0.0-0.3); EOSINOPHILS % (AUTO) 5 % (0-10); HEMATOCRIT 34 % (35-52); HEMOGLOBIN 11.4 g/dL (11.5-16.0); LYMPHOCYTES % (AUTO) 41 % (12-44); MEAN CORPUSCULAR HEMOGLOBIN 37 pg (25-34); MEAN CORPUSCULAR HGB CONC 33 g/dL (32-36); MEAN CORPUSCULAR VOLUME 111 fL (80-99); MEAN PLATELET VOLUME 11.2 fL (9.0-12.2); MONOCYTES # (AUTO) 0.5 10^3/uL (0.0-1.0); MONOCYTES % (AUTO) 20 % (0-12); NEUTROPHILS # (AUTO) 0.9 10^3/uL (1.8-7.8); NEUTROPHILS % (AUTO) 33 % (42-75); PLATELET COUNT 52 10^3/uL (130-400); WHITE BLOOD COUNT 2.7 10^3/uL (4.3-11.0)
[2023-03-14 07:14] LABS: ALBUMIN 3.6 GM/DL (3.2-4.5)
[2023-03-14 07:15] LABS: POTASSIUM 4.5 MMOL/L (3.6-5.0)
[2023-03-14 07:16] LABS: CALCIUM 9.2 MG/DL (8.5-10.1)
[2023-03-14 07:17] LABS: TOTAL PROTEIN 6.2 GM/DL (6.4-8.2)
[2023-03-14 07:19] LABS: BILIRUBIN,TOTAL 0.7 MG/DL (0.1-1.0)
[2023-03-14 07:21] LABS: CREATININE SERUM 0.74 MG/DL (0.60-1.30)
[2023-03-14 07:32] VITALS: BP 135/78
[2023-03-14 07:55] LABS: BAND NEUTROPHILS 0 %; BASOPHILS % (MANUAL) 1 %; EOSINOPHILS % (MANUAL) 6 %; LYMPHOCYTES % (MANUAL) 48 %; MONOCYTES % (MANUAL) 11 %; NEUTROPHILS % (MANUAL) 34 %; RBC MORPH NORMAL
[2023-03-14] MEDS: PRIMIDONE 250MG (MYSOLINE) TAB PO SCH (08:46)
[2023-03-14] MEDS: DIVALPROEX 250 MG DELAYED RELEASE (DEPAKOTE) TAB PO SCH (08:46)
[2023-03-14] MEDS: CYANOCOBALAMIN 1,000 MCG (VITAMIN B-12) TABLET PO SCH (08:46)
[2023-03-14] MEDS: SENNOSIDES 8.6 MG (SENOKOT) TAB PO SCH (08:46)
[2023-03-14] MEDS: FOLIC ACID 1 MG TAB PO SCH (08:46)
[2023-03-14] MEDS: DOCUSATE SODIUM 100 MG (COLACE) CAP PO SCH (08:46)
[2023-03-14] MEDS: CEPHALEXIN 250 MG (KEFLEX) CAP PO SCH (08:46)
[2023-03-14] MEDS: GABAPENTIN 400 MG (NEURONTIN) CAP PO SCH ×2 (08:46→13:05)
[2023-03-14] MEDS: busPIRone 5 MG (BUSPAR) TAB PO SCH ×2 (08:46→13:05)
--- NOTE | 2023-03-14 10:28 | Discharge Inst-Skilled Nursing ---
Discharge Inst-Skilled NF Patient Instructions Patient Problems: Alcoholism Debility Right fibula fracture Consult/Follow Up/Orders Follow up appt.: Follow up with Dr. Gutiérrez in 3-4 weeks for fibula xray and follow up Follow up with primary provider after d/c from [facility] Skilled NF Admit to: [facility], [place] Certifications SNF I certify that SNF services are required to be given on an inpatient basis because of the above named patient's need for intermediate care on a continuing basis for the conditions(s) for which he/she was receiving inpatient hospital services prior to his/her transfer to the [facility]. Residential Facility Order: Nursing Services, Physical Therapy-Evaluate & Treat Oxygen Delivery Method: Room Air Daily Activity as Tolerated: Yes (weight bearing as tolerated with boot) Discharge Medications New Medications: Cephalexin (Cephalexin) 250 Mg Capsule 500 MG PO BID, #8 CAP 0 Refills Continued Medications: Buspirone HCl (Buspirone HCl) 5 Mg Tablet 5 MG PO TID, TAB Celecoxib (Celecoxib) 200 Mg Capsule 200 MG PO DAILY, CAP Cyanocobalamin (Vitamin B-12) (Vitamin B-12) 1,000 Mcg Tablet 1000 MCG PO DAILY, TAB Diclofenac Sodium (Voltaren Arthritis Pain) 1 % Gel..gram. 1 APPFUL TP DAILY PRN for PAIN, EA Divalproex Sodium (Depakote) 250 Mg Tablet.dr 250 MG PO BID WITH MEALS, TAB Divalproex Sodium (Divalproex Sodium ER) 500 Mg Tab.er.24h 500 MG PO HS, TAB Gabapentin (Gabapentin) 800 Mg Tablet 800 MG PO QID, TAB Levothyroxine Sodium (Levothyroxine Sodium) 50 Mcg Tablet 50 MCG PO DAILY, TAB Primidone (Mysoline) 250 Mg Tablet 250 MG PO BID Thiamine HCl (Vitamin B-1) 100 Mg Tablet 100 MG PO DAILY, TAB Libertad Chapin Mar 14, 2023 10:26 LIBERTAD CHAPIN MD Mar 14, 2023 10:28
--- NOTE | 2023-03-14 10:29 | Discharge Summary ---
Discharge Summary Hospital Course Problems/Diagnosis: (1) Hepatic steatosis Status: Chronic Assessment & Plan: Admit- Liver enzymes trending up, concerning for acute alcoholic hepatitis. MRI abdomen 06/2022 with 1.8 cm hepatic hemangioma and steatosis. Liver US pending. 03/12 liver US with hepatic steatosis and cholelithiasis without evidence of inflammation. LFTs trended down. (2) Thrombocytopenia Status: Chronic Assessment & Plan: Intermittently present, but below baseline, secondary to liver disease (3) Anxiety Status: Chronic Assessment & Plan: Resume home buspirone. (4) Elevated liver enzymes Status: Chronic Assessment & Plan: Monitor closely, liver enzymes increasing initially, repeat hep panel, check liver US. Hep panel neg, liver enzymes trending down (5) Alcohol abuse Status: Chronic Assessment & Plan: donor services coordinator consulted. (6) Seizure disorder Status: Chronic Assessment & Plan: Resume home depakote. (7) Falls Status: Acute Assessment & Plan: PT done inpatient, discharged to SNF for further therapy due to persistent weakness and falls. Qualifiers: Qualified Codes: W19.XXXD - Unspecified fall, subsequent encounter (8) Acute alcoholic intoxication Status: Resolved Resolution Date/Time: 03/11/23 @ 13:47 Assessment & Plan: CIWA scoring, lorazepam per score. Vitamin replacements daily. Qualifiers: Qualified Codes: F10.920 - Alcohol use, unspecified with intoxication, uncomplicated (9) Closed fracture of right distal fibula Status: Acute Assessment & Plan: Currently splinted, repeat x-ray showed no dislocation at last ER visit, has not yet seen Ortho, will consult. 03/11 boot placed, follow up in a month Qualifiers: Qualified Codes: S82.831D - Other fracture of upper and lower end of right fibula, subsequent encounter for closed fracture with routine healing (10) Urinary tract infection Status: Acute Assessment & Plan: Culture with GNR so far, start ceftriaxone. E coli and klebsiella without significant resistance, changed to cephalexin and completing course on d/c. Qualifiers: Qualified Codes: N30.01 - Acute cystitis with hematuria (11) Unable to care for self Status: Acute Assessment & Plan: d/c to SNF Hospital Course Date of Admission: Mar 10, 2023 at 12:52 Admission Diagnosis : Family Physician/Provider: Renzo Dial MD Date of Discharge: 03/14/23 Discharge Diagnosis: See problem list Hospital Course: See problem list Labs and Pending Lab Test: Laboratory Tests 03/14/23 05:05: White Blood Count 2.7L, Red Blood Count 3.09L, Hemoglobin 11.4L, Hematocrit 34L, Mean Corpuscular Volume 111H, Mean Corpuscular Hemoglobin 37H, Mean Corpuscular Hemoglobin Concent 33, Red Cell Distribution Width 14.3, Platelet Count 52L, Mean Platelet Volume 11.2, Immature Granulocyte % (Auto) 1, Neutrophils (%) (Auto) 33L, Lymphocytes (%) (Auto) 41, Monocytes (%) (Auto) 20H, Eosinophils (%) (Auto) 5, Basophils (%) (Auto) 0, Neutrophils # (Auto) 0.9L, Lymphocytes # (Auto) 1.1, Monocytes # (Auto) 0.5, Eosinophils # (Auto) 0.1, Basophils # (Auto) 0.0, Immature Granulocyte # (Auto) 0.0, Neutrophils % (Manual) 34, Lymphocytes % (Manual) 48, Monocytes % (Manual) 11, Eosinophils % (Manual) 6, Basophils % (Manual) 1, Band Neutrophils 0, Percent Immature Platelet Fraction 7.7H, Blood Morphology Comment NORMAL, Sodium Level 137, Potassium Level 4.5, Chloride Level 103, Carbon Dioxide Level 20L, Anion Gap 14, Blood Urea Nitrogen 8, Creatinine 0.74, Estimat Glomerular Filtration Rate 97, BUN/Creatinine Ratio 11, Glucose Level 252H, Calcium Level 9.2, Corrected Calcium 9.5, Total Bilirubin 0.7, Aspartate Amino Transf (AST/SGOT) 46H, Alanine Aminotransferase (ALT/SGPT) 31, Alkaline Phosphatase 124, Total Protein 6.2L, Albumin 3.6 Microbiology 03/09/23 Urine Culture - Final, Complete Escherichia coli Klebsiella pneumoniae Home Meds Active Cephalexin 250 Mg Capsule 500 Mg PO BID Reported Voltaren Arthritis Pain (Diclofenac Sodium) 1 % Gel..gram. 1 Appful TP DAILY PRN Vitamin B-12 (Cyanocobalamin (Vitamin B-12)) 1,000 Mcg Tablet 1,000 Mcg PO DAILY Vitamin B-1 (Thiamine HCl) 100 Mg Tablet 100 Mg PO DAILY Mysoline (Primidone) 250 Mg Tablet 250 Mg PO BID Celecoxib 200 Mg Capsule 200 Mg PO DAILY Gabapentin 800 Mg Tablet 800 Mg PO QID Divalproex Sodium ER (Divalproex Sodium) 500 Mg Tab.er.24h 500 Mg PO HS Buspirone HCl 5 Mg Tablet 5 Mg PO TID Depakote (Divalproex Sodium) 250 Mg Tablet.dr 250 Mg PO BID WITH MEALS Levothyroxine Sodium 50 Mcg Tablet 50 Mcg PO DAILY Assessment/Pt DC Instructions Follow up with primary provider after d/c from SNF. Discharge Diet: No Restrictions Activity as Tolerated: Yes Discharge Physical Examination Allergies: Coded Allergies: sulfamethoxazole (Verified Allergy, Unknown, Rash, 03/07/22) trimethoprim (Verified Allergy, Unknown, Rash, 03/07/22) General Appearance: No Apparent Distress, WD/WN Respiratory: Lungs Clear, Normal Breath Sounds Cardiovascular: Regular Rate, Rhythm Skin: Warm/Dry Neurologic/Psychiatric: Alert, Normal Mood/Affect LIBERTAD LATIF MD Mar 14, 2023 10:28
[2023-03-14 11:34] VITALS: BP 128/75
[2023-03-14 16:00] VITALS: BP 128/75
== END 2023-03-14 16:00 | DRG 897 ==
LOC: EDUNIT# 15:43 → ER 15:45 → 4TH 18:14 → OBSVTOIN 03-10 12:52
PROVIDERS: ADMIT Internal Medicine; ATTEND Family Medicine
DX: F10.129 Alcohol abuse with intoxication, unspecified (principal); N39.0 Urinary tract infection, site not specified; F17.210 Nicotine dependence, cigarettes, uncomplicated; F12.90 Cannabis use, unspecified, uncomplicated; K76.0 Fatty (change of) liver, not elsewhere classified; D69.6 Thrombocytopenia, unspecified; F41.9 Anxiety disorder, unspecified; G40.909 Epilepsy, unspecified, not intractable, without status epilepticus; W19.XXXD Unspecified fall, subsequent encounter; S82.831D Other fracture of upper and lower end of right fibula, subsequent encounter for closed fracture with routine healing
CPT/HCPCS: 29515; 36415; 73590; 73610; 76705; 80053; 80074; 80306; 80320; 81000; 82947; 85007; 85025; 85027; 85610; 85730; 87077; 87088; 87186; 94760; 96365; G0378

== ENCOUNTER → 2023-04-08 | Outpatient (CLI) | payer MEDICARE, MEDICAID ==
[~2023-04-08] MED LIST changes: +CEPH250C PO; +DICL20GE TP; +PRIM250T33 PO; +THIA100T80 PO
--- NOTE | 2023-04-08 15:16 | Diagnostic Imaging Report ---
Indication: Right ankle fracture, follow-up. Time of Exam: 1:25 PM Correlation is made with prior radiographs from 03/08/2023. Healing fracture of the super syndesmotic portion of the distal right fibula is noted. There is some increase in the amount of callus formation at the fracture site. Fracture lines do remain partly visible. Overall alignment is anatomic. Distal tibia is intact. Ankle mortise is well-maintained. Talar dome is smooth. There is generalized soft tissue swelling about the ankle. IMPRESSION: Healing distal fibular fracture. Fracture line does remain partly visible. Alignment is anatomic. Dictated by: Dictated on workstation # [id number]
== END ==
LOC: ORTHO 13:05
PROVIDERS: ATTEND Orthopaedic Surgery
DX: S82.401D Unspecified fracture of shaft of right fibula, subsequent encounter for closed fracture with routine healing (principal); X58.XXXD Exposure to other specified factors, subsequent encounter
CPT/HCPCS: 73610; G0463; 99213

== ENCOUNTER 2023-04-22 19:29 | Emergency (ER) | payer MEDICARE, MEDICAID ==
[~2023-04-22] VITALS: Ht 157.5 cm; Wt 54.4 kg
[2023-04-22] MEDS ORDERED: NS IV 1000 ML 1,000 ML IV SCH (19:45)
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
--- NOTE | 2023-04-22 20:17 | Diagnostic Imaging Report ---
PROCEDURE: CT cervical spine without contrast. TECHNIQUE: Multiple contiguous axial images were obtained through the cervical spine without the use of intravenous contrast. Sagittal and coronal reformations were then performed. Auto Exposure Controls were utilized during the CT exam to meet ALARA standards for radiation dose reduction. DATE: April 22, 2023. INDICATION: 52-year-old female, neck and back pain. Fall. COMPARISON: CT abdomen and cervical spine October 11, 2022. FINDINGS: There is no identified facet joint subluxation or dislocation. There are right facet degenerative changes at C7-T1. There is no asymmetric widening of the cervical disc spaces. There is no prominent prevertebral soft tissue swelling. There are multilevel disc degenerative changes of the cervical spine with moderate to severe disc height loss at C3-C4, C4-C5, C5-C6, and C6-C7. There are multilevel posterior disc osteophyte complexes. CT is limited for assessment of disc pathology as well as additional non-bony causes of pathology in the spinal canal. There is no identified acute fracture of the cervical spine. The visualized portions of the lung apices are clear. There are carotid vascular calcifications. IMPRESSION: 1. No identified acute fracture of the cervical spine. 2. Multilevel predominantly disc degenerative changes of the cervical spine with facet degenerative changes on the right at C7-T1. Dictated by: Dictated on workstation # [id number]
--- NOTE | 2023-04-22 20:25 | Diagnostic Imaging Report ---
EXAMINATION: Right foot radiographs, 3 views. COMPARISON: None. HISTORY: 52-year-old female, fall. Right foot pain. FINDINGS: There is a fracture of the distal fibular diaphysis with periosteal reaction. There is a visible fracture line present. There is a mildly displaced fracture of the mid to distal diaphysis of the first proximal phalanx. 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 There is no identified subluxation or dislocation. There is no identified radiopaque foreign body. IMPRESSION: 1. Oblique mildly displaced fracture of the mid to distal diaphysis of the first proximal phalanx. 2. Most likely subacute fracture of the distal fibular diaphysis with adjacent periosteal reaction and well-visualized fracture line. Dictated by: Dictated on workstation # [id number]
[2023-04-22 20:27] LABS: BASOPHILS % (AUTO) 1 % (0-10); EOSINOPHILS # (AUTO) 0.1 10^3/uL (0.0-0.3); EOSINOPHILS % (AUTO) 1 % (0-10); HEMATOCRIT 38 % (35-52); HEMOGLOBIN 13.6 g/dL (11.5-16.0); LYMPHOCYTES # (AUTO) 2.2 10^3/uL (1.0-4.0); LYMPHOCYTES % (AUTO) 27 % (12-44); MEAN CORPUSCULAR HEMOGLOBIN 36 pg (25-34); MEAN CORPUSCULAR HGB CONC 36 g/dL (32-36); MEAN CORPUSCULAR VOLUME 100 fL (80-99); MONOCYTES # (AUTO) 0.9 10^3/uL (0.0-1.0); MONOCYTES % (AUTO) 12 % (0-12); NEUTROPHILS # (AUTO) 4.6 10^3/uL (1.8-7.8); NEUTROPHILS % (AUTO) 59 % (42-75); PLATELET COUNT 239 10^3/uL (130-400); WHITE BLOOD COUNT 7.9 10^3/uL (4.3-11.0)
--- NOTE | 2023-04-22 20:27 | Diagnostic Imaging Report ---
EXAMINATION: Right wrist radiographs, 3 views. COMPARISON: None. HISTORY: 52-year-old female, fall. Right wrist pain. FINDINGS: There is no identified acute fracture. There is no subluxation or dislocation. There is no radiopaque foreign body. The joint spaces are well-preserved. IMPRESSION: Unremarkable radiographs of the right wrist. Dictated by: Dictated on workstation # [id number]
--- NOTE | 2023-04-22 20:27 | Diagnostic Imaging Report ---
EXAMINATION: Right ankle radiographs, 3 views. COMPARISON: April 08, 2023. HISTORY: 52-year-old female, fall. Right ankle pain. FINDINGS: There is a mildly displaced oblique distal fibular diaphyseal fracture above the level of the tibial plafond. Overall fracture alignment is essentially unchanged since the comparison study. There is an interval increase in periosteal reaction with a well-visualized fracture line. The alignment of the ankle mortise is unremarkable. There is no tibiotalar joint effusion. IMPRESSION: 1. Oblique mildly displaced distal fibular diaphyseal fracture with partial interval healing response in the form of periosteal reaction with persistent well-visualized fracture line. 2. No new fracture or abnormal alignment of the ankle mortise. Dictated by: Dictated on workstation # [id number]
[2023-04-22 20:41] LABS: PROTHROMBIN TIME PATIENT 13.6 SEC (12.2-14.7)
[2023-04-22 20:44] LABS: ALBUMIN 4.1 GM/DL (3.2-4.5); BILIRUBIN,TOTAL 0.6 MG/DL (0.1-1.0); CALCIUM 8.9 MG/DL (8.5-10.1); CREATININE SERUM 0.68 MG/DL (0.60-1.30); POTASSIUM 4.3 MMOL/L (3.6-5.0); TOTAL PROTEIN 6.8 GM/DL (6.4-8.2)
[2023-04-22 21:13] VITALS: BP 131/84
== END 2023-04-22 21:13 | disposition home or self-care (01) ==
LOC: EDUNIT# 19:29 → ER 19:31
DX: S92.411A Displaced fracture of proximal phalanx of right great toe, initial encounter for closed fracture (principal); S82.831A Other fracture of upper and lower end of right fibula, initial encounter for closed fracture; S60.211A Contusion of right wrist, initial encounter; M54.2 Cervicalgia; F10.129 Alcohol abuse with intoxication, unspecified; F17.210 Nicotine dependence, cigarettes, uncomplicated; Y90.8 Blood alcohol level of 240 mg/100 ml or more; W06.XXXA Fall from bed, initial encounter; Y92.009 Unspecified place in unspecified non-institutional (private) residence as the place of occurrence of the external cause
CPT/HCPCS: 72125; 73110; 73610; 73630; 80053; 85025; 85610; 85730; 99284; G0480; 36415; 80320

== ENCOUNTER 2023-09-14 19:16 | Emergency (ER) | payer MEDICARE, MEDICAID ==
[~2023-09-14] VITALS: Ht 157.5 cm; Wt 55.0 kg
[~2023-09-14 19:16] MED LIST changes: -CELE-63 PO; +CELE-91 PO
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
[2023-09-14 20:08] LABS: BILIRUBIN,URINE NEGATIVE (NEGATIVE); CLARITY,URINE CLEAR; COLOR,URINE YELLOW; GLUCOSE, URINE (UA) NEGATIVE (NEGATIVE); KETONES,URINE NEGATIVE (NEGATIVE); LEUKOCYTE ESTERASE ,URINE 2+ (NEGATIVE); NITRITE,URINE NEGATIVE (NEGATIVE); PROTEIN,URINE NEGATIVE (NEGATIVE)
[2023-09-14 20:09] LABS: BACTERIA,URINE LARGE /HPF; SQUAMOUS EPITHELIAL CELL,UR 0-2 /HPF
[2023-09-14] MEDS ORDERED: CEPHALEXIN 250 MG CAPSULE PO STA (20:12)
[2023-09-14 20:19] LABS: AMPHETAMINE SCREEN, URINE NEGATIVE (NEGATIVE); BARBITURATE SCREEN URINE POSITIVE (NEGATIVE); CANNABINOID SCREEN, URINE POSITIVE (NEGATIVE); COCAINE SCREEN URINE NEGATIVE (NEGATIVE); METHADONE STAT NEGATIVE (NEGATIVE); OPIATE SCREEN URINE NEGATIVE (NEGATIVE); OXYCODONE STAT NEGATIVE (NEGATIVE); TRICYCLIC ANTIDEPRESSANTS SCRE NEGATIVE (NEGATIVE)
[2023-09-14] MEDS ORDERED: CEPH500T PO (20:23)
[2023-09-14 20:34] VITALS: BP 121/83
== END 2023-09-14 20:38 | disposition home or self-care (01) ==
LOC: EDUNIT# 19:16 → ER 19:18
DX: F12.10 Cannabis abuse, uncomplicated (principal); N39.0 Urinary tract infection, site not specified; Z88.2 Allergy status to sulfonamides
CPT/HCPCS: 80306; 81000; 87088; 99283

== ENCOUNTER 2023-09-15 12:00 | Emergency (ER) | payer MEDICARE, MEDICAID ==
[~2023-09-15] VITALS: Ht 157.4 cm; Wt 63.5 kg
[~2023-09-15 12:00] MED LIST changes: +CEPH500T PO
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
[2023-09-15 13:14] VITALS: BP 101/87
== END 2023-09-15 13:28 | disposition home or self-care (01) ==
LOC: EDUNIT# 12:00 → ER 12:02
DX: F10.129 Alcohol abuse with intoxication, unspecified (principal); F17.210 Nicotine dependence, cigarettes, uncomplicated
CPT/HCPCS: 99283